=== PATIENT | male | born 1945 | race Hispanic/Latino ===

== ENCOUNTER 2017-09-29 11:57 | Inpatient (IN) | payer MEDICARE ==
[2017-09-29 13:06] LABS: Basophils # (Auto) 0.1 K/mm3 (0.0-0.1); Basophils % (Auto) 0.4 % (0.0-1.8); Eosinophils # (Auto) 0.1 K/mm3 (0.0-0.4); Eosinophils % (Auto) 0.8 % (0.0-4.3); Hematocrit 33.5 % (35.5-45.6); Hemoglobin 11.7 gm/dl (11.8-15.2); Lymphocytes # (Auto) 0.7 K/mm3 (1.2-5.4); Mean Corpuscular HGB Conc 35 % (32-34); Mean Corpuscular Hemoglobin 31 pg (28-32); Mean Corpuscular Volume 90 fl (84-94); Monocytes # (Auto) 1.3 K/mm3 (0.0-0.8); Monocytes % (Auto) 10.8 % (0.0-7.3); Platelet Count 254 K/mm3 (140-440); Red Blood Count 3.72 M/mm3 (3.65-5.03); Red Cell Distribution Width 15.4 % (13.2-15.2)
--- NOTE | 2017-09-29 13:17 | XRay Report ---
Single view chest: History: Shortness of breath/productive cough. Findings: Film in poor inspiration. Bibasilar atelectasis. No consolidation pneumothorax or pleural effusion. Impression: Bibasilar atelectasis.
[2017-09-29 13:18] LABS: INR 0.98 (0.87-1.13)
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
[2017-09-29 13:19] LABS: Partial Thromboplastin Time 29.4 Sec. (24.2-36.6)
[2017-09-29 13:23] LABS: Calcium 9.5 mg/dL (8.4-10.2)
--- NOTE | 2017-09-29 13:35 | Cat Scan Report ---
CT scan of head without IV contrast: History: Fall, hematoma. Findings: The ventricles are normal in size and midline in location. No evidence of acute ischemia, hemorrhage or mass. No extra-axial fluid collection. Normal brainstem and cerebellum. Normal visualized sinuses and mastoid air cells Impression: No acute intracranial abnormality.
[2017-09-29 13:47] LABS: Chol/HDL Ratio 2.87 %
[2017-09-29] MEDS ORDERED: NORCO 5/325 PO ONE (14:43)
--- NOTE | 2017-09-29 15:55 | XRay Report ---
FINAL REPORT EXAM: XR WRIST 2V RT HISTORY: fall/ RIGHT WRIST PAIN TECHNIQUE: 3 views of right wrist. PRIORS: None. FINDINGS: Diffuse osteopenia and degenerative change. Mildly complex, linear lucency and cortical discontinuity in the distal ulnar metadiaphysis No significant displacement, angulation or apparent dislocation. Postsurgical change and spacer device noted in the little finger metatarsal base region. Remainder of osseous and soft tissue structures grossly unremarkable. IMPRESSION: 1. Probable nondisplaced fracture right distal ulna.
--- NOTE | 2017-09-29 16:32 | Cat Scan Report ---
FINAL REPORT EXAM: CT LUMBAR SPINE WO CON HISTORY: fall TECHNIQUE: Spiral CT scanning of the lumbar spine, with axial and multiplanar reformations. PRIORS: None. FINDINGS: Diffuse osteopenia. Mild-moderate, probable intervertebral cartilaginous or Schmorl's node endplate changes in the L1 and L2 superior endplates. Multilevel degenerative disc disease and spondylosis, including vacuum disc changes in the L1-2 level. Degenerative changes also noted in the bilateral SI joints. No acute compression deformity or gross malalignment of lumbar vertebral bodies. No acute fracture identified. No acute, osseous central spinal canal encroachment. Paraspinal soft tissues grossly unremarkable. Diffuse aortoiliac calcification without aneurysmal dilatation. IMPRESSION: 1. No acute compression deformity or apparent fracture in the lumbar spine. 2. Degenerative spondylosis.
--- NOTE | 2017-09-29 16:43 | Cat Scan Report ---
FINAL REPORT EXAM: CT THORACIC SPINE WO CON HISTORY: fall TECHNIQUE: Spiral CT scanning of the thoracic spine with multiplanar reformations. PRIORS: None. FINDINGS: Diffuse osteopenia. Mild dextroconvex curvature may be positional versus soft tissue spasm. Multilevel degenerative disc disease and spondylosis. Fractures in left posterior ribs 9-12, probably acute or subacute. Multiple old fracture deformities in the right posterosuperior ribs. No acute compression deformity or gross malalignment of thoracic vertebral bodies. No other acute fracture identified. No acute, osseous central spinal canal encroachment. Paraspinal soft tissues grossly unremarkable. Visualized lung bases show mild and patchy, partially confluent opacities bilaterally, right greater than left. Nodular density in the left adrenal gland measures approximately 1.6 cm. Gallbladder surgically absent. IMPRESSION: 1. No acute compression deformity or apparent fracture in the thoracic spine. Diffuse degenerative spondylosis. 2. Fractures in left ribs 9-12, probably acute or subacute. Correlate clinically. 3. Findings which may represent bibasilar atelectasis, mild infiltrates or postinflammatory change of uncertain etiology or chronicity. 4. Left adrenal nodule may represent adenomatous change, but is indeterminate. Followup may be warranted.
--- NOTE | 2017-09-29 16:49 | XRay Report ---
FINAL REPORT EXAM: XR KNEE BILAT 1-2V HISTORY: fall/ BILATERAL KNEE PAIN TECHNIQUE: Frontal and lateral views of right and left knees. PRIORS: None. FINDINGS: Right knee: Old fracture deformity in the right distal femoral metadiaphysis and extensive postsurgical changes, including lateral compression screw plate fixation device and cerclage wires grossly intact. Status post right total knee arthroplasty also grossly intact. No acute fracture or dislocation. Mild, diffuse anterior soft tissue edema. Left knee: Degenerative changes in all 3 joint compartments, most pronounced in the medial joint space. Probable very small, suprapatellar joint effusion. No apparent fracture or dislocation. Soft tissues grossly unremarkable. IMPRESSION: 1. No acute osseous abnormality. 2. Postsurgical changes in the right knee, and degenerative changes in the left knee.
[2017-09-29] MEDS ORDERED: DUONEB *Not for PRN Use IH ONE (18:30)
[2017-09-29] MEDS ORDERED: ROCEPHIN/NS 1 GM/50 ML 1 GM/50 ML BAG IV ONE (18:30)
[2017-09-29] MEDS ORDERED: cefTRIAXone 1 GM in NACL 0.9% 20 ML IV ONE (18:45)
[2017-09-29] MEDS ORDERED: LEVAQUIN 750MG/150ML 750 MG/150 ML BAG IV ONE (18:54)
--- NOTE | 2017-09-29 19:06 | History and Physical Report ---
History of Present Illness Chief complaint: Falling, confused History of present illness: 72 YO Male Resident at [facility] with [address] at time of admission with HTN, CVA, GA, CHF, COPD, [place] on CPAP, Seizure Disorder, Depression, PTSD, Debility, nicotine Dependence, Recurrent Falls presents to ED for evaluation. Pt is confused and unable to provide detailed history. Pt history taken from ED staff, EMS, and [facility] staff. As per staff, the patient experienced pain in his back, arm, and chest after falling from a standing position and striking a wheelchair before landing on the floor. Pt seen and evaluated in ED and found to have NSTEMI, Sepsis secondary to Pneumonia, Right wrist fracture, Posterior Rib Fractures (nondisplaced). Pt admitted to telemetry. Cardiology consulted in ED. Past History Past Medical History: acute GA, COPD, heart failure, hypertension, seizures, stroke Past Surgical History: total knee replacement Social history: single, smoking Family history: hypertension Medications and Allergies Allergies Allergy/AdvReac Type Severity Reaction Status Date / Time naproxen [From Naprosyn] Allergy Unknown Verified 09/29/17 12:35 phenobarbital Allergy Unknown Verified 09/29/17 12:35 propranolol [From Inderal LA] Allergy Unknown Verified 09/29/17 12:35 Active Meds: Active Medications Levofloxacin/Dextrose (Levaquin 750mg/150ml) 750 mg in 150 mls @ 100 mls/hr IV ONCE ONE Stop: 09/29/17 20:23 Review of Systems ROS unobtainable: due to mental status Exam - Constitutional Vitals: Temp Pulse Resp BP Pulse Ox 97.4 F L 72 17 112/60 92 09/29/17 12:26 09/29/17 17:00 09/29/17 17:00 09/29/17 17:00 09/29/17 17:00 General appearance: Present: mild distress - EENT Eyes: Present: PERRL ENT: hearing intact, clear oral mucosa - Neck Neck: Present: supple, normal ROM - Respiratory Respiratory effort: labored Respiratory: bilateral: diminished - Cardiovascular Heart Sounds: Present: S1 & S2. Absent: rub, click - Extremities Extremities: pulses symmetrical, No edema Peripheral Pulses: abnormal (capillary refill greater than 3.6 seconds) - Abdominal General gastrointestinal: Present: soft, non-tender, non-distended, normal bowel sounds Male genitourinary: Present: normal - Rectal Rectal Exam: normal exam-external/orifice - Integumentary Integumentary: Present: clear, dry, decreased turgor - Musculoskeletal Musculoskeletal: generalized weakness - Psychiatric Psychiatric: no intact judgment & insight, no memory intact - Neurologic Neurologic: no gait normal Results - Labs CBC & Chem 7: 09/29/17 12:54 09/29/17 12:54 Labs: Abnormal lab results 09/29/17 09/29/17 09/29/17 Range/Units 12:54 12:54 14:58 WBC 12.4 H (4.5-11.0) K/mm3 Hgb 11.7 L (11.8-15.2) gm/dl Hct 33.5 L (35.5-45.6) % MCHC 35 H (32-34) % RDW 15.4 H (13.2-15.2) % Lymph % (Auto) 6.0 L (13.4-35.0) % [place] % (Auto) 10.8 H (0.0-7.3) % Lymph # 0.7 L (1.2-5.4) K/mm3 [place] # 1.3 H (0.0-0.8) K/mm3 Seg Neutrophils % 82.0 H (40.0-70.0) % Seg Neutrophils # 10.1 H (1.8-7.7) K/mm3 Sodium 133 L (137-145) mmol/L Chloride 90.9 L (98-107) mmol/L BUN 70 H (9-20) mg/dL Creatinine 2.0 H (0.8-1.5) mg/dL Glucose 336 H (75-100) mg/dL Total Creatine Kinase 348 H (55-170) units/L Troponin T 0.071 H 0.073 H (0.00-0.029) ng/mL 09/29/17 Range/Units 18:11 WBC (4.5-11.0) K/mm3 Hgb (11.8-15.2) gm/dl Hct (35.5-45.6) % MCHC (32-34) % RDW (13.2-15.2) % Lymph % (Auto) (13.4-35.0) % [place] % (Auto) (0.0-7.3) % Lymph # (1.2-5.4) K/mm3 [place] # (0.0-0.8) K/mm3 Seg Neutrophils % (40.0-70.0) % Seg Neutrophils # (1.8-7.7) K/mm3 Sodium (137-145) mmol/L Chloride (98-107) mmol/L BUN (9-20) mg/dL Creatinine (0.8-1.5) mg/dL Glucose (75-100) mg/dL Total Creatine Kinase (55-170) units/L Troponin T 0.073 H (0.00-0.029) ng/mL Assessment and Plan - Patient Problems (1) Sepsis Current Visit: Yes Status: Acute Qualifiers: Sepsis type: sepsis due to unspecified organism Qualified Code(s): A41.9 - Sepsis, unspecified organism Plan to address problem: Sepsis protocol: IV antibiotics, IVF resuscitation, monitor uop q shift, serial lactic acid, chest x ray, urinalysis, (2) NSTEMI (non-ST elevated myocardial infarction) Current Visit: Yes Status: Acute Plan to address problem: Cardilogy consulted in ED, serial cardiac enzymes, ekg, telemetry, echo, therapeutic lovenox. (3) Multiple rib fractures Current Visit: Yes Status: Acute Qualifiers: Encounter type: initial encounter Plan to address problem: pain control, incentive spirometry, chest x ray,Ortho consulted in ED as per ED physician. (4) Pneumonia Current Visit: Yes Status: Acute Qualifiers: Laterality: right Lung location: lower lobe of lung Plan to address problem: IV antibiotics, chest x ray, supplemental oxygen, incentive spirometry, (5) ARF (acute renal failure) Current Visit: Yes Status: Acute Qualifiers: Acute renal failure type: with acute tubular necrosis Qualified Code(s): N17.0 - Acute kidney failure with tubular necrosis Plan to address problem: IVF resuscitation, monitor uop q shift, monitor serum creatnine (6) CHF (congestive heart failure) Current Visit: Yes Status: Acute Qualifiers: Heart failure type: diastolic Heart failure chronicity: acute on chronic Qualified Code(s): I50.33 - Acute on chronic diastolic (congestive) heart failure Plan to address problem: Afterload reduction, monitor bp q shift, strict I/O, monitor fluid balance, diuresis as needed, pulse oximetry (7) Wrist fracture, right Current Visit: Yes Status: Acute Qualifiers: Encounter type: initial encounter Plan to address problem: Pain control, ortho consulted per ED physician. (8) Depression Current Visit: Yes Status: Acute Qualifiers: Depression Type: major depressive disorder Psychotic features: with psychotic features Plan to address problem: [address], psych consulted in ED, 1013, 1:1 Sitter as per protocol (9) DVT prophylaxis Current Visit: Yes Status: Acute Plan to address problem: scd to ble
[2017-09-29] MEDS ORDERED: NACL 0.9% 1000 ML IV ONE (19:50)
[2017-09-29] MEDS ORDERED: SODIUM CHLORIDE FLUSH SYRINGE 10 ML IV PRN ×2 (19:59→20:16)
[2017-09-29] MEDS ORDERED: ZOFRAN IV PRN (20:16)
[2017-09-29] MEDS ORDERED: TYLENOL PO PRN (20:16)
[2017-09-29] MEDS ORDERED: LOVENOX SUB-Q SCH (22:00)
[2017-09-29] MEDS: SODIUM CHLORIDE FLUSH SYRINGE 10 ML IV SCH (22:21)
[2017-09-29] MEDS ORDERED: HumuLIN R ONE (22:26)
[2017-09-29] MEDS: ZITHROMAX 500 MG in NACL 0.9% 250ML 250 ML IV SCH (22:34)
[2017-09-29] MEDS: HumuLIN R SUB-Q SCH (22:35)
--- NOTE | 2017-09-30 09:30 | Progress Note ---
Assessment and Plan Assessment and Plan - Patient Problems (1) Sepsis Current Visit: Yes Status: Acute Qualifiers: Sepsis type: sepsis due to unspecified organism Qualified Code(s): A41.9 - Sepsis, unspecified organism Plan to address problem: Sepsis protocol: IV antibiotics, IVF resuscitation, monitor uop q shift, serial lactic acid, chest x ray, urinalysis, (2) NSTEMI (non-ST elevated myocardial infarction) Current Visit: Yes Status: Acute Plan to address problem: Cardilogy consulted in ED, serial cardiac enzymes, ekg, telemetry, echo, therapeutic lovenox. (3) Multiple rib fractures Current Visit: Yes Status: Acute Qualifiers: Encounter type: initial encounter Plan to address problem: pain control, incentive spirometry, chest x ray,Ortho consulted in ED as per ED physician. (4) Pneumonia Current Visit: Yes Status: Acute Qualifiers: Laterality: right Lung location: lower lobe of lung Plan to address problem: IV antibiotics, chest x ray, supplemental oxygen, incentive spirometry, (5) ARF (acute renal failure) Current Visit: Yes Status: Acute Qualifiers: Acute renal failure type: with acute tubular necrosis Qualified Code(s): N17.0 - Acute kidney failure with tubular necrosis Plan to address problem: IVF resuscitation, monitor uop q shift, monitor serum creatnine (6) CHF (congestive heart failure) Current Visit: Yes Status: Acute Qualifiers: Heart failure type: diastolic Heart failure chronicity: acute on chronic Qualified Code(s): I50.33 - Acute on chronic diastolic (congestive) heart failure Plan to address problem: Afterload reduction, monitor bp q shift, strict I/O, monitor fluid balance, diuresis as needed, pulse oximetry (7) Wrist fracture, right Current Visit: Yes Status: Acute Qualifiers: Encounter type: initial encounter Plan to address problem: Pain control, ortho consulted per ED physician. (8) Depression Current Visit: Yes Status: Acute Qualifiers: Depression Type: major depressive disorder Psychotic features: with psychotic features Plan to address problem: [address]3 in place, psych consulted in ED, 1013, 1:1 Sitter as per protocol (9) DVT prophylaxis Current Visit: Yes Status: Acute Plan to address problem: scd to ble Subjective Date of service: 09/30/17 Principal diagnosis: Sepsis Interval history: Doing better Objective - Constitutional Vitals: Vital Signs - 12hr 09/29/17 09/29/17 09/29/17 22:00 23:44 23:45 Temperature 98.6 F Pulse Rate 83 91 H Respiratory 16 20 Rate Blood Pressure 136/94 131/56 Blood Pressure [Left] O2 Sat by Pulse 93 90 Oximetry 09/30/17 09/30/17 09/30/17 00:00 01:00 04:00 Temperature 98.2 F Pulse Rate 76 99 H Respiratory 20 Rate Blood Pressure 124/57 Blood Pressure [Left] O2 Sat by Pulse 98 91 Oximetry 09/30/17 09/30/17 04:01 07:43 Temperature 98.1 F Pulse Rate 100 H 97 H Respiratory 20 Rate Blood Pressure Blood Pressure 127/69 [Left] O2 Sat by Pulse 92 92 Oximetry General appearance: Present: no acute distress, well-nourished - EENT Eyes: PERRL, EOM intact ENT: hearing intact, clear oral mucosa Ears: bilateral: normal - Neck Neck: supple, normal ROM - Respiratory Respiratory effort: normal Respiratory: bilateral: CTA - Breasts Breasts: normal - Cardiovascular Rhythm: regular Heart Sounds: Present: S1 & S2. Absent: gallop, rub Extremities: pulses intact, No edema, normal color, Full ROM - Gastrointestinal General gastrointestinal: Present: soft, non-tender, non-distended, normal bowel sounds - Genitourinary Male genitourinary: normal - Integumentary Integumentary: clear, warm, dry - Musculoskeletal Musculoskeletal: 1, strength equal bilaterally - Neurologic Neurologic: moves all extremities - Psychiatric Psychiatric: memory intact, appropriate mood/affect, intact judgment & insight - Labs CBC & Chem 7: 09/29/17 12:54 09/29/17 12:54 Labs: Abnormal lab results 09/29/17 09/29/17 09/29/17 Range/Units 12:54 12:54 14:58 WBC 12.4 H (4.5-11.0) K/mm3 Hgb 11.7 L (11.8-15.2) gm/dl Hct 33.5 L (35.5-45.6) % MCHC 35 H (32-34) % RDW 15.4 H (13.2-15.2) % Lymph % (Auto) 6.0 L (13.4-35.0) % [place] % (Auto) 10.8 H (0.0-7.3) % Lymph # 0.7 L (1.2-5.4) K/mm3 [place] # 1.3 H (0.0-0.8) K/mm3 Seg Neutrophils % 82.0 H (40.0-70.0) % Seg Neutrophils # 10.1 H (1.8-7.7) K/mm3 D-Dimer (0-234) ng/mlDDU Sodium 133 L (137-145) mmol/L Chloride 90.9 L (98-107) mmol/L BUN 70 H (9-20) mg/dL Creatinine 2.0 H (0.8-1.5) mg/dL Glucose 336 H (75-100) mg/dL POC Glucose (70-105) Total Creatine Kinase 348 H (55-170) units/L Troponin T 0.071 H 0.073 H (0.00-0.029) ng/mL 09/29/17 09/29/17 09/29/17 Range/Units 18:11 18:37 19:19 WBC (4.5-11.0) K/mm3 Hgb (11.8-15.2) gm/dl Hct (35.5-45.6) % MCHC (32-34) % RDW (13.2-15.2) % Lymph % (Auto) (13.4-35.0) % [place] % (Auto) (0.0-7.3) % Lymph # (1.2-5.4) K/mm3 [place] # (0.0-0.8) K/mm3 Seg Neutrophils % (40.0-70.0) % Seg Neutrophils # (1.8-7.7) K/mm3 D-Dimer 2801.11 H (0-234) ng/mlDDU Sodium (137-145) mmol/L Chloride (98-107) mmol/L BUN (9-20) mg/dL Creatinine (0.8-1.5) mg/dL Glucose (75-100) mg/dL POC Glucose (70-105) Total Creatine Kinase (55-170) units/L Troponin T 0.073 H 0.074 H (0.00-0.029) ng/mL 05/20/18 05/20/18 05/21/18 Range/Units 22:22 23:00 02:38 WBC (4.5-11.0) K/mm3 Hgb (11.8-15.2) gm/dl Hct (35.5-45.6) % MCHC (32-34) % RDW (13.2-15.2) % Lymph % (Auto) (13.4-35.0) % [place] % (Auto) (0.0-7.3) % Lymph # (1.2-5.4) K/mm3 [place] # (0.0-0.8) K/mm3 Seg Neutrophils % (40.0-70.0) % Seg Neutrophils # (1.8-7.7) K/mm3 D-Dimer (0-234) ng/mlDDU Sodium (137-145) mmol/L Chloride (98-107) mmol/L BUN (9-20) mg/dL Creatinine (0.8-1.5) mg/dL Glucose (75-100) mg/dL POC Glucose 389 H (70-105) Total Creatine Kinase (55-170) units/L Troponin T 0.058 H D 0.064 H (0.00-0.029) ng/mL
[2017-09-30] MEDS ORDERED: ROCEPHIN/NS 2 GM/100 ML 2 GM/100 ML BAG IV SCH (10:00)
[2017-09-30] MEDS: HumuLIN R SUB-Q SCH ×4 (12:06→21:33)
[2017-09-30] MEDS: LOVENOX SUB-Q SCH ×2 (12:34→21:12)
[2017-09-30] MEDS: SODIUM CHLORIDE FLUSH SYRINGE 10 ML IV SCH ×2 (12:35→21:13)
--- NOTE | 2017-09-30 13:37 | Consultation ---
History of Present Illness Consult date: 09/30/17 Consult reason: abnormal cardiac enzymes, other (status post fall at home) History of present illness: The patient is a 72-year-old man with severe psychiatric problems, currently hospitalized at [facility] [place]. He was apparently brought to the emergency room following a fall out of his wheelchair, resulting in multiple bruises on his upper arms, chest and face. On my evaluation, the patient appears poorly communicative, with very poor cognitive functioning, to complete any symptoms. In the emergency room, for unclear reasons cardiac enzymes were measured and resulted in very mild isolated rising troponin levels, prompting a cardiac consultation. Serial EKGs show sinus rhythm with no ischemic changes. Patient is unable to provide a history of any prior cardiac conditions or prior cardiac workup. Documentation of cardiac status in the chart does not provide any specific details of prior cardiac diagnostic workup. Past History Past Medical History: COPD, hypertension, seizures, stroke Past Surgical History: total knee replacement Social history: single, smoking Family history: hypertension Medications and Allergies Allergies Allergy/AdvReac Type Severity Reaction Status Date / Time naproxen [From Naprosyn] Allergy Unknown Verified 09/29/17 12:35 phenobarbital Allergy Unknown Verified 09/29/17 12:35 propranolol [From Inderal LA] Allergy Unknown Verified 09/29/17 12:35 Home Medications Medication Instructions Recorded Confirmed Last Taken Type No Known Home Medications [No 09/30/17 09/30/17 Unknown History Reported Home Medications] Active Meds: Active Medications Acetaminophen (Tylenol) 650 mg PO Q4H PRN PRN Reason: Pain MILD(1-3)/Fever >100.5/RUIZ Enoxaparin Sodium (Lovenox) 120 mg 1 mg/kg (120 mg) SUB-Q Q12HR [facility] Last Admin: 09/30/17 12:34 Dose: 120 mg Azithromycin 500 mg/ Sodium (Chloride) 250 mls @ 250 mls/hr IV Q24H [facility] Last Admin: 09/29/17 22:34 Dose: 250 mls/hr Ceftriaxone Sodium 2 gm/ (Sodium Chloride) 20 mls @ 2 mls/min IV Q24H [facility] Insulin Human Regular (Humulin R) 0 units SUB-Q ACHS [facility]; Protocol Last Admin: 09/30/17 12:33 Dose: 10 units Ondansetron HCl (Zofran) 4 mg IV Q8H PRN PRN Reason: Nausea And Vomiting Sodium Chloride (Sodium Chloride Flush Syringe 10 Ml) 10 ml IV PRN PRN PRN Reason: LINE FLUSH Sodium Chloride (Sodium Chloride Flush Syringe 10 Ml) 10 ml IV BID [facility] Last Admin: 09/30/17 12:35 Dose: Not Given Sodium Chloride (Sodium Chloride Flush Syringe 10 Ml) 10 ml IV PRN PRN PRN Reason: LINE FLUSH Physical Examination Vital Signs Pulse Ox 100 09/29/17 12:11 General appearance: other (patient is awake in no acute distress) HEENT: Positive: PERRL Neck: Positive: neck supple Cardiac: Positive: Reg Rate and Rhythm Lungs: Positive: Decreased Breath Sounds Neuro: Positive: Weakness, Other (awake but disoriented to time, place and person) Abdomen: Positive: Soft Male genitourinary: Positive: deferred Skin: Positive: Clear Extremities: Absent: edema Results 10/01/17 06:16 10/01/17 06:16 Lipids 09/29/17 Range/Units 12:54 Triglycerides 134 (2-149) mg/dL Cholesterol 118 (50-199) mg/dL HDL Cholesterol 41 (40-59) mg/dL Cholesterol/HDL Ratio 2.87 % EKG interpretations - Telemetry EKG Rhythm: Sinus Rhythm Assessment and Plan - Patient Problems (1) Elevated troponin Current Visit: Yes Status: Acute Plan to address problem: This is a nonspecific finding in this clinical setting, in the absence of specific cardiac complaints or ECG abnormalities, no cardiac ischemic workup is warranted. An echocardiogram will be done for left ventricular function assessment.
[2017-09-30] MEDS ORDERED: HumuLIN R SUB-Q ONE (17:32)
[2017-09-30] MEDS: ZITHROMAX 500 MG in NACL 0.9% 250ML 250 ML IV SCH (21:13)
[2017-09-30] MEDS: cefTRIAXone 2 GM in NACL 0.9% 20 ML IV SCH (21:26)
--- NOTE | 2017-09-30 21:50 | Consultation ---
History of Present Illness - [facility] Consult date: 09/30/17 Consult reason: fracture History of present illness: 72 y/o male with nondisplaced right distal ulna fracture, hx of psychosis patient unable to recall incident leading up to fracture... Past History Past Medical History: acute [place], COPD, heart failure, hypertension, seizures, stroke Past Surgical History: total knee replacement Social history: single, smoking Family history: hypertension Medications and Allergies Allergies Allergy/AdvReac Type Severity Reaction Status Date / Time naproxen [From Naprosyn] Allergy Unknown Verified 09/29/17 12:35 phenobarbital Allergy Unknown Verified 09/29/17 12:35 propranolol [From Inderal LA] Allergy Unknown Verified 09/29/17 12:35 Home Medications Medication Instructions Recorded Confirmed Last Taken Type No Known Home Medications [No 09/30/17 09/30/17 Unknown History Reported Home Medications] Active Meds: Active Medications Acetaminophen (Tylenol) 650 mg PO Q4H PRN PRN Reason: Pain MILD(1-3)/Fever >100.5/RUIZ Enoxaparin Sodium (Lovenox) 120 mg 1 mg/kg (120 mg) SUB-Q Q12HR [facility] Last Admin: 09/30/17 21:12 Dose: 120 mg Azithromycin 500 mg/ Sodium (Chloride) 250 mls @ 250 mls/hr IV Q24H [facility] Last Admin: 09/30/17 21:13 Dose: 250 mls/hr Ceftriaxone Sodium 2 gm/ (Sodium Chloride) 20 mls @ 2 mls/min IV Q24H [facility] Last Admin: 09/30/17 21:26 Dose: 2 mls/min Insulin Human Regular (Humulin R) 0 units SUB-Q ACHS [facility]; Protocol Last Admin: 09/30/17 21:33 Dose: 8 units Ondansetron HCl (Zofran) 4 mg IV Q8H PRN PRN Reason: Nausea And Vomiting Sodium Chloride (Sodium Chloride Flush Syringe 10 Ml) 10 ml IV PRN PRN PRN Reason: LINE FLUSH Sodium Chloride (Sodium Chloride Flush Syringe 10 Ml) 10 ml IV BID [facility] Last Admin: 09/30/17 21:13 Dose: 10 ml Sodium Chloride (Sodium Chloride Flush Syringe 10 Ml) 10 ml IV PRN PRN PRN Reason: LINE FLUSH Physical Examination - Physical exam Narrative exam: right wrist/forearm - mild swelling, no obvious deformity, tender at distal third ulna, good capillary refill... Assessment and Plan Nondisplaced distal ulnar fracture recommend conservative treatment with wrist brace and early ROM
[2017-10-01 06:42] LABS: Hematocrit 34.3 % (35.5-45.6); Hemoglobin 11.8 gm/dl (11.8-15.2); Mean Corpuscular HGB Conc 34 % (32-34); Mean Corpuscular Hemoglobin 31 pg (28-32); Mean Corpuscular Volume 92 fl (84-94); Platelet Count 339 K/mm3 (140-440); Red Blood Count 3.74 M/mm3 (3.65-5.03); Red Cell Distribution Width 15.2 % (13.2-15.2)
[2017-10-01 06:52] LABS: INR 1.04 (0.87-1.13)
[2017-10-01 06:53] LABS: Partial Thromboplastin Time 35.4 Sec. (24.2-36.6)
[2017-10-01 07:05] LABS: Albumin 3.4 g/dL (3.9-5); Calcium 8.9 mg/dL (8.4-10.2)
[2017-10-01 08:32] LABS: Band Neutrophils # (Manual) 0.1 K/mm3; Basophils % (Manual) 0 % (0.0-1.8); Total Cells Counted 100
[2017-10-01 08:33] LABS: Acanthocytes 1+; Anisocytosis 1+; Burr Cells Few; Ovalocytes 1+; Tear Drop Cells Rare
[2017-10-01] MEDS: HumuLIN R SUB-Q SCH ×3 (08:39→16:39)
[2017-10-01] MEDS: LOVENOX SUB-Q SCH (10:29)
--- NOTE | 2017-10-01 11:41 | Consultation ---
History of Present Illness - Reason for Consult Consult date: 10/01/17 Reason for consult: [facility] Evaluation Requesting physician: JIMENA GUTIÉRREZ - Chief Complaint Chief complaint: "AMS" - History of Present Psychiatric Illness 72 y.o. white male presenting to [facility] from [facility] for HTN, CVA, VA, CHF , COPD, and recurring falls. Psychiatry was consulted to see patient for medication management. Today the patient is confused during the assessment. His answers to question were not logical. He stated that he was located in [place], [place]. This patient isn't a good historian at this time. Medications and Allergies Allergies Allergy/AdvReac Type Severity Reaction Status Date / Time naproxen [From Naprosyn] Allergy Unknown Verified 09/29/17 12:35 phenobarbital Allergy Unknown Verified 09/29/17 12:35 propranolol [From Inderal LA] Allergy Unknown Verified 09/29/17 12:35 Home Medications Medication Instructions Recorded Confirmed Last Taken Type No Known Home Medications [No 09/30/17 09/30/17 Unknown History Reported Home Medications] Active Meds: Active Medications Acetaminophen (Tylenol) 650 mg PO Q4H PRN PRN Reason: Pain MILD(1-3)/Fever >100.5/RUIZ Enoxaparin Sodium (Lovenox) 120 mg 1 mg/kg (120 mg) SUB-Q Q12HR [facility] Last Admin: 09/30/17 21:12 Dose: 120 mg Azithromycin 500 mg/ Sodium (Chloride) 250 mls @ 250 mls/hr IV Q24H [facility] Last Admin: 09/30/17 21:13 Dose: 250 mls/hr Ceftriaxone Sodium 2 gm/ (Sodium Chloride) 20 mls @ 2 mls/min IV Q24H [facility] Last Admin: 09/30/17 21:26 Dose: 2 mls/min Insulin Human Regular (Humulin R) 0 units SUB-Q ACHS [facility]; Protocol Last Admin: 10/01/17 08:39 Dose: 10 units Ondansetron HCl (Zofran) 4 mg IV Q8H PRN PRN Reason: Nausea And Vomiting Sodium Chloride (Sodium Chloride Flush Syringe 10 Ml) 10 ml IV PRN PRN PRN Reason: LINE FLUSH Sodium Chloride (Sodium Chloride Flush Syringe 10 Ml) 10 ml IV BID [facility] BY [facility] Last Admin: 09/30/17 21:13 Dose: 10 ml Sodium Chloride (Sodium Chloride Flush Syringe 10 Ml) 10 ml IV PRN PRN PRN Reason: LINE FLUSH Past psychiatric history - Past Medical History Past Medical History: other (Unable to obtain) Past Surgical History: Other (Unable to obtain) - past Psychiatric treatment and history psychiatric treatment history: Inpatient at [facility] prior to his admission to [facility]. Unable to obtain a fam psy hx. - Social History Social history: other (Unable to obtain) Mental Status Exam - Vital signs Last Vital Signs Temp 98.6 F 10/01/17 08:23 Pulse 114 H 10/01/17 08:23 Resp 22 10/01/17 08:23 BP 106/67 10/01/17 08:23 Pulse Ox 96 10/01/17 09:11 - Exam Narrative exam: The MSE was not completed because of patient's condition. Results Result Diagrams: 10/01/17 06:16 10/01/17 06:16 Abnormal lab results 09/30/17 09/30/17 09/30/17 Range/Units 12:07 16:24 21:25 WBC (4.5-11.0) K/mm3 Hct (35.5-45.6) % Seg Neuts % (Manual) (40.0-70.0) % Lymphocytes % (Manual) (13.4-35.0) % Seg Neutrophils # Man (1.8-7.7) K/mm3 Lymphocytes # (Manual) (1.2-5.4) K/mm3 Potassium (3.6-5.0) mmol/L Chloride (98-107) mmol/L BUN (9-20) mg/dL Glucose (75-100) mg/dL POC Glucose 387 H 431 H 326 H (70-105) Total Protein (6.3-8.2) g/dL Albumin (3.9-5) g/dL 10/01/17 10/01/17 10/01/17 Range/Units 06:16 06:16 06:30 WBC 14.0 H (4.5-11.0) K/mm3 Hct 34.3 L (35.5-45.6) % Seg Neuts % (Manual) 87.0 H (40.0-70.0) % Lymphocytes % (Manual) 7.0 L (13.4-35.0) % Seg Neutrophils # Man 12.2 H (1.8-7.7) K/mm3 Lymphocytes # (Manual) 1.0 L (1.2-5.4) K/mm3 Potassium 3.4 L (3.6-5.0) mmol/L Chloride 94.7 L (98-107) mmol/L BUN 62 H (9-20) mg/dL Glucose 432 H (75-100) mg/dL POC Glucose 419 H (70-105) Total Protein 6.0 L (6.3-8.2) g/dL Albumin 3.4 L (3.9-5) g/dL All other labs normal. Assessment and Plan Assessment and plan: Impression: Delirium. Today the patient is confused during the assessment. Troponin elevated. WBC 14. BUN 62. Medical: Sepsis Recommendation/Plan: Will reassess patient in 24 hours. Recommend Delirium precautions below: 1. Frequently reorient patient and involve him/her in their care (simple explanations of procedures, tests, medications). 2. Lights on and shades open during daytime hours. 3. Write date and goals of care in a visible place. 4. Try to avoid unnecessary interruptions to sleep during nighttime hours. 5. Obtain glasses, hearing aids from home if patient uses these at baseline. 6. Avoid medications that may exacerbate delirium (especially narcotics, benzodiazepines, barbiturates, ambien, lunesta, and medications with excessive anticholinergic properties).
--- NOTE | 2017-10-01 12:35 | Progress Note ---
Assessment and Plan s/p Fall Multiple Left rib fractures Nondisplaced distal ulnar fracture Alteration of mental status Nonspecific elevated troponins Normal LVEF 60-65% by echocardiogram. Subjective Date of service: 10/01/17 Principal diagnosis: Sepsis Interval history: Patient is alert with confusion. Objective Vital Signs Temp Pulse Resp BP BP Pulse Ox 10/01/17 11:17 98.6 F 115 H 20 144/74 94 10/01/17 09:11 96 10/01/17 08:23 98.6 F 114 H 22 106/67 95 10/01/17 04:51 98.2 F 84 18 149/83 98 10/01/17 00:14 98.9 F 92 H 18 149/83 92 10/01/17 00:00 95 H 09/30/17 22:00 97 09/30/17 19:50 97.7 F 95 H 18 154/106 94 09/30/17 19:17 93 H 154/106 95 09/30/17 16:00 98.2 F 96 H 22 149/62 93 09/30/17 14:53 96 - Physical Examination General: No Apparent Distress Cardiac: Positive: Reg Rate and Rhythm Skin: Positive: Bruising - Labs and Meds Cardiac Enzymes 10/01/17 Range/Units 06:16 AST 15 (5-40) units/L Coagulation 10/01/17 Range/Units 06:31 PT 14.1 (12.2-14.9) Sec. INR 1.04 (0.87-1.13) APTT 35.4 (24.2-36.6) Sec. CBC 10/01/17 Range/Units 06:16 WBC 14.0 H (4.5-11.0) K/mm3 RBC 3.74 (3.65-5.03) M/mm3 Hgb 11.8 (11.8-15.2) gm/dl Hct 34.3 L (35.5-45.6) % Plt Count 339 (140-440) K/mm3 Comprehensive Metabolic Panel 10/01/17 Range/Units 06:16 Sodium 142 D (137-145) mmol/L Potassium 3.4 L (3.6-5.0) mmol/L Chloride 94.7 L (98-107) mmol/L Carbon Dioxide 27 (22-30) mmol/L BUN 62 H (9-20) mg/dL Creatinine 1.4 (0.8-1.5) mg/dL Glucose 432 H (75-100) mg/dL Calcium 8.9 (8.4-10.2) mg/dL AST 15 (5-40) units/L ALT 14 (7-56) units/L Alkaline Phosphatase 86 (35-129) units/L Total Protein 6.0 L (6.3-8.2) g/dL Albumin 3.4 L (3.9-5) g/dL
[2017-10-01] MEDS ORDERED: D50W (25GM) Syringe IV PRN (16:44)
[2017-10-01] MEDS: ZITHROMAX PO SCH (16:46)
--- NOTE | 2017-10-01 16:51 | Progress Note ---
Assessment and Plan Assessment and plan: Patient is a 72 yo man who is a resident at [facility] under 1013 with h/o HTN, CVA, CT, CHF, COPD, CAMILLE on CPAP, Seizure Disorder, Depression, PTSD, Debility, nicotine Dependence, Recurrent Falls presents to ED for confusion and falling, * pCXR Impression: Bibasilar atelectasis. * CT lumbar spine wo IMPRESSION: 1. No acute compression deformity or apparent fracture in the lumbar spine. 2. Degenerative spondylosis. * XRay bilateral knee IMPRESSION: 1. No acute osseous abnormality. 2. Postsurgical changes in the right knee, and degenerative changes in the left knee. * Xray 3v right wrist IMPRESSION: 1. Probable nondisplaced fracture right distal ulna. * CT head Impression: No acute intracranial abnormality. * CT thoracic spine wo IMPRESSION: 1. No acute compression deformity or apparent fracture in the thoracic spine. Diffuse degenerative spondylosis. 2. Fractures in left ribs 9-12, probably acute or subacute. Correlate clinically. 3. Findings which may represent bibasilar atelectasis, mild infiltrates or postinflammatory change of uncertain etiology or chronicity. 4. Left adrenal nodule may represent adenomatous change, but is indeterminate. Followup may be warranted. -SIRS, no sepsis without source, ua not collected: Sepsis protocol: IV antibiotics, IVF resuscitation, monitor uop q shift, serial lactic acid, chest x ray, urinalysis, -no NSTEMI (non-ST elevated myocardial infarction) but non specificed elevation of troponin per Cardiology -s/p Fall with Multiple rib fractures/right wrist fracture: Conservative measures per Ortho -No pneumonia mention on CXR: -ARF (acute renal failure), vasomotor nephropathy poa: ivf once peripheral INT is re-established -Acute encephalopathy: treat the above issues -no CHF (congestive heart failure) mentioned per Cardiology, normal proBnp and cxr -Depression: [address], psych consulted in ED, 1013, 1:1 Sitter as per protocol -DVT prophylaxis: scd to ble, deep bruising and diffuse ecchymosis so hold vte due to fall risk Restraint renewed Normal LVEF 60-65% by echocardiogram. ortho, Dr. Lal==>Nondisplaced distal ulnar fracture, recommend conservative treatment with wrist brace and early ROM History Interval history: Patient was seen and examined. Follow-up on current diagnosis. Overnight uneventful. Patient is confused. Imaging, nursing note, chart, labs and old chart reviewed. Hospitalist Physical - Physical exam Narrative exam: GEN: unkempt, confused, HEENT: NCAT, EOMI, PERRL, OP Clear NECK: supple, no adenopathy, no thyromegaly, no JVD CVS/HEART: RRR, normal S1S2, pulses present bilaterally CHEST/LUNGS: CTA B, Symmetrical chest expansion, good air entry bilaterally GI/Abdomen: soft, NTND, good bowel sounds, no guarding or rebound /Bladder: no suprapubic tenderness, no CVA or paraspinal tenderness EXT/Skin: black and blue all over, especially left upper bicep area with deformity MSK: FROM x 4 Neuro: CN 2-12 grossly intact, doesn't follow command Psych: agitated, ripped his iv line - Constitutional Vitals: Temp Pulse Resp BP Pulse Ox 98.6 F 115 H 20 144/74 94 10/01/17 11:17 10/01/17 11:17 10/01/17 11:17 10/01/17 11:17 10/01/17 11:17 General appearance: Present: no acute distress, well-nourished Results - Labs CBC & Chem 7: 10/01/17 06:16 10/01/17 06:16 Labs: Laboratory Last Values WBC 14.0 K/mm3 (4.5-11.0) H 10/01/17 06:16 RBC 3.74 M/mm3 (3.65-5.03) 10/01/17 06:16 Hgb 11.8 gm/dl (11.8-15.2) 10/01/17 06:16 Hct 34.3 % (35.5-45.6) L 10/01/17 06:16 MCV 92 fl (84-94) 10/01/17 06:16 MCH 31 pg (28-32) 10/01/17 06:16 MCHC 34 % (32-34) 10/01/17 06:16 RDW 15.2 % (13.2-15.2) 10/01/17 06:16 Plt Count 339 K/mm3 (140-440) 10/01/17 06:16 Lymph % (Auto) 6.0 % (13.4-35.0) L 09/29/17 12:54 [place] % (Auto) 10.8 % (0.0-7.3) H 09/29/17 12:54 Eos % (Auto) 0.8 % (0.0-4.3) 09/29/17 12:54 Baso % (Auto) 0.4 % (0.0-1.8) 09/29/17 12:54 Lymph # 0.7 K/mm3 (1.2-5.4) L 09/29/17 12:54 [place] # 1.3 K/mm3 (0.0-0.8) H 09/29/17 12:54 Eos # 0.1 K/mm3 (0.0-0.4) 09/29/17 12:54 Baso # 0.1 K/mm3 (0.0-0.1) 09/29/17 12:54 Add Manual Diff Complete 10/01/17 06:16 Total Counted 100 10/01/17 06:16 Seg Neutrophils % 82.0 % (40.0-70.0) H 09/29/17 12:54 Seg Neuts % (Manual) 87.0 % (40.0-70.0) H 10/01/17 06:16 Band Neutrophils % 1.0 % 10/01/17 06:16 Lymphocytes % (Manual) 7.0 % (13.4-35.0) L 10/01/17 06:16 Reactive Lymphs % (Man) 0 % 10/01/17 06:16 Monocytes % (Manual) 3.0 % (0.0-7.3) 10/01/17 06:16 Eosinophils % (Manual) 1.0 % (0.0-4.3) 10/01/17 06:16 Basophils % (Manual) 0 % (0.0-1.8) 10/01/17 06:16 Metamyelocytes % 1.0 % 10/01/17 06:16 Myelocytes % 0 % 10/01/17 06:16 Promyelocytes % 0 % 10/01/17 06:16 Blast Cells % 0 % 10/01/17 06:16 Nucleated RBC % Not Reportable 10/01/17 06:16 Seg Neutrophils # 10.1 K/mm3 (1.8-7.7) H 09/29/17 12:54 Seg Neutrophils # Man 12.2 K/mm3 (1.8-7.7) H 10/01/17 06:16 Band Neutrophils # 0.1 K/mm3 10/01/17 06:16 Lymphocytes # (Manual) 1.0 K/mm3 (1.2-5.4) L 10/01/17 06:16 Abs React Lymphs (Man) 0.0 K/mm3 10/01/17 06:16 Monocytes # (Manual) 0.4 K/mm3 (0.0-0.8) 10/01/17 06:16 Eosinophils # (Manual) 0.1 K/mm3 (0.0-0.4) 10/01/17 06:16 Basophils # (Manual) 0.0 K/mm3 (0.0-0.1) 10/01/17 06:16 Metamyelocytes # 0.1 K/mm3 10/01/17 06:16 Myelocytes # 0.0 K/mm3 10/01/17 06:16 Promyelocytes # 0.0 K/mm3 10/01/17 06:16 Blast Cells # 0.0 K/mm3 10/01/17 06:16 WBC Morphology Not Reportable 10/01/17 06:16 Hypersegmented Neuts Not Reportable 10/01/17 06:16 Hyposegmented Neuts Not Reportable 10/01/17 06:16 Hypogranular Neuts Not Reportable 10/01/17 06:16 Smudge Cells Not Reportable 10/01/17 06:16 Toxic Granulation Not Reportable 10/01/17 06:16 Toxic Vacuolation Not Reportable 10/01/17 06:16 Dohle Bodies Not Reportable 10/01/17 06:16 Pelger-Huet Anomaly Not Reportable 10/01/17 06:16 Albertina Rods Not Reportable 10/01/17 06:16 Platelet Estimate Appears normal 10/01/17 06:16 Clumped Platelets Not Reportable 10/01/17 06:16 Plt Clumps, EDTA Not Reportable 10/01/17 06:16 Large Platelets Not Reportable 10/01/17 06:16 Giant Platelets Not Reportable 10/01/17 06:16 Platelet Satelliting Not Reportable 10/01/17 06:16 Plt Morphology Comment Not Reportable 10/01/17 06:16 RBC Morphology Not Reportable 10/01/17 06:16 Dimorphic RBCs Not Reportable 10/01/17 06:16 Polychromasia Not Reportable 10/01/17 06:16 Hypochromasia Not Reportable 10/01/17 06:16 Poikilocytosis Not Reportable 10/01/17 06:16 Anisocytosis 1+ 10/01/17 06:16 Microcytosis Not Reportable 10/01/17 06:16 Macrocytosis Not Reportable 10/01/17 06:16 Spherocytes Not Reportable 10/01/17 06:16 Pappenheimer Bodies Not Reportable 10/01/17 06:16 Sickle Cells Not Reportable 10/01/17 06:16 Target Cells Not Reportable 10/01/17 06:16 Tear Drop Cells Rare 10/01/17 06:16 Ovalocytes 1+ 10/01/17 06:16 Helmet Cells Not Reportable 10/01/17 06:16 Garcia-[place] Bodies Not Reportable 10/01/17 06:16 [place] Rings Not Reportable 10/01/17 06:16 [place] Cells Few 10/01/17 06:16 Bite Cells Not Reportable 10/01/17 06:16 Crenated Cell Not Reportable 10/01/17 06:16 Elliptocytes Rare 10/01/17 06:16 Acanthocytes (Spur) 1+ 10/01/17 06:16 Rouleaux Not Reportable 10/01/17 06:16 Hemoglobin C Crystals Not Reportable 10/01/17 06:16 Schistocytes Not Reportable 10/01/17 06:16 Malaria parasites Not Reportable 10/01/17 06:16 [place] Bodies Not Reportable 10/01/17 06:16 Hem Pathologist Commnt No 10/01/17 06:16 PT 14.1 Sec. (12.2-14.9) 10/01/17 06:31 INR 1.04 (0.87-1.13) 10/01/17 06:31 APTT 35.4 Sec. (24.2-36.6) 10/01/17 06:31 D-Dimer 2801.11 ng/mlDDU (0-234) H 09/29/17 19:19 Sodium 142 mmol/L (137-145) D 10/01/17 06:16 Potassium 3.4 mmol/L (3.6-5.0) L 10/01/17 06:16 Chloride 94.7 mmol/L (98-107) L 10/01/17 06:16 Carbon Dioxide 27 mmol/L (22-30) 10/01/17 06:16 Anion Gap 24 mmol/L 10/01/17 06:16 BUN 62 mg/dL (9-20) H 10/01/17 06:16 Creatinine 1.4 mg/dL (0.8-1.5) 10/01/17 06:16 Estimated GFR 50 ml/min 10/01/17 06:16 BUN/Creatinine Ratio 44 % 10/01/17 06:16 Glucose 432 mg/dL (75-100) H 10/01/17 06:16 POC Glucose 419 (70-105) H 10/01/17 06:30 Lactic Acid 1.80 mmol/L (0.7-2.0) 09/30/17 02:38 Calcium 8.9 mg/dL (8.4-10.2) 10/01/17 06:16 Total Bilirubin 0.70 mg/dL (0.1-1.2) 10/01/17 06:16 AST 15 units/L (5-40) 10/01/17 06:16 ALT 14 units/L (7-56) 10/01/17 06:16 Alkaline Phosphatase 86 units/L (35-129) 10/01/17 06:16 Total Creatine Kinase 348 units/L (55-170) H 09/29/17 14:58 Troponin T 0.064 ng/mL (0.00-0.029) H 09/30/17 02:38 NT-Pro-B Natriuret Pep 230.9 pg/mL (0-900) 09/29/17 18:37 Total Protein 6.0 g/dL (6.3-8.2) L 10/01/17 06:16 Albumin 3.4 g/dL (3.9-5) L 10/01/17 06:16 Albumin/Globulin Ratio 1.3 % 10/01/17 06:16 Triglycerides 134 mg/dL (2-149) 09/29/17 12:54 Cholesterol 118 mg/dL (50-199) 09/29/17 12:54 LDL Cholesterol Direct 57 mg/dL (50-130) 09/29/17 12:54 HDL Cholesterol 41 mg/dL (40-59) 09/29/17 12:54 Cholesterol/HDL Ratio 2.87 % 09/29/17 12:54
[2017-10-01] MEDS: HumaLOG SUB-Q SCH (18:26)
[2017-10-01] MEDS: cefTRIAXone 2 GM in NACL 0.9% 20 ML IV SCH (19:00)
[2017-10-02] MEDS: cefTRIAXone 2 GM in NACL 0.9% 20 ML IV SCH ×2 (00:38→17:59)
[2017-10-02] MEDS: LOVENOX SUB-Q SCH ×2 (00:38→21:21)
[2017-10-02] MEDS: SODIUM CHLORIDE FLUSH SYRINGE 10 ML IV SCH ×4 (00:39→21:21)
[2017-10-02] MEDS: HumaLOG SUB-Q SCH ×7 (00:55→23:56)
--- NOTE | 2017-10-02 10:16 | Progress Note ---
Assessment and Plan s/p Fall Multiple Left rib fractures Nondisplaced distal ulnar fracture Alteration of mental status Nonspecific elevated troponins Echocardiogram shows normal to hyperdynamic left ventricular systolic function, ejection fraction 60-65%. In addition, there is aortic valve sclerosis, with mild aortic stenosis. Subjective Date of service: 10/02/17 Principal diagnosis: Sepsis Interval history: Patient is alert with confusion. Objective Vital Signs Temp Pulse Resp BP BP Pulse Ox 10/02/17 08:13 98.5 F 128 H 24 148/92 86 10/02/17 08:00 114 H 10/02/17 06:43 129 H 24 148/69 92 10/02/17 00:14 97.4 F L 129 H 22 148/72 94 10/01/17 22:00 22 97 10/01/17 20:04 98.1 F 125 H 22 143/63 92 10/01/17 16:51 98.4 F 114 H 20 153/71 90 10/01/17 16:00 114 H 10/01/17 11:17 98.6 F 115 H 20 144/74 94 - Physical Examination General: No Apparent Distress HEENT: Positive: PERRL Cardiac: Positive: Tachycardia Neuro: Positive: Weakness, Other (awake but disoriented to time, place and person)
[2017-10-02] MEDS: LANTUS SUB-Q SCH (10:41)
[2017-10-02] MEDS ORDERED: LASIX IV ONE (11:30)
[2017-10-02 11:43] LABS: Hematocrit 35.6 % (35.5-45.6); Hemoglobin 11.8 gm/dl (11.8-15.2); Mean Corpuscular HGB Conc 33 % (32-34); Mean Corpuscular Hemoglobin 31 pg (28-32); Mean Corpuscular Volume 94 fl (84-94); Platelet Count 419 K/mm3 (140-440); Red Blood Count 3.79 M/mm3 (3.65-5.03); Red Cell Distribution Width 15.4 % (13.2-15.2)
[2017-10-02] MEDS: ZITHROMAX PO SCH (11:45)
[2017-10-02 12:06] LABS: Calcium 10.1 mg/dL (8.4-10.2)
[2017-10-02] MEDS: PROVENTIL IH PRN (14:00)
--- NOTE | 2017-10-02 15:13 | Progress Note ---
Assessment and Plan Assessment and plan: Patient is a 72 yo man who is a resident at [facility] under 1013 with h/o HTN, CVA, NM, CHF, COPD, CAMILLE on CPAP, Seizure Disorder, Depression, PTSD, Debility, nicotine Dependence, Recurrent Falls presents to ED for confusion and falling, * pCXR Impression: Bibasilar atelectasis. * CT lumbar spine wo IMPRESSION: 1. No acute compression deformity or apparent fracture in the lumbar spine. 2. Degenerative spondylosis. * XRay bilateral knee IMPRESSION: 1. No acute osseous abnormality. 2. Postsurgical changes in the right knee, and degenerative changes in the left knee. * Xray 3v right wrist IMPRESSION: 1. Probable nondisplaced fracture right distal ulna. * CT head Impression: No acute intracranial abnormality. * CT thoracic spine wo IMPRESSION: 1. No acute compression deformity or apparent fracture in the thoracic spine. Diffuse degenerative spondylosis. 2. Fractures in left ribs 9-12, probably acute or subacute. Correlate clinically. 3. Findings which may represent bibasilar atelectasis, mild infiltrates or postinflammatory change of uncertain etiology or chronicity. 4. Left adrenal nodule may represent adenomatous change, but is indeterminate. Followup may be warranted. -SIRS, no sepsis without source, ua not collected Sepsis protocol: IV antibiotics, IVF resuscitation, monitor uop q shift, serial lactic acid, chest x ray, urinalysis, -no NSTEMI (non-ST elevated myocardial infarction) but non specified elevation of troponin per Cardiology: stopped therapeutic lovenox -s/p Fall with Multiple rib fractures/right wrist fracture: Conservative measures per Ortho -No pneumonia mention on CXR but empirically on iv rocephin and oral azithromycin day 3/7 -ARF (acute renal failure), vasomotor nephropathy poa: bmp in am -Acute encephalopathy: treat the above issues -Acute on chronic diastolic heart failure: diuresis cautiously due to ARF, follow bmp closely -Depression: [address], psych consulted in ED, 1013, 1:1 Sitter as per protocol -DVT prophylaxis: scd to ble, deep bruising and diffuse ecchymosis so hold vte due to fall risk Restraint renewed Normal LVEF 60-65% by echocardiogram. ortho, Dr. Lal==>Nondisplaced distal ulnar fracture, recommend conservative treatment with wrist brace and early ROM 10/02/17: Bilateral lung crackles today, pCXR looks like pulmonary edema but can' t exclude infiltrates (my reading), gave iv lasix 40mg iv x 1 carefully diuresis due to Aortic stenosis and ARF. ABG showed combined Acute Respiratory failure which patient has been on O2 since admission, so acute hypoxic respiratory poa. RN reported ABGs at 7.442/64/44/30.3 on O2. Bipap started by respiratory, I consulted and d/w Dr. Ng, pulmonology. Troponin level actually improved. Also, started on sq lantus 10units, carefully because he is not eating much. CCT 35 minutes History Interval history: Patient was seen and examined. Follow-up on current diagnosis. Overnight uneventful but this morning he has audible crackles. Patient is confused. Imaging, nursing note, chart, labs and old chart reviewed. Hospitalist Physical - Physical exam Narrative exam: GEN: unkempt, confused, HEENT: NCAT, EOMI, PERRL, OP Clear NECK: supple, no adenopathy, no thyromegaly, no JVD CVS/HEART: reg tachy, normal S1S2, pulses present bilaterally CHEST/LUNGS: bilateral crackles Symmetrical chest expansion, good air entry bilaterally GI/Abdomen: soft, NTND, good bowel sounds, no guarding or rebound /Bladder: no suprapubic tenderness, no CVA or paraspinal tenderness EXT/Skin: black and blue all over, especially left upper bicep area with deformity MSK: FROM x 4 Neuro: CN 2-12 grossly intact, doesn't follow command Psych: agitated, ripped his iv line - Constitutional Vitals: Temp Pulse Resp BP Pulse Ox 98.5 F 120 H 20 148/92 95 10/02/17 08:13 10/02/17 14:04 10/02/17 14:04 10/02/17 08:13 10/02/17 13:17 General appearance: Present: other (patient is awake in no acute distress) Results - Labs CBC & Chem 7: 10/02/17 11:03 10/02/17 11:03 Labs: Laboratory Last Values WBC 14.9 K/mm3 (4.5-11.0) H 10/02/17 11:03 RBC 3.79 M/mm3 (3.65-5.03) 10/02/17 11:03 Hgb 11.8 gm/dl (11.8-15.2) 10/02/17 11:03 Hct 35.6 % (35.5-45.6) 10/02/17 11:03 MCV 94 fl (84-94) 10/02/17 11:03 MCH 31 pg (28-32) 10/02/17 11:03 MCHC 33 % (32-34) 10/02/17 11:03 RDW 15.4 % (13.2-15.2) H 10/02/17 11:03 Plt Count 419 K/mm3 (140-440) 10/02/17 11:03 Lymph % (Auto) 6.0 % (13.4-35.0) L 09/29/17 12:54 [place] % (Auto) 10.8 % (0.0-7.3) H 09/29/17 12:54 Eos % (Auto) 0.8 % (0.0-4.3) 09/29/17 12:54 Baso % (Auto) 0.4 % (0.0-1.8) 09/29/17 12:54 Lymph # 0.7 K/mm3 (1.2-5.4) L 09/29/17 12:54 [place] # 1.3 K/mm3 (0.0-0.8) H 09/29/17 12:54 Eos # 0.1 K/mm3 (0.0-0.4) 09/29/17 12:54 Baso # 0.1 K/mm3 (0.0-0.1) 09/29/17 12:54 Add Manual Diff Complete 10/01/17 06:16 Total Counted 100 10/01/17 06:16 Seg Neutrophils % 82.0 % (40.0-70.0) H 09/29/17 12:54 Seg Neuts % (Manual) 87.0 % (40.0-70.0) H 10/01/17 06:16 Band Neutrophils % 1.0 % 10/01/17 06:16 Lymphocytes % (Manual) 7.0 % (13.4-35.0) L 10/01/17 06:16 Reactive Lymphs % (Man) 0 % 10/01/17 06:16 Monocytes % (Manual) 3.0 % (0.0-7.3) 10/01/17 06:16 Eosinophils % (Manual) 1.0 % (0.0-4.3) 10/01/17 06:16 Basophils % (Manual) 0 % (0.0-1.8) 10/01/17 06:16 Metamyelocytes % 1.0 % 10/01/17 06:16 Myelocytes % 0 % 10/01/17 06:16 Promyelocytes % 0 % 10/01/17 06:16 Blast Cells % 0 % 10/01/17 06:16 Nucleated RBC % Not Reportable 10/01/17 06:16 Seg Neutrophils # 10.1 K/mm3 (1.8-7.7) H 09/29/17 12:54 Seg Neutrophils # Man 12.2 K/mm3 (1.8-7.7) H 10/01/17 06:16 Band Neutrophils # 0.1 K/mm3 10/01/17 06:16 Lymphocytes # (Manual) 1.0 K/mm3 (1.2-5.4) L 10/01/17 06:16 Abs React Lymphs (Man) 0.0 K/mm3 10/01/17 06:16 Monocytes # (Manual) 0.4 K/mm3 (0.0-0.8) 10/01/17 06:16 Eosinophils # (Manual) 0.1 K/mm3 (0.0-0.4) 10/01/17 06:16 Basophils # (Manual) 0.0 K/mm3 (0.0-0.1) 10/01/17 06:16 Metamyelocytes # 0.1 K/mm3 10/01/17 06:16 Myelocytes # 0.0 K/mm3 10/01/17 06:16 Promyelocytes # 0.0 K/mm3 10/01/17 06:16 Blast Cells # 0.0 K/mm3 10/01/17 06:16 WBC Morphology Not Reportable 10/01/17 06:16 Hypersegmented Neuts Not Reportable 10/01/17 06:16 Hyposegmented Neuts Not Reportable 10/01/17 06:16 Hypogranular Neuts Not Reportable 10/01/17 06:16 Smudge Cells Not Reportable 10/01/17 06:16 Toxic Granulation Not Reportable 10/01/17 06:16 Toxic Vacuolation Not Reportable 10/01/17 06:16 Dohle Bodies Not Reportable 10/01/17 06:16 Pelger-Huet Anomaly Not Reportable 10/01/17 06:16 Albertina Rods Not Reportable 10/01/17 06:16 Platelet Estimate Appears normal 10/01/17 06:16 Clumped Platelets Not Reportable 10/01/17 06:16 Plt Clumps, EDTA Not Reportable 10/01/17 06:16 Large Platelets Not Reportable 10/01/17 06:16 Giant Platelets Not Reportable 10/01/17 06:16 Platelet Satelliting Not Reportable 10/01/17 06:16 Plt Morphology Comment Not Reportable 10/01/17 06:16 RBC Morphology Not Reportable 10/01/17 06:16 Dimorphic RBCs Not Reportable 10/01/17 06:16 Polychromasia Not Reportable 10/01/17 06:16 Hypochromasia Not Reportable 10/01/17 06:16 Poikilocytosis Not Reportable 10/01/17 06:16 Anisocytosis 1+ 10/01/17 06:16 Microcytosis Not Reportable 10/01/17 06:16 Macrocytosis Not Reportable 10/01/17 06:16 Spherocytes Not Reportable 10/01/17 06:16 Pappenheimer Bodies Not Reportable 10/01/17 06:16 Sickle Cells Not Reportable 10/01/17 06:16 Target Cells Not Reportable 10/01/17 06:16 Tear Drop Cells Rare 10/01/17 06:16 Ovalocytes 1+ 10/01/17 06:16 Helmet Cells Not Reportable 10/01/17 06:16 Garcia-[place] Bodies Not Reportable 10/01/17 06:16 [place] Rings Not Reportable 10/01/17 06:16 [place] Cells Few 10/01/17 06:16 Bite Cells Not Reportable 10/01/17 06:16 Crenated Cell Not Reportable 10/01/17 06:16 Elliptocytes Rare 10/01/17 06:16 Acanthocytes (Spur) 1+ 10/01/17 06:16 Rouleaux Not Reportable 10/01/17 06:16 Hemoglobin C Crystals Not Reportable 10/01/17 06:16 Schistocytes Not Reportable 10/01/17 06:16 Malaria parasites Not Reportable 10/01/17 06:16 [place] Bodies Not Reportable 10/01/17 06:16 Hem Pathologist Commnt No 10/01/17 06:16 PT 14.1 Sec. (12.2-14.9) 10/01/17 06:31 INR 1.04 (0.87-1.13) 10/01/17 06:31 APTT 35.4 Sec. (24.2-36.6) 10/01/17 06:31 D-Dimer 2801.11 ng/mlDDU (0-234) H 09/29/17 19:19 Sodium 154 mmol/L (137-145) H D 10/02/17 11:03 Potassium 3.5 mmol/L (3.6-5.0) L 10/02/17 11:03 Chloride 104.2 mmol/L (98-107) 10/02/17 11:03 Carbon Dioxide 28 mmol/L (22-30) 10/02/17 11:03 Anion Gap 25 mmol/L 10/02/17 11:03 BUN 66 mg/dL (9-20) H 10/02/17 11:03 Creatinine 1.3 mg/dL (0.8-1.5) 10/02/17 11:03 Estimated GFR 55 ml/min 10/02/17 11:03 BUN/Creatinine Ratio 51 % 10/02/17 11:03 Glucose 432 mg/dL (75-100) H 10/02/17 11:03 POC Glucose 476 (70-105) H 10/02/17 13:00 Lactic Acid 1.80 mmol/L (0.7-2.0) 09/30/17 02:38 Calcium 10.1 mg/dL (8.4-10.2) 10/02/17 11:03 Total Bilirubin 0.70 mg/dL (0.1-1.2) 10/01/17 06:16 AST 15 units/L (5-40) 10/01/17 06:16 ALT 14 units/L (7-56) 10/01/17 06:16 Alkaline Phosphatase 86 units/L (35-129) 10/01/17 06:16 Total Creatine Kinase 348 units/L (55-170) H 09/29/17 14:58 Troponin T 0.059 ng/mL (0.00-0.029) H 10/02/17 11:03 NT-Pro-B Natriuret Pep 230.9 pg/mL (0-900) 09/29/17 18:37 Total Protein 6.0 g/dL (6.3-8.2) L 10/01/17 06:16 Albumin 3.4 g/dL (3.9-5) L 10/01/17 06:16 Albumin/Globulin Ratio 1.3 % 10/01/17 06:16 Triglycerides 134 mg/dL (2-149) 09/29/17 12:54 Cholesterol 118 mg/dL (50-199) 09/29/17 12:54 LDL Cholesterol Direct 57 mg/dL (50-130) 09/29/17 12:54 HDL Cholesterol 41 mg/dL (40-59) 09/29/17 12:54 Cholesterol/HDL Ratio 2.87 % 09/29/17 12:54
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
[2017-10-02] MEDS ORDERED: LASIX IV SCH (18:00)
--- NOTE | 2017-10-02 19:39 | XRay Report ---
FINAL REPORT EXAM: XR CHEST 1V AP HISTORY: sob TECHNIQUE: AP portable view of the chest PRIORS: None. FINDINGS: Lines, tubes, and devices: N/A Lungs and pleura: Trachea is normal in position. Bilateral hilar prominence is noted. This may be related to vascular prominence or hilar adenopathy. Enhanced CT chest is recommended when the patient is more stable. Lungs are otherwise clear of infiltrate, pleural effusion, vascular congestion, or pneumothorax. Cardiomediastinal silhouette: Cardiac and mediastinal silhouettes demonstrate unfolding of the aorta, likely age related. Other: Bony structures demonstrate significant erosion of the right humeral head related to osteoarthritis.. IMPRESSION: Bilateral perihilar prominence. Enhanced CT of the chest is recommended when the patient is more stable.
[2017-10-02] MEDS: KCL 10MEQ/100ML 10 MEQ/100 ML BAG IV SCH ×2 (21:21→22:28)
--- NOTE | 2017-10-02 23:48 | Progress Note ---
Subjective - Reason for Consult Consult date: 10/02/17 Reason for consult: Psychiatric Follow-up Evaluation - Chief Complaint Chief complaint: "AMS" Mental Status Exam - Vital signs Last Vital Signs Temp 98.6 F 10/02/17 19:41 Pulse 125 H 10/02/17 20:19 Resp 23 10/02/17 20:19 BP 156/74 10/02/17 19:41 Pulse Ox 96 10/02/17 20:19
[2017-10-03] MEDS: HumaLOG SUB-Q SCH ×3 (06:35→21:06)
[2017-10-03 07:17] LABS: Hematocrit 31.8 % (35.5-45.6); Hemoglobin 10.4 gm/dl (11.8-15.2); Mean Corpuscular HGB Conc 33 % (32-34); Mean Corpuscular Hemoglobin 31 pg (28-32); Mean Corpuscular Volume 93 fl (84-94); Platelet Count 385 K/mm3 (140-440); Red Blood Count 3.41 M/mm3 (3.65-5.03); Red Cell Distribution Width 15.4 % (13.2-15.2)
[2017-10-03 07:34] LABS: Calcium 9.6 mg/dL (8.4-10.2)
[2017-10-03] MEDS: PEPCID IV SCH (11:12)
[2017-10-03] MEDS: ZITHROMAX PO SCH (11:12)
[2017-10-03] MEDS: LANTUS SUB-Q SCH (11:13)
[2017-10-03] MEDS: SODIUM CHLORIDE FLUSH SYRINGE 10 ML IV SCH ×2 (11:14→22:47)
--- NOTE | 2017-10-03 12:26 | Progress Note ---
Subjective - Reason for Consult Consult date: 10/03/17 Reason for consult: Psychiatry Follow-up - Chief Complaint Chief complaint: "I want something" 72 y.o. white male presenting to [facility] from [facility] for HTN, CVA, [place], CHF , COPD, and recurring falls. Psychiatry was consulted to see patient for medication management. Today the patient is still confused during the assessment. He was able to state that he resides in [place], [place]. He was not able to answers any other question logically when asked. The patient is a poor historian at this time. Mental Status Exam - Vital signs Last Vital Signs Temp 98.7 F 10/03/17 08:12 Pulse 113 H 10/03/17 08:24 Resp 19 10/03/17 08:24 BP 152/79 10/03/17 08:12 Pulse Ox 93 10/03/17 08:50 - Exam Narrative exam: MSE: Appearance: calm Behavior: regular eye contact Speech: regular rate and tone Mood: unable to assess Affect: flat Thought Process: unable to assess Thought Content: no gestures of SI/HI's Motor Activity: lying in bed Cognition: alert, but confused Insight: impaired Judgment: impaired Assessment and Plan Impression: Delirium. Today the patient is confused during the assessment. Troponin level elevated. WBC 14.9. BUN 62. Cr 1.6. NA 155. The patient is in restraints. Medical: Acute encephalopathy Recommendation/Plan: Gather collateral information and assess patient daily. Recommend Delirium precautions below: 1. Frequently reorient patient and involve him/her in their care (simple explanations of procedures, tests, medications). 2. Lights on and shades open during daytime hours. 3. Write date and goals of care in a visible place. 4. Try to avoid unnecessary interruptions to sleep during nighttime hours. 5. Obtain glasses, hearing aids from home if patient uses these at baseline. 6. Avoid medications that may exacerbate delirium (especially narcotics, benzodiazepines, barbiturates, ambien, lunesta, and medications with excessive anticholinergic properties). 7. Recommend 1:1 sitter for safety. 8. Recommend Haldol 2 mg PO/IM Q6hrs for acute agitation.
--- NOTE | 2017-10-03 13:04 | Progress Note ---
Assessment and Plan Assessment and plan: Patient is a 72 yo man who is a resident at [facility] under 1013 with h/o HTN, CVA, [place], CHF, COPD, [place] on CPAP, Seizure Disorder, Depression, PTSD, Debility, nicotine Dependence, Recurrent Falls presents to ED for confusion and falling, * pCXR Impression: Bibasilar atelectasis. * CT lumbar spine wo IMPRESSION: 1. No acute compression deformity or apparent fracture in the lumbar spine. 2. Degenerative spondylosis. * XRay bilateral knee IMPRESSION: 1. No acute osseous abnormality. 2. Postsurgical changes in the right knee, and degenerative changes in the left knee. * Xray 3v right wrist IMPRESSION: 1. Probable nondisplaced fracture right distal ulna. * CT head Impression: No acute intracranial abnormality. * CT thoracic spine wo IMPRESSION: 1. No acute compression deformity or apparent fracture in the thoracic spine. Diffuse degenerative spondylosis. 2. Fractures in left ribs 9-12, probably acute or subacute. Correlate clinically. 3. Findings which may represent bibasilar atelectasis, mild infiltrates or postinflammatory change of uncertain etiology or chronicity. 4. Left adrenal nodule may represent adenomatous change, but is indeterminate. Followup may be warranted. -SIRS, no sepsis without source, ua not collected Sepsis protocol: IV antibiotics, IVF resuscitation, monitor uop q shift, serial lactic acid, chest x ray, urinalysis, -no NSTEMI (non-ST elevated myocardial infarction) but non specified elevation of troponin per Cardiology: stopped therapeutic lovenox -s/p Fall with Multiple rib fractures/right wrist fracture: Conservative measures per Ortho -No pneumonia mention on CXR but empirically on iv rocephin and oral azithromycin day 3/7 -ARF (acute renal failure), vasomotor nephropathy poa: bmp in am -Acute encephalopathy: treat the above issues -Acute on chronic diastolic heart failure: diuresis cautiously due to ARF, follow bmp closely -Depression: [address], psych consulted in ED, 1013, 1:1 Sitter as per protocol -DVT prophylaxis: scd to ble, deep bruising and diffuse ecchymosis so hold vte due to fall risk Restraint renewed Normal LVEF 60-65% by echocardiogram. ortho, Dr. Lal==>Nondisplaced distal ulnar fracture, recommend conservative treatment with wrist brace and early ROM 10/02/17: Bilateral lung crackles today, pCXR looks like pulmonary edema but can' t exclude infiltrates (my reading), gave iv lasix 40mg iv x 1 carefully diuresis due to Aortic stenosis and ARF. ABG showed combined Acute Respiratory failure which patient has been on O2 since admission, so acute hypoxic respiratory poa. RN reported ABGs at 7.442/64/44/30.3 on O2. Bipap started by respiratory, I consulted and d/w Dr. Ng, pulmonology. Troponin level actually improved. Also, started on sq lantus 10units, carefully because he is not eating much. 10/03/17: doing better after lasix, try to wean off bipap, History Interval history: Patient was seen and examined. Follow-up on current diagnosis of confusion. Overnight uneventful and doing better, still on bipap. Patient is confused. Imaging, nursing note, chart, labs and old chart reviewed. Hospitalist Physical - Physical exam Narrative exam: GEN: unkempt, confused, HEENT: NCAT, EOMI, PERRL, OP Clear NECK: supple, no adenopathy, no thyromegaly, no JVD CVS/HEART: reg tachy, normal S1S2, pulses present bilaterally CHEST/LUNGS: bilateral crackles Symmetrical chest expansion, good air entry bilaterally GI/Abdomen: soft, NTND, good bowel sounds, no guarding or rebound /Bladder: no suprapubic tenderness, no CVA or paraspinal tenderness EXT/Skin: black and blue all over, especially left upper bicep area with deformity MSK: FROM x 4 Neuro: CN 2-12 grossly intact, doesn't follow command Psych: agitated, ripped his iv line - Constitutional Vitals: Temp Pulse Resp BP Pulse Ox 98.7 F 113 H 19 152/79 93 10/03/17 08:12 10/03/17 08:24 10/03/17 08:24 10/03/17 08:12 10/03/17 08:50 General appearance: Present: other (patient is awake in no acute distress) Results - Labs CBC & Chem 7: 10/03/17 05:44 10/03/17 05:44 Labs: Laboratory Last Values WBC 14.8 K/mm3 (4.5-11.0) H 10/03/17 05:44 RBC 3.41 M/mm3 (3.65-5.03) L 10/03/17 05:44 Hgb 10.4 gm/dl (11.8-15.2) L 10/03/17 05:44 Hct 31.8 % (35.5-45.6) L 10/03/17 05:44 MCV 93 fl (84-94) 10/03/17 05:44 MCH 31 pg (28-32) 10/03/17 05:44 MCHC 33 % (32-34) 10/03/17 05:44 RDW 15.4 % (13.2-15.2) H 10/03/17 05:44 Plt Count 385 K/mm3 (140-440) 10/03/17 05:44 Lymph % (Auto) 6.0 % (13.4-35.0) L 09/29/17 12:54 [place] % (Auto) 10.8 % (0.0-7.3) H 09/29/17 12:54 Eos % (Auto) 0.8 % (0.0-4.3) 09/29/17 12:54 Baso % (Auto) 0.4 % (0.0-1.8) 09/29/17 12:54 Lymph # 0.7 K/mm3 (1.2-5.4) L 09/29/17 12:54 [place] # 1.3 K/mm3 (0.0-0.8) H 09/29/17 12:54 Eos # 0.1 K/mm3 (0.0-0.4) 09/29/17 12:54 Baso # 0.1 K/mm3 (0.0-0.1) 09/29/17 12:54 Add Manual Diff Complete 10/01/17 06:16 Total Counted 100 10/01/17 06:16 Seg Neutrophils % 82.0 % (40.0-70.0) H 09/29/17 12:54 Seg Neuts % (Manual) 87.0 % (40.0-70.0) H 10/01/17 06:16 Band Neutrophils % 1.0 % 10/01/17 06:16 Lymphocytes % (Manual) 7.0 % (13.4-35.0) L 10/01/17 06:16 Reactive Lymphs % (Man) 0 % 10/01/17 06:16 Monocytes % (Manual) 3.0 % (0.0-7.3) 10/01/17 06:16 Eosinophils % (Manual) 1.0 % (0.0-4.3) 10/01/17 06:16 Basophils % (Manual) 0 % (0.0-1.8) 10/01/17 06:16 Metamyelocytes % 1.0 % 10/01/17 06:16 Myelocytes % 0 % 10/01/17 06:16 Promyelocytes % 0 % 10/01/17 06:16 Blast Cells % 0 % 10/01/17 06:16 Nucleated RBC % Not Reportable 10/01/17 06:16 Seg Neutrophils # 10.1 K/mm3 (1.8-7.7) H 09/29/17 12:54 Seg Neutrophils # Man 12.2 K/mm3 (1.8-7.7) H 10/01/17 06:16 Band Neutrophils # 0.1 K/mm3 10/01/17 06:16 Lymphocytes # (Manual) 1.0 K/mm3 (1.2-5.4) L 10/01/17 06:16 Abs React Lymphs (Man) 0.0 K/mm3 10/01/17 06:16 Monocytes # (Manual) 0.4 K/mm3 (0.0-0.8) 10/01/17 06:16 Eosinophils # (Manual) 0.1 K/mm3 (0.0-0.4) 10/01/17 06:16 Basophils # (Manual) 0.0 K/mm3 (0.0-0.1) 10/01/17 06:16 Metamyelocytes # 0.1 K/mm3 10/01/17 06:16 Myelocytes # 0.0 K/mm3 10/01/17 06:16 Promyelocytes # 0.0 K/mm3 10/01/17 06:16 Blast Cells # 0.0 K/mm3 10/01/17 06:16 WBC Morphology Not Reportable 10/01/17 06:16 Hypersegmented Neuts Not Reportable 10/01/17 06:16 Hyposegmented Neuts Not Reportable 10/01/17 06:16 Hypogranular Neuts Not Reportable 10/01/17 06:16 Smudge Cells Not Reportable 10/01/17 06:16 Toxic Granulation Not Reportable 10/01/17 06:16 Toxic Vacuolation Not Reportable 10/01/17 06:16 Dohle Bodies Not Reportable 10/01/17 06:16 Pelger-Huet Anomaly Not Reportable 10/01/17 06:16 Albertina Rods Not Reportable 10/01/17 06:16 Platelet Estimate Appears normal 10/01/17 06:16 Clumped Platelets Not Reportable 10/01/17 06:16 Plt Clumps, EDTA Not Reportable 10/01/17 06:16 Large Platelets Not Reportable 10/01/17 06:16 Giant Platelets Not Reportable 10/01/17 06:16 Platelet Satelliting Not Reportable 10/01/17 06:16 Plt Morphology Comment Not Reportable 10/01/17 06:16 RBC Morphology Not Reportable 10/01/17 06:16 Dimorphic RBCs Not Reportable 10/01/17 06:16 Polychromasia Not Reportable 10/01/17 06:16 Hypochromasia Not Reportable 10/01/17 06:16 Poikilocytosis Not Reportable 10/01/17 06:16 Anisocytosis 1+ 10/01/17 06:16 Microcytosis Not Reportable 10/01/17 06:16 Macrocytosis Not Reportable 10/01/17 06:16 Spherocytes Not Reportable 10/01/17 06:16 Pappenheimer Bodies Not Reportable 10/01/17 06:16 Sickle Cells Not Reportable 10/01/17 06:16 Target Cells Not Reportable 10/01/17 06:16 Tear Drop Cells Rare 10/01/17 06:16 Ovalocytes 1+ 10/01/17 06:16 Helmet Cells Not Reportable 10/01/17 06:16 Garcia-Littlefield Bodies Not Reportable 10/01/17 06:16 [place] Rings Not Reportable 10/01/17 06:16 Sakina Cells Few 10/01/17 06:16 Bite Cells Not Reportable 10/01/17 06:16 Crenated Cell Not Reportable 10/01/17 06:16 Elliptocytes Rare 10/01/17 06:16 Acanthocytes (Spur) 1+ 10/01/17 06:16 Rouleaux Not Reportable 10/01/17 06:16 Hemoglobin C Crystals Not Reportable 10/01/17 06:16 Schistocytes Not Reportable 10/01/17 06:16 Malaria parasites Not Reportable 10/01/17 06:16 Brandon Bodies Not Reportable 10/01/17 06:16 Hem Pathologist Commnt No 10/01/17 06:16 PT 14.1 Sec. (12.2-14.9) 10/01/17 06:31 INR 1.04 (0.87-1.13) 10/01/17 06:31 APTT 35.4 Sec. (24.2-36.6) 10/01/17 06:31 D-Dimer 2801.11 ng/mlDDU (0-234) H 09/29/17 19:19 POC ABG pH 7.415 (7.35-7.45) 10/02/17 20:23 POC ABG pCO2 42.1 (35-45) 10/02/17 20:23 POC ABG pO2 77 (80-105) L 10/02/17 20:23 POC ABG HCO3 27.0 10/02/17 20:23 POC ABG Total CO2 28 10/02/17 20:23 POC ABG O2 Sat 95 10/02/17 20:23 POC ABG Base Excess 2 10/02/17 20:23 FiO2 65 % 10/02/17 20:23 Sodium 155 mmol/L (137-145) H 10/03/17 05:44 Potassium 3.4 mmol/L (3.6-5.0) L 10/03/17 05:44 Chloride 110.8 mmol/L (98-107) H 10/03/17 05:44 Carbon Dioxide 32 mmol/L (22-30) H 10/03/17 05:44 Anion Gap 16 mmol/L 10/03/17 05:44 BUN 81 mg/dL (9-20) H 10/03/17 05:44 Creatinine 1.6 mg/dL (0.8-1.5) H 10/03/17 05:44 Estimated GFR 43 ml/min 10/03/17 05:44 BUN/Creatinine Ratio 51 % 10/03/17 05:44 Glucose 403 mg/dL (75-100) H 10/03/17 05:44 POC Glucose 449 (70-105) H 10/03/17 12:33 Lactic Acid 1.80 mmol/L (0.7-2.0) 09/30/17 02:38 Calcium 9.6 mg/dL (8.4-10.2) 10/03/17 05:44 Magnesium 2.60 mg/dL (1.7-2.3) H 10/03/17 05:44 Total Bilirubin 0.70 mg/dL (0.1-1.2) 10/01/17 06:16 AST 15 units/L (5-40) 10/01/17 06:16 ALT 14 units/L (7-56) 10/01/17 06:16 Alkaline Phosphatase 86 units/L (35-129) 10/01/17 06:16 Total Creatine Kinase 348 units/L (55-170) H 09/29/17 14:58 Troponin T 0.057 ng/mL (0.00-0.029) H 10/02/17 17:56 NT-Pro-B Natriuret Pep 230.9 pg/mL (0-900) 09/29/17 18:37 Total Protein 6.0 g/dL (6.3-8.2) L 10/01/17 06:16 Albumin 3.4 g/dL (3.9-5) L 10/01/17 06:16 Albumin/Globulin Ratio 1.3 % 10/01/17 06:16 Triglycerides 134 mg/dL (2-149) 09/29/17 12:54 Cholesterol 118 mg/dL (50-199) 09/29/17 12:54 LDL Cholesterol Direct 57 mg/dL (50-130) 09/29/17 12:54 HDL Cholesterol 41 mg/dL (40-59) 09/29/17 12:54 Cholesterol/HDL Ratio 2.87 % 09/29/17 12:54
--- NOTE | 2017-10-03 14:35 | Progress Note ---
Assessment and Plan 72 y/o male with acute respiratory failure. 1. Continue bipap therapy PRN and QHS 2. Suggest an additonal dose of lasix today 3. Per patient baseline home O2 is 3 liters 4. CM to find out more about CPAP at night 5. BP control Subjective Date of service: 10/03/17 Principal diagnosis: Sepsis Interval history: Off bipap therapy now. States that he is on oxygen at home. Would not answer the question if he has a CPAP or not. CM thinks that he may have one. Patient lives in an in [place]. Tolerated lasix therapy well. Objective Vital Signs - 12hr 10/03/17 10/03/17 10/03/17 02:40 04:32 08:12 Temperature 98.7 F Pulse Rate 121 H 129 H 125 H Respiratory 22 24 24 Rate Blood Pressure 154/82 152/79 O2 Sat by Pulse 98 99 Oximetry 10/03/17 10/03/17 08:24 08:50 Temperature Pulse Rate 113 H Respiratory 19 Rate Blood Pressure O2 Sat by Pulse 98 93 Oximetry Constitutional: appears uncomfortable Effort: mildly labored Ascultation: Bilateral: rales Cardiovascular: regular rate and rhythm Gastrointestinal: other (obese) Extremities: edema Neurologic: unable to assess CBC and BMP: 10/03/17 05:44 10/03/17 05:44 ABG, PT/INR, D-dimer: ABG POC ABG pH 7.415 (7.35-7.45) 10/02/17 20:23 POC ABG pCO2 42.1 (35-45) 10/02/17 20:23 POC ABG pO2 77 (80-105) L 10/02/17 20:23 POC ABG HCO3 27.0 10/02/17 20:23 POC ABG Total CO2 28 10/02/17 20:23 POC ABG O2 Sat 95 10/02/17 20:23 PT/INR, D-dimer PT 14.1 Sec. (12.2-14.9) 10/01/17 06:31 INR 1.04 (0.87-1.13) 10/01/17 06:31 D-Dimer 2801.11 ng/mlDDU (0-234) H 09/29/17 19:19 Abnormal lab findings: Abnormal Labs 09/29/17 09/29/17 09/29/17 12:54 12:54 14:58 WBC 12.4 H RBC Hgb 11.7 L Hct 33.5 L MCHC 35 H RDW 15.4 H Lymph % (Auto) 6.0 L [place] % (Auto) 10.8 H Lymph # 0.7 L [place] # 1.3 H Seg Neutrophils % 82.0 H Seg Neuts % (Manual) Lymphocytes % (Manual) Seg Neutrophils # 10.1 H Seg Neutrophils # Man Lymphocytes # (Manual) D-Dimer POC ABG pO2 Sodium 133 L Potassium Chloride 90.9 L Carbon Dioxide BUN 70 H Creatinine 2.0 H Glucose 336 H POC Glucose Magnesium Total Creatine Kinase 348 H Troponin T 0.071 H 0.073 H Total Protein Albumin 09/29/17 09/29/17 09/29/17 18:11 18:37 19:19 WBC RBC Hgb Hct MCHC RDW Lymph % (Auto) [place] % (Auto) Lymph # [place] # Seg Neutrophils % Seg Neuts % (Manual) Lymphocytes % (Manual) Seg Neutrophils # Seg Neutrophils # Man Lymphocytes # (Manual) D-Dimer 2801.11 H POC ABG pO2 Sodium Potassium Chloride Carbon Dioxide BUN Creatinine Glucose POC Glucose Magnesium Total Creatine Kinase Troponin T 0.073 H 0.074 H Total Protein Albumin 09/29/17 09/29/17 09/30/17 22:22 23:00 02:38 WBC RBC Hgb Hct MCHC RDW Lymph % (Auto) [place] % (Auto) Lymph # [place] # Seg Neutrophils % Seg Neuts % (Manual) Lymphocytes % (Manual) Seg Neutrophils # Seg Neutrophils # Man Lymphocytes # (Manual) D-Dimer POC ABG pO2 Sodium Potassium Chloride Carbon Dioxide BUN Creatinine Glucose POC Glucose 389 H Magnesium Total Creatine Kinase Troponin T 0.058 H D 0.064 H Total Protein Albumin 09/30/17 09/30/17 09/30/17 12:07 16:24 21:25 WBC RBC Hgb Hct MCHC RDW Lymph % (Auto) [place] % (Auto) Lymph # [place] # Seg Neutrophils % Seg Neuts % (Manual) Lymphocytes % (Manual) Seg Neutrophils # Seg Neutrophils # Man Lymphocytes # (Manual) D-Dimer POC ABG pO2 Sodium Potassium Chloride Carbon Dioxide BUN Creatinine Glucose POC Glucose 387 H 431 H 326 H Magnesium Total Creatine Kinase Troponin T Total Protein Albumin 10/01/17 10/01/17 10/01/17 06:16 06:16 06:30 WBC 14.0 H RBC Hgb Hct 34.3 L MCHC RDW Lymph % (Auto) [place] % (Auto) Lymph # [place] # Seg Neutrophils % Seg Neuts % (Manual) 87.0 H Lymphocytes % (Manual) 7.0 L Seg Neutrophils # Seg Neutrophils # Man 12.2 H Lymphocytes # (Manual) 1.0 L D-Dimer POC ABG pO2 Sodium Potassium 3.4 L Chloride 94.7 L Carbon Dioxide BUN 62 H Creatinine Glucose 432 H POC Glucose 419 H Magnesium Total Creatine Kinase Troponin T Total Protein 6.0 L Albumin 3.4 L 10/01/17 10/01/17 10/02/17 11:25 15:39 07:39 WBC RBC Hgb Hct MCHC RDW Lymph % (Auto) [place] % (Auto) Lymph # [place] # Seg Neutrophils % Seg Neuts % (Manual) Lymphocytes % (Manual) Seg Neutrophils # Seg Neutrophils # Man Lymphocytes # (Manual) D-Dimer POC ABG pO2 Sodium Potassium Chloride Carbon Dioxide BUN Creatinine Glucose POC Glucose 456 H 472 H 429 H Magnesium Total Creatine Kinase Troponin T Total Protein Albumin 10/02/17 10/02/17 10/02/17 11:03 11:03 11:03 WBC 14.9 H RBC Hgb Hct MCHC RDW 15.4 H Lymph % (Auto) [place] % (Auto) Lymph # [place] # Seg Neutrophils % Seg Neuts % (Manual) Lymphocytes % (Manual) Seg Neutrophils # Seg Neutrophils # Man Lymphocytes # (Manual) D-Dimer POC ABG pO2 Sodium 154 H D Potassium 3.5 L Chloride Carbon Dioxide BUN 66 H Creatinine Glucose 432 H POC Glucose Magnesium Total Creatine Kinase Troponin T 0.059 H Total Protein Albumin 10/02/17 10/02/17 10/02/17 13:00 14:48 14:57 WBC RBC Hgb Hct MCHC RDW Lymph % (Auto) [place] % (Auto) Lymph # [place] # Seg Neutrophils % Seg Neuts % (Manual) Lymphocytes % (Manual) Seg Neutrophils # Seg Neutrophils # Man Lymphocytes # (Manual) D-Dimer POC ABG pO2 64 L Sodium Potassium Chloride Carbon Dioxide BUN Creatinine Glucose POC Glucose 476 H 448 H Magnesium Total Creatine Kinase Troponin T Total Protein Albumin 10/02/17 10/02/17 10/02/17 17:56 18:19 20:23 WBC RBC Hgb Hct MCHC RDW Lymph % (Auto) [place] % (Auto) Lymph # [place] # Seg Neutrophils % Seg Neuts % (Manual) Lymphocytes % (Manual) Seg Neutrophils # Seg Neutrophils # Man Lymphocytes # (Manual) D-Dimer POC ABG pO2 77 L Sodium Potassium Chloride Carbon Dioxide BUN Creatinine Glucose POC Glucose > 500 H Magnesium Total Creatine Kinase Troponin T 0.057 H Total Protein Albumin 10/02/17 10/03/17 10/03/17 23:41 05:44 05:44 WBC 14.8 H RBC 3.41 L Hgb 10.4 L Hct 31.8 L MCHC RDW 15.4 H Lymph % (Auto) [place] % (Auto) Lymph # [place] # Seg Neutrophils % Seg Neuts % (Manual) Lymphocytes % (Manual) Seg Neutrophils # Seg Neutrophils # Man Lymphocytes # (Manual) D-Dimer POC ABG pO2 Sodium 155 H Potassium 3.4 L Chloride 110.8 H Carbon Dioxide 32 H BUN 81 H Creatinine 1.6 H Glucose 403 H POC Glucose 447 H Magnesium 2.60 H Total Creatine Kinase Troponin T Total Protein Albumin 10/03/17 10/03/17 06:32 12:33 WBC RBC Hgb Hct MCHC RDW Lymph % (Auto) [place] % (Auto) Lymph # [place] # Seg Neutrophils % Seg Neuts % (Manual) Lymphocytes % (Manual) Seg Neutrophils # Seg Neutrophils # Man Lymphocytes # (Manual) D-Dimer POC ABG pO2 Sodium Potassium Chloride Carbon Dioxide BUN Creatinine Glucose POC Glucose 394 H 449 H Magnesium Total Creatine Kinase Troponin T Total Protein Albumin
[2017-10-03] MEDS: cefTRIAXone 2 GM in NACL 0.9% 20 ML IV SCH (20:31)
[2017-10-03] MEDS: LOVENOX SUB-Q SCH (22:43)
[2017-10-04] MEDS: HumaLOG SUB-Q SCH ×4 (00:42→22:30)
[2017-10-04] MEDS ORDERED: HumaLOG SUB-Q ONE (01:20)
[2017-10-04 07:05] LABS: Hematocrit 31.4 % (35.5-45.6); Hemoglobin 10.5 gm/dl (11.8-15.2); Mean Corpuscular HGB Conc 33 % (32-34); Mean Corpuscular Hemoglobin 31 pg (28-32); Mean Corpuscular Volume 93 fl (84-94); Platelet Count 381 K/mm3 (140-440); Red Blood Count 3.38 M/mm3 (3.65-5.03); Red Cell Distribution Width 15.6 % (13.2-15.2)
[2017-10-04 07:26] LABS: Calcium 9.7 mg/dL (8.4-10.2)
--- NOTE | 2017-10-04 08:46 | Progress Note ---
Subjective Date of service: 10/04/17 Principal diagnosis: Sepsis Objective - Vital Signs Vital signs: Vital Signs - 12hr 10/03/17 10/04/17 10/04/17 22:00 00:14 04:18 Temperature 98.5 F Pulse Rate 128 H 124 H Respiratory 24 Rate Blood Pressure 143/63 Blood Pressure [Left] O2 Sat by Pulse 95 96 Oximetry 10/04/17 10/04/17 10/04/17 04:35 04:36 08:40 Temperature 97.9 F 98.9 F Pulse Rate 122 H 122 H 122 H Respiratory 22 22 Rate Blood Pressure Blood Pressure 136/77 130/82 [Left] O2 Sat by Pulse 98 98 98 Oximetry - Lab 10/04/17 06:19 10/04/17 06:19 Most recent lab results Calcium 9.7 mg/dL (8.4-10.2) 10/04/17 06:19 Magnesium 2.60 mg/dL (1.7-2.3) H 10/03/17 05:44
--- NOTE | 2017-10-04 08:47 | Consultation ---
History of Present Illness - Reason for Consult Consult date: 10/04/17 acute renal failure, hypernatremia - History of Present Illness The patient is a 72 YO white male with history significant for DM, HTN, Obesity , CVA, CAD, CHF, COPD, CAMILLE on CPAP, Seizure Disorder, Depression, PTSD, Nicotine Dependence and Recurrent Falls who presented to the ED from [facility] after he sustained a fall. On further evaluation he was found to have NSTEMI, Pneumonia and right wrist fracture. Unable to obtain any history from the patient as he is not answering any questions. Sodium is 163 with creatinine of 1.7. Baseline renal function is unknown. Past History Past Medical History: acute CA, COPD, diabetes, heart failure, hypertension, other (Obesity) Past Surgical History: Other (Unable to obtain) Social history: other (Unable to obtain) Family history: hypertension Medications and Allergies Allergies Allergy/AdvReac Type Severity Reaction Status Date / Time naproxen [From Naprosyn] Allergy Unknown Verified 09/29/17 12:35 phenobarbital Allergy Unknown Verified 09/29/17 12:35 propranolol [From Inderal LA] Allergy Unknown Verified 09/29/17 12:35 Home Medications Medication Instructions Recorded Confirmed Last Taken Type No Known Home Medications [No 09/30/17 09/30/17 Unknown History Reported Home Medications] Active Meds: Active Medications Acetaminophen (Tylenol) 650 mg PO Q4H PRN PRN Reason: Pain MILD(1-3)/Fever >100.5/RUIZ Albuterol (Proventil) 2.5 mg IH Q4HRT PRN PRN Reason: Shortness Of Breath Last Admin: 10/02/17 14:00 Dose: 2.5 mg Azithromycin (Zithromax) 500 mg PO QDAY [facility] Last Admin: 10/03/17 11:12 Dose: 500 mg Dextrose (D50w (25gm) Syringe) 50 ml IV PRN PRN PRN Reason: Hypoglycemia Enoxaparin Sodium (Lovenox) 40 mg SUB-Q QDAY@2200 [facility] Last Admin: 10/03/17 22:43 Dose: 40 mg Famotidine (Pepcid) 20 mg IV QDAY [facility] Last Admin: 10/03/17 11:12 Dose: 20 mg Ceftriaxone Sodium 2 gm/ (Sodium Chloride) 20 mls @ 2 mls/min IV Q24H [facility] Last Admin: 10/03/17 20:31 Dose: 2 mls/min Dextrose (D5w) 1,000 mls @ 75 mls/hr IV DIRECT GARY Insulin Glargine (Lantus) 10 units SUB-Q QAMDIAB [facility] Last Admin: 10/03/17 11:13 Dose: 10 units Insulin Human Lispro (Humalog) 0 unit SUB-Q Q6HR [facility]; Protocol Last Admin: 10/04/17 06:14 Dose: 10 unit Ondansetron HCl (Zofran) 4 mg IV Q8H PRN PRN Reason: Nausea And Vomiting Sodium Chloride (Sodium Chloride Flush Syringe 10 Ml) 10 ml IV BID [facility] Last Admin: 10/03/17 22:47 Dose: 10 ml Sodium Chloride (Sodium Chloride Flush Syringe 10 Ml) 10 ml IV PRN PRN PRN Reason: LINE FLUSH Review of Systems ROS unobtainable: due to mental status Exam - Vital Signs Vital signs: Vital Signs Pulse Ox 100 09/29/17 12:11 - General Appearance General appearance: well-developed, well-nourished, appears stated age, obese, other (on restrains, no distress) EENT: ATNC, PERRL, mucous membranes dry Neck: Present: neck supple Respiratory: Ronchi, Other (corase breath sounds) Heart: regular, S1S2, no murmurs Gastrointestinal: Present: normoactive bowel sounds, obese. Absent: tenderness Integumentary: no rash Neurologic: other (not following any command, non-verbal) Musculoskeletal: Present: other (no edema) Results - Lab Results 10/04/17 06:19 10/04/17 06:19 Most recent lab results Calcium 9.7 mg/dL (8.4-10.2) 10/04/17 06:19 Magnesium 2.60 mg/dL (1.7-2.3) H 10/03/17 05:44 Assessment and Plan 1. Hypernatremia: Sodium level continue to increase. Patient was started on IV D5W. Follow Sodium level and blood sugar. 2. Acute kidney injury: Likely hemodynamic SANDRA in the setting of volume depletion. Continue IV D5W for now until sodium level is better. Monitor renal function. 3. Electrolytes: Replete K. Metabolic alkalosis. 4. Uncontrolled DM. 5. Suspected Pneumonia. 6. Acute encephalopathy.
[2017-10-04] MEDS: LANTUS SUB-Q SCH (09:00)
[2017-10-04] MEDS ORDERED: D5W 1,000 ML IV SCH (09:00)
[2017-10-04] MEDS: PROVENTIL IH PRN (09:05)
--- NOTE | 2017-10-04 09:55 | Progress Note ---
Subjective - Reason for Consult Consult date: 10/04/17 Reason for consult: Psychiatry Follow-up - Chief Complaint Chief complaint: "AMS" 72 y.o. white male presenting to [facility] from [facility] for HTN, CVA, UT, CHF , COPD, and recurring falls. Psychiatry was consulted to see patient for medication management. Today the patient is still confused during the assessment. He would only say "popcorn" when asked questions. Per his labs, the patient NA and Cr is trending up. Mental Status Exam - Vital signs Last Vital Signs Temp 98.9 F 10/04/17 08:40 Pulse 122 H 10/04/17 08:40 Resp 22 10/04/17 08:40 BP 130/82 10/04/17 08:40 Pulse Ox 98 10/04/17 08:40 - Exam Narrative exam: MSE: Appearance: calm Behavior: regular eye contact Speech: regular rate and tone Mood: unable to assess Affect: flat Thought Process: unable to assess Thought Content: no gestures of SI/HI's Motor Activity: lying in bed Cognition: alert, but confused Insight: impaired Judgment: impaired Assessment and Plan Impression: Delirium. Today the patient is confused during the assessment. Troponin level elevated. WBC 13.5. Cr 1.7. NA 163. The patient is in restraints. Medical: Acute Encephalopathy Recommendation/Plan: Psychiatry sign off, re-consult once the delirium has resolved. Recommend delirium precautions below: 1. Frequently reorient patient and involve him/her in their care (simple explanations of procedures, tests, medications). 2. Lights on and shades open during daytime hours. 3. Write date and goals of care in a visible place. 4. Try to avoid unnecessary interruptions to sleep during nighttime hours. 5. Obtain glasses, hearing aids from home if patient uses these at baseline. 6. Avoid medications that may exacerbate delirium (especially narcotics, benzodiazepines, barbiturates, ambien, lunesta, and medications with excessive anticholinergic properties). 7. Recommend 1:1 sitter for safety. 8. Recommend Haldol 2 mg PO/IM Q6hrs prn for acute agitation.
[2017-10-04] MEDS ORDERED: K-DUR PO NR (09:58)
[2017-10-04] MEDS: PEPCID IV SCH (10:59)
[2017-10-04] MEDS: ZITHROMAX PO SCH (11:00)
[2017-10-04] MEDS: SODIUM CHLORIDE FLUSH SYRINGE 10 ML IV SCH ×2 (11:00→22:29)
--- NOTE | 2017-10-04 11:00 | Progress Note ---
Assessment and Plan Assessment and plan: Patient is a 72 yo man who is a resident at [facility] under 1013 with h/o HTN, CVA, NC, CHF, COPD, CAMILLE on CPAP, Seizure Disorder, Depression, PTSD, Debility, nicotine Dependence, Recurrent Falls presents to ED for confusion and falling. He was admitted for suspected sepsis pneumonia, nstemi and right wrist fracture. * pCXR Impression: Bibasilar atelectasis. * CT lumbar spine wo IMPRESSION: 1. No acute compression deformity or apparent fracture in the lumbar spine. 2. Degenerative spondylosis. * XRay bilateral knee IMPRESSION: 1. No acute osseous abnormality. 2. Postsurgical changes in the right knee, and degenerative changes in the left knee. * Xray 3v right wrist IMPRESSION: 1. Probable nondisplaced fracture right distal ulna. * CT head Impression: No acute intracranial abnormality. * CT thoracic spine wo IMPRESSION: 1. No acute compression deformity or apparent fracture in the thoracic spine. Diffuse degenerative spondylosis. 2. Fractures in left ribs 9-12, probably acute or subacute. Correlate clinically. 3. Findings which may represent bibasilar atelectasis, mild infiltrates or postinflammatory change of uncertain etiology or chronicity. 4. Left adrenal nodule may represent adenomatous change, but is indeterminate. Followup may be warranted. -Suspect Sepsis from Aspiration Pneumonia, poa, treated with iv abx, ivf but developed fluid overload and ivf stopped and lasix iv given. -no NSTEMI (non-ST elevated myocardial infarction), non specified elevation of troponin per Cardiology: stopped therapeutic lovenox -s/p Fall with Multiple rib fractures/right wrist fracture: Conservative measures per Ortho -No pneumonia mention on CXR but empirically on iv rocephin and oral azithromycin -ARF (acute renal failure), vasomotor nephropathy poa: bmp in am -Acute encephalopathy: treat the above issues -Acute on chronic diastolic heart failure: diuresis cautiously due to ARF, follow bmp closely -Afib with RVR: -Depression: [address], psych consulted in ED, 101, 1:1 Sitter as per protocol -DVT prophylaxis: scd to ble, deep bruising and diffuse ecchymosis so hold vte due to fall risk Restraint renewed Normal LVEF 60-65% by echocardiogram. ortho, Dr. Lal==>Nondisplaced distal ulnar fracture, recommend conservative treatment with wrist brace and early ROM 10/02/17: Bilateral lung crackles today, pCXR looks like pulmonary edema but can' t exclude infiltrates (my reading), gave iv lasix 40mg iv x 1 carefully diuresis due to Aortic stenosis and ARF. ABG showed combined Acute Respiratory failure which patient has been on O2 since admission, so acute hypoxic respiratory poa. RN reported ABGs at 7.442/64/44/30.3 on O2. Bipap started by respiratory, I consulted and d/w Dr. Ng, pulmonology. Troponin level actually improved. Also, started on sq lantus 10units, carefully because he is not eating much. Lasix iv given today 10/03/17: doing better after another dose of iv lasix x 1, trying to wean off bipap, 10/04/17: bipap removed this am, new issue of hypernatremia, consulted systems auditor and spoke with Dr. Gerard. He needs free water, will try to place NG tube because he spit water out at nurse. He remains very confused. D5W treatment is problematic as his blood glucose is very high. Hopefully he will allow ngt to be given for free water and nutrition, Restraints renewed. Day 09/16 of iv abx. Still tachycardiac, had afib with rvr on will call Cardiology History Interval history: Patient was seen and examined. Follow-up on current diagnosis of confusion. Overnight uneventful and doing better, bipap taking off this morning. Patient is confused, asking for popcorn. Imaging, nursing note, chart, labs and old chart reviewed. Hospitalist Physical - Physical exam Narrative exam: GEN: unkempt, confused, HEENT: NCAT, EOMI, PERRL, OP Clear NECK: supple, no adenopathy, no thyromegaly, no JVD CVS/HEART: reg tachy, normal S1S2, pulses present bilaterally CHEST/LUNGS: bilateral crackles Symmetrical chest expansion, good air entry bilaterally GI/Abdomen: soft, NTND, good bowel sounds, no guarding or rebound /Bladder: no suprapubic tenderness, no CVA or paraspinal tenderness EXT/Skin: black and blue all over, especially left upper bicep area with deformity MSK: FROM x 4 Neuro: CN 2-12 grossly intact, doesn't follow command Psych: agitated, ripped his iv line - Constitutional Vitals: Temp Pulse Resp BP Pulse Ox 98.9 F 122 H 22 130/82 98 10/04/17 08:40 10/04/17 08:40 10/04/17 08:40 10/04/17 08:40 10/04/17 08:40 General appearance: Present: other (patient is awake in no acute distress) Results - Labs CBC & Chem 7: 10/04/17 06:19 10/04/17 06:19 Labs: Laboratory Last Values WBC 13.5 K/mm3 (4.5-11.0) H 10/04/17 06:19 RBC 3.38 M/mm3 (3.65-5.03) L 10/04/17 06:19 Hgb 10.5 gm/dl (11.8-15.2) L 10/04/17 06:19 Hct 31.4 % (35.5-45.6) L 10/04/17 06:19 MCV 93 fl (84-94) 10/04/17 06:19 MCH 31 pg (28-32) 10/04/17 06:19 MCHC 33 % (32-34) 10/04/17 06:19 RDW 15.6 % (13.2-15.2) H 10/04/17 06:19 Plt Count 381 K/mm3 (140-440) 10/04/17 06:19 Lymph % (Auto) 6.0 % (13.4-35.0) L 09/29/17 12:54 [place] % (Auto) 10.8 % (0.0-7.3) H 09/29/17 12:54 Eos % (Auto) 0.8 % (0.0-4.3) 09/29/17 12:54 Baso % (Auto) 0.4 % (0.0-1.8) 09/29/17 12:54 Lymph # 0.7 K/mm3 (1.2-5.4) L 09/29/17 12:54 [place] # 1.3 K/mm3 (0.0-0.8) H 09/29/17 12:54 Eos # 0.1 K/mm3 (0.0-0.4) 09/29/17 12:54 Baso # 0.1 K/mm3 (0.0-0.1) 09/29/17 12:54 Add Manual Diff Complete 10/01/17 06:16 Total Counted 100 10/01/17 06:16 Seg Neutrophils % 82.0 % (40.0-70.0) H 09/29/17 12:54 Seg Neuts % (Manual) 87.0 % (40.0-70.0) H 10/01/17 06:16 Band Neutrophils % 1.0 % 10/01/17 06:16 Lymphocytes % (Manual) 7.0 % (13.4-35.0) L 10/01/17 06:16 Reactive Lymphs % (Man) 0 % 10/01/17 06:16 Monocytes % (Manual) 3.0 % (0.0-7.3) 10/01/17 06:16 Eosinophils % (Manual) 1.0 % (0.0-4.3) 10/01/17 06:16 Basophils % (Manual) 0 % (0.0-1.8) 10/01/17 06:16 Metamyelocytes % 1.0 % 10/01/17 06:16 Myelocytes % 0 % 10/01/17 06:16 Promyelocytes % 0 % 10/01/17 06:16 Blast Cells % 0 % 10/01/17 06:16 Nucleated RBC % Not Reportable 10/01/17 06:16 Seg Neutrophils # 10.1 K/mm3 (1.8-7.7) H 09/29/17 12:54 Seg Neutrophils # Man 12.2 K/mm3 (1.8-7.7) H 10/01/17 06:16 Band Neutrophils # 0.1 K/mm3 10/01/17 06:16 Lymphocytes # (Manual) 1.0 K/mm3 (1.2-5.4) L 10/01/17 06:16 Abs React Lymphs (Man) 0.0 K/mm3 10/01/17 06:16 Monocytes # (Manual) 0.4 K/mm3 (0.0-0.8) 10/01/17 06:16 Eosinophils # (Manual) 0.1 K/mm3 (0.0-0.4) 10/01/17 06:16 Basophils # (Manual) 0.0 K/mm3 (0.0-0.1) 10/01/17 06:16 Metamyelocytes # 0.1 K/mm3 10/01/17 06:16 Myelocytes # 0.0 K/mm3 10/01/17 06:16 Promyelocytes # 0.0 K/mm3 10/01/17 06:16 Blast Cells # 0.0 K/mm3 10/01/17 06:16 WBC Morphology Not Reportable 10/01/17 06:16 Hypersegmented Neuts Not Reportable 10/01/17 06:16 Hyposegmented Neuts Not Reportable 10/01/17 06:16 Hypogranular Neuts Not Reportable 10/01/17 06:16 Smudge Cells Not Reportable 10/01/17 06:16 Toxic Granulation Not Reportable 10/01/17 06:16 Toxic Vacuolation Not Reportable 10/01/17 06:16 Dohle Bodies Not Reportable 10/01/17 06:16 Pelger-Huet Anomaly Not Reportable 10/01/17 06:16 Albertina Rods Not Reportable 10/01/17 06:16 Platelet Estimate Appears normal 10/01/17 06:16 Clumped Platelets Not Reportable 10/01/17 06:16 Plt Clumps, EDTA Not Reportable 10/01/17 06:16 Large Platelets Not Reportable 10/01/17 06:16 Giant Platelets Not Reportable 10/01/17 06:16 Platelet Satelliting Not Reportable 10/01/17 06:16 Plt Morphology Comment Not Reportable 10/01/17 06:16 RBC Morphology Not Reportable 10/01/17 06:16 Dimorphic RBCs Not Reportable 10/01/17 06:16 Polychromasia Not Reportable 10/01/17 06:16 Hypochromasia Not Reportable 10/01/17 06:16 Poikilocytosis Not Reportable 10/01/17 06:16 Anisocytosis 1+ 10/01/17 06:16 Microcytosis Not Reportable 10/01/17 06:16 Macrocytosis Not Reportable 10/01/17 06:16 Spherocytes Not Reportable 10/01/17 06:16 Pappenheimer Bodies Not Reportable 10/01/17 06:16 Sickle Cells Not Reportable 10/01/17 06:16 Target Cells Not Reportable 10/01/17 06:16 Tear Drop Cells Rare 10/01/17 06:16 Ovalocytes 1+ 10/01/17 06:16 Helmet Cells Not Reportable 10/01/17 06:16 Garcia-Traver Bodies Not Reportable 10/01/17 06:16 Mclain Rings Not Reportable 10/01/17 06:16 Sakina Cells Few 10/01/17 06:16 Bite Cells Not Reportable 10/01/17 06:16 Crenated Cell Not Reportable 10/01/17 06:16 Elliptocytes Rare 10/01/17 06:16 Acanthocytes (Spur) 1+ 10/01/17 06:16 Rouleaux Not Reportable 10/01/17 06:16 Hemoglobin C Crystals Not Reportable 10/01/17 06:16 Schistocytes Not Reportable 10/01/17 06:16 Malaria parasites Not Reportable 10/01/17 06:16 Brandon Bodies Not Reportable 10/01/17 06:16 Hem Pathologist Commnt No 10/01/17 06:16 PT 14.1 Sec. (12.2-14.9) 10/01/17 06:31 INR 1.04 (0.87-1.13) 10/01/17 06:31 APTT 35.4 Sec. (24.2-36.6) 10/01/17 06:31 D-Dimer 2801.11 ng/mlDDU (0-234) H 09/29/17 19:19 POC ABG pH 7.415 (7.35-7.45) 10/02/17 20:23 POC ABG pCO2 42.1 (35-45) 10/02/17 20:23 POC ABG pO2 77 (80-105) L 10/02/17 20:23 POC ABG HCO3 27.0 10/02/17 20:23 POC ABG Total CO2 28 10/02/17 20:23 POC ABG O2 Sat 95 10/02/17 20:23 POC ABG Base Excess 2 10/02/17 20:23 FiO2 65 % 10/02/17 20:23 Sodium 163 mmol/L (137-145) H* D 10/04/17 06:19 Potassium 3.6 mmol/L (3.6-5.0) 10/04/17 06:19 Chloride 114.2 mmol/L (98-107) H 10/04/17 06:19 Carbon Dioxide 34 mmol/L (22-30) H 10/04/17 06:19 Anion Gap 18 mmol/L 10/04/17 06:19 BUN 83 mg/dL (9-20) H 10/04/17 06:19 Creatinine 1.7 mg/dL (0.8-1.5) H 10/04/17 06:19 Estimated GFR 40 ml/min 10/04/17 06:19 BUN/Creatinine Ratio 49 % 10/04/17 06:19 Glucose 389 mg/dL (75-100) H 10/04/17 06:19 POC Glucose 383 (70-105) H 10/04/17 06:09 Lactic Acid 1.80 mmol/L (0.7-2.0) 09/30/17 02:38 Calcium 9.7 mg/dL (8.4-10.2) 10/04/17 06:19 Magnesium 2.60 mg/dL (1.7-2.3) H 10/03/17 05:44 Total Bilirubin 0.70 mg/dL (0.1-1.2) 10/01/17 06:16 AST 15 units/L (5-40) 10/01/17 06:16 ALT 14 units/L (7-56) 10/01/17 06:16 Alkaline Phosphatase 86 units/L (35-129) 10/01/17 06:16 Total Creatine Kinase 348 units/L (55-170) H 09/29/17 14:58 Troponin T 0.057 ng/mL (0.00-0.029) H 10/02/17 17:56 NT-Pro-B Natriuret Pep 230.9 pg/mL (0-900) 09/29/17 18:37 Total Protein 6.0 g/dL (6.3-8.2) L 10/01/17 06:16 Albumin 3.4 g/dL (3.9-5) L 10/01/17 06:16 Albumin/Globulin Ratio 1.3 % 10/01/17 06:16 Triglycerides 134 mg/dL (2-149) 09/29/17 12:54 Cholesterol 118 mg/dL (50-199) 09/29/17 12:54 LDL Cholesterol Direct 57 mg/dL (50-130) 09/29/17 12:54 HDL Cholesterol 41 mg/dL (40-59) 09/29/17 12:54 Cholesterol/HDL Ratio 2.87 % 09/29/17 12:54
[2017-10-04] MEDS ORDERED: HALDOL IM PRN (11:39)
[2017-10-04] MEDS ORDERED: LANTUS SUB-Q NR (12:30)
--- NOTE | 2017-10-04 13:52 | Progress Note ---
Assessment and Plan Suspect Sepsis from Aspiration Pneumonia on empiric antibiotic therapy Non-specific troponin abnormality, no evidence of ACS Paroxysmal atrial fibrillation on tele (1 episode on October 02) otherwise sinus tachycardia s/p Fall with Multiple rib fractures/right wrist fracture Conservative therapy per ortho Metabolic encephalopathy Hypernatremia Hyperglycemia Pre-renal azotemina Anemia Echo this admission - normal LVEF 60-65% Recommendations: IV hydration Start metoprolol for rate control Will consider anticoagulation only if further episode of atrial fibrillation are evident Order 12 lead ECG Subjective Date of service: 10/04/17 Principal diagnosis: Sepsis Interval history: Patient continues to be bedridden, chronically ill appearing. He is a very poor historian Objective Vital Signs Temp Pulse Pulse Resp Resp BP BP 10/04/17 12:08 97.8 F 126 H 20 142/65 10/04/17 10:55 121 H 18 10/04/17 10:45 122 H 18 10/04/17 10:00 10/04/17 08:40 98.9 F 122 H 22 130/82 10/04/17 04:36 122 H 10/04/17 04:35 97.9 F 122 H 22 136/77 10/04/17 04:18 124 H 10/04/17 00:14 98.5 F 128 H 24 143/63 10/03/17 22:00 10/03/17 19:44 98.9 F 125 H 24 151/78 10/03/17 19:40 128 H 10/03/17 16:52 98.0 F 131 H 22 151/71 Pulse Ox 10/04/17 12:08 94 10/04/17 10:55 10/04/17 10:45 10/04/17 10:00 98 10/04/17 08:40 98 10/04/17 04:36 98 10/04/17 04:35 98 10/04/17 04:18 10/04/17 00:14 96 10/03/17 22:00 95 10/03/17 19:44 94 10/03/17 19:40 10/03/17 16:52 94 - Physical Examination General: No Apparent Distress HEENT: Positive: PERRL Neck: Positive: neck supple Cardiac: Positive: Tachycardia Lungs: Positive: Decreased Breath Sounds Neuro: Positive: Weakness, Other (awake but disoriented to time, place and person) Abdomen: Positive: Soft Skin: Positive: Clear Extremities: Absent: edema - Labs and Meds CBC 10/04/17 Range/Units 06:19 WBC 13.5 H (4.5-11.0) K/mm3 RBC 3.38 L (3.65-5.03) M/mm3 Hgb 10.5 L (11.8-15.2) gm/dl Hct 31.4 L (35.5-45.6) % Plt Count 381 (140-440) K/mm3 Comprehensive Metabolic Panel 10/04/17 10/04/17 Range/Units 00:32 06:19 Sodium 163 H* D (137-145) mmol/L Potassium 3.6 (3.6-5.0) mmol/L Chloride 114.2 H (98-107) mmol/L Carbon Dioxide 34 H (22-30) mmol/L BUN 83 H (9-20) mg/dL Creatinine 1.7 H (0.8-1.5) mg/dL Glucose 623 H* 389 H (75-100) mg/dL Calcium 9.7 (8.4-10.2) mg/dL
--- NOTE | 2017-10-04 13:55 | Progress Note ---
Assessment and Plan 72 y/o male with acute respiratory failure. 1. Continue bipap therapy PRN and QHS 2. Needs free water 3. Per patient baseline home O2 is 3 liters 4. CM to find out more about CPAP at night 5. BP control Subjective Date of service: 10/04/17 Principal diagnosis: Sepsis Interval history: Down to 4 liters NC. Na and Cl elevated. Likely insensible losses. Objective Vital Signs - 12hr 10/04/17 10/04/17 10/04/17 04:18 04:35 04:36 Temperature 97.9 F Pulse Rate 124 H 122 H 122 H Pulse Rate [ Posterior Bilateral Throughout] Respiratory 22 Rate Respiratory Rate [Posterior Bilateral Throughout] Blood Pressure Blood Pressure 136/77 [Left] O2 Sat by Pulse 98 98 Oximetry 10/04/17 10/04/17 10/04/17 08:40 10:00 10:45 Temperature 98.9 F Pulse Rate 122 H Pulse Rate [ 122 H Posterior Bilateral Throughout] Respiratory 22 Rate Respiratory 18 Rate [Posterior Bilateral Throughout] Blood Pressure Blood Pressure 130/82 [Left] O2 Sat by Pulse 98 98 Oximetry 10/04/17 10/04/17 10:55 12:08 Temperature 97.8 F Pulse Rate 126 H Pulse Rate [ 121 H Posterior Bilateral Throughout] Respiratory 20 Rate Respiratory 18 Rate [Posterior Bilateral Throughout] Blood Pressure 142/65 Blood Pressure [Left] O2 Sat by Pulse 94 Oximetry Constitutional: appears uncomfortable Effort: mildly labored Ascultation: Bilateral: rales Cardiovascular: regular rate and rhythm Gastrointestinal: other (obese) Extremities: edema Neurologic: unable to assess CBC and BMP: 10/04/17 06:19 10/04/17 06:19 ABG, PT/INR, D-dimer: ABG POC ABG pH 7.415 (7.35-7.45) 10/02/17 20:23 POC ABG pCO2 42.1 (35-45) 10/02/17 20:23 POC ABG pO2 77 (80-105) L 10/02/17 20:23 POC ABG HCO3 27.0 10/02/17 20:23 POC ABG Total CO2 28 10/02/17 20:23 POC ABG O2 Sat 95 10/02/17 20:23 PT/INR, D-dimer PT 14.1 Sec. (12.2-14.9) 10/01/17 06:31 INR 1.04 (0.87-1.13) 10/01/17 06:31 D-Dimer 2801.11 ng/mlDDU (0-234) H 09/29/17 19:19 Abnormal lab findings: Abnormal Labs 09/29/17 09/29/17 09/29/17 12:54 12:54 14:58 WBC 12.4 H RBC Hgb 11.7 L Hct 33.5 L MCHC 35 H RDW 15.4 H Lymph % (Auto) 6.0 L [place] % (Auto) 10.8 H Lymph # 0.7 L [place] # 1.3 H Seg Neutrophils % 82.0 H Seg Neuts % (Manual) Lymphocytes % (Manual) Seg Neutrophils # 10.1 H Seg Neutrophils # Man Lymphocytes # (Manual) D-Dimer POC ABG pO2 Sodium 133 L Potassium Chloride 90.9 L Carbon Dioxide BUN 70 H Creatinine 2.0 H Glucose 336 H POC Glucose Magnesium Total Creatine Kinase 348 H Troponin T 0.071 H 0.073 H Total Protein Albumin 09/29/17 09/29/17 09/29/17 18:11 18:37 19:19 WBC RBC Hgb Hct MCHC RDW Lymph % (Auto) [place] % (Auto) Lymph # [place] # Seg Neutrophils % Seg Neuts % (Manual) Lymphocytes % (Manual) Seg Neutrophils # Seg Neutrophils # Man Lymphocytes # (Manual) D-Dimer 2801.11 H POC ABG pO2 Sodium Potassium Chloride Carbon Dioxide BUN Creatinine Glucose POC Glucose Magnesium Total Creatine Kinase Troponin T 0.073 H 0.074 H Total Protein Albumin 09/29/17 09/29/17 09/30/17 22:22 23:00 02:38 WBC RBC Hgb Hct MCHC RDW Lymph % (Auto) [place] % (Auto) Lymph # [place] # Seg Neutrophils % Seg Neuts % (Manual) Lymphocytes % (Manual) Seg Neutrophils # Seg Neutrophils # Man Lymphocytes # (Manual) D-Dimer POC ABG pO2 Sodium Potassium Chloride Carbon Dioxide BUN Creatinine Glucose POC Glucose 389 H Magnesium Total Creatine Kinase Troponin T 0.058 H D 0.064 H Total Protein Albumin 09/30/17 09/30/17 09/30/17 12:07 16:24 21:25 WBC RBC Hgb Hct MCHC RDW Lymph % (Auto) [place] % (Auto) Lymph # [place] # Seg Neutrophils % Seg Neuts % (Manual) Lymphocytes % (Manual) Seg Neutrophils # Seg Neutrophils # Man Lymphocytes # (Manual) D-Dimer POC ABG pO2 Sodium Potassium Chloride Carbon Dioxide BUN Creatinine Glucose POC Glucose 387 H 431 H 326 H Magnesium Total Creatine Kinase Troponin T Total Protein Albumin 10/01/17 10/01/17 10/01/17 06:16 06:16 06:30 WBC 14.0 H RBC Hgb Hct 34.3 L MCHC RDW Lymph % (Auto) [place] % (Auto) Lymph # [place] # Seg Neutrophils % Seg Neuts % (Manual) 87.0 H Lymphocytes % (Manual) 7.0 L Seg Neutrophils # Seg Neutrophils # Man 12.2 H Lymphocytes # (Manual) 1.0 L D-Dimer POC ABG pO2 Sodium Potassium 3.4 L Chloride 94.7 L Carbon Dioxide BUN 62 H Creatinine Glucose 432 H POC Glucose 419 H Magnesium Total Creatine Kinase Troponin T Total Protein 6.0 L Albumin 3.4 L 10/01/17 10/01/17 10/02/17 11:25 15:39 07:39 WBC RBC Hgb Hct MCHC RDW Lymph % (Auto) [place] % (Auto) Lymph # [place] # Seg Neutrophils % Seg Neuts % (Manual) Lymphocytes % (Manual) Seg Neutrophils # Seg Neutrophils # Man Lymphocytes # (Manual) D-Dimer POC ABG pO2 Sodium Potassium Chloride Carbon Dioxide BUN Creatinine Glucose POC Glucose 456 H 472 H 429 H Magnesium Total Creatine Kinase Troponin T Total Protein Albumin 10/02/17 10/02/17 10/02/17 11:03 11:03 11:03 WBC 14.9 H RBC Hgb Hct MCHC RDW 15.4 H Lymph % (Auto) [place] % (Auto) Lymph # [place] # Seg Neutrophils % Seg Neuts % (Manual) Lymphocytes % (Manual) Seg Neutrophils # Seg Neutrophils # Man Lymphocytes # (Manual) D-Dimer POC ABG pO2 Sodium 154 H D Potassium 3.5 L Chloride Carbon Dioxide BUN 66 H Creatinine Glucose 432 H POC Glucose Magnesium Total Creatine Kinase Troponin T 0.059 H Total Protein Albumin 10/02/17 10/02/17 10/02/17 13:00 14:48 14:57 WBC RBC Hgb Hct MCHC RDW Lymph % (Auto) [place] % (Auto) Lymph # [place] # Seg Neutrophils % Seg Neuts % (Manual) Lymphocytes % (Manual) Seg Neutrophils # Seg Neutrophils # Man Lymphocytes # (Manual) D-Dimer POC ABG pO2 64 L Sodium Potassium Chloride Carbon Dioxide BUN Creatinine Glucose POC Glucose 476 H 448 H Magnesium Total Creatine Kinase Troponin T Total Protein Albumin 10/02/17 10/02/17 10/02/17 17:56 18:19 20:23 WBC RBC Hgb Hct MCHC RDW Lymph % (Auto) [place] % (Auto) Lymph # [place] # Seg Neutrophils % Seg Neuts % (Manual) Lymphocytes % (Manual) Seg Neutrophils # Seg Neutrophils # Man Lymphocytes # (Manual) D-Dimer POC ABG pO2 77 L Sodium Potassium Chloride Carbon Dioxide BUN Creatinine Glucose POC Glucose > 500 H Magnesium Total Creatine Kinase Troponin T 0.057 H Total Protein Albumin 10/02/17 10/03/17 10/03/17 23:41 05:44 05:44 WBC 14.8 H RBC 3.41 L Hgb 10.4 L Hct 31.8 L MCHC RDW 15.4 H Lymph % (Auto) [place] % (Auto) Lymph # [place] # Seg Neutrophils % Seg Neuts % (Manual) Lymphocytes % (Manual) Seg Neutrophils # Seg Neutrophils # Man Lymphocytes # (Manual) D-Dimer POC ABG pO2 Sodium 155 H Potassium 3.4 L Chloride 110.8 H Carbon Dioxide 32 H BUN 81 H Creatinine 1.6 H Glucose 403 H POC Glucose 447 H Magnesium 2.60 H Total Creatine Kinase Troponin T Total Protein Albumin 10/03/17 10/03/17 10/04/17 06:32 12:33 00:14 WBC RBC Hgb Hct MCHC RDW Lymph % (Auto) [place] % (Auto) Lymph # [place] # Seg Neutrophils % Seg Neuts % (Manual) Lymphocytes % (Manual) Seg Neutrophils # Seg Neutrophils # Man Lymphocytes # (Manual) D-Dimer POC ABG pO2 Sodium Potassium Chloride Carbon Dioxide BUN Creatinine Glucose POC Glucose 394 H 449 H > 500 H Magnesium Total Creatine Kinase Troponin T Total Protein Albumin 10/04/17 10/04/17 10/04/17 00:32 06:09 06:19 WBC 13.5 H RBC 3.38 L Hgb 10.5 L Hct 31.4 L MCHC RDW 15.6 H Lymph % (Auto) [place] % (Auto) Lymph # [place] # Seg Neutrophils % Seg Neuts % (Manual) Lymphocytes % (Manual) Seg Neutrophils # Seg Neutrophils # Man Lymphocytes # (Manual) D-Dimer POC ABG pO2 Sodium Potassium Chloride Carbon Dioxide BUN Creatinine Glucose 623 H* POC Glucose 383 H Magnesium Total Creatine Kinase Troponin T Total Protein Albumin 10/04/17 06:19 WBC RBC Hgb Hct MCHC RDW Lymph % (Auto) [place] % (Auto) Lymph # [place] # Seg Neutrophils % Seg Neuts % (Manual) Lymphocytes % (Manual) Seg Neutrophils # Seg Neutrophils # Man Lymphocytes # (Manual) D-Dimer POC ABG pO2 Sodium 163 H* D Potassium Chloride 114.2 H Carbon Dioxide 34 H BUN 83 H Creatinine 1.7 H Glucose 389 H POC Glucose Magnesium Total Creatine Kinase Troponin T Total Protein Albumin
[2017-10-04] MEDS ORDERED: NACL 0.9% 1000 ML 1,000 ML IV SCH (14:00)
[2017-10-04] MEDS: HALDOL IM PRN (15:18)
--- NOTE | 2017-10-04 17:42 | Ultrasound Report ---
FINAL REPORT EXAM: US RENAL BILAT HISTORY: Acute renal failure TECHNIQUE: Ultrasound of the kidneys PRIORS: None. FINDINGS: Examination of the kidneys demonstrates both to be normal in size and have normal cortical echogenicity and thickness. The right and left kidneys measure 10.0 cm and 11.5 cm in craniocaudal length, respectively. No evidence for calculi, hydronephrosis, or solid mass is seen in either kidney. The urinary bladder shows no intraluminal abnormality or wall thickening. IMPRESSION: Negative ultrasound of the kidneys.
[2017-10-04 18:38] LABS: Calcium 9.2 mg/dL (8.4-10.2)
[2017-10-04] MEDS: LOVENOX SUB-Q SCH (22:29)
[2017-10-04] MEDS: cefTRIAXone 2 GM in NACL 0.9% 20 ML IV SCH (22:29)
[2017-10-04] MEDS: CARDIZEM PO SCH (22:33)
[2017-10-04] MEDS ORDERED: K-DUR PO ONE (22:47)
[2017-10-05] MEDS: CARDIZEM PO SCH ×4 (01:15→17:29)
[2017-10-05] MEDS: HumaLOG SUB-Q SCH ×4 (01:15→17:29)
[2017-10-05 02:14] LABS: Creatinine,Urine 99.4 mg/dL (0.1-20.0)
[2017-10-05 02:19] LABS: Amorphous Crystals,Urine 1+; Bacteria,Urine 1+ /HPF (Negative); Bilirubin,Urine NEG (Negative); Blood,Urine NEG (Negative); Color,Urine Yellow (Yellow); Hyaline Casts,Urine 8 /LPF; Protein,Urine <15 mg/dL mg/dL (Negative); RBC,Urine < 1.0 /HPF (0.0-6.0); Urobilinogen,Urine < 2.0 mg/dL (<2.0)
[2017-10-05 06:55] LABS: Hemoglobin 9.6 gm/dl (11.8-15.2); Mean Corpuscular HGB Conc 34 % (32-34); Mean Corpuscular Hemoglobin 32 pg (28-32); Mean Corpuscular Volume 92 fl (84-94); Platelet Count 298 K/mm3 (140-440); Red Blood Count 3.03 M/mm3 (3.65-5.03); Red Cell Distribution Width 15.8 % (13.2-15.2)
[2017-10-05 07:19] LABS: Calcium 8.7 mg/dL (8.4-10.2)
--- NOTE | 2017-10-05 08:09 | Progress Note ---
Assessment and Plan 1. Hypernatremia: Sodium level is improving. Encourage free water intake. Follow Sodium level and blood sugar. 2. Acute kidney injury: Likely hemodynamic SANDRA in the setting of volume depletion. Start on low rate 1/2 NS. Monitor renal function. 3. Electrolytes: Metabolic alkalosis. 4. Uncontrolled DM. 5. Suspected Pneumonia. 6. Acute encephalopathy. Subjective Date of service: 10/05/17 Principal diagnosis: Sepsis Interval history: Patient is feeling better today. Objective - Vital Signs Vital signs: Vital Signs - 12hr 10/04/17 10/05/17 10/05/17 23:10 00:49 05:36 Temperature 99 F 98.4 F Pulse Rate 111 H 111 H 103 H Respiratory 17 18 20 Rate Blood Pressure Blood Pressure 141/83 140/67 [Left] O2 Sat by Pulse 98 92 90 Oximetry 10/05/17 06:21 Temperature Pulse Rate Respiratory Rate Blood Pressure 140/67 Blood Pressure [Left] O2 Sat by Pulse Oximetry - General Appearance General appearance: well-developed, well-nourished, appears stated age, obese, other (no distress, on restrains) EENT: ATNC, PERRL, hearing intact, vision intact Neck: supple Respiratory: Present: Clear to Ascultation Cardiology: regular, S1S2, no murmurs Gastrointestinal: normoactive bowel sounds, no tenderness, obese Integumentary: chronic venous stasis Neurologic: no focal deficit, no asterixis, confused, disoriented Musculoskeletal: other (no edema) Psychiatric: cooperative - Lab 10/05/17 05:25 10/05/17 05:39 Most recent lab results Calcium 8.7 mg/dL (8.4-10.2) 10/05/17 05:39 Phosphorus 2.80 mg/dL (2.5-4.5) 10/05/17 05:39 Magnesium 2.40 mg/dL (1.7-2.3) H 10/05/17 05:39 Urine Creatinine 99.4 mg/dL (0.1-20.0) H 10/05/17 01:00 Urine Sodium 10 mmol/L 10/05/17 01:00
--- NOTE | 2017-10-05 08:37 | Progress Note ---
Assessment and Plan 1. Status post multiple falls with generalized bruising ecchymosis Rib fractures and ulnar fracture. 2. Metabolic encephalopathy 3. Essential hypertension 4. History of coronary artery disease 5. Chronic obstructive pulmonary disease 6. Obstructive sleep apnea 7. Seizure disorder 8. PTSD Plan. Cardiac-kirkpatrick stable no further cardiac workup planned. Subjective Date of service: 10/05/17 Principal diagnosis: Sepsis Interval history: No cardiac symptoms Objective Vital Signs Temp Pulse Pulse Resp Resp BP BP 10/05/17 06:21 140/67 10/05/17 05:36 98.4 F 103 H 20 140/67 10/05/17 00:49 99 F 111 H 18 141/83 10/04/17 23:10 111 H 17 10/04/17 19:55 100 F H 125 H 18 139/76 10/04/17 16:58 99.1 F 129 H 16 128/63 10/04/17 15:58 129 H 129 H 128/63 10/04/17 12:08 97.8 F 126 H 20 142/65 10/04/17 10:55 121 H 18 10/04/17 10:45 122 H 18 10/04/17 10:00 10/04/17 08:40 98.9 F 122 H 22 130/82 Pulse Ox 10/05/17 06:21 10/05/17 05:36 90 10/05/17 00:49 92 10/04/17 23:10 98 10/04/17 19:55 91 10/04/17 16:58 97 10/04/17 15:58 96 10/04/17 12:08 94 10/04/17 10:55 10/04/17 10:45 10/04/17 10:00 98 10/04/17 08:40 98 - Physical Examination General: No Apparent Distress, Other (generalized brusing om upper arma trunck) HEENT: Positive: PERRL, Normocephaly, Sinus Tenderness Neck: Positive: neck supple. Negative: JVD/HJR Cardiac: Positive: Regular Rate, S1/S2, S4, PMI, Laterally Displaced Lungs: Positive: clear to auscultation, No Wheeze, Rales, Rhonchi Neuro: Positive: Weakness, No Lateralizing Findings, Other (awake but disoriented to time, place and person) Abdomen: Positive: Unremarkable, Soft, Active Bowel Sounds Skin: Positive: Clear Extremities: Absent: edema - Labs and Meds CBC 10/05/17 Range/Units 05:25 WBC 14.1 H (4.5-11.0) K/mm3 RBC 3.03 L (3.65-5.03) M/mm3 Hgb 9.6 L (11.8-15.2) gm/dl Hct 28.0 L (35.5-45.6) % Plt Count 298 (140-440) K/mm3 Comprehensive Metabolic Panel 10/04/17 10/05/17 Range/Units 17:34 05:39 Sodium 155 H 149 H (137-145) mmol/L Potassium 3.4 L 3.9 (3.6-5.0) mmol/L Chloride 107.4 H 104.4 (98-107) mmol/L Carbon Dioxide 33 H 33 H (22-30) mmol/L BUN 82 H 81 H (9-20) mg/dL Creatinine 1.8 H 1.7 H (0.8-1.5) mg/dL Glucose 348 H 365 H (75-100) mg/dL Calcium 9.2 8.7 (8.4-10.2) mg/dL
[2017-10-05] MEDS: LANTUS SUB-Q SCH (09:04)
--- NOTE | 2017-10-05 10:09 | Progress Note ---
Assessment and Plan 72 y/o male with acute respiratory failure. 1. Continue bipap therapy PRN and QHS 2. Needs free water 3. Per patient baseline home O2 is 3 liters 4. CM to find out more about CPAP at night 5. BP control Subjective Date of service: 10/05/17 Principal diagnosis: Sepsis Interval history: No acute events. Objective Vital Signs - 12hr 10/04/17 10/05/17 10/05/17 23:10 00:49 05:36 Temperature 99 F 98.4 F Pulse Rate 111 H 111 H 103 H Respiratory 17 18 20 Rate Blood Pressure Blood Pressure 141/83 140/67 [Left] O2 Sat by Pulse 98 92 90 Oximetry 10/05/17 06:21 Temperature Pulse Rate Respiratory Rate Blood Pressure 140/67 Blood Pressure [Left] O2 Sat by Pulse Oximetry Constitutional: appears uncomfortable Effort: mildly labored Ascultation: Bilateral: rales Cardiovascular: regular rate and rhythm Gastrointestinal: other (obese) Extremities: edema Neurologic: unable to assess CBC and BMP: 10/05/17 05:25 10/05/17 05:39 ABG, PT/INR, D-dimer: ABG POC ABG pH 7.415 (7.35-7.45) 10/02/17 20:23 POC ABG pCO2 42.1 (35-45) 10/02/17 20:23 POC ABG pO2 77 (80-105) L 10/02/17 20:23 POC ABG HCO3 27.0 10/02/17 20:23 POC ABG Total CO2 28 10/02/17 20:23 POC ABG O2 Sat 95 10/02/17 20:23 PT/INR, D-dimer PT 14.1 Sec. (12.2-14.9) 10/01/17 06:31 INR 1.04 (0.87-1.13) 10/01/17 06:31 D-Dimer 2801.11 ng/mlDDU (0-234) H 09/29/17 19:19 Abnormal lab findings: Abnormal Labs 09/29/17 09/29/17 09/29/17 12:54 12:54 14:58 WBC 12.4 H RBC Hgb 11.7 L Hct 33.5 L MCHC 35 H RDW 15.4 H Lymph % (Auto) 6.0 L [place] % (Auto) 10.8 H Lymph # 0.7 L [place] # 1.3 H Seg Neutrophils % 82.0 H Seg Neuts % (Manual) Lymphocytes % (Manual) Seg Neutrophils # 10.1 H Seg Neutrophils # Man Lymphocytes # (Manual) D-Dimer POC ABG pO2 Sodium 133 L Potassium Chloride 90.9 L Carbon Dioxide BUN 70 H Creatinine 2.0 H Glucose 336 H POC Glucose Magnesium Total Creatine Kinase 348 H Troponin T 0.071 H 0.073 H Total Protein Albumin Urine Creatinine 09/29/17 09/29/17 09/29/17 18:11 18:37 19:19 WBC RBC Hgb Hct MCHC RDW Lymph % (Auto) [place] % (Auto) Lymph # [place] # Seg Neutrophils % Seg Neuts % (Manual) Lymphocytes % (Manual) Seg Neutrophils # Seg Neutrophils # Man Lymphocytes # (Manual) D-Dimer 2801.11 H POC ABG pO2 Sodium Potassium Chloride Carbon Dioxide BUN Creatinine Glucose POC Glucose Magnesium Total Creatine Kinase Troponin T 0.073 H 0.074 H Total Protein Albumin Urine Creatinine 09/29/17 09/29/17 09/30/17 22:22 23:00 02:38 WBC RBC Hgb Hct MCHC RDW Lymph % (Auto) [place] % (Auto) Lymph # [place] # Seg Neutrophils % Seg Neuts % (Manual) Lymphocytes % (Manual) Seg Neutrophils # Seg Neutrophils # Man Lymphocytes # (Manual) D-Dimer POC ABG pO2 Sodium Potassium Chloride Carbon Dioxide BUN Creatinine Glucose POC Glucose 389 H Magnesium Total Creatine Kinase Troponin T 0.058 H D 0.064 H Total Protein Albumin Urine Creatinine 09/30/17 09/30/17 09/30/17 12:07 16:24 21:25 WBC RBC Hgb Hct MCHC RDW Lymph % (Auto) [place] % (Auto) Lymph # [place] # Seg Neutrophils % Seg Neuts % (Manual) Lymphocytes % (Manual) Seg Neutrophils # Seg Neutrophils # Man Lymphocytes # (Manual) D-Dimer POC ABG pO2 Sodium Potassium Chloride Carbon Dioxide BUN Creatinine Glucose POC Glucose 387 H 431 H 326 H Magnesium Total Creatine Kinase Troponin T Total Protein Albumin Urine Creatinine 10/01/17 10/01/17 10/01/17 06:16 06:16 06:30 WBC 14.0 H RBC Hgb Hct 34.3 L MCHC RDW Lymph % (Auto) [place] % (Auto) Lymph # [place] # Seg Neutrophils % Seg Neuts % (Manual) 87.0 H Lymphocytes % (Manual) 7.0 L Seg Neutrophils # Seg Neutrophils # Man 12.2 H Lymphocytes # (Manual) 1.0 L D-Dimer POC ABG pO2 Sodium Potassium 3.4 L Chloride 94.7 L Carbon Dioxide BUN 62 H Creatinine Glucose 432 H POC Glucose 419 H Magnesium Total Creatine Kinase Troponin T Total Protein 6.0 L Albumin 3.4 L Urine Creatinine 10/01/17 10/01/17 10/02/17 11:25 15:39 07:39 WBC RBC Hgb Hct MCHC RDW Lymph % (Auto) [place] % (Auto) Lymph # [place] # Seg Neutrophils % Seg Neuts % (Manual) Lymphocytes % (Manual) Seg Neutrophils # Seg Neutrophils # Man Lymphocytes # (Manual) D-Dimer POC ABG pO2 Sodium Potassium Chloride Carbon Dioxide BUN Creatinine Glucose POC Glucose 456 H 472 H 429 H Magnesium Total Creatine Kinase Troponin T Total Protein Albumin Urine Creatinine 10/02/17 10/02/17 10/02/17 11:03 11:03 11:03 WBC 14.9 H RBC Hgb Hct MCHC RDW 15.4 H Lymph % (Auto) [place] % (Auto) Lymph # [place] # Seg Neutrophils % Seg Neuts % (Manual) Lymphocytes % (Manual) Seg Neutrophils # Seg Neutrophils # Man Lymphocytes # (Manual) D-Dimer POC ABG pO2 Sodium 154 H D Potassium 3.5 L Chloride Carbon Dioxide BUN 66 H Creatinine Glucose 432 H POC Glucose Magnesium Total Creatine Kinase Troponin T 0.059 H Total Protein Albumin Urine Creatinine 10/02/17 10/02/17 10/02/17 13:00 14:48 14:57 WBC RBC Hgb Hct MCHC RDW Lymph % (Auto) [place] % (Auto) Lymph # [place] # Seg Neutrophils % Seg Neuts % (Manual) Lymphocytes % (Manual) Seg Neutrophils # Seg Neutrophils # Man Lymphocytes # (Manual) D-Dimer POC ABG pO2 64 L Sodium Potassium Chloride Carbon Dioxide BUN Creatinine Glucose POC Glucose 476 H 448 H Magnesium Total Creatine Kinase Troponin T Total Protein Albumin Urine Creatinine 10/02/17 10/02/17 10/02/17 17:56 18:19 20:23 WBC RBC Hgb Hct MCHC RDW Lymph % (Auto) [place] % (Auto) Lymph # [place] # Seg Neutrophils % Seg Neuts % (Manual) Lymphocytes % (Manual) Seg Neutrophils # Seg Neutrophils # Man Lymphocytes # (Manual) D-Dimer POC ABG pO2 77 L Sodium Potassium Chloride Carbon Dioxide BUN Creatinine Glucose POC Glucose > 500 H Magnesium Total Creatine Kinase Troponin T 0.057 H Total Protein Albumin Urine Creatinine 10/02/17 10/03/17 10/03/17 23:41 05:44 05:44 WBC 14.8 H RBC 3.41 L Hgb 10.4 L Hct 31.8 L MCHC RDW 15.4 H Lymph % (Auto) [place] % (Auto) Lymph # [place] # Seg Neutrophils % Seg Neuts % (Manual) Lymphocytes % (Manual) Seg Neutrophils # Seg Neutrophils # Man Lymphocytes # (Manual) D-Dimer POC ABG pO2 Sodium 155 H Potassium 3.4 L Chloride 110.8 H Carbon Dioxide 32 H BUN 81 H Creatinine 1.6 H Glucose 403 H POC Glucose 447 H Magnesium 2.60 H Total Creatine Kinase Troponin T Total Protein Albumin Urine Creatinine 10/03/17 10/03/17 10/04/17 06:32 12:33 00:14 WBC RBC Hgb Hct MCHC RDW Lymph % (Auto) [place] % (Auto) Lymph # [place] # Seg Neutrophils % Seg Neuts % (Manual) Lymphocytes % (Manual) Seg Neutrophils # Seg Neutrophils # Man Lymphocytes # (Manual) D-Dimer POC ABG pO2 Sodium Potassium Chloride Carbon Dioxide BUN Creatinine Glucose POC Glucose 394 H 449 H > 500 H Magnesium Total Creatine Kinase Troponin T Total Protein Albumin Urine Creatinine 10/04/17 10/04/17 10/04/17 00:32 06:09 06:19 WBC 13.5 H RBC 3.38 L Hgb 10.5 L Hct 31.4 L MCHC RDW 15.6 H Lymph % (Auto) [place] % (Auto) Lymph # [place] # Seg Neutrophils % Seg Neuts % (Manual) Lymphocytes % (Manual) Seg Neutrophils # Seg Neutrophils # Man Lymphocytes # (Manual) D-Dimer POC ABG pO2 Sodium Potassium Chloride Carbon Dioxide BUN Creatinine Glucose 623 H* POC Glucose 383 H Magnesium Total Creatine Kinase Troponin T Total Protein Albumin Urine Creatinine 10/04/17 10/04/17 10/04/17 06:19 11:51 16:06 WBC RBC Hgb Hct MCHC RDW Lymph % (Auto) [place] % (Auto) Lymph # [place] # Seg Neutrophils % Seg Neuts % (Manual) Lymphocytes % (Manual) Seg Neutrophils # Seg Neutrophils # Man Lymphocytes # (Manual) D-Dimer POC ABG pO2 Sodium 163 H* D Potassium Chloride 114.2 H Carbon Dioxide 34 H BUN 83 H Creatinine 1.7 H Glucose 389 H POC Glucose 340 H 341 H Magnesium Total Creatine Kinase Troponin T Total Protein Albumin Urine Creatinine 10/04/17 10/04/17 10/05/17 17:34 23:00 01:00 WBC RBC Hgb Hct MCHC RDW Lymph % (Auto) [place] % (Auto) Lymph # [place] # Seg Neutrophils % Seg Neuts % (Manual) Lymphocytes % (Manual) Seg Neutrophils # Seg Neutrophils # Man Lymphocytes # (Manual) D-Dimer POC ABG pO2 Sodium 155 H Potassium 3.4 L Chloride 107.4 H Carbon Dioxide 33 H BUN 82 H Creatinine 1.8 H Glucose 348 H POC Glucose 461 H Magnesium Total Creatine Kinase Troponin T Total Protein Albumin Urine Creatinine 99.4 H 10/05/17 10/05/17 10/05/17 05:25 05:39 06:11 WBC 14.1 H RBC 3.03 L Hgb 9.6 L Hct 28.0 L MCHC RDW 15.8 H Lymph % (Auto) [place] % (Auto) Lymph # [place] # Seg Neutrophils % Seg Neuts % (Manual) Lymphocytes % (Manual) Seg Neutrophils # Seg Neutrophils # Man Lymphocytes # (Manual) D-Dimer POC ABG pO2 Sodium 149 H Potassium Chloride Carbon Dioxide 33 H BUN 81 H Creatinine 1.7 H Glucose 365 H POC Glucose 397 H Magnesium 2.40 H Total Creatine Kinase Troponin T Total Protein Albumin Urine Creatinine
[2017-10-05] MEDS: PEPCID IV SCH (10:45)
[2017-10-05] MEDS: ZITHROMAX PO SCH (10:45)
--- NOTE | 2017-10-05 14:27 | Progress Note ---
Assessment and Plan Assessment and plan: Patient is a 72 yo man who is a resident at [facility] under 1013 with h/o HTN, CVA, NE, CHF, COPD, CAMILLE on CPAP, Seizure Disorder, Depression, PTSD, Debility, nicotine Dependence, Recurrent Falls presents to ED for confusion and falling. He was admitted for suspected sepsis pneumonia, nstemi and right wrist fracture. * pCXR Impression: Bibasilar atelectasis. * CT lumbar spine wo IMPRESSION: 1. No acute compression deformity or apparent fracture in the lumbar spine. 2. Degenerative spondylosis. * XRay bilateral knee IMPRESSION: 1. No acute osseous abnormality. 2. Postsurgical changes in the right knee, and degenerative changes in the left knee. * Xray 3v right wrist IMPRESSION: 1. Probable nondisplaced fracture right distal ulna. * CT head Impression: No acute intracranial abnormality. * CT thoracic spine wo IMPRESSION: 1. No acute compression deformity or apparent fracture in the thoracic spine. Diffuse degenerative spondylosis. 2. Fractures in left ribs 9-12, probably acute or subacute. Correlate clinically. 3. Findings which may represent bibasilar atelectasis, mild infiltrates or postinflammatory change of uncertain etiology or chronicity. 4. Left adrenal nodule may represent adenomatous change, but is indeterminate. Followup may be warranted. -Suspect Sepsis from Aspiration Pneumonia, poa, treated with iv abx, ivf but developed fluid overload and ivf stopped and lasix iv given. -no NSTEMI (non-ST elevated myocardial infarction), non specified elevation of troponin per Cardiology: stopped therapeutic lovenox -s/p Fall with Multiple rib fractures/right wrist fracture: Conservative measures per Ortho -No pneumonia mention on CXR but empirically on iv rocephin and oral azithromycin -ARF (acute renal failure), vasomotor nephropathy poa: bmp in am -Acute encephalopathy: treat the above issues -Acute on chronic diastolic heart failure: diuresis cautiously due to ARF, follow bmp closely -Afib with RVR: -Depression: [address], psych consulted in ED, 101, 1:1 Sitter as per protocol -DVT prophylaxis: scd to ble, deep bruising and diffuse ecchymosis so hold vte due to fall risk Restraint renewed Normal LVEF 60-65% by echocardiogram. ortho, Dr. Lal==>Nondisplaced distal ulnar fracture, recommend conservative treatment with wrist brace and early ROM 10/02/17: Bilateral lung crackles today, pCXR looks like pulmonary edema but can' t exclude infiltrates (my reading), gave iv lasix 40mg iv x 1 carefully diuresis due to Aortic stenosis and ARF. ABG showed combined Acute Respiratory failure which patient has been on O2 since admission, so acute hypoxic respiratory poa. RN reported ABGs at 7.442/64/44/30.3 on O2. Bipap started by respiratory, I consulted and d/w Dr. Ng, pulmonology. Troponin level actually improved. Also, started on sq lantus 10units, carefully because he is not eating much. Lasix iv given today 10/03/17: doing better after another dose of iv lasix x 1, trying to wean off bipap, 10/04/17: bipap removed this am, new issue of hypernatremia, consulted stone breaker and spoke with Dr. Gerard. He needs free water, will try to place NG tube because he spit water out at nurse. He remains very confused. D5W treatment is problematic as his blood glucose is very high. Hopefully he will allow ngt to be given for free water and nutrition, Restraints renewed. Day 09/16 of iv abx. Still tachycardiac, had afib with rvr on will call Cardiology 10/05/17: isolated afib, rate is improved thanks to Cardiology. Mental status improved as hypernatremia is improved. He is still confused. History Interval history: Patient was seen and examined. Follow-up on current diagnosis of confusion. Overnight uneventful and doing better, bipap is off during my visit. Imaging, nursing note, chart, labs and old chart reviewed. Hospitalist Physical - Physical exam Narrative exam: GEN: unkempt, confused, HEENT: NCAT, EOMI, PERRL, OP Clear NECK: supple, no adenopathy, no thyromegaly, no JVD CVS/HEART: reg tachy, normal S1S2, pulses present bilaterally CHEST/LUNGS: bilateral crackles Symmetrical chest expansion, good air entry bilaterally GI/Abdomen: soft, NTND, good bowel sounds, no guarding or rebound /Bladder: no suprapubic tenderness, no CVA or paraspinal tenderness EXT/Skin: black and blue all over, especially left upper bicep area with deformity MSK: FROM x 4 Neuro: CN 2-12 grossly intact, doesn't follow command Psych: agitated, ripped his iv line - Constitutional Vitals: Temp Pulse Resp BP Pulse Ox 97.7 F 105 H 20 123/94 91 10/05/17 12:49 10/05/17 12:49 10/05/17 12:49 10/05/17 12:49 10/05/17 12:49 General appearance: Present: other (patient is awake in no acute distress) Results - Labs CBC & Chem 7: 10/05/17 05:25 10/05/17 05:39 Labs: Laboratory Last Values WBC 14.1 K/mm3 (4.5-11.0) H 10/05/17 05:25 RBC 3.03 M/mm3 (3.65-5.03) L 10/05/17 05:25 Hgb 9.6 gm/dl (11.8-15.2) L 10/05/17 05:25 Hct 28.0 % (35.5-45.6) L 10/05/17 05:25 MCV 92 fl (84-94) 10/05/17 05:25 MCH 32 pg (28-32) 10/05/17 05:25 MCHC 34 % (32-34) 10/05/17 05:25 RDW 15.8 % (13.2-15.2) H 10/05/17 05:25 Plt Count 298 K/mm3 (140-440) 10/05/17 05:25 Lymph % (Auto) 6.0 % (13.4-35.0) L 09/29/17 12:54 [place] % (Auto) 10.8 % (0.0-7.3) H 09/29/17 12:54 Eos % (Auto) 0.8 % (0.0-4.3) 09/29/17 12:54 Baso % (Auto) 0.4 % (0.0-1.8) 09/29/17 12:54 Lymph # 0.7 K/mm3 (1.2-5.4) L 09/29/17 12:54 [place] # 1.3 K/mm3 (0.0-0.8) H 09/29/17 12:54 Eos # 0.1 K/mm3 (0.0-0.4) 09/29/17 12:54 Baso # 0.1 K/mm3 (0.0-0.1) 09/29/17 12:54 Add Manual Diff Complete 10/01/17 06:16 Total Counted 100 10/01/17 06:16 Seg Neutrophils % 82.0 % (40.0-70.0) H 09/29/17 12:54 Seg Neuts % (Manual) 87.0 % (40.0-70.0) H 10/01/17 06:16 Band Neutrophils % 1.0 % 10/01/17 06:16 Lymphocytes % (Manual) 7.0 % (13.4-35.0) L 10/01/17 06:16 Reactive Lymphs % (Man) 0 % 10/01/17 06:16 Monocytes % (Manual) 3.0 % (0.0-7.3) 10/01/17 06:16 Eosinophils % (Manual) 1.0 % (0.0-4.3) 10/01/17 06:16 Basophils % (Manual) 0 % (0.0-1.8) 10/01/17 06:16 Metamyelocytes % 1.0 % 10/01/17 06:16 Myelocytes % 0 % 10/01/17 06:16 Promyelocytes % 0 % 10/01/17 06:16 Blast Cells % 0 % 10/01/17 06:16 Nucleated RBC % Not Reportable 10/01/17 06:16 Seg Neutrophils # 10.1 K/mm3 (1.8-7.7) H 09/29/17 12:54 Seg Neutrophils # Man 12.2 K/mm3 (1.8-7.7) H 10/01/17 06:16 Band Neutrophils # 0.1 K/mm3 10/01/17 06:16 Lymphocytes # (Manual) 1.0 K/mm3 (1.2-5.4) L 10/01/17 06:16 Abs React Lymphs (Man) 0.0 K/mm3 10/01/17 06:16 Monocytes # (Manual) 0.4 K/mm3 (0.0-0.8) 10/01/17 06:16 Eosinophils # (Manual) 0.1 K/mm3 (0.0-0.4) 10/01/17 06:16 Basophils # (Manual) 0.0 K/mm3 (0.0-0.1) 10/01/17 06:16 Metamyelocytes # 0.1 K/mm3 10/01/17 06:16 Myelocytes # 0.0 K/mm3 10/01/17 06:16 Promyelocytes # 0.0 K/mm3 10/01/17 06:16 Blast Cells # 0.0 K/mm3 10/01/17 06:16 WBC Morphology Not Reportable 10/01/17 06:16 Hypersegmented Neuts Not Reportable 10/01/17 06:16 Hyposegmented Neuts Not Reportable 10/01/17 06:16 Hypogranular Neuts Not Reportable 10/01/17 06:16 Smudge Cells Not Reportable 10/01/17 06:16 Toxic Granulation Not Reportable 10/01/17 06:16 Toxic Vacuolation Not Reportable 10/01/17 06:16 Dohle Bodies Not Reportable 10/01/17 06:16 Pelger-Huet Anomaly Not Reportable 10/01/17 06:16 Albertina Rods Not Reportable 10/01/17 06:16 Platelet Estimate Appears normal 10/01/17 06:16 Clumped Platelets Not Reportable 10/01/17 06:16 Plt Clumps, EDTA Not Reportable 10/01/17 06:16 Large Platelets Not Reportable 10/01/17 06:16 Giant Platelets Not Reportable 10/01/17 06:16 Platelet Satelliting Not Reportable 10/01/17 06:16 Plt Morphology Comment Not Reportable 10/01/17 06:16 RBC Morphology Not Reportable 10/01/17 06:16 Dimorphic RBCs Not Reportable 10/01/17 06:16 Polychromasia Not Reportable 10/01/17 06:16 Hypochromasia Not Reportable 10/01/17 06:16 Poikilocytosis Not Reportable 10/01/17 06:16 Anisocytosis 1+ 10/01/17 06:16 Microcytosis Not Reportable 10/01/17 06:16 Macrocytosis Not Reportable 10/01/17 06:16 Spherocytes Not Reportable 10/01/17 06:16 Pappenheimer Bodies Not Reportable 10/01/17 06:16 Sickle Cells Not Reportable 10/01/17 06:16 Target Cells Not Reportable 10/01/17 06:16 Tear Drop Cells Rare 10/01/17 06:16 Ovalocytes 1+ 10/01/17 06:16 Helmet Cells Not Reportable 10/01/17 06:16 [place] Bodies Not Reportable 10/01/17 06:16 [place]ley Rings Not Reportable 10/01/17 06:16 Sakina Cells Few 10/01/17 06:16 Bite Cells Not Reportable 10/01/17 06:16 Crenated Cell Not Reportable 10/01/17 06:16 Elliptocytes Rare 10/01/17 06:16 Acanthocytes (Spur) 1+ 10/01/17 06:16 Rouleaux Not Reportable 10/01/17 06:16 Hemoglobin C Crystals Not Reportable 10/01/17 06:16 Schistocytes Not Reportable 10/01/17 06:16 Malaria parasites Not Reportable 10/01/17 06:16 [place] Bodies Not Reportable 10/01/17 06:16 Hem Pathologist Commnt No 10/01/17 06:16 PT 14.1 Sec. (12.2-14.9) 10/01/17 06:31 INR 1.04 (0.87-1.13) 10/01/17 06:31 APTT 35.4 Sec. (24.2-36.6) 10/01/17 06:31 D-Dimer 2801.11 ng/mlDDU (0-234) H 09/29/17 19:19 POC ABG pH 7.415 (7.35-7.45) 10/02/17 20:23 POC ABG pCO2 42.1 (35-45) 10/02/17 20:23 POC ABG pO2 77 (80-105) L 10/02/17 20:23 POC ABG HCO3 27.0 10/02/17 20:23 POC ABG Total CO2 28 10/02/17 20:23 POC ABG O2 Sat 95 10/02/17 20:23 POC ABG Base Excess 2 10/02/17 20:23 FiO2 65 % 10/02/17 20:23 Sodium 149 mmol/L (137-145) H 10/05/17 05:39 Potassium 3.9 mmol/L (3.6-5.0) 10/05/17 05:39 Chloride 104.4 mmol/L (98-107) 10/05/17 05:39 Carbon Dioxide 33 mmol/L (22-30) H 10/05/17 05:39 Anion Gap 16 mmol/L 10/05/17 05:39 BUN 81 mg/dL (9-20) H 10/05/17 05:39 Creatinine 1.7 mg/dL (0.8-1.5) H 10/05/17 05:39 Estimated GFR 40 ml/min 10/05/17 05:39 BUN/Creatinine Ratio 48 % 10/05/17 05:39 Glucose 365 mg/dL (75-100) H 10/05/17 05:39 POC Glucose 397 (70-105) H 10/05/17 06:11 Lactic Acid 1.80 mmol/L (0.7-2.0) 09/30/17 02:38 Calcium 8.7 mg/dL (8.4-10.2) 10/05/17 05:39 Phosphorus 2.80 mg/dL (2.5-4.5) 10/05/17 05:39 Magnesium 2.40 mg/dL (1.7-2.3) H 10/05/17 05:39 Total Bilirubin 0.70 mg/dL (0.1-1.2) 10/01/17 06:16 AST 15 units/L (5-40) 10/01/17 06:16 ALT 14 units/L (7-56) 10/01/17 06:16 Alkaline Phosphatase 86 units/L (35-129) 10/01/17 06:16 Total Creatine Kinase 348 units/L (55-170) H 09/29/17 14:58 Troponin T 0.057 ng/mL (0.00-0.029) H 10/02/17 17:56 NT-Pro-B Natriuret Pep 230.9 pg/mL (0-900) 09/29/17 18:37 Total Protein 6.0 g/dL (6.3-8.2) L 10/01/17 06:16 Albumin 3.4 g/dL (3.9-5) L 10/01/17 06:16 Albumin/Globulin Ratio 1.3 % 10/01/17 06:16 Triglycerides 134 mg/dL (2-149) 09/29/17 12:54 Cholesterol 118 mg/dL (50-199) 09/29/17 12:54 LDL Cholesterol Direct 57 mg/dL (50-130) 09/29/17 12:54 HDL Cholesterol 41 mg/dL (40-59) 09/29/17 12:54 Cholesterol/HDL Ratio 2.87 % 09/29/17 12:54 Urine Color Yellow (Yellow) 10/05/17 01:00 Urine Turbidity Clear (Clear) 10/05/17 01:00 Urine pH 5.0 (5.0-7.0) 10/05/17 01:00 Ur Specific [place] 1.015 (1.003-1.030) 10/05/17 01:00 Urine Protein <15 mg/dl mg/dL (Negative) 10/05/17 01:00 Urine Glucose (UA) 150 mg/dL (Negative) 10/05/17 01:00 Urine Ketones Tr mg/dL (Negative) 10/05/17 01:00 Urine Blood Neg (Negative) 10/05/17 01:00 Urine Nitrite Neg (Negative) 10/05/17 01:00 Urine Bilirubin Neg (Negative) 10/05/17 01:00 Urine Urobilinogen < 2.0 mg/dL (<2.0) 10/05/17 01:00 Ur Leukocyte Esterase Neg (Negative) 10/05/17 01:00 Urine WBC (Auto) 3.0 /HPF (0.0-6.0) 10/05/17 01:00 Urine RBC (Auto) < 1.0 /HPF (0.0-6.0) 10/05/17 01:00 U Epithel Cells (Auto) < 1.0 /HPF (0-13.0) 10/05/17 01:00 Urine Bacteria (Auto) 1+ /HPF (Negative) 10/05/17 01:00 Amorphous Crystals 1+ 10/05/17 01:00 Hyaline Casts 8 /LPF 10/05/17 01:00 Urine Creatinine 99.4 mg/dL (0.1-20.0) H 10/05/17 01:00 Urine Sodium 10 mmol/L 10/05/17 01:00
[2017-10-05] MEDS: NACL 0.45% 1000 ML 1,000 ML IV SCH (14:35)
[2017-10-05] MEDS: cefTRIAXone 2 GM in NACL 0.9% 20 ML IV SCH (18:27)
[2017-10-05] MEDS: LOVENOX SUB-Q SCH (22:53)
[2017-10-05] MEDS: SODIUM CHLORIDE FLUSH SYRINGE 10 ML IV SCH (22:54)
[2017-10-06] MEDS: CARDIZEM PO SCH ×5 (00:16→23:07)
[2017-10-06] MEDS: HumaLOG SUB-Q SCH ×4 (00:19→17:30)
[2017-10-06] MEDS: LANTUS SUB-Q SCH (08:00)
--- NOTE | 2017-10-06 08:30 | Progress Note ---
Assessment and Plan 1. Hypernatremia: Encourage free water intake. Follow Sodium level and blood sugar. 2. Acute kidney injury: Likely hemodynamic SANDRA in the setting of volume depletion. Renal function is improving. Continue low rate 1/2 NS. Monitor renal function. 3. Electrolytes: Metabolic alkalosis. 4. Uncontrolled DM. 5. Suspected Pneumonia. 6. Acute encephalopathy. Subjective Date of service: 10/06/17 Principal diagnosis: Sepsis Interval history: Patient is doing ok. Objective - Vital Signs Vital signs: Vital Signs - 12hr 10/05/17 10/05/17 10/05/17 22:00 22:04 23:11 Temperature 98.4 F Pulse Rate 94 H Respiratory 18 18 Rate Blood Pressure 132/57 O2 Sat by Pulse 96 95 Oximetry 10/06/17 10/06/17 10/06/17 00:16 04:00 04:42 Temperature Pulse Rate 94 H 94 H 107 H Respiratory Rate Blood Pressure 132/57 138/67 O2 Sat by Pulse 90 Oximetry 10/06/17 06:20 Temperature Pulse Rate 107 H Respiratory Rate Blood Pressure 138/67 O2 Sat by Pulse Oximetry - General Appearance General appearance: well-developed, appears stated age, obese, other (no distress) EENT: ATNC, PERRL, hearing intact Neck: supple Respiratory: Present: Clear to Ascultation Cardiology: regular, S1S2, no murmurs Gastrointestinal: normoactive bowel sounds, no tenderness, obese Integumentary: chronic venous stasis Neurologic: confused, disoriented, other (able to move all 4 extremities) Musculoskeletal: other (no edema) - Lab 10/05/17 05:25 10/06/17 06:43 Most recent lab results Calcium 8.7 mg/dL (8.4-10.2) 10/05/17 05:39 Phosphorus 2.80 mg/dL (2.5-4.5) 10/05/17 05:39 Magnesium 2.40 mg/dL (1.7-2.3) H 10/05/17 05:39 Urine Creatinine 99.4 mg/dL (0.1-20.0) H 10/05/17 01:00 Urine Sodium 10 mmol/L 10/05/17 01:00
--- NOTE | 2017-10-06 09:02 | Progress Note ---
Assessment and Plan 1. Status post multiple falls with generalized bruising ecchymosis Rib fractures and ulnar fracture. 2. Metabolic encephalopathy 3. Essential hypertension 4. History of coronary artery disease 5. Chronic obstructive pulmonary disease 6. Obstructive sleep apnea 7. Seizure disorder 8. PTSD Plan. Cardiac-kirkpatrick stable no further cardiac workup planned. Subjective Date of service: 10/06/17 Principal diagnosis: Sepsis Interval history: No cardiac symptoms Objective Vital Signs Temp Pulse Resp BP BP Pulse Ox 10/06/17 08:00 98.5 F 97 H 20 133/62 96 10/06/17 06:20 107 H 138/67 10/06/17 04:42 107 H 138/67 90 10/06/17 04:00 94 H 10/06/17 00:16 94 H 132/57 10/05/17 23:11 98.4 F 94 H 18 132/57 95 10/05/17 22:04 96 10/05/17 22:00 18 10/05/17 20:00 86 10/05/17 19:54 87 117/48 94 10/05/17 17:29 102 H 132/69 10/05/17 16:11 97.7 F 102 H 20 132/69 92 10/05/17 15:59 94 10/05/17 13:57 105 H 123/94 10/05/17 12:49 97.7 F 105 H 20 123/94 91 - Physical Examination General: No Apparent Distress, Other (generalized brusing om upper arma trunck) HEENT: Positive: PERRL, Normocephaly, Sinus Tenderness Neck: Positive: neck supple. Negative: JVD/HJR Cardiac: Positive: Reg Rate and Rhythm, Regular Rate, S1/S2, S3, Dilated, Laterally Displaced Lungs: Positive: clear to auscultation, No Wheeze, Rales, Rhonchi Neuro: Positive: Weakness, No Lateralizing Findings, Other (awake but disoriented to time, place and person) Abdomen: Positive: Unremarkable, Soft, Active Bowel Sounds Skin: Positive: Clear Extremities: Absent: edema
[2017-10-06] MEDS: SODIUM CHLORIDE FLUSH SYRINGE 10 ML IV SCH ×2 (10:00→22:50)
[2017-10-06] MEDS: PEPCID IV SCH (10:48)
[2017-10-06] MEDS: ZITHROMAX PO SCH (10:48)
[2017-10-06] MEDS: NACL 0.45% 1000 ML 1,000 ML IV SCH (10:53)
--- NOTE | 2017-10-06 12:52 | Progress Note ---
Assessment and Plan 72 y/o male with acute respiratory failure. 1. Continue bipap therapy PRN and QHS 2. Needs free water 3. Per patient baseline home O2 is 3 liters 4. CM to find out more about CPAP at night 5. BP control 6. Will check CXR given increase in O2 requirements Subjective Date of service: 10/06/17 Principal diagnosis: Sepsis Interval history: O2 requirement increased. Na continues to be elevated. Objective Vital Signs - 12hr 10/06/17 10/06/17 10/06/17 04:00 04:42 06:20 Temperature Pulse Rate 94 H 107 H 107 H Respiratory Rate Blood Pressure 138/67 138/67 Blood Pressure [Left] O2 Sat by Pulse 90 Oximetry 10/06/17 10/06/17 10/06/17 08:00 10:00 12:23 Temperature 98.5 F Pulse Rate 97 H 101 H Respiratory 20 Rate Blood Pressure 140/72 Blood Pressure 133/62 [Left] O2 Sat by Pulse 96 95 Oximetry Constitutional: appears uncomfortable Effort: mildly labored Ascultation: Bilateral: rales Cardiovascular: regular rate and rhythm Gastrointestinal: other (obese) Extremities: edema Neurologic: unable to assess CBC and BMP: 10/05/17 05:25 10/06/17 06:43 ABG, PT/INR, D-dimer: ABG POC ABG pH 7.415 (7.35-7.45) 10/02/17 20:23 POC ABG pCO2 42.1 (35-45) 10/02/17 20:23 POC ABG pO2 77 (80-105) L 10/02/17 20:23 POC ABG HCO3 27.0 10/02/17 20:23 POC ABG Total CO2 28 10/02/17 20:23 POC ABG O2 Sat 95 10/02/17 20:23 PT/INR, D-dimer PT 14.1 Sec. (12.2-14.9) 10/01/17 06:31 INR 1.04 (0.87-1.13) 10/01/17 06:31 D-Dimer 2801.11 ng/mlDDU (0-234) H 09/29/17 19:19 Abnormal lab findings: Abnormal Labs 09/29/17 09/29/17 09/29/17 12:54 12:54 14:58 WBC 12.4 H RBC Hgb 11.7 L Hct 33.5 L MCHC 35 H RDW 15.4 H Lymph % (Auto) 6.0 L [place] % (Auto) 10.8 H Lymph # 0.7 L [place] # 1.3 H Seg Neutrophils % 82.0 H Seg Neuts % (Manual) Lymphocytes % (Manual) Seg Neutrophils # 10.1 H Seg Neutrophils # Man Lymphocytes # (Manual) D-Dimer POC ABG pO2 Sodium 133 L Potassium Chloride 90.9 L Carbon Dioxide BUN 70 H Creatinine 2.0 H Glucose 336 H POC Glucose Magnesium Total Creatine Kinase 348 H Troponin T 0.071 H 0.073 H Total Protein Albumin Urine Creatinine 09/29/17 09/29/17 09/29/17 18:11 18:37 19:19 WBC RBC Hgb Hct MCHC RDW Lymph % (Auto) [place] % (Auto) Lymph # [place] # Seg Neutrophils % Seg Neuts % (Manual) Lymphocytes % (Manual) Seg Neutrophils # Seg Neutrophils # Man Lymphocytes # (Manual) D-Dimer 2801.11 H POC ABG pO2 Sodium Potassium Chloride Carbon Dioxide BUN Creatinine Glucose POC Glucose Magnesium Total Creatine Kinase Troponin T 0.073 H 0.074 H Total Protein Albumin Urine Creatinine 09/29/17 09/29/17 09/30/17 22:22 23:00 02:38 WBC RBC Hgb Hct MCHC RDW Lymph % (Auto) [place] % (Auto) Lymph # [place] # Seg Neutrophils % Seg Neuts % (Manual) Lymphocytes % (Manual) Seg Neutrophils # Seg Neutrophils # Man Lymphocytes # (Manual) D-Dimer POC ABG pO2 Sodium Potassium Chloride Carbon Dioxide BUN Creatinine Glucose POC Glucose 389 H Magnesium Total Creatine Kinase Troponin T 0.058 H D 0.064 H Total Protein Albumin Urine Creatinine 09/30/17 09/30/17 09/30/17 12:07 16:24 21:25 WBC RBC Hgb Hct MCHC RDW Lymph % (Auto) [place] % (Auto) Lymph # [place] # Seg Neutrophils % Seg Neuts % (Manual) Lymphocytes % (Manual) Seg Neutrophils # Seg Neutrophils # Man Lymphocytes # (Manual) D-Dimer POC ABG pO2 Sodium Potassium Chloride Carbon Dioxide BUN Creatinine Glucose POC Glucose 387 H 431 H 326 H Magnesium Total Creatine Kinase Troponin T Total Protein Albumin Urine Creatinine 10/01/17 10/01/17 10/01/17 06:16 06:16 06:30 WBC 14.0 H RBC Hgb Hct 34.3 L MCHC RDW Lymph % (Auto) [place] % (Auto) Lymph # [place] # Seg Neutrophils % Seg Neuts % (Manual) 87.0 H Lymphocytes % (Manual) 7.0 L Seg Neutrophils # Seg Neutrophils # Man 12.2 H Lymphocytes # (Manual) 1.0 L D-Dimer POC ABG pO2 Sodium Potassium 3.4 L Chloride 94.7 L Carbon Dioxide BUN 62 H Creatinine Glucose 432 H POC Glucose 419 H Magnesium Total Creatine Kinase Troponin T Total Protein 6.0 L Albumin 3.4 L Urine Creatinine 10/01/17 10/01/17 10/02/17 11:25 15:39 07:39 WBC RBC Hgb Hct MCHC RDW Lymph % (Auto) [place] % (Auto) Lymph # [place] # Seg Neutrophils % Seg Neuts % (Manual) Lymphocytes % (Manual) Seg Neutrophils # Seg Neutrophils # Man Lymphocytes # (Manual) D-Dimer POC ABG pO2 Sodium Potassium Chloride Carbon Dioxide BUN Creatinine Glucose POC Glucose 456 H 472 H 429 H Magnesium Total Creatine Kinase Troponin T Total Protein Albumin Urine Creatinine 10/02/17 10/02/17 10/02/17 11:03 11:03 11:03 WBC 14.9 H RBC Hgb Hct MCHC RDW 15.4 H Lymph % (Auto) [place] % (Auto) Lymph # [place] # Seg Neutrophils % Seg Neuts % (Manual) Lymphocytes % (Manual) Seg Neutrophils # Seg Neutrophils # Man Lymphocytes # (Manual) D-Dimer POC ABG pO2 Sodium 154 H D Potassium 3.5 L Chloride Carbon Dioxide BUN 66 H Creatinine Glucose 432 H POC Glucose Magnesium Total Creatine Kinase Troponin T 0.059 H Total Protein Albumin Urine Creatinine 10/02/17 10/02/17 10/02/17 13:00 14:48 14:57 WBC RBC Hgb Hct MCHC RDW Lymph % (Auto) [place] % (Auto) Lymph # [place] # Seg Neutrophils % Seg Neuts % (Manual) Lymphocytes % (Manual) Seg Neutrophils # Seg Neutrophils # Man Lymphocytes # (Manual) D-Dimer POC ABG pO2 64 L Sodium Potassium Chloride Carbon Dioxide BUN Creatinine Glucose POC Glucose 476 H 448 H Magnesium Total Creatine Kinase Troponin T Total Protein Albumin Urine Creatinine 10/02/17 10/02/17 10/02/17 17:56 18:19 20:23 WBC RBC Hgb Hct MCHC RDW Lymph % (Auto) [place] % (Auto) Lymph # [place] # Seg Neutrophils % Seg Neuts % (Manual) Lymphocytes % (Manual) Seg Neutrophils # Seg Neutrophils # Man Lymphocytes # (Manual) D-Dimer POC ABG pO2 77 L Sodium Potassium Chloride Carbon Dioxide BUN Creatinine Glucose POC Glucose > 500 H Magnesium Total Creatine Kinase Troponin T 0.057 H Total Protein Albumin Urine Creatinine 10/02/17 10/03/17 10/03/17 23:41 05:44 05:44 WBC 14.8 H RBC 3.41 L Hgb 10.4 L Hct 31.8 L MCHC RDW 15.4 H Lymph % (Auto) [place] % (Auto) Lymph # [place] # Seg Neutrophils % Seg Neuts % (Manual) Lymphocytes % (Manual) Seg Neutrophils # Seg Neutrophils # Man Lymphocytes # (Manual) D-Dimer POC ABG pO2 Sodium 155 H Potassium 3.4 L Chloride 110.8 H Carbon Dioxide 32 H BUN 81 H Creatinine 1.6 H Glucose 403 H POC Glucose 447 H Magnesium 2.60 H Total Creatine Kinase Troponin T Total Protein Albumin Urine Creatinine 10/03/17 10/03/17 10/04/17 06:32 12:33 00:14 WBC RBC Hgb Hct MCHC RDW Lymph % (Auto) [place] % (Auto) Lymph # [place] # Seg Neutrophils % Seg Neuts % (Manual) Lymphocytes % (Manual) Seg Neutrophils # Seg Neutrophils # Man Lymphocytes # (Manual) D-Dimer POC ABG pO2 Sodium Potassium Chloride Carbon Dioxide BUN Creatinine Glucose POC Glucose 394 H 449 H > 500 H Magnesium Total Creatine Kinase Troponin T Total Protein Albumin Urine Creatinine 10/04/17 10/04/17 10/04/17 00:32 06:09 06:19 WBC 13.5 H RBC 3.38 L Hgb 10.5 L Hct 31.4 L MCHC RDW 15.6 H Lymph % (Auto) [place] % (Auto) Lymph # [place] # Seg Neutrophils % Seg Neuts % (Manual) Lymphocytes % (Manual) Seg Neutrophils # Seg Neutrophils # Man Lymphocytes # (Manual) D-Dimer POC ABG pO2 Sodium Potassium Chloride Carbon Dioxide BUN Creatinine Glucose 623 H* POC Glucose 383 H Magnesium Total Creatine Kinase Troponin T Total Protein Albumin Urine Creatinine 10/04/17 10/04/17 10/04/17 06:19 11:51 16:06 WBC RBC Hgb Hct MCHC RDW Lymph % (Auto) [place] % (Auto) Lymph # [place] # Seg Neutrophils % Seg Neuts % (Manual) Lymphocytes % (Manual) Seg Neutrophils # Seg Neutrophils # Man Lymphocytes # (Manual) D-Dimer POC ABG pO2 Sodium 163 H* D Potassium Chloride 114.2 H Carbon Dioxide 34 H BUN 83 H Creatinine 1.7 H Glucose 389 H POC Glucose 340 H 341 H Magnesium Total Creatine Kinase Troponin T Total Protein Albumin Urine Creatinine 10/04/17 10/04/17 10/05/17 17:34 23:00 01:00 WBC RBC Hgb Hct MCHC RDW Lymph % (Auto) [place] % (Auto) Lymph # [place] # Seg Neutrophils % Seg Neuts % (Manual) Lymphocytes % (Manual) Seg Neutrophils # Seg Neutrophils # Man Lymphocytes # (Manual) D-Dimer POC ABG pO2 Sodium 155 H Potassium 3.4 L Chloride 107.4 H Carbon Dioxide 33 H BUN 82 H Creatinine 1.8 H Glucose 348 H POC Glucose 461 H Magnesium Total Creatine Kinase Troponin T Total Protein Albumin Urine Creatinine 99.4 H 10/05/17 10/05/17 10/05/17 05:25 05:39 06:11 WBC 14.1 H RBC 3.03 L Hgb 9.6 L Hct 28.0 L MCHC RDW 15.8 H Lymph % (Auto) [place] % (Auto) Lymph # [place] # Seg Neutrophils % Seg Neuts % (Manual) Lymphocytes % (Manual) Seg Neutrophils # Seg Neutrophils # Man Lymphocytes # (Manual) D-Dimer POC ABG pO2 Sodium 149 H Potassium Chloride Carbon Dioxide 33 H BUN 81 H Creatinine 1.7 H Glucose 365 H POC Glucose 397 H Magnesium 2.40 H Total Creatine Kinase Troponin T Total Protein Albumin Urine Creatinine 10/05/17 10/05/17 10/05/17 12:16 16:22 21:06 WBC RBC Hgb Hct MCHC RDW Lymph % (Auto) [place] % (Auto) Lymph # [place] # Seg Neutrophils % Seg Neuts % (Manual) Lymphocytes % (Manual) Seg Neutrophils # Seg Neutrophils # Man Lymphocytes # (Manual) D-Dimer POC ABG pO2 Sodium Potassium Chloride Carbon Dioxide BUN Creatinine Glucose POC Glucose 400 H 395 H 265 H Magnesium Total Creatine Kinase Troponin T Total Protein Albumin Urine Creatinine 10/06/17 10/06/17 10/06/17 06:43 06:50 11:29 WBC RBC Hgb Hct MCHC RDW Lymph % (Auto) [place] % (Auto) Lymph # [place] # Seg Neutrophils % Seg Neuts % (Manual) Lymphocytes % (Manual) Seg Neutrophils # Seg Neutrophils # Man Lymphocytes # (Manual) D-Dimer POC ABG pO2 Sodium 156 H Potassium Chloride 115.0 H Carbon Dioxide 32 H BUN 62 H Creatinine Glucose 308 H POC Glucose 330 H 396 H Magnesium Total Creatine Kinase Troponin T Total Protein Albumin Urine Creatinine
--- NOTE | 2017-10-06 14:21 | Progress Note ---
Assessment and Plan Assessment and plan: Patient is a 72 yo man who is a resident at [facility] under 1013 for SI with h/o HTN, CVA, [place], CHF, COPD, [place] on CPAP, Seizure Disorder, Depression, PTSD, Debility, nicotine Dependence, Recurrent Falls presents to ED for confusion and falling. He was admitted for suspected sepsis pneumonia, nstemi and right wrist fracture. * pCXR Impression: Bibasilar atelectasis. * CT lumbar spine wo IMPRESSION: 1. No acute compression deformity or apparent fracture in the lumbar spine. 2. Degenerative spondylosis. * XRay bilateral knee IMPRESSION: 1. No acute osseous abnormality. 2. Postsurgical changes in the right knee, and degenerative changes in the left knee. * Xray 3v right wrist IMPRESSION: 1. Probable nondisplaced fracture right distal ulna. * CT head Impression: No acute intracranial abnormality. * CT thoracic spine wo IMPRESSION: 1. No acute compression deformity or apparent fracture in the thoracic spine. Diffuse degenerative spondylosis. 2. Fractures in left ribs 9-12, probably acute or subacute. Correlate clinically. 3. Findings which may represent bibasilar atelectasis, mild infiltrates or postinflammatory change of uncertain etiology or chronicity. 4. Left adrenal nodule may represent adenomatous change, but is indeterminate. Followup may be warranted. -Suspect Sepsis from Aspiration Pneumonia, poa, treated with iv abx, ivf but developed fluid overload and ivf stopped and lasix iv given. -s/p Fall with Multiple rib fractures/right wrist fracture: Conservative measures per Ortho -ARF (acute renal failure), vasomotor nephropathy poa: bmp in am -Acute encephalopathy: treat the above issues -Acute on chronic diastolic heart failure: diuresis cautiously due to ARF, follow bmp closely -Afib with RVR: Cardiology is following -Depression: psych is following -no NSTEMI (non-ST elevated myocardial infarction), non specified elevation of troponin per Cardiology: stopped therapeutic lovenox -DVT prophylaxis: scd to ble, deep bruising and diffuse ecchymosis so hold vte due to fall risk Restraint renewed Normal LVEF 60-65% by echocardiogram. ortho, Dr. Lal==>Nondisplaced distal ulnar fracture, recommend conservative treatment with wrist brace and early ROM 10/02/17: Bilateral lung crackles today, pCXR looks like pulmonary edema but can' t exclude infiltrates (my reading), gave iv lasix 40mg iv x 1 carefully diuresis due to Aortic stenosis and ARF. ABG showed combined Acute Respiratory failure which patient has been on O2 since admission, so acute hypoxic respiratory poa. RN reported ABGs at 7.442/64/44/30.3 on O2. Bipap started by respiratory, I consulted and d/w Dr. Ng, pulmonology. Troponin level actually improved. Also, started on sq lantus 10units, carefully because he is not eating much. Lasix iv given today 10/03/17: doing better after another dose of iv lasix x 1, trying to wean off bipap, 10/04/17: bipap removed this am, new issue of hypernatremia, consulted bee worker and spoke with Dr. Gerard. He needs free water, will try to place NG tube because he spit water out at nurse. He remains very confused. D5W treatment is problematic as his blood glucose is very high. Hopefully he will allow ngt to be given for free water and nutrition, Restraints renewed. Day 09/16 of iv abx. Still tachycardiac, had afib with rvr on will call Cardiology 10/05/17: isolated afib, rate is improved thanks to Cardiology. Mental status improved as hypernatremia is improved. He is still confused. 10/06/17: still hallucinating, renal function is improving, blood glucose still uncontrolled, so lantus increased to 20 units daily. No 1013 in the chart. I have asked RN to enter [place] [facility] into our EMR for reconciliation. History Interval history: Patient was seen and examined. Follow-up on current diagnosis of confusion. Overnight uneventful and doing better, bipap is off during my visit. Imaging, nursing note, chart, labs and old chart reviewed. Still hallicunating. Hospitalist Physical - Physical exam Narrative exam: GEN: unkempt, confused, HEENT: NCAT, EOMI, PERRL, OP Clear NECK: supple, no adenopathy, no thyromegaly, no JVD CVS/HEART: reg tachy, normal S1S2, pulses present bilaterally CHEST/LUNGS: bilateral crackles Symmetrical chest expansion, good air entry bilaterally GI/Abdomen: soft, NTND, good bowel sounds, no guarding or rebound /Bladder: no suprapubic tenderness, no CVA or paraspinal tenderness EXT/Skin: black and blue all over, especially left upper bicep area with deformity MSK: FROM x 4 Neuro: CN 2-12 grossly intact, doesn't follow command Psych: agitated, ripped his iv line - Constitutional Vitals: Temp Pulse Resp BP Pulse Ox 98.5 F 101 H 20 140/72 99 10/06/17 12:00 10/06/17 12:23 10/06/17 11:23 10/06/17 12:23 10/06/17 11:23 General appearance: Present: other (patient is awake in no acute distress) Results - Labs CBC & Chem 7: 10/05/17 05:25 10/06/17 06:43 Labs: Laboratory Last Values WBC 14.1 K/mm3 (4.5-11.0) H 10/05/17 05:25 RBC 3.03 M/mm3 (3.65-5.03) L 10/05/17 05:25 Hgb 9.6 gm/dl (11.8-15.2) L 10/05/17 05:25 Hct 28.0 % (35.5-45.6) L 10/05/17 05:25 MCV 92 fl (84-94) 10/05/17 05:25 MCH 32 pg (28-32) 10/05/17 05:25 MCHC 34 % (32-34) 10/05/17 05:25 RDW 15.8 % (13.2-15.2) H 10/05/17 05:25 Plt Count 298 K/mm3 (140-440) 10/05/17 05:25 Lymph % (Auto) 6.0 % (13.4-35.0) L 09/29/17 12:54 [place] % (Auto) 10.8 % (0.0-7.3) H 09/29/17 12:54 Eos % (Auto) 0.8 % (0.0-4.3) 09/29/17 12:54 Baso % (Auto) 0.4 % (0.0-1.8) 09/29/17 12:54 Lymph # 0.7 K/mm3 (1.2-5.4) L 09/29/17 12:54 [place] # 1.3 K/mm3 (0.0-0.8) H 09/29/17 12:54 Eos # 0.1 K/mm3 (0.0-0.4) 09/29/17 12:54 Baso # 0.1 K/mm3 (0.0-0.1) 09/29/17 12:54 Add Manual Diff Complete 10/01/17 06:16 Total Counted 100 10/01/17 06:16 Seg Neutrophils % 82.0 % (40.0-70.0) H 09/29/17 12:54 Seg Neuts % (Manual) 87.0 % (40.0-70.0) H 10/01/17 06:16 Band Neutrophils % 1.0 % 10/01/17 06:16 Lymphocytes % (Manual) 7.0 % (13.4-35.0) L 10/01/17 06:16 Reactive Lymphs % (Man) 0 % 10/01/17 06:16 Monocytes % (Manual) 3.0 % (0.0-7.3) 10/01/17 06:16 Eosinophils % (Manual) 1.0 % (0.0-4.3) 10/01/17 06:16 Basophils % (Manual) 0 % (0.0-1.8) 10/01/17 06:16 Metamyelocytes % 1.0 % 10/01/17 06:16 Myelocytes % 0 % 10/01/17 06:16 Promyelocytes % 0 % 10/01/17 06:16 Blast Cells % 0 % 10/01/17 06:16 Nucleated RBC % Not Reportable 10/01/17 06:16 Seg Neutrophils # 10.1 K/mm3 (1.8-7.7) H 09/29/17 12:54 Seg Neutrophils # Man 12.2 K/mm3 (1.8-7.7) H 10/01/17 06:16 Band Neutrophils # 0.1 K/mm3 10/01/17 06:16 Lymphocytes # (Manual) 1.0 K/mm3 (1.2-5.4) L 10/01/17 06:16 Abs React Lymphs (Man) 0.0 K/mm3 10/01/17 06:16 Monocytes # (Manual) 0.4 K/mm3 (0.0-0.8) 10/01/17 06:16 Eosinophils # (Manual) 0.1 K/mm3 (0.0-0.4) 10/01/17 06:16 Basophils # (Manual) 0.0 K/mm3 (0.0-0.1) 10/01/17 06:16 Metamyelocytes # 0.1 K/mm3 10/01/17 06:16 Myelocytes # 0.0 K/mm3 10/01/17 06:16 Promyelocytes # 0.0 K/mm3 10/01/17 06:16 Blast Cells # 0.0 K/mm3 10/01/17 06:16 WBC Morphology Not Reportable 10/01/17 06:16 Hypersegmented Neuts Not Reportable 10/01/17 06:16 Hyposegmented Neuts Not Reportable 10/01/17 06:16 Hypogranular Neuts Not Reportable 10/01/17 06:16 Smudge Cells Not Reportable 10/01/17 06:16 Toxic Granulation Not Reportable 10/01/17 06:16 Toxic Vacuolation Not Reportable 10/01/17 06:16 Dohle Bodies Not Reportable 10/01/17 06:16 Pelger-Huet Anomaly Not Reportable 10/01/17 06:16 Albertina Rods Not Reportable 10/01/17 06:16 Platelet Estimate Appears normal 10/01/17 06:16 Clumped Platelets Not Reportable 10/01/17 06:16 Plt Clumps, EDTA Not Reportable 10/01/17 06:16 Large Platelets Not Reportable 10/01/17 06:16 Giant Platelets Not Reportable 10/01/17 06:16 Platelet Satelliting Not Reportable 10/01/17 06:16 Plt Morphology Comment Not Reportable 10/01/17 06:16 RBC Morphology Not Reportable 10/01/17 06:16 Dimorphic RBCs Not Reportable 10/01/17 06:16 Polychromasia Not Reportable 10/01/17 06:16 Hypochromasia Not Reportable 10/01/17 06:16 Poikilocytosis Not Reportable 10/01/17 06:16 Anisocytosis 1+ 10/01/17 06:16 Microcytosis Not Reportable 10/01/17 06:16 Macrocytosis Not Reportable 10/01/17 06:16 Spherocytes Not Reportable 10/01/17 06:16 Pappenheimer Bodies Not Reportable 10/01/17 06:16 Sickle Cells Not Reportable 10/01/17 06:16 Target Cells Not Reportable 10/01/17 06:16 Tear Drop Cells Rare 10/01/17 06:16 Ovalocytes 1+ 10/01/17 06:16 Helmet Cells Not Reportable 10/01/17 06:16 Garcia[place] Path Bodies Not Reportable 10/01/17 06:16 [place] Rings Not Reportable 10/01/17 06:16 Rolette Cells Few 10/01/17 06:16 Bite Cells Not Reportable 10/01/17 06:16 Crenated Cell Not Reportable 10/01/17 06:16 Elliptocytes Rare 10/01/17 06:16 Acanthocytes (Spur) 1+ 10/01/17 06:16 Rouleaux Not Reportable 10/01/17 06:16 Hemoglobin C Crystals Not Reportable 10/01/17 06:16 Schistocytes Not Reportable 10/01/17 06:16 Malaria parasites Not Reportable 10/01/17 06:16 Brandon Bodies Not Reportable 10/01/17 06:16 Hem Pathologist Commnt No 10/01/17 06:16 PT 14.1 Sec. (12.2-14.9) 10/01/17 06:31 INR 1.04 (0.87-1.13) 10/01/17 06:31 APTT 35.4 Sec. (24.2-36.6) 10/01/17 06:31 D-Dimer 2801.11 ng/mlDDU (0-234) H 09/29/17 19:19 POC ABG pH 7.415 (7.35-7.45) 10/02/17 20:23 POC ABG pCO2 42.1 (35-45) 10/02/17 20:23 POC ABG pO2 77 (80-105) L 10/02/17 20:23 POC ABG HCO3 27.0 10/02/17 20:23 POC ABG Total CO2 28 10/02/17 20:23 POC ABG O2 Sat 95 10/02/17 20:23 POC ABG Base Excess 2 10/02/17 20:23 FiO2 65 % 10/02/17 20:23 Sodium 156 mmol/L (137-145) H 10/06/17 06:43 Potassium 4.2 mmol/L (3.6-5.0) 10/06/17 06:43 Chloride 115.0 mmol/L (98-107) H 10/06/17 06:43 Carbon Dioxide 32 mmol/L (22-30) H 10/06/17 06:43 Anion Gap 20 mmol/L 10/06/17 06:43 BUN 62 mg/dL (9-20) H 10/06/17 06:43 Creatinine 1.3 mg/dL (0.8-1.5) 10/06/17 06:43 Estimated GFR 55 ml/min 10/06/17 06:43 BUN/Creatinine Ratio 48 % 10/06/17 06:43 Glucose 308 mg/dL (75-100) H 10/06/17 06:43 POC Glucose 396 (70-105) H 10/06/17 11:29 Lactic Acid 1.80 mmol/L (0.7-2.0) 09/30/17 02:38 Calcium 9.0 mg/dL (8.4-10.2) 10/06/17 06:43 Phosphorus 2.80 mg/dL (2.5-4.5) 10/05/17 05:39 Magnesium 2.40 mg/dL (1.7-2.3) H 10/05/17 05:39 Total Bilirubin 0.70 mg/dL (0.1-1.2) 10/01/17 06:16 AST 15 units/L (5-40) 10/01/17 06:16 ALT 14 units/L (7-56) 10/01/17 06:16 Alkaline Phosphatase 86 units/L (35-129) 10/01/17 06:16 Total Creatine Kinase 348 units/L (55-170) H 09/29/17 14:58 Troponin T 0.057 ng/mL (0.00-0.029) H 10/02/17 17:56 NT-Pro-B Natriuret Pep 230.9 pg/mL (0-900) 09/29/17 18:37 Total Protein 6.0 g/dL (6.3-8.2) L 10/01/17 06:16 Albumin 3.4 g/dL (3.9-5) L 10/01/17 06:16 Albumin/Globulin Ratio 1.3 % 10/01/17 06:16 Triglycerides 134 mg/dL (2-149) 09/29/17 12:54 Cholesterol 118 mg/dL (50-199) 09/29/17 12:54 LDL Cholesterol Direct 57 mg/dL (50-130) 09/29/17 12:54 HDL Cholesterol 41 mg/dL (40-59) 09/29/17 12:54 Cholesterol/HDL Ratio 2.87 % 09/29/17 12:54 Urine Color Yellow (Yellow) 10/05/17 01:00 Urine Turbidity Clear (Clear) 10/05/17 01:00 Urine pH 5.0 (5.0-7.0) 10/05/17 01:00 Ur Specific [place] 1.015 (1.003-1.030) 10/05/17 01:00 Urine Protein <15 mg/dl mg/dL (Negative) 10/05/17 01:00 Urine Glucose (UA) 150 mg/dL (Negative) 10/05/17 01:00 Urine Ketones Tr mg/dL (Negative) 10/05/17 01:00 Urine Blood Neg (Negative) 10/05/17 01:00 Urine Nitrite Neg (Negative) 10/05/17 01:00 Urine Bilirubin Neg (Negative) 10/05/17 01:00 Urine Urobilinogen < 2.0 mg/dL (<2.0) 10/05/17 01:00 Ur Leukocyte Esterase Neg (Negative) 10/05/17 01:00 Urine WBC (Auto) 3.0 /HPF (0.0-6.0) 10/05/17 01:00 Urine RBC (Auto) < 1.0 /HPF (0.0-6.0) 10/05/17 01:00 U Epithel Cells (Auto) < 1.0 /HPF (0-13.0) 10/05/17 01:00 Urine Bacteria (Auto) 1+ /HPF (Negative) 10/05/17 01:00 Amorphous Crystals 1+ 10/05/17 01:00 Hyaline Casts 8 /LPF 10/05/17 01:00 Urine Creatinine 99.4 mg/dL (0.1-20.0) H 10/05/17 01:00 Urine Sodium 10 mmol/L 10/05/17 01:00
[2017-10-06] MEDS: cefTRIAXone 2 GM in NACL 0.9% 20 ML IV SCH (17:35)
[2017-10-06] MEDS ORDERED: LANTUS SUB-Q ONE (18:00)
[2017-10-06] MEDS: LOVENOX SUB-Q SCH (22:50)
[2017-10-07] MEDS: HumaLOG SUB-Q SCH ×5 (00:50→23:19)
[2017-10-07] MEDS: CARDIZEM PO SCH ×5 (06:23→23:18)
[2017-10-07 08:08] LABS: BUN/Creatinine Ratio 43; Blood Urea Nitrogen 43 mg/dL (9-20); Calcium 8.9 mg/dL (8.4-10.2); Hemolysis Index 7
[2017-10-07] MEDS: LANTUS SUB-Q SCH (08:30)
--- NOTE | 2017-10-07 09:17 | Progress Note ---
Assessment and Plan 1. Hypernatremia: Encourage free water intake. Follow Sodium level and blood sugar. 2. Acute kidney injury: Likely hemodynamic SANDRA in the setting of volume depletion. Renal function continue to improve. Continue low rate 1/2 NS. Monitor renal function. 3. Electrolytes: Metabolic alkalosis. 4. Uncontrolled DM. 5. Suspected Pneumonia. 6. Acute encephalopathy. 7. Anemia. Subjective Date of service: 10/07/17 Principal diagnosis: Sepsis Interval history: Patient is doing ok. Objective - Vital Signs Vital signs: Vital Signs - 12hr 10/06/17 10/07/17 10/07/17 23:07 00:36 04:00 Temperature Pulse Rate 89 92 H 92 H Respiratory 20 Rate Blood Pressure 138/63 104/40 O2 Sat by Pulse 94 Oximetry 10/07/17 10/07/17 05:19 06:23 Temperature 97.6 F Pulse Rate 93 H 93 H Respiratory 22 Rate Blood Pressure 145/64 143/64 O2 Sat by Pulse 92 Oximetry - General Appearance General appearance: well-developed, well-nourished, appears stated age, obese, other (no distress) EENT: ATNC, PERRL, hearing intact Neck: supple Respiratory: Present: Clear to Ascultation Cardiology: regular, S1S2, no murmurs Gastrointestinal: normoactive bowel sounds, no tenderness, obese Integumentary: chronic venous stasis Neurologic: no focal deficit, no asterixis, confused, disoriented Musculoskeletal: other (no edema) Psychiatric: cooperative - Lab 10/05/17 05:25 10/07/17 07:18 Most recent lab results Calcium 8.9 mg/dL (8.4-10.2) 10/07/17 07:18 Phosphorus 2.80 mg/dL (2.5-4.5) 10/05/17 05:39 Magnesium 2.40 mg/dL (1.7-2.3) H 10/05/17 05:39 Urine Creatinine 99.4 mg/dL (0.1-20.0) H 10/05/17 01:00 Urine Sodium 10 mmol/L 10/05/17 01:00
--- NOTE | 2017-10-07 09:20 | Progress Note ---
Assessment and Plan 1. Status post multiple falls with generalized bruising ecchymosis Rib fractures and ulnar fracture. 2. Metabolic encephalopathy 3. Essential hypertension 4. History of coronary artery disease 5. Chronic obstructive pulmonary disease 6. Obstructive sleep apnea 7. Seizure disorder 8. PTSD Plan. Cardiac-kirkpatrick stable no further cardiac workup planned. Subjective Date of service: 10/07/17 Principal diagnosis: Sepsis Interval history: No cardiac symptoms Objective Vital Signs Temp Pulse Resp BP Pulse Ox 10/07/17 06:23 93 H 143/64 10/07/17 05:19 97.6 F 93 H 22 145/64 92 10/07/17 04:00 92 H 10/07/17 00:36 92 H 20 104/40 94 10/06/17 23:07 89 138/63 10/06/17 20:00 98.6 F 91 H 22 138/63 94 10/06/17 17:34 97 H 125/56 10/06/17 16:17 97 H 20 125/56 94 10/06/17 16:00 98.9 F 10/06/17 12:23 101 H 140/72 10/06/17 12:00 98.5 F 10/06/17 11:23 98 H 20 132/58 99 10/06/17 10:00 95 - Physical Examination General: No Apparent Distress, Other (generalized brusing om upper arma trunck) HEENT: Positive: PERRL, Normocephaly, Sinus Tenderness Neck: Positive: neck supple. Negative: JVD/HJR Cardiac: Positive: Regular Rate, S1/S2, PMI, Laterally Displaced. Negative: S3 , S4 Lungs: Positive: Normal Breath Sounds, No Wheeze, Rales, Rhonchi Neuro: Positive: Grossly Intact, Weakness, No Lateralizing Findings, Other ( awake but disoriented to time, place and person) Abdomen: Positive: Unremarkable, Soft, Active Bowel Sounds Skin: Positive: Clear Extremities: Absent: edema - Labs and Meds Comprehensive Metabolic Panel 10/07/17 Range/Units 07:18 Sodium 149 H (137-145) mmol/L Potassium 3.9 (3.6-5.0) mmol/L Chloride 106.0 (98-107) mmol/L Carbon Dioxide 32 H (22-30) mmol/L BUN 43 H (9-20) mg/dL Creatinine 1.0 (0.8-1.5) mg/dL Glucose 289 H (75-100) mg/dL Calcium 8.9 (8.4-10.2) mg/dL
[2017-10-07] MEDS: ZITHROMAX PO SCH (09:30)
[2017-10-07] MEDS: SODIUM CHLORIDE FLUSH SYRINGE 10 ML IV SCH ×3 (10:00→22:20)
[2017-10-07] MEDS: PEPCID IV SCH (10:00)
[2017-10-07] MEDS: PEPCID PO SCH (12:32)
--- NOTE | 2017-10-07 12:58 | Progress Note ---
Assessment and Plan Acute and chronic respiratory failure. Currently on oxygen support, nasal cannula. Reportedly did not use BiPAP last night [facility] Morbid obesity PTSD diagnosis per chart Recommendations Continue oxygen support as needed Albuterol 2.5 milligram nebulizations every 4-6 hours with or without ipratropium Patient with diagnosis of sleep apnea. Recommend to continue BiPAP at nighttime Oxygen support via nasal cannula or mask to maintain oximetry over 92% DVT prophylaxis May be able to progress to inhaled bronchodilators, Spiriva later on Physical therapy Subjective Date of service: 10/07/17 Principal diagnosis: Sepsis, acute on chronic respiratory failure Interval history: No respiratory complaints. Slightly confused. Objective Vital Signs - 12hr 10/07/17 10/07/17 10/07/17 04:00 05:19 06:23 Temperature 97.6 F Pulse Rate 92 H 93 H 93 H Respiratory 22 Rate Blood Pressure 145/64 143/64 O2 Sat by Pulse 92 Oximetry Constitutional: no acute distress, alert Eyes: non-icteric ENT: oropharynx moist Neck: supple, no JVD Effort: mildly labored Ascultation: Bilateral: rales (scattered) Cardiovascular: regular rate and rhythm Gastrointestinal: other (obese) Extremities: no cyanosis, no edema, edema, other (left upper extremity hematoma. Covered right lower extremity pretibial ulcer) Neurologic: other (alert and able to answer my questions but slightly confused. Not oriented in time , place) CBC and BMP: 10/05/17 05:25 10/07/17 07:18 ABG, PT/INR, D-dimer: ABG POC ABG pH 7.415 (7.35-7.45) 10/02/17 20:23 POC ABG pCO2 42.1 (35-45) 10/02/17 20:23 POC ABG pO2 77 (80-105) L 10/02/17 20:23 POC ABG HCO3 27.0 10/02/17 20:23 POC ABG Total CO2 28 10/02/17 20:23 POC ABG O2 Sat 95 10/02/17 20:23 PT/INR, D-dimer PT 14.1 Sec. (12.2-14.9) 10/01/17 06:31 INR 1.04 (0.87-1.13) 10/01/17 06:31 D-Dimer 2801.11 ng/mlDDU (0-234) H 09/29/17 19:19 Abnormal lab findings: Abnormal Labs 09/29/17 09/29/17 09/29/17 12:54 12:54 14:58 WBC 12.4 H RBC Hgb 11.7 L Hct 33.5 L MCHC 35 H RDW 15.4 H Lymph % (Auto) 6.0 L [place] % (Auto) 10.8 H Lymph # 0.7 L [place] # 1.3 H Seg Neutrophils % 82.0 H Seg Neuts % (Manual) Lymphocytes % (Manual) Seg Neutrophils # 10.1 H Seg Neutrophils # Man Lymphocytes # (Manual) D-Dimer POC ABG pO2 Sodium 133 L Potassium Chloride 90.9 L Carbon Dioxide BUN 70 H Creatinine 2.0 H Glucose 336 H POC Glucose Magnesium Total Creatine Kinase 348 H Troponin T 0.071 H 0.073 H Total Protein Albumin Urine Creatinine 09/29/17 09/29/17 09/29/17 18:11 18:37 19:19 WBC RBC Hgb Hct MCHC RDW Lymph % (Auto) [place] % (Auto) Lymph # [place] # Seg Neutrophils % Seg Neuts % (Manual) Lymphocytes % (Manual) Seg Neutrophils # Seg Neutrophils # Man Lymphocytes # (Manual) D-Dimer 2801.11 H POC ABG pO2 Sodium Potassium Chloride Carbon Dioxide BUN Creatinine Glucose POC Glucose Magnesium Total Creatine Kinase Troponin T 0.073 H 0.074 H Total Protein Albumin Urine Creatinine 09/29/17 09/29/17 09/30/17 22:22 23:00 02:38 WBC RBC Hgb Hct MCHC RDW Lymph % (Auto) [place] % (Auto) Lymph # [place] # Seg Neutrophils % Seg Neuts % (Manual) Lymphocytes % (Manual) Seg Neutrophils # Seg Neutrophils # Man Lymphocytes # (Manual) D-Dimer POC ABG pO2 Sodium Potassium Chloride Carbon Dioxide BUN Creatinine Glucose POC Glucose 389 H Magnesium Total Creatine Kinase Troponin T 0.058 H D 0.064 H Total Protein Albumin Urine Creatinine 09/30/17 09/30/17 09/30/17 12:07 16:24 21:25 WBC RBC Hgb Hct MCHC RDW Lymph % (Auto) [place] % (Auto) Lymph # [place] # Seg Neutrophils % Seg Neuts % (Manual) Lymphocytes % (Manual) Seg Neutrophils # Seg Neutrophils # Man Lymphocytes # (Manual) D-Dimer POC ABG pO2 Sodium Potassium Chloride Carbon Dioxide BUN Creatinine Glucose POC Glucose 387 H 431 H 326 H Magnesium Total Creatine Kinase Troponin T Total Protein Albumin Urine Creatinine 10/01/17 10/01/17 10/01/17 06:16 06:16 06:30 WBC 14.0 H RBC Hgb Hct 34.3 L MCHC RDW Lymph % (Auto) [place] % (Auto) Lymph # [place] # Seg Neutrophils % Seg Neuts % (Manual) 87.0 H Lymphocytes % (Manual) 7.0 L Seg Neutrophils # Seg Neutrophils # Man 12.2 H Lymphocytes # (Manual) 1.0 L D-Dimer POC ABG pO2 Sodium Potassium 3.4 L Chloride 94.7 L Carbon Dioxide BUN 62 H Creatinine Glucose 432 H POC Glucose 419 H Magnesium Total Creatine Kinase Troponin T Total Protein 6.0 L Albumin 3.4 L Urine Creatinine 10/01/17 10/01/17 10/02/17 11:25 15:39 07:39 WBC RBC Hgb Hct MCHC RDW Lymph % (Auto) [place] % (Auto) Lymph # [place] # Seg Neutrophils % Seg Neuts % (Manual) Lymphocytes % (Manual) Seg Neutrophils # Seg Neutrophils # Man Lymphocytes # (Manual) D-Dimer POC ABG pO2 Sodium Potassium Chloride Carbon Dioxide BUN Creatinine Glucose POC Glucose 456 H 472 H 429 H Magnesium Total Creatine Kinase Troponin T Total Protein Albumin Urine Creatinine 10/02/17 10/02/17 10/02/17 11:03 11:03 11:03 WBC 14.9 H RBC Hgb Hct MCHC RDW 15.4 H Lymph % (Auto) [place] % (Auto) Lymph # [place] # Seg Neutrophils % Seg Neuts % (Manual) Lymphocytes % (Manual) Seg Neutrophils # Seg Neutrophils # Man Lymphocytes # (Manual) D-Dimer POC ABG pO2 Sodium 154 H D Potassium 3.5 L Chloride Carbon Dioxide BUN 66 H Creatinine Glucose 432 H POC Glucose Magnesium Total Creatine Kinase Troponin T 0.059 H Total Protein Albumin Urine Creatinine 10/02/17 10/02/17 10/02/17 13:00 14:48 14:57 WBC RBC Hgb Hct MCHC RDW Lymph % (Auto) [place] % (Auto) Lymph # [place] # Seg Neutrophils % Seg Neuts % (Manual) Lymphocytes % (Manual) Seg Neutrophils # Seg Neutrophils # Man Lymphocytes # (Manual) D-Dimer POC ABG pO2 64 L Sodium Potassium Chloride Carbon Dioxide BUN Creatinine Glucose POC Glucose 476 H 448 H Magnesium Total Creatine Kinase Troponin T Total Protein Albumin Urine Creatinine 10/02/17 10/02/17 10/02/17 17:56 18:19 20:23 WBC RBC Hgb Hct MCHC RDW Lymph % (Auto) [place] % (Auto) Lymph # [place] # Seg Neutrophils % Seg Neuts % (Manual) Lymphocytes % (Manual) Seg Neutrophils # Seg Neutrophils # Man Lymphocytes # (Manual) D-Dimer POC ABG pO2 77 L Sodium Potassium Chloride Carbon Dioxide BUN Creatinine Glucose POC Glucose > 500 H Magnesium Total Creatine Kinase Troponin T 0.057 H Total Protein Albumin Urine Creatinine 10/02/17 10/03/17 10/03/17 23:41 05:44 05:44 WBC 14.8 H RBC 3.41 L Hgb 10.4 L Hct 31.8 L MCHC RDW 15.4 H Lymph % (Auto) [place] % (Auto) Lymph # [place] # Seg Neutrophils % Seg Neuts % (Manual) Lymphocytes % (Manual) Seg Neutrophils # Seg Neutrophils # Man Lymphocytes # (Manual) D-Dimer POC ABG pO2 Sodium 155 H Potassium 3.4 L Chloride 110.8 H Carbon Dioxide 32 H BUN 81 H Creatinine 1.6 H Glucose 403 H POC Glucose 447 H Magnesium 2.60 H Total Creatine Kinase Troponin T Total Protein Albumin Urine Creatinine 10/03/17 10/03/17 10/04/17 06:32 12:33 00:14 WBC RBC Hgb Hct MCHC RDW Lymph % (Auto) [place] % (Auto) Lymph # [place] # Seg Neutrophils % Seg Neuts % (Manual) Lymphocytes % (Manual) Seg Neutrophils # Seg Neutrophils # Man Lymphocytes # (Manual) D-Dimer POC ABG pO2 Sodium Potassium Chloride Carbon Dioxide BUN Creatinine Glucose POC Glucose 394 H 449 H > 500 H Magnesium Total Creatine Kinase Troponin T Total Protein Albumin Urine Creatinine 10/04/17 10/04/17 10/04/17 00:32 06:09 06:19 WBC 13.5 H RBC 3.38 L Hgb 10.5 L Hct 31.4 L MCHC RDW 15.6 H Lymph % (Auto) [place] % (Auto) Lymph # [place] # Seg Neutrophils % Seg Neuts % (Manual) Lymphocytes % (Manual) Seg Neutrophils # Seg Neutrophils # Man Lymphocytes # (Manual) D-Dimer POC ABG pO2 Sodium Potassium Chloride Carbon Dioxide BUN Creatinine Glucose 623 H* POC Glucose 383 H Magnesium Total Creatine Kinase Troponin T Total Protein Albumin Urine Creatinine 10/04/17 10/04/17 10/04/17 06:19 11:51 16:06 WBC RBC Hgb Hct MCHC RDW Lymph % (Auto) [place] % (Auto) Lymph # [place] # Seg Neutrophils % Seg Neuts % (Manual) Lymphocytes % (Manual) Seg Neutrophils # Seg Neutrophils # Man Lymphocytes # (Manual) D-Dimer POC ABG pO2 Sodium 163 H* D Potassium Chloride 114.2 H Carbon Dioxide 34 H BUN 83 H Creatinine 1.7 H Glucose 389 H POC Glucose 340 H 341 H Magnesium Total Creatine Kinase Troponin T Total Protein Albumin Urine Creatinine 10/04/17 10/04/17 10/05/17 17:34 23:00 01:00 WBC RBC Hgb Hct MCHC RDW Lymph % (Auto) [place] % (Auto) Lymph # [place] # Seg Neutrophils % Seg Neuts % (Manual) Lymphocytes % (Manual) Seg Neutrophils # Seg Neutrophils # Man Lymphocytes # (Manual) D-Dimer POC ABG pO2 Sodium 155 H Potassium 3.4 L Chloride 107.4 H Carbon Dioxide 33 H BUN 82 H Creatinine 1.8 H Glucose 348 H POC Glucose 461 H Magnesium Total Creatine Kinase Troponin T Total Protein Albumin Urine Creatinine 99.4 H 10/05/17 10/05/17 10/05/17 05:25 05:39 06:11 WBC 14.1 H RBC 3.03 L Hgb 9.6 L Hct 28.0 L MCHC RDW 15.8 H Lymph % (Auto) [place] % (Auto) Lymph # [place] # Seg Neutrophils % Seg Neuts % (Manual) Lymphocytes % (Manual) Seg Neutrophils # Seg Neutrophils # Man Lymphocytes # (Manual) D-Dimer POC ABG pO2 Sodium 149 H Potassium Chloride Carbon Dioxide 33 H BUN 81 H Creatinine 1.7 H Glucose 365 H POC Glucose 397 H Magnesium 2.40 H Total Creatine Kinase Troponin T Total Protein Albumin Urine Creatinine 10/05/17 10/05/17 10/05/17 12:16 16:22 21:06 WBC RBC Hgb Hct MCHC RDW Lymph % (Auto) [place] % (Auto) Lymph # [place] # Seg Neutrophils % Seg Neuts % (Manual) Lymphocytes % (Manual) Seg Neutrophils # Seg Neutrophils # Man Lymphocytes # (Manual) D-Dimer POC ABG pO2 Sodium Potassium Chloride Carbon Dioxide BUN Creatinine Glucose POC Glucose 400 H 395 H 265 H Magnesium Total Creatine Kinase Troponin T Total Protein Albumin Urine Creatinine 10/06/17 10/06/17 10/06/17 06:43 06:50 11:29 WBC RBC Hgb Hct MCHC RDW Lymph % (Auto) [place] % (Auto) Lymph # [place] # Seg Neutrophils % Seg Neuts % (Manual) Lymphocytes % (Manual) Seg Neutrophils # Seg Neutrophils # Man Lymphocytes # (Manual) D-Dimer POC ABG pO2 Sodium 156 H Potassium Chloride 115.0 H Carbon Dioxide 32 H BUN 62 H Creatinine Glucose 308 H POC Glucose 330 H 396 H Magnesium Total Creatine Kinase Troponin T Total Protein Albumin Urine Creatinine 10/06/17 10/07/17 10/07/17 16:24 00:46 07:18 WBC RBC Hgb Hct MCHC RDW Lymph % (Auto) [place] % (Auto) Lymph # [place] # Seg Neutrophils % Seg Neuts % (Manual) Lymphocytes % (Manual) Seg Neutrophils # Seg Neutrophils # Man Lymphocytes # (Manual) D-Dimer POC ABG pO2 Sodium 149 H Potassium Chloride Carbon Dioxide 32 H BUN 43 H Creatinine Glucose 289 H POC Glucose 417 H 295 H Magnesium Total Creatine Kinase Troponin T Total Protein Albumin Urine Creatinine 10/07/17 08:16 WBC RBC Hgb Hct MCHC RDW Lymph % (Auto) [place] % (Auto) Lymph # [place] # Seg Neutrophils % Seg Neuts % (Manual) Lymphocytes % (Manual) Seg Neutrophils # Seg Neutrophils # Man Lymphocytes # (Manual) D-Dimer POC ABG pO2 Sodium Potassium Chloride Carbon Dioxide BUN Creatinine Glucose POC Glucose 348 H Magnesium Total Creatine Kinase Troponin T Total Protein Albumin Urine Creatinine
--- NOTE | 2017-10-07 14:28 | Progress Note ---
Assessment and Plan Assessment and plan: Patient is a 72 yo man who is a resident at [facility] under 1013 for SI with h/o HTN, CVA, SC, CHF, COPD, CAMILLE on CPAP, Seizure Disorder, Depression, PTSD, Debility, nicotine Dependence, Recurrent Falls presents to ED for confusion and falling. He was admitted for suspected sepsis pneumonia, nstemi and right wrist fracture. * pCXR Impression: Bibasilar atelectasis. * CT lumbar spine wo IMPRESSION: 1. No acute compression deformity or apparent fracture in the lumbar spine. 2. Degenerative spondylosis. * XRay bilateral knee IMPRESSION: 1. No acute osseous abnormality. 2. Postsurgical changes in the right knee, and degenerative changes in the left knee. * Xray 3v right wrist IMPRESSION: 1. Probable nondisplaced fracture right distal ulna. * CT head Impression: No acute intracranial abnormality. * CT thoracic spine wo IMPRESSION: 1. No acute compression deformity or apparent fracture in the thoracic spine. Diffuse degenerative spondylosis. 2. Fractures in left ribs 9-12, probably acute or subacute. Correlate clinically. 3. Findings which may represent bibasilar atelectasis, mild infiltrates or postinflammatory change of uncertain etiology or chronicity. 4. Left adrenal nodule may represent adenomatous change, but is indeterminate. Followup may be warranted. -Suspect Sepsis from Aspiration Pneumonia, poa, treated with iv abx, ivf but developed fluid overload and ivf stopped and lasix iv given. -s/p Fall with Multiple rib fractures/right wrist fracture: Conservative measures per Ortho -ARF (acute renal failure), vasomotor nephropathy poa: bmp in am -Acute encephalopathy: treat the above issues -Acute on chronic diastolic heart failure: diuresis cautiously due to ARF, follow bmp closely -Afib with RVR: Cardiology is following -Depression: psych is following -no NSTEMI (non-ST elevated myocardial infarction), non specified elevation of troponin per Cardiology: stopped therapeutic lovenox -DVT prophylaxis: scd to ble, deep bruising and diffuse ecchymosis so hold vte due to fall risk Restraint renewed Normal LVEF 60-65% by echocardiogram. ortho, Dr. aLl==>Nondisplaced distal ulnar fracture, recommend conservative treatment with wrist brace and early ROM 10/02/17: Bilateral lung crackles today, pCXR looks like pulmonary edema but can' t exclude infiltrates (my reading), gave iv lasix 40mg iv x 1 carefully diuresis due to Aortic stenosis and ARF. ABG showed combined Acute Respiratory failure which patient has been on O2 since admission, so acute hypoxic respiratory poa. RN reported ABGs at 7.442/64/44/30.3 on O2. Bipap started by respiratory, I consulted and d/w Dr. Ng, pulmonology. Troponin level actually improved. Also, started on sq lantus 10units, carefully because he is not eating much. Lasix iv given today 10/03/17: doing better after another dose of iv lasix x 1, trying to wean off bipap, 10/04/17: bipap removed this am, new issue of hypernatremia, consulted amf mechanic and spoke with Dr. Gerard. He needs free water, will try to place NG tube because he spit water out at nurse. He remains very confused. D5W treatment is problematic as his blood glucose is very high. Hopefully he will allow ngt to be given for free water and nutrition, Restraints renewed. Day 09/16 of iv abx. Still tachycardiac, had afib with rvr on will call Cardiology 10/05/17: isolated afib, rate is improved thanks to Cardiology. Mental status improved as hypernatremia is improved. He is still confused. 10/06/17: still hallucinating, renal function is improving, blood glucose still uncontrolled, so lantus increased to 20 units daily. No 1013 in the chart. I have asked RN to enter [place] [facility] into our EMR for reconciliation. 10/07/17: still confused. Last day of antibiotics, continue 1013 History Interval history: Patient was seen and examined. Follow-up on current diagnosis of confusion. Overnight uneventful and doing better, bipap is off during my visit. Imaging, nursing note, chart, labs and old chart reviewed. Still hallicunating. Hospitalist Physical - Physical exam Narrative exam: GEN: unkempt, confused, HEENT: NCAT, EOMI, PERRL, OP Clear NECK: supple, no adenopathy, no thyromegaly, no JVD CVS/HEART: reg tachy, normal S1S2, pulses present bilaterally CHEST/LUNGS: bilateral crackles Symmetrical chest expansion, good air entry bilaterally GI/Abdomen: soft, NTND, good bowel sounds, no guarding or rebound /Bladder: no suprapubic tenderness, no CVA or paraspinal tenderness EXT/Skin: black and blue all over, especially left upper bicep area with deformity MSK: FROM x 4 Neuro: CN 2-12 grossly intact, doesn't follow command Psych: agitated, ripped his iv line - Constitutional Vitals: Temp Pulse Resp BP Pulse Ox 97.9 F 89 18 117/54 96 10/07/17 12:31 10/07/17 13:31 10/07/17 12:31 10/07/17 13:31 10/07/17 08:25 General appearance: Present: other (patient is awake in no acute distress) Results - Labs CBC & Chem 7: 10/05/17 05:25 10/07/17 07:18 Labs: Laboratory Last Values WBC 14.1 K/mm3 (4.5-11.0) H 10/05/17 05:25 RBC 3.03 M/mm3 (3.65-5.03) L 10/05/17 05:25 Hgb 9.6 gm/dl (11.8-15.2) L 10/05/17 05:25 Hct 28.0 % (35.5-45.6) L 10/05/17 05:25 MCV 92 fl (84-94) 10/05/17 05:25 MCH 32 pg (28-32) 10/05/17 05:25 MCHC 34 % (32-34) 10/05/17 05:25 RDW 15.8 % (13.2-15.2) H 10/05/17 05:25 Plt Count 298 K/mm3 (140-440) 10/05/17 05:25 Lymph % (Auto) 6.0 % (13.4-35.0) L 09/29/17 12:54 [place] % (Auto) 10.8 % (0.0-7.3) H 09/29/17 12:54 Eos % (Auto) 0.8 % (0.0-4.3) 09/29/17 12:54 Baso % (Auto) 0.4 % (0.0-1.8) 09/29/17 12:54 Lymph # 0.7 K/mm3 (1.2-5.4) L 09/29/17 12:54 [place] # 1.3 K/mm3 (0.0-0.8) H 09/29/17 12:54 Eos # 0.1 K/mm3 (0.0-0.4) 09/29/17 12:54 Baso # 0.1 K/mm3 (0.0-0.1) 09/29/17 12:54 Add Manual Diff Complete 10/01/17 06:16 Total Counted 100 10/01/17 06:16 Seg Neutrophils % 82.0 % (40.0-70.0) H 09/29/17 12:54 Seg Neuts % (Manual) 87.0 % (40.0-70.0) H 10/01/17 06:16 Band Neutrophils % 1.0 % 10/01/17 06:16 Lymphocytes % (Manual) 7.0 % (13.4-35.0) L 10/01/17 06:16 Reactive Lymphs % (Man) 0 % 10/01/17 06:16 Monocytes % (Manual) 3.0 % (0.0-7.3) 10/01/17 06:16 Eosinophils % (Manual) 1.0 % (0.0-4.3) 10/01/17 06:16 Basophils % (Manual) 0 % (0.0-1.8) 10/01/17 06:16 Metamyelocytes % 1.0 % 10/01/17 06:16 Myelocytes % 0 % 10/01/17 06:16 Promyelocytes % 0 % 10/01/17 06:16 Blast Cells % 0 % 10/01/17 06:16 Nucleated RBC % Not Reportable 10/01/17 06:16 Seg Neutrophils # 10.1 K/mm3 (1.8-7.7) H 09/29/17 12:54 Seg Neutrophils # Man 12.2 K/mm3 (1.8-7.7) H 10/01/17 06:16 Band Neutrophils # 0.1 K/mm3 10/01/17 06:16 Lymphocytes # (Manual) 1.0 K/mm3 (1.2-5.4) L 10/01/17 06:16 Abs React Lymphs (Man) 0.0 K/mm3 10/01/17 06:16 Monocytes # (Manual) 0.4 K/mm3 (0.0-0.8) 10/01/17 06:16 Eosinophils # (Manual) 0.1 K/mm3 (0.0-0.4) 10/01/17 06:16 Basophils # (Manual) 0.0 K/mm3 (0.0-0.1) 10/01/17 06:16 Metamyelocytes # 0.1 K/mm3 10/01/17 06:16 Myelocytes # 0.0 K/mm3 10/01/17 06:16 Promyelocytes # 0.0 K/mm3 10/01/17 06:16 Blast Cells # 0.0 K/mm3 10/01/17 06:16 WBC Morphology Not Reportable 10/01/17 06:16 Hypersegmented Neuts Not Reportable 10/01/17 06:16 Hyposegmented Neuts Not Reportable 10/01/17 06:16 Hypogranular Neuts Not Reportable 10/01/17 06:16 Smudge Cells Not Reportable 10/01/17 06:16 Toxic Granulation Not Reportable 10/01/17 06:16 Toxic Vacuolation Not Reportable 10/01/17 06:16 Dohle Bodies Not Reportable 10/01/17 06:16 Pelger-Huet Anomaly Not Reportable 10/01/17 06:16 Albertina Rods Not Reportable 10/01/17 06:16 Platelet Estimate Appears normal 10/01/17 06:16 Clumped Platelets Not Reportable 10/01/17 06:16 Plt Clumps, EDTA Not Reportable 10/01/17 06:16 Large Platelets Not Reportable 10/01/17 06:16 Giant Platelets Not Reportable 10/01/17 06:16 Platelet Satelliting Not Reportable 10/01/17 06:16 Plt Morphology Comment Not Reportable 10/01/17 06:16 RBC Morphology Not Reportable 10/01/17 06:16 Dimorphic RBCs Not Reportable 10/01/17 06:16 Polychromasia Not Reportable 10/01/17 06:16 Hypochromasia Not Reportable 10/01/17 06:16 Poikilocytosis Not Reportable 10/01/17 06:16 Anisocytosis 1+ 10/01/17 06:16 Microcytosis Not Reportable 10/01/17 06:16 Macrocytosis Not Reportable 10/01/17 06:16 Spherocytes Not Reportable 10/01/17 06:16 Pappenheimer Bodies Not Reportable 10/01/17 06:16 Sickle Cells Not Reportable 10/01/17 06:16 Target Cells Not Reportable 10/01/17 06:16 Tear Drop Cells Rare 10/01/17 06:16 Ovalocytes 1+ 10/01/17 06:16 Helmet Cells Not Reportable 10/01/17 06:16 Garcia-Bemiss Bodies Not Reportable 10/01/17 06:16 Holt Rings Not Reportable 10/01/17 06:16 [place] Cells Few 10/01/17 06:16 Bite Cells Not Reportable 10/01/17 06:16 Crenated Cell Not Reportable 10/01/17 06:16 Elliptocytes Rare 10/01/17 06:16 Acanthocytes (Spur) 1+ 10/01/17 06:16 Rouleaux Not Reportable 10/01/17 06:16 Hemoglobin C Crystals Not Reportable 10/01/17 06:16 Schistocytes Not Reportable 10/01/17 06:16 Malaria parasites Not Reportable 10/01/17 06:16 Brandon Bodies Not Reportable 10/01/17 06:16 Hem Pathologist Commnt No 10/01/17 06:16 PT 14.1 Sec. (12.2-14.9) 10/01/17 06:31 INR 1.04 (0.87-1.13) 10/01/17 06:31 APTT 35.4 Sec. (24.2-36.6) 10/01/17 06:31 D-Dimer 2801.11 ng/mlDDU (0-234) H 09/29/17 19:19 POC ABG pH 7.415 (7.35-7.45) 10/02/17 20:23 POC ABG pCO2 42.1 (35-45) 10/02/17 20:23 POC ABG pO2 77 (80-105) L 10/02/17 20:23 POC ABG HCO3 27.0 10/02/17 20:23 POC ABG Total CO2 28 10/02/17 20:23 POC ABG O2 Sat 95 10/02/17 20:23 POC ABG Base Excess 2 10/02/17 20:23 FiO2 65 % 10/02/17 20:23 Sodium 149 mmol/L (137-145) H 10/07/17 07:18 Potassium 3.9 mmol/L (3.6-5.0) 10/07/17 07:18 Chloride 106.0 mmol/L (98-107) 10/07/17 07:18 Carbon Dioxide 32 mmol/L (22-30) H 10/07/17 07:18 Anion Gap 15 mmol/L 10/07/17 07:18 BUN 43 mg/dL (9-20) H 10/07/17 07:18 Creatinine 1.0 mg/dL (0.8-1.5) 10/07/17 07:18 Estimated GFR > 60 ml/min 10/07/17 07:18 BUN/Creatinine Ratio 43 % 10/07/17 07:18 Glucose 289 mg/dL (75-100) H 10/07/17 07:18 POC Glucose 365 (70-105) H 10/07/17 13:08 Lactic Acid 1.80 mmol/L (0.7-2.0) 09/30/17 02:38 Calcium 8.9 mg/dL (8.4-10.2) 10/07/17 07:18 Phosphorus 2.80 mg/dL (2.5-4.5) 10/05/17 05:39 Magnesium 2.40 mg/dL (1.7-2.3) H 10/05/17 05:39 Total Bilirubin 0.70 mg/dL (0.1-1.2) 10/01/17 06:16 AST 15 units/L (5-40) 10/01/17 06:16 ALT 14 units/L (7-56) 10/01/17 06:16 Alkaline Phosphatase 86 units/L (35-129) 10/01/17 06:16 Total Creatine Kinase 348 units/L (55-170) H 09/29/17 14:58 Troponin T 0.057 ng/mL (0.00-0.029) H 10/02/17 17:56 NT-Pro-B Natriuret Pep 230.9 pg/mL (0-900) 09/29/17 18:37 Total Protein 6.0 g/dL (6.3-8.2) L 10/01/17 06:16 Albumin 3.4 g/dL (3.9-5) L 10/01/17 06:16 Albumin/Globulin Ratio 1.3 % 10/01/17 06:16 Triglycerides 134 mg/dL (2-149) 09/29/17 12:54 Cholesterol 118 mg/dL (50-199) 09/29/17 12:54 LDL Cholesterol Direct 57 mg/dL (50-130) 09/29/17 12:54 HDL Cholesterol 41 mg/dL (40-59) 09/29/17 12:54 Cholesterol/HDL Ratio 2.87 % 09/29/17 12:54 Urine Color Yellow (Yellow) 10/05/17 01:00 Urine Turbidity Clear (Clear) 10/05/17 01:00 Urine pH 5.0 (5.0-7.0) 10/05/17 01:00 Ur Specific [place] 1.015 (1.003-1.030) 10/05/17 01:00 Urine Protein <15 mg/dl mg/dL (Negative) 10/05/17 01:00 Urine Glucose (UA) 150 mg/dL (Negative) 10/05/17 01:00 Urine Ketones Tr mg/dL (Negative) 10/05/17 01:00 Urine Blood Neg (Negative) 10/05/17 01:00 Urine Nitrite Neg (Negative) 10/05/17 01:00 Urine Bilirubin Neg (Negative) 10/05/17 01:00 Urine Urobilinogen < 2.0 mg/dL (<2.0) 10/05/17 01:00 Ur Leukocyte Esterase Neg (Negative) 10/05/17 01:00 Urine WBC (Auto) 3.0 /HPF (0.0-6.0) 10/05/17 01:00 Urine RBC (Auto) < 1.0 /HPF (0.0-6.0) 10/05/17 01:00 U Epithel Cells (Auto) < 1.0 /HPF (0-13.0) 10/05/17 01:00 Urine Bacteria (Auto) 1+ /HPF (Negative) 10/05/17 01:00 Amorphous Crystals 1+ 10/05/17 01:00 Hyaline Casts 8 /LPF 10/05/17 01:00 Urine Creatinine 99.4 mg/dL (0.1-20.0) H 10/05/17 01:00 Urine Sodium 10 mmol/L 10/05/17 01:00
[2017-10-07] MEDS: cefTRIAXone 2 GM in NACL 0.9% 20 ML IV SCH (19:23)
[2017-10-07] MEDS: LOVENOX SUB-Q SCH (22:19)
[2017-10-08] MEDS: PROVENTIL IH PRN (01:41)
[2017-10-08] MEDS: CARDIZEM PO SCH ×4 (06:13→23:31)
[2017-10-08 07:30] LABS: BUN/Creatinine Ratio 31; Blood Urea Nitrogen 31 mg/dL (9-20); Hemolysis Index 57
--- NOTE | 2017-10-08 08:16 | Progress Note ---
Assessment and Plan 1. Hypernatremia: Encourage free water intake. Follow Sodium level. 2. Acute kidney injury: Likely hemodynamic SANDRA in the setting of volume depletion. Renal function continue to improve. On 05/14 NS. Monitor renal function. 3. Electrolytes: Metabolic alkalosis. 4. Uncontrolled DM. 5. Suspected Pneumonia. 6. Acute encephalopathy. 7. Anemia. Subjective Date of service: 10/08/17 Principal diagnosis: Sepsis Interval history: Patient is doing ok. Objective - Vital Signs Vital signs: Vital Signs - 12hr 10/07/17 10/07/17 10/07/17 20:50 22:00 23:18 Temperature 99.1 F Pulse Rate 88 88 Pulse Rate [ Posterior Bilateral Throughout] Respiratory 22 Rate Respiratory Rate [Posterior Bilateral Throughout] Blood Pressure 120/55 120/55 Blood Pressure [Left] O2 Sat by Pulse 94 92 Oximetry 10/08/17 10/08/17 10/08/17 00:17 01:41 05:40 Temperature 98.4 F Pulse Rate 90 Pulse Rate [ 102 H Posterior Bilateral Throughout] Respiratory 20 22 Rate Respiratory 22 Rate [Posterior Bilateral Throughout] Blood Pressure 113/49 Blood Pressure 137/53 [Left] O2 Sat by Pulse 99 Oximetry 10/08/17 06:13 Temperature Pulse Rate 90 Pulse Rate [ Posterior Bilateral Throughout] Respiratory Rate Respiratory Rate [Posterior Bilateral Throughout] Blood Pressure 137/53 Blood Pressure [Left] O2 Sat by Pulse Oximetry - General Appearance General appearance: well-developed, well-nourished, appears stated age, obese, other (no distress) EENT: ATNC, PERRL, hearing intact, vision intact Neck: supple Respiratory: Present: Clear to Ascultation Cardiology: regular, S1S2, no murmurs Gastrointestinal: normoactive bowel sounds, no tenderness, obese Integumentary: chronic venous stasis Neurologic: no focal deficit, no asterixis, confused, disoriented Musculoskeletal: other (no edema) Psychiatric: cooperative - Lab 10/05/17 05:25 10/08/17 06:39 Most recent lab results Calcium 9.0 mg/dL (8.4-10.2) 10/08/17 06:39 Phosphorus 3.40 mg/dL (2.5-4.5) 10/08/17 06:39 Magnesium 2.10 mg/dL (1.7-2.3) 10/08/17 06:39 Urine Creatinine 99.4 mg/dL (0.1-20.0) H 10/05/17 01:00 Urine Sodium 10 mmol/L 10/05/17 01:00
[2017-10-08] MEDS: HumaLOG SUB-Q SCH ×4 (08:45→23:31)
[2017-10-08] MEDS: LANTUS SUB-Q SCH (08:45)
[2017-10-08] MEDS: PEPCID PO SCH (09:28)
[2017-10-08] MEDS: SODIUM CHLORIDE FLUSH SYRINGE 10 ML IV SCH ×2 (09:28→21:09)
[2017-10-08] MEDS: ZITHROMAX PO SCH (09:28)
--- NOTE | 2017-10-08 10:09 | Progress Note ---
Assessment and Plan Assessment and plan: Patient is a 72 yo man who is a resident at [facility] under 1013 for SI with h/o HTN, CVA, AL, CHF, COPD, CAMILLE on CPAP, Seizure Disorder, Depression, PTSD, Debility, nicotine Dependence, Recurrent Falls presents to ED for confusion and falling. He was admitted for suspected sepsis pneumonia, nstemi and right wrist fracture. * pCXR Impression: Bibasilar atelectasis. * CT lumbar spine wo IMPRESSION: 1. No acute compression deformity or apparent fracture in the lumbar spine. 2. Degenerative spondylosis. * XRay bilateral knee IMPRESSION: 1. No acute osseous abnormality. 2. Postsurgical changes in the right knee, and degenerative changes in the left knee. * Xray 3v right wrist IMPRESSION: 1. Probable nondisplaced fracture right distal ulna. * CT head Impression: No acute intracranial abnormality. * CT thoracic spine wo IMPRESSION: 1. No acute compression deformity or apparent fracture in the thoracic spine. Diffuse degenerative spondylosis. 2. Fractures in left ribs 9-12, probably acute or subacute. Correlate clinically. 3. Findings which may represent bibasilar atelectasis, mild infiltrates or postinflammatory change of uncertain etiology or chronicity. 4. Left adrenal nodule may represent adenomatous change, but is indeterminate. Followup may be warranted. -Suspect Sepsis from Aspiration Pneumonia, poa, treated with iv abx, ivf but developed fluid overload and ivf stopped and lasix iv given. -s/p Fall with Multiple rib fractures/right wrist fracture: Conservative measures per Ortho -ARF (acute renal failure), vasomotor nephropathy poa: bmp in am -Acute encephalopathy: treat the above issues -Acute on chronic diastolic heart failure: diuresis cautiously due to ARF, follow bmp closely -Afib with RVR: Cardiology is following -Depression: psych is following -no NSTEMI (non-ST elevated myocardial infarction), non specified elevation of troponin per Cardiology: stopped therapeutic lovenox -DVT prophylaxis: scd to ble, deep bruising and diffuse ecchymosis so hold vte due to fall risk Restraint renewed Normal LVEF 60-65% by echocardiogram. ortho, Dr. Lal==>Nondisplaced distal ulnar fracture, recommend conservative treatment with wrist brace and early ROM 10/02/17: Bilateral lung crackles today, pCXR looks like pulmonary edema but can' t exclude infiltrates (my reading), gave iv lasix 40mg iv x 1 carefully diuresis due to Aortic stenosis and ARF. ABG showed combined Acute Respiratory failure which patient has been on O2 since admission, so acute hypoxic respiratory poa. RN reported ABGs at 7.442/64/44/30.3 on O2. Bipap started by respiratory, I consulted and d/w Dr. Ng, pulmonology. Troponin level actually improved. Also, started on sq lantus 10units, carefully because he is not eating much. Lasix iv given today 10/03/17: doing better after another dose of iv lasix x 1, trying to wean off bipap, 10/04/17: bipap removed this am, new issue of hypernatremia, consulted chief substation operator and spoke with Dr. Gerard. He needs free water, will try to place NG tube because he spit water out at nurse. He remains very confused. D5W treatment is problematic as his blood glucose is very high. Hopefully he will allow ngt to be given for free water and nutrition, Restraints renewed. Day 09/16 of iv abx. Still tachycardiac, had afib with rvr on will call Cardiology 10/05/17: isolated afib, rate is improved thanks to Cardiology. Mental status improved as hypernatremia is improved. He is still confused. 10/06/17: still hallucinating, renal function is improving, blood glucose still uncontrolled, so lantus increased to 20 units daily. No 1013 in the chart. I have asked RN to enter [place] [facility] into our EMR for reconciliation. 10/07/17: still confused. Last day of antibiotics, continue 1013 10/08/17: Less confused today. re-consulted psych for placement History Interval history: Patient was seen and examined. Follow-up on current diagnosis of confusion. Overnight uneventful and doing better, bipap is off during my visit. Imaging, nursing note, chart, labs and old chart reviewed. More awake and alert Hospitalist Physical - Physical exam Narrative exam: GEN: unkempt, awake alert orientated x 3 but periods of confusion HEENT: NCAT, EOMI, PERRL, OP Clear NECK: supple, no adenopathy, no thyromegaly, no JVD CVS/HEART: reg tachy, normal S1S2, pulses present bilaterally CHEST/LUNGS: bilateral crackles improved, Symmetrical chest expansion, good air entry bilaterally GI/Abdomen: soft, NTND, good bowel sounds, no guarding or rebound /Bladder: no suprapubic tenderness, no CVA or paraspinal tenderness EXT/Skin: black and blue all over, especially left upper bicep area with deformity MSK: FROM x 4 Neuro: CN 2-12 grossly intact, doesn't follow command Psych: calm - Constitutional Vitals: Temp Pulse Resp BP Pulse Ox 98.4 F 90 22 137/53 99 10/08/17 05:40 10/08/17 06:13 10/08/17 05:40 10/08/17 06:13 10/08/17 05:40 General appearance: Present: other (patient is awake in no acute distress) Results - Labs CBC & Chem 7: 10/05/17 05:25 10/08/17 06:39 Labs: Laboratory Last Values WBC 14.1 K/mm3 (4.5-11.0) H 10/05/17 05:25 RBC 3.03 M/mm3 (3.65-5.03) L 10/05/17 05:25 Hgb 9.6 gm/dl (11.8-15.2) L 10/05/17 05:25 Hct 28.0 % (35.5-45.6) L 10/05/17 05:25 MCV 92 fl (84-94) 10/05/17 05:25 MCH 32 pg (28-32) 10/05/17 05:25 MCHC 34 % (32-34) 10/05/17 05:25 RDW 15.8 % (13.2-15.2) H 10/05/17 05:25 Plt Count 298 K/mm3 (140-440) 10/05/17 05:25 Lymph % (Auto) 6.0 % (13.4-35.0) L 09/29/17 12:54 [place] % (Auto) 10.8 % (0.0-7.3) H 09/29/17 12:54 Eos % (Auto) 0.8 % (0.0-4.3) 09/29/17 12:54 Baso % (Auto) 0.4 % (0.0-1.8) 09/29/17 12:54 Lymph # 0.7 K/mm3 (1.2-5.4) L 09/29/17 12:54 [place]borne # 1.3 K/mm3 (0.0-0.8) H 09/29/17 12:54 Eos # 0.1 K/mm3 (0.0-0.4) 09/29/17 12:54 Baso # 0.1 K/mm3 (0.0-0.1) 09/29/17 12:54 Add Manual Diff Complete 10/01/17 06:16 Total Counted 100 10/01/17 06:16 Seg Neutrophils % 82.0 % (40.0-70.0) H 09/29/17 12:54 Seg Neuts % (Manual) 87.0 % (40.0-70.0) H 10/01/17 06:16 Band Neutrophils % 1.0 % 10/01/17 06:16 Lymphocytes % (Manual) 7.0 % (13.4-35.0) L 10/01/17 06:16 Reactive Lymphs % (Man) 0 % 10/01/17 06:16 Monocytes % (Manual) 3.0 % (0.0-7.3) 10/01/17 06:16 Eosinophils % (Manual) 1.0 % (0.0-4.3) 10/01/17 06:16 Basophils % (Manual) 0 % (0.0-1.8) 10/01/17 06:16 Metamyelocytes % 1.0 % 10/01/17 06:16 Myelocytes % 0 % 10/01/17 06:16 Promyelocytes % 0 % 10/01/17 06:16 Blast Cells % 0 % 10/01/17 06:16 Nucleated RBC % Not Reportable 10/01/17 06:16 Seg Neutrophils # 10.1 K/mm3 (1.8-7.7) H 09/29/17 12:54 Seg Neutrophils # Man 12.2 K/mm3 (1.8-7.7) H 10/01/17 06:16 Band Neutrophils # 0.1 K/mm3 10/01/17 06:16 Lymphocytes # (Manual) 1.0 K/mm3 (1.2-5.4) L 10/01/17 06:16 Abs React Lymphs (Man) 0.0 K/mm3 10/01/17 06:16 Monocytes # (Manual) 0.4 K/mm3 (0.0-0.8) 10/01/17 06:16 Eosinophils # (Manual) 0.1 K/mm3 (0.0-0.4) 10/01/17 06:16 Basophils # (Manual) 0.0 K/mm3 (0.0-0.1) 10/01/17 06:16 Metamyelocytes # 0.1 K/mm3 10/01/17 06:16 Myelocytes # 0.0 K/mm3 10/01/17 06:16 Promyelocytes # 0.0 K/mm3 10/01/17 06:16 Blast Cells # 0.0 K/mm3 10/01/17 06:16 WBC Morphology Not Reportable 10/01/17 06:16 Hypersegmented Neuts Not Reportable 10/01/17 06:16 Hyposegmented Neuts Not Reportable 10/01/17 06:16 Hypogranular Neuts Not Reportable 10/01/17 06:16 Smudge Cells Not Reportable 10/01/17 06:16 Toxic Granulation Not Reportable 10/01/17 06:16 Toxic Vacuolation Not Reportable 10/01/17 06:16 Dohle Bodies Not Reportable 10/01/17 06:16 Pelger-Huet Anomaly Not Reportable 10/01/17 06:16 Albertina Rods Not Reportable 10/01/17 06:16 Platelet Estimate Appears normal 10/01/17 06:16 Clumped Platelets Not Reportable 10/01/17 06:16 Plt Clumps, EDTA Not Reportable 10/01/17 06:16 Large Platelets Not Reportable 10/01/17 06:16 Giant Platelets Not Reportable 10/01/17 06:16 Platelet Satelliting Not Reportable 10/01/17 06:16 Plt Morphology Comment Not Reportable 10/01/17 06:16 RBC Morphology Not Reportable 10/01/17 06:16 Dimorphic RBCs Not Reportable 10/01/17 06:16 Polychromasia Not Reportable 10/01/17 06:16 Hypochromasia Not Reportable 10/01/17 06:16 Poikilocytosis Not Reportable 10/01/17 06:16 Anisocytosis 1+ 10/01/17 06:16 Microcytosis Not Reportable 10/01/17 06:16 Macrocytosis Not Reportable 10/01/17 06:16 Spherocytes Not Reportable 10/01/17 06:16 Pappenheimer Bodies Not Reportable 10/01/17 06:16 Sickle Cells Not Reportable 10/01/17 06:16 Target Cells Not Reportable 10/01/17 06:16 Tear Drop Cells Rare 10/01/17 06:16 Ovalocytes 1+ 10/01/17 06:16 Helmet Cells Not Reportable 10/01/17 06:16 [place] Bodies Not Reportable 10/01/17 06:16 [place] Rings Not Reportable 10/01/17 06:16 Sakina Cells Few 10/01/17 06:16 Bite Cells Not Reportable 10/01/17 06:16 Crenated Cell Not Reportable 10/01/17 06:16 Elliptocytes Rare 10/01/17 06:16 Acanthocytes (Spur) 1+ 10/01/17 06:16 Rouleaux Not Reportable 10/01/17 06:16 Hemoglobin C Crystals Not Reportable 10/01/17 06:16 Schistocytes Not Reportable 10/01/17 06:16 Malaria parasites Not Reportable 10/01/17 06:16 [place] Bodies Not Reportable 10/01/17 06:16 Hem Pathologist Commnt No 10/01/17 06:16 PT 14.1 Sec. (12.2-14.9) 10/01/17 06:31 INR 1.04 (0.87-1.13) 10/01/17 06:31 APTT 35.4 Sec. (24.2-36.6) 10/01/17 06:31 D-Dimer 2801.11 ng/mlDDU (0-234) H 09/29/17 19:19 POC ABG pH 7.415 (7.35-7.45) 10/02/17 20:23 POC ABG pCO2 42.1 (35-45) 10/02/17 20:23 POC ABG pO2 77 (80-105) L 10/02/17 20:23 POC ABG HCO3 27.0 10/02/17 20:23 POC ABG Total CO2 28 10/02/17 20:23 POC ABG O2 Sat 95 10/02/17 20:23 POC ABG Base Excess 2 10/02/17 20:23 FiO2 65 % 10/02/17 20:23 Sodium 151 mmol/L (137-145) H 10/08/17 06:39 Potassium 4.2 mmol/L (3.6-5.0) 10/08/17 06:39 Chloride 107.4 mmol/L (98-107) H 10/08/17 06:39 Carbon Dioxide 32 mmol/L (22-30) H 10/08/17 06:39 Anion Gap 16 mmol/L 10/08/17 06:39 BUN 31 mg/dL (9-20) H 10/08/17 06:39 Creatinine 1.0 mg/dL (0.8-1.5) 10/08/17 06:39 Estimated GFR > 60 ml/min 10/08/17 06:39 BUN/Creatinine Ratio 31 % 10/08/17 06:39 Glucose 246 mg/dL (75-100) H 10/08/17 06:39 POC Glucose 273 (70-105) H 10/08/17 08:06 Lactic Acid 1.80 mmol/L (0.7-2.0) 09/30/17 02:38 Calcium 9.0 mg/dL (8.4-10.2) 10/08/17 06:39 Phosphorus 3.40 mg/dL (2.5-4.5) 10/08/17 06:39 Magnesium 2.10 mg/dL (1.7-2.3) 10/08/17 06:39 Total Bilirubin 0.70 mg/dL (0.1-1.2) 10/01/17 06:16 AST 15 units/L (5-40) 10/01/17 06:16 ALT 14 units/L (7-56) 10/01/17 06:16 Alkaline Phosphatase 86 units/L (35-129) 10/01/17 06:16 Total Creatine Kinase 348 units/L (55-170) H 09/29/17 14:58 Troponin T 0.057 ng/mL (0.00-0.029) H 10/02/17 17:56 NT-Pro-B Natriuret Pep 230.9 pg/mL (0-900) 09/29/17 18:37 Total Protein 6.0 g/dL (6.3-8.2) L 10/01/17 06:16 Albumin 3.4 g/dL (3.9-5) L 10/01/17 06:16 Albumin/Globulin Ratio 1.3 % 10/01/17 06:16 Triglycerides 134 mg/dL (2-149) 09/29/17 12:54 Cholesterol 118 mg/dL (50-199) 09/29/17 12:54 LDL Cholesterol Direct 57 mg/dL (50-130) 09/29/17 12:54 HDL Cholesterol 41 mg/dL (40-59) 09/29/17 12:54 Cholesterol/HDL Ratio 2.87 % 09/29/17 12:54 Urine Color Yellow (Yellow) 10/05/17 01:00 Urine Turbidity Clear (Clear) 10/05/17 01:00 Urine pH 5.0 (5.0-7.0) 10/05/17 01:00 Ur Specific [place] 1.015 (1.003-1.030) 10/05/17 01:00 Urine Protein <15 mg/dl mg/dL (Negative) 10/05/17 01:00 Urine Glucose (UA) 150 mg/dL (Negative) 10/05/17 01:00 Urine Ketones Tr mg/dL (Negative) 10/05/17 01:00 Urine Blood Neg (Negative) 10/05/17 01:00 Urine Nitrite Neg (Negative) 10/05/17 01:00 Urine Bilirubin Neg (Negative) 10/05/17 01:00 Urine Urobilinogen < 2.0 mg/dL (<2.0) 10/05/17 01:00 Ur Leukocyte Esterase Neg (Negative) 10/05/17 01:00 Urine WBC (Auto) 3.0 /HPF (0.0-6.0) 10/05/17 01:00 Urine RBC (Auto) < 1.0 /HPF (0.0-6.0) 10/05/17 01:00 U Epithel Cells (Auto) < 1.0 /HPF (0-13.0) 10/05/17 01:00 Urine Bacteria (Auto) 1+ /HPF (Negative) 10/05/17 01:00 Amorphous Crystals 1+ 10/05/17 01:00 Hyaline Casts 8 /LPF 10/05/17 01:00 Urine Creatinine 99.4 mg/dL (0.1-20.0) H 10/05/17 01:00 Urine Sodium 10 mmol/L 10/05/17 01:00
--- NOTE | 2017-10-08 11:16 | Progress Note ---
Assessment and Plan Suspect Sepsis from Aspiration Pneumonia on empiric antibiotic therapy s/p Fall with multiple rib fractures, nondisplaced distal ulnar fracture Alteration of mental status Nonspecific elevated troponins Paroxysmal atrial fibrillation on tele (1 episode on October 02) otherwise sinus rhythm. allergy to propranolol. on diltiazem for suppression Metabolic encephalopathy Hypernatremia Hyperglycemia Anemia Echo this admission - normal LVEF 60-65% Conservative cardiac management. Subjective Date of service: 10/08/17 Principal diagnosis: Sepsis Interval history: Patient is resting in bed comfortably. No cardiac events overnight reported. Objective Vital Signs Temp Pulse Pulse Resp Resp BP BP 10/08/17 10:00 10/08/17 06:13 90 137/53 10/08/17 05:40 98.4 F 90 22 137/53 10/08/17 01:41 102 H 22 10/08/17 00:17 20 113/49 10/07/17 23:18 88 120/55 10/07/17 22:00 10/07/17 20:50 99.1 F 88 22 120/55 10/07/17 20:00 88 10/07/17 18:00 88 126/65 10/07/17 16:25 98.6 F 88 18 126/65 10/07/17 13:31 89 117/54 10/07/17 12:31 97.9 F 18 117/54 Pulse Ox 10/08/17 10:00 98 10/08/17 06:13 10/08/17 05:40 99 10/08/17 01:41 10/08/17 00:17 10/07/17 23:18 10/07/17 22:00 92 10/07/17 20:50 94 10/07/17 20:00 10/07/17 18:00 10/07/17 16:25 96 10/07/17 13:31 10/07/17 12:31 - Physical Examination General: No Apparent Distress Cardiac: Positive: Reg Rate and Rhythm Skin: Positive: Bruising - Labs and Meds Comprehensive Metabolic Panel 10/08/17 Range/Units 06:39 Sodium 151 H (137-145) mmol/L Potassium 4.2 (3.6-5.0) mmol/L Chloride 107.4 H (98-107) mmol/L Carbon Dioxide 32 H (22-30) mmol/L BUN 31 H (9-20) mg/dL Creatinine 1.0 (0.8-1.5) mg/dL Glucose 246 H (75-100) mg/dL Calcium 9.0 (8.4-10.2) mg/dL
--- NOTE | 2017-10-08 13:52 | Consultation ---
History of Present Illness Consult date: 10/08/17 Requesting physician: OSVALDO CORREIA Chief complaint: unstageable sacral wound - History of present illness History of present illness: 72 YO M with hx of HTN, CVA, [place], COPD, currently residing at [facility] presented to the ER s/p fall. Apparently the patient is wheelchair bound and is able to pivot to and from the wheelchair. He sustained a wrist fracture, multiple rib fractures, and bruises to his arm and leg after the fall. The patient is being treated for these injuries as well as sepsis presumed to be from aspiration PNA. The patient states he has a hx of sacral wound which has never given him a problem and he was self treating it with bacitracin. Surgery is consulted by wound specialist to evaluate the wound for surgical debridement. The patient states he does have feeling in the area. No f/c. + rib pain related to movement and deep breathing. No abd pain. Tolerating a diet and nutritional supplements. Pt states he was evaluated by PT today. Past History Past Medical History: acute [place], COPD, diabetes, heart failure, hypertension, other (Obesity) Past Surgical History: Other (Unable to obtain) Social history: other (Unable to obtain) Family history: hypertension Medications and Allergies Allergies Allergy/AdvReac Type Severity Reaction Status Date / Time naproxen [From Naprosyn] Allergy Unknown Verified 09/29/17 12:35 phenobarbital Allergy Unknown Verified 09/29/17 12:35 propranolol [From Inderal LA] Allergy Unknown Verified 09/29/17 12:35 Home Medications Medication Instructions Recorded Confirmed Last Taken Type No Known Home Medications [No 09/30/17 09/30/17 Unknown History Reported Home Medications] Active Meds: Active Medications Acetaminophen (Tylenol) 650 mg PO Q4H PRN PRN Reason: Pain MILD(1-3)/Fever >100.5/RUIZ Albuterol (Proventil) 2.5 mg IH Q4HRT PRN PRN Reason: Shortness Of Breath Last Admin: 10/08/17 01:41 Dose: 2.5 mg Dextrose (D50w (25gm) Syringe) 50 ml IV PRN PRN PRN Reason: Hypoglycemia Diltiazem HCl (Cardizem) 30 mg PO Q6HR GARY Last Admin: 10/08/17 06:13 Dose: 30 mg Enoxaparin Sodium (Lovenox) 40 mg SUB-Q QDAY@2200 [facility] Last Admin: 10/07/17 22:19 Dose: 40 mg Famotidine (Pepcid) 20 mg PO DAILY [facility] Last Admin: 10/08/17 09:28 Dose: 20 mg Haloperidol Lactate (Haldol) 2 mg IM Q6H PRN PRN Reason: Agitation Last Admin: 10/04/17 15:18 Dose: 2 mg Sodium Chloride (Nacl 0.45% 1000 Ml) 1,000 mls @ 50 mls/hr IV DIRECT [facility] Last Admin: 10/06/17 10:53 Dose: 50 mls/hr Insulin Glargine (Lantus) 20 units SUB-Q QAMDIAB [facility] Last Admin: 10/08/17 08:45 Dose: 20 units Insulin Human Lispro (Humalog) 0 unit SUB-Q Q6HR [facility]; Protocol Last Admin: 10/08/17 08:45 Dose: 6 unit Ondansetron HCl (Zofran) 4 mg IV Q8H PRN PRN Reason: Nausea And Vomiting Sodium Chloride (Sodium Chloride Flush Syringe 10 Ml) 10 ml IV BID [facility] Last Admin: 10/08/17 09:28 Dose: 10 ml Sodium Chloride (Sodium Chloride Flush Syringe 10 Ml) 10 ml IV PRN PRN PRN Reason: LINE FLUSH Sodium Hypochlorite (Dakin's Half Strength) 1 applic TP BID [facility] Review of Systems All systems: negative (10 point ROS performed and negative except for that listed in HPI) Exam Vital Signs Pulse Ox 100 09/29/17 12:11 Narrative exam: Gen: Awake and alert. Odd affect. NAD ENT: no scleral icterus or conjunctival pallor CV: S1, S2+ Resp: CTAB, no w/r/r Abd: soft, NT, ND Ext; RUE bruising. Dressing over RLE calf wound. Sacrum: unstageable sacral wound with area of eschar Results - Labs 10/05/17 05:25 10/08/17 06:39 Abnormal lab results 10/07/17 10/07/17 10/08/17 Range/Units 16:35 22:34 06:39 Sodium 151 H (137-145) mmol/L Chloride 107.4 H (98-107) mmol/L Carbon Dioxide 32 H (22-30) mmol/L BUN 31 H (9-20) mg/dL Glucose 246 H (75-100) mg/dL POC Glucose 234 H 200 H (70-105) 10/08/17 Range/Units 08:06 Sodium (137-145) mmol/L Chloride (98-107) mmol/L Carbon Dioxide (22-30) mmol/L BUN (9-20) mg/dL Glucose (75-100) mg/dL POC Glucose 273 H (70-105) Diabetes panel 10/08/17 Range/Units 06:39 Sodium 151 H (137-145) mmol/L Potassium 4.2 (3.6-5.0) mmol/L Chloride 107.4 H (98-107) mmol/L Carbon Dioxide 32 H (22-30) mmol/L BUN 31 H (9-20) mg/dL Creatinine 1.0 (0.8-1.5) mg/dL Glucose 246 H (75-100) mg/dL Calcium 9.0 (8.4-10.2) mg/dL Calcium panel 10/08/17 Range/Units 06:39 Calcium 9.0 (8.4-10.2) mg/dL Phosphorus 3.40 (2.5-4.5) mg/dL Pituitary panel 10/08/17 Range/Units 06:39 Sodium 151 H (137-145) mmol/L Potassium 4.2 (3.6-5.0) mmol/L Chloride 107.4 H (98-107) mmol/L Carbon Dioxide 32 H (22-30) mmol/L BUN 31 H (9-20) mg/dL Creatinine 1.0 (0.8-1.5) mg/dL Glucose 246 H (75-100) mg/dL Calcium 9.0 (8.4-10.2) mg/dL Adrenal panel 10/08/17 Range/Units 06:39 Sodium 151 H (137-145) mmol/L Potassium 4.2 (3.6-5.0) mmol/L Chloride 107.4 H (98-107) mmol/L Carbon Dioxide 32 H (22-30) mmol/L BUN 31 H (9-20) mg/dL Creatinine 1.0 (0.8-1.5) mg/dL Glucose 246 H (75-100) mg/dL Calcium 9.0 (8.4-10.2) mg/dL Assessment and Plan 72 yo M with 1. unstageable sacral wound 2. sepsis likely secondary to aspiration PNA 3. ambulatory dysfunction Plan: 1. offloading, pressure reduction mattress 2. optimize nutrition - continue nutritional supplements, albumin 3.4 on admission. Will obtain prealbumin 3. will obtain PT recs. would be ideal if patient could pivot to bedside commode for BMs in order to prevent soiling of wound in diaper 4. all risks, benefits, alternatives to debridement discussed with patient. Questions answered. He is in agreement to proceed. Consent signed. Will order supplies and perform bedside debridement tomorrow with wound specialist assistance. 5. I discussed the possibility of diverting colostomy with the patient depending on the depth, extent of wound after debridement tomorrow. Thank you for this consultation, please call with questions or concerns.
--- NOTE | 2017-10-08 14:27 | Progress Note ---
Assessment and Plan Acute and chronic respiratory failure. Currently on oxygen support, nasal cannula. No use of BiPAP at this time. AMS CAMILLE Morbid obesity PTSD diagnosis per chart Skin ulcer Recommendations Continue oxygen support as needed Albuterol 2.5 milligram nebulizations every 4-6 hours with or without ipratropium Patient with diagnosis of sleep apnea. Recommend to continue BiPAP at nighttime. We'll recheck CAMILLE treatment status at the office after discharged, reportedly just using oxygen at home. DVT prophylaxis May be able to progress to inhaled bronchodilators, Spiriva later on Physical therapy Subjective Date of service: 10/08/17 Principal diagnosis: Sepsis Interval history: No respiratory complaints at this time. According to nursing staff, the patient is not using the BiPAP at nighttime, only nasal cannula. Objective Vital Signs - 12hr 10/08/17 10/08/17 10/08/17 05:40 06:13 10:00 Temperature 98.4 F Pulse Rate 90 90 Respiratory 22 Rate Blood Pressure 137/53 Blood Pressure 137/53 [Left] O2 Sat by Pulse 99 98 Oximetry Constitutional: no acute distress, alert Eyes: non-icteric ENT: oropharynx moist Neck: supple, no JVD Effort: mildly labored Ascultation: Bilateral: clear, diminished breath sounds Cardiovascular: regular rate and rhythm Gastrointestinal: other (obese) Extremities: no cyanosis, no edema, edema, other (left upper extremity hematoma. Covered right lower extremity pretibial ulcer) Neurologic: normal mental status, non-focal exam CBC and BMP: 10/05/17 05:25 10/08/17 06:39 ABG, PT/INR, D-dimer: ABG POC ABG pH 7.415 (7.35-7.45) 10/02/17 20:23 POC ABG pCO2 42.1 (35-45) 10/02/17 20:23 POC ABG pO2 77 (80-105) L 10/02/17 20:23 POC ABG HCO3 27.0 10/02/17 20:23 POC ABG Total CO2 28 10/02/17 20:23 POC ABG O2 Sat 95 10/02/17 20:23 PT/INR, D-dimer PT 14.1 Sec. (12.2-14.9) 10/01/17 06:31 INR 1.04 (0.87-1.13) 10/01/17 06:31 D-Dimer 2801.11 ng/mlDDU (0-234) H 09/29/17 19:19 Abnormal lab findings: Abnormal Labs 09/29/17 09/29/17 09/29/17 12:54 12:54 14:58 WBC 12.4 H RBC Hgb 11.7 L Hct 33.5 L MCHC 35 H RDW 15.4 H Lymph % (Auto) 6.0 L [place] % (Auto) 10.8 H Lymph # 0.7 L [place] # 1.3 H Seg Neutrophils % 82.0 H Seg Neuts % (Manual) Lymphocytes % (Manual) Seg Neutrophils # 10.1 H Seg Neutrophils # Man Lymphocytes # (Manual) D-Dimer POC ABG pO2 Sodium 133 L Potassium Chloride 90.9 L Carbon Dioxide BUN 70 H Creatinine 2.0 H Glucose 336 H POC Glucose Magnesium Total Creatine Kinase 348 H Troponin T 0.071 H 0.073 H Total Protein Albumin Urine Creatinine 09/29/17 09/29/17 09/29/17 18:11 18:37 19:19 WBC RBC Hgb Hct MCHC RDW Lymph % (Auto) [place] % (Auto) Lymph # [place] # Seg Neutrophils % Seg Neuts % (Manual) Lymphocytes % (Manual) Seg Neutrophils # Seg Neutrophils # Man Lymphocytes # (Manual) D-Dimer 2801.11 H POC ABG pO2 Sodium Potassium Chloride Carbon Dioxide BUN Creatinine Glucose POC Glucose Magnesium Total Creatine Kinase Troponin T 0.073 H 0.074 H Total Protein Albumin Urine Creatinine 09/29/17 09/29/17 09/30/17 22:22 23:00 02:38 WBC RBC Hgb Hct MCHC RDW Lymph % (Auto) [place] % (Auto) Lymph # [place] # Seg Neutrophils % Seg Neuts % (Manual) Lymphocytes % (Manual) Seg Neutrophils # Seg Neutrophils # Man Lymphocytes # (Manual) D-Dimer POC ABG pO2 Sodium Potassium Chloride Carbon Dioxide BUN Creatinine Glucose POC Glucose 389 H Magnesium Total Creatine Kinase Troponin T 0.058 H D 0.064 H Total Protein Albumin Urine Creatinine 09/30/17 09/30/17 09/30/17 12:07 16:24 21:25 WBC RBC Hgb Hct MCHC RDW Lymph % (Auto) [place] % (Auto) Lymph # [place] # Seg Neutrophils % Seg Neuts % (Manual) Lymphocytes % (Manual) Seg Neutrophils # Seg Neutrophils # Man Lymphocytes # (Manual) D-Dimer POC ABG pO2 Sodium Potassium Chloride Carbon Dioxide BUN Creatinine Glucose POC Glucose 387 H 431 H 326 H Magnesium Total Creatine Kinase Troponin T Total Protein Albumin Urine Creatinine 10/01/17 10/01/17 10/01/17 06:16 06:16 06:30 WBC 14.0 H RBC Hgb Hct 34.3 L MCHC RDW Lymph % (Auto) [place] % (Auto) Lymph # [place] # Seg Neutrophils % Seg Neuts % (Manual) 87.0 H Lymphocytes % (Manual) 7.0 L Seg Neutrophils # Seg Neutrophils # Man 12.2 H Lymphocytes # (Manual) 1.0 L D-Dimer POC ABG pO2 Sodium Potassium 3.4 L Chloride 94.7 L Carbon Dioxide BUN 62 H Creatinine Glucose 432 H POC Glucose 419 H Magnesium Total Creatine Kinase Troponin T Total Protein 6.0 L Albumin 3.4 L Urine Creatinine 10/01/17 10/01/17 10/02/17 11:25 15:39 07:39 WBC RBC Hgb Hct MCHC RDW Lymph % (Auto) [place] % (Auto) Lymph # [place] # Seg Neutrophils % Seg Neuts % (Manual) Lymphocytes % (Manual) Seg Neutrophils # Seg Neutrophils # Man Lymphocytes # (Manual) D-Dimer POC ABG pO2 Sodium Potassium Chloride Carbon Dioxide BUN Creatinine Glucose POC Glucose 456 H 472 H 429 H Magnesium Total Creatine Kinase Troponin T Total Protein Albumin Urine Creatinine 10/02/17 10/02/17 10/02/17 11:03 11:03 11:03 WBC 14.9 H RBC Hgb Hct MCHC RDW 15.4 H Lymph % (Auto) [place] % (Auto) Lymph # [place] # Seg Neutrophils % Seg Neuts % (Manual) Lymphocytes % (Manual) Seg Neutrophils # Seg Neutrophils # Man Lymphocytes # (Manual) D-Dimer POC ABG pO2 Sodium 154 H D Potassium 3.5 L Chloride Carbon Dioxide BUN 66 H Creatinine Glucose 432 H POC Glucose Magnesium Total Creatine Kinase Troponin T 0.059 H Total Protein Albumin Urine Creatinine 10/02/17 10/02/17 10/02/17 13:00 14:48 14:57 WBC RBC Hgb Hct MCHC RDW Lymph % (Auto) [place] % (Auto) Lymph # [place] # Seg Neutrophils % Seg Neuts % (Manual) Lymphocytes % (Manual) Seg Neutrophils # Seg Neutrophils # Man Lymphocytes # (Manual) D-Dimer POC ABG pO2 64 L Sodium Potassium Chloride Carbon Dioxide BUN Creatinine Glucose POC Glucose 476 H 448 H Magnesium Total Creatine Kinase Troponin T Total Protein Albumin Urine Creatinine 10/02/17 10/02/17 10/02/17 17:56 18:19 20:23 WBC RBC Hgb Hct MCHC RDW Lymph % (Auto) [place] % (Auto) Lymph # [place] # Seg Neutrophils % Seg Neuts % (Manual) Lymphocytes % (Manual) Seg Neutrophils # Seg Neutrophils # Man Lymphocytes # (Manual) D-Dimer POC ABG pO2 77 L Sodium Potassium Chloride Carbon Dioxide BUN Creatinine Glucose POC Glucose > 500 H Magnesium Total Creatine Kinase Troponin T 0.057 H Total Protein Albumin Urine Creatinine 10/02/17 10/03/17 10/03/17 23:41 05:44 05:44 WBC 14.8 H RBC 3.41 L Hgb 10.4 L Hct 31.8 L MCHC RDW 15.4 H Lymph % (Auto) [place] % (Auto) Lymph # [place] # Seg Neutrophils % Seg Neuts % (Manual) Lymphocytes % (Manual) Seg Neutrophils # Seg Neutrophils # Man Lymphocytes # (Manual) D-Dimer POC ABG pO2 Sodium 155 H Potassium 3.4 L Chloride 110.8 H Carbon Dioxide 32 H BUN 81 H Creatinine 1.6 H Glucose 403 H POC Glucose 447 H Magnesium 2.60 H Total Creatine Kinase Troponin T Total Protein Albumin Urine Creatinine 10/03/17 10/03/17 10/04/17 06:32 12:33 00:14 WBC RBC Hgb Hct MCHC RDW Lymph % (Auto) [place] % (Auto) Lymph # [place] # Seg Neutrophils % Seg Neuts % (Manual) Lymphocytes % (Manual) Seg Neutrophils # Seg Neutrophils # Man Lymphocytes # (Manual) D-Dimer POC ABG pO2 Sodium Potassium Chloride Carbon Dioxide BUN Creatinine Glucose POC Glucose 394 H 449 H > 500 H Magnesium Total Creatine Kinase Troponin T Total Protein Albumin Urine Creatinine 10/04/17 10/04/17 10/04/17 00:32 06:09 06:19 WBC 13.5 H RBC 3.38 L Hgb 10.5 L Hct 31.4 L MCHC RDW 15.6 H Lymph % (Auto) [place] % (Auto) Lymph # [place] # Seg Neutrophils % Seg Neuts % (Manual) Lymphocytes % (Manual) Seg Neutrophils # Seg Neutrophils # Man Lymphocytes # (Manual) D-Dimer POC ABG pO2 Sodium Potassium Chloride Carbon Dioxide BUN Creatinine Glucose 623 H* POC Glucose 383 H Magnesium Total Creatine Kinase Troponin T Total Protein Albumin Urine Creatinine 10/04/17 10/04/17 10/04/17 06:19 11:51 16:06 WBC RBC Hgb Hct MCHC RDW Lymph % (Auto) [place] % (Auto) Lymph # [place] # Seg Neutrophils % Seg Neuts % (Manual) Lymphocytes % (Manual) Seg Neutrophils # Seg Neutrophils # Man Lymphocytes # (Manual) D-Dimer POC ABG pO2 Sodium 163 H* D Potassium Chloride 114.2 H Carbon Dioxide 34 H BUN 83 H Creatinine 1.7 H Glucose 389 H POC Glucose 340 H 341 H Magnesium Total Creatine Kinase Troponin T Total Protein Albumin Urine Creatinine 10/04/17 10/04/17 10/05/17 17:34 23:00 01:00 WBC RBC Hgb Hct MCHC RDW Lymph % (Auto) [place] % (Auto) Lymph # [place] # Seg Neutrophils % Seg Neuts % (Manual) Lymphocytes % (Manual) Seg Neutrophils # Seg Neutrophils # Man Lymphocytes # (Manual) D-Dimer POC ABG pO2 Sodium 155 H Potassium 3.4 L Chloride 107.4 H Carbon Dioxide 33 H BUN 82 H Creatinine 1.8 H Glucose 348 H POC Glucose 461 H Magnesium Total Creatine Kinase Troponin T Total Protein Albumin Urine Creatinine 99.4 H 10/05/17 10/05/17 10/05/17 05:25 05:39 06:11 WBC 14.1 H RBC 3.03 L Hgb 9.6 L Hct 28.0 L MCHC RDW 15.8 H Lymph % (Auto) [place] % (Auto) Lymph # [place] # Seg Neutrophils % Seg Neuts % (Manual) Lymphocytes % (Manual) Seg Neutrophils # Seg Neutrophils # Man Lymphocytes # (Manual) D-Dimer POC ABG pO2 Sodium 149 H Potassium Chloride Carbon Dioxide 33 H BUN 81 H Creatinine 1.7 H Glucose 365 H POC Glucose 397 H Magnesium 2.40 H Total Creatine Kinase Troponin T Total Protein Albumin Urine Creatinine 10/05/17 10/05/17 10/05/17 12:16 16:22 21:06 WBC RBC Hgb Hct MCHC RDW Lymph % (Auto) [place] % (Auto) Lymph # [place] # Seg Neutrophils % Seg Neuts % (Manual) Lymphocytes % (Manual) Seg Neutrophils # Seg Neutrophils # Man Lymphocytes # (Manual) D-Dimer POC ABG pO2 Sodium Potassium Chloride Carbon Dioxide BUN Creatinine Glucose POC Glucose 400 H 395 H 265 H Magnesium Total Creatine Kinase Troponin T Total Protein Albumin Urine Creatinine 10/06/17 10/06/17 10/06/17 06:43 06:50 11:29 WBC RBC Hgb Hct MCHC RDW Lymph % (Auto) [place] % (Auto) Lymph # [place] # Seg Neutrophils % Seg Neuts % (Manual) Lymphocytes % (Manual) Seg Neutrophils # Seg Neutrophils # Man Lymphocytes # (Manual) D-Dimer POC ABG pO2 Sodium 156 H Potassium Chloride 115.0 H Carbon Dioxide 32 H BUN 62 H Creatinine Glucose 308 H POC Glucose 330 H 396 H Magnesium Total Creatine Kinase Troponin T Total Protein Albumin Urine Creatinine 10/06/17 10/07/17 10/07/17 16:24 00:46 07:18 WBC RBC Hgb Hct MCHC RDW Lymph % (Auto) [place] % (Auto) Lymph # [place] # Seg Neutrophils % Seg Neuts % (Manual) Lymphocytes % (Manual) Seg Neutrophils # Seg Neutrophils # Man Lymphocytes # (Manual) D-Dimer POC ABG pO2 Sodium 149 H Potassium Chloride Carbon Dioxide 32 H BUN 43 H Creatinine Glucose 289 H POC Glucose 417 H 295 H Magnesium Total Creatine Kinase Troponin T Total Protein Albumin Urine Creatinine 10/07/17 10/07/17 10/07/17 08:16 12:38 13:08 WBC RBC Hgb Hct MCHC RDW Lymph % (Auto) [place] % (Auto) Lymph # [place] # Seg Neutrophils % Seg Neuts % (Manual) Lymphocytes % (Manual) Seg Neutrophils # Seg Neutrophils # Man Lymphocytes # (Manual) D-Dimer POC ABG pO2 Sodium Potassium Chloride Carbon Dioxide BUN Creatinine Glucose POC Glucose 348 H 256 H 365 H Magnesium Total Creatine Kinase Troponin T Total Protein Albumin Urine Creatinine 10/07/17 10/07/17 10/08/17 16:35 22:34 06:39 WBC RBC Hgb Hct MCHC RDW Lymph % (Auto) [place] % (Auto) Lymph # [place] # Seg Neutrophils % Seg Neuts % (Manual) Lymphocytes % (Manual) Seg Neutrophils # Seg Neutrophils # Man Lymphocytes # (Manual) D-Dimer POC ABG pO2 Sodium 151 H Potassium Chloride 107.4 H Carbon Dioxide 32 H BUN 31 H Creatinine Glucose 246 H POC Glucose 234 H 200 H Magnesium Total Creatine Kinase Troponin T Total Protein Albumin Urine Creatinine 10/08/17 08:06 WBC RBC Hgb Hct MCHC RDW Lymph % (Auto) [place] % (Auto) Lymph # [place] # Seg Neutrophils % Seg Neuts % (Manual) Lymphocytes % (Manual) Seg Neutrophils # Seg Neutrophils # Man Lymphocytes # (Manual) D-Dimer POC ABG pO2 Sodium Potassium Chloride Carbon Dioxide BUN Creatinine Glucose POC Glucose 273 H Magnesium Total Creatine Kinase Troponin T Total Protein Albumin Urine Creatinine
[2017-10-08] MEDS ORDERED: XYLOCAINE TOPICAL 4% TP ONE (14:43)
[2017-10-08] MEDS: DAKIN'S HALF STRENGTH TP SCH ×2 (19:58→23:26)
[2017-10-08] MEDS: LOVENOX SUB-Q SCH (21:08)
[2017-10-08] MEDS: NORCO 10/325 PO PRN (21:08)
[2017-10-09] MEDS: NORCO 10/325 PO PRN ×3 (02:51→22:21)
[2017-10-09] MEDS: CARDIZEM PO SCH ×5 (05:48→23:34)
[2017-10-09] MEDS: HumaLOG SUB-Q SCH ×6 (05:49→23:35)
[2017-10-09 06:45] LABS: BUN/Creatinine Ratio 24; Blood Urea Nitrogen 22 mg/dL (9-20); Calcium 8.4 mg/dL (8.4-10.2); Hemolysis Index 1
--- NOTE | 2017-10-09 08:50 | Progress Note ---
Assessment and Plan 1. Hypernatremia: Encourage free water intake. Follow Sodium level. 2. Acute kidney injury: Likely hemodynamic SANDRA in the setting of volume depletion. Renal function continue to improve. On 05/14 NS. Monitor renal function. 3. Electrolytes: Metabolic alkalosis. 4. Acute on chronic respiratory failure. 5. Suspected Pneumonia. 6. Acute encephalopathy. 7. Anemia. Subjective Date of service: 10/09/17 Principal diagnosis: Sepsis Interval history: Patient is doing ok. Objective - Vital Signs Vital signs: Vital Signs - 12hr 10/08/17 10/08/17 10/09/17 22:00 23:51 04:50 Temperature 98.4 F 98.2 F Pulse Rate 83 81 80 Respiratory 18 Rate Blood Pressure 133/57 Blood Pressure 130/53 [Left] O2 Sat by Pulse 98 96 98 Oximetry 10/09/17 04:59 Temperature Pulse Rate 85 Respiratory Rate Blood Pressure Blood Pressure [Left] O2 Sat by Pulse 98 Oximetry - General Appearance General appearance: well-developed, well-nourished, appears stated age, obese, other (no distress) EENT: ATNC, PERRL, hearing intact, vision intact Neck: supple Respiratory: Present: Clear to Ascultation Cardiology: regular, S1S2, no murmurs Gastrointestinal: normoactive bowel sounds, no tenderness, obese Integumentary: chronic venous stasis Neurologic: no focal deficit, no asterixis, disoriented Musculoskeletal: other (no edema) Psychiatric: cooperative - Lab 10/05/17 05:25 10/09/17 Unknown Most recent lab results Calcium 8.4 mg/dL (8.4-10.2) 10/09/17 Unknown Phosphorus 3.40 mg/dL (2.5-4.5) 10/08/17 06:39 Magnesium 2.10 mg/dL (1.7-2.3) 10/08/17 06:39 Urine Creatinine 99.4 mg/dL (0.1-20.0) H 10/05/17 01:00 Urine Sodium 10 mmol/L 10/05/17 01:00
[2017-10-09] MEDS: LANTUS SUB-Q SCH ×2 (10:09→19:56)
[2017-10-09] MEDS: PEPCID PO SCH ×2 (11:58→19:56)
--- NOTE | 2017-10-09 13:08 | Progress Note ---
Assessment and Plan Acute and chronic respiratory failure. Currently on oxygen support, nasal cannula. Well tolerated. AMS. Upper to have resolved CAMILLE. Declines using BiPAP. Discussed with patient in detail. Morbid obesity PTSD diagnosis per chart Skin ulcer surgical debridement done today Recommendations Continue oxygen support as needed Albuterol 2.5 milligram nebulizations every 4-6 hours with or without ipratropium Patient with diagnosis of sleep apnea. Recommend update as outpatient and discuss treatment options with patient. DVT prophylaxis May be able to progress to inhaled bronchodilators, Spiriva later on Physical therapy Subjective Date of service: 10/09/17 Principal diagnosis: Sepsis Interval history: Reports no respiratory complaints at the present time. Feels hot all over her nasal oxygen Objective Vital Signs - 12hr 10/09/17 10/09/17 10/09/17 04:50 04:59 07:14 Temperature 98.2 F 98.3 F Pulse Rate 80 85 86 Respiratory 18 20 Rate Blood Pressure 147/57 Blood Pressure 130/53 [Left] O2 Sat by Pulse 98 98 96 Oximetry 10/09/17 10/09/17 09:05 10:00 Temperature Pulse Rate Respiratory 3 L Rate Blood Pressure Blood Pressure [Left] O2 Sat by Pulse 92 Oximetry Constitutional: no acute distress, alert Eyes: non-icteric ENT: oropharynx moist Neck: supple, no JVD Effort: mildly labored Ascultation: Bilateral: clear, diminished breath sounds Cardiovascular: regular rate and rhythm Gastrointestinal: other (obese) Extremities: no cyanosis, no edema, edema, other (left upper extremity hematoma. Covered right lower extremity pretibial ulcer) Neurologic: normal mental status, non-focal exam CBC and BMP: 10/05/17 05:25 10/09/17 Unknown ABG, PT/INR, D-dimer: ABG POC ABG pH 7.415 (7.35-7.45) 10/02/17 20:23 POC ABG pCO2 42.1 (35-45) 10/02/17 20:23 POC ABG pO2 77 (80-105) L 10/02/17 20:23 POC ABG HCO3 27.0 10/02/17 20:23 POC ABG Total CO2 28 10/02/17 20:23 POC ABG O2 Sat 95 10/02/17 20:23 PT/INR, D-dimer PT 14.1 Sec. (12.2-14.9) 10/01/17 06:31 INR 1.04 (0.87-1.13) 10/01/17 06:31 D-Dimer 2801.11 ng/mlDDU (0-234) H 09/29/17 19:19 Abnormal lab findings: Abnormal Labs 09/29/17 09/29/17 09/29/17 12:54 12:54 14:58 WBC 12.4 H RBC Hgb 11.7 L Hct 33.5 L MCHC 35 H RDW 15.4 H Lymph % (Auto) 6.0 L Tillman % (Auto) 10.8 H Lymph # 0.7 L Tillman # 1.3 H Seg Neutrophils % 82.0 H Seg Neuts % (Manual) Lymphocytes % (Manual) Seg Neutrophils # 10.1 H Seg Neutrophils # Man Lymphocytes # (Manual) D-Dimer POC ABG pO2 Sodium 133 L Potassium Chloride 90.9 L Carbon Dioxide BUN 70 H Creatinine 2.0 H Glucose 336 H POC Glucose Magnesium Total Creatine Kinase 348 H Troponin T 0.071 H 0.073 H Total Protein Albumin Prealbumin Urine Creatinine 09/29/17 09/29/17 09/29/17 18:11 18:37 19:19 WBC RBC Hgb Hct MCHC RDW Lymph % (Auto) Tillman % (Auto) Lymph # Tillman # Seg Neutrophils % Seg Neuts % (Manual) Lymphocytes % (Manual) Seg Neutrophils # Seg Neutrophils # Man Lymphocytes # (Manual) D-Dimer 2801.11 H POC ABG pO2 Sodium Potassium Chloride Carbon Dioxide BUN Creatinine Glucose POC Glucose Magnesium Total Creatine Kinase Troponin T 0.073 H 0.074 H Total Protein Albumin Prealbumin Urine Creatinine 09/29/17 09/29/17 09/30/17 22:22 23:00 02:38 WBC RBC Hgb Hct MCHC RDW Lymph % (Auto) Tillman % (Auto) Lymph # Tillman # Seg Neutrophils % Seg Neuts % (Manual) Lymphocytes % (Manual) Seg Neutrophils # Seg Neutrophils # Man Lymphocytes # (Manual) D-Dimer POC ABG pO2 Sodium Potassium Chloride Carbon Dioxide BUN Creatinine Glucose POC Glucose 389 H Magnesium Total Creatine Kinase Troponin T 0.058 H D 0.064 H Total Protein Albumin Prealbumin Urine Creatinine 09/30/17 09/30/17 09/30/17 12:07 16:24 21:25 WBC RBC Hgb Hct MCHC RDW Lymph % (Auto) Tillman % (Auto) Lymph # Tillman # Seg Neutrophils % Seg Neuts % (Manual) Lymphocytes % (Manual) Seg Neutrophils # Seg Neutrophils # Man Lymphocytes # (Manual) D-Dimer POC ABG pO2 Sodium Potassium Chloride Carbon Dioxide BUN Creatinine Glucose POC Glucose 387 H 431 H 326 H Magnesium Total Creatine Kinase Troponin T Total Protein Albumin Prealbumin Urine Creatinine 10/01/17 10/01/17 10/01/17 06:16 06:16 06:30 WBC 14.0 H RBC Hgb Hct 34.3 L MCHC RDW Lymph % (Auto) Tillman % (Auto) Lymph # Tillman # Seg Neutrophils % Seg Neuts % (Manual) 87.0 H Lymphocytes % (Manual) 7.0 L Seg Neutrophils # Seg Neutrophils # Man 12.2 H Lymphocytes # (Manual) 1.0 L D-Dimer POC ABG pO2 Sodium Potassium 3.4 L Chloride 94.7 L Carbon Dioxide BUN 62 H Creatinine Glucose 432 H POC Glucose 419 H Magnesium Total Creatine Kinase Troponin T Total Protein 6.0 L Albumin 3.4 L Prealbumin Urine Creatinine 10/01/17 10/01/17 10/02/17 11:25 15:39 07:39 WBC RBC Hgb Hct MCHC RDW Lymph % (Auto) Tillman % (Auto) Lymph # Tillman # Seg Neutrophils % Seg Neuts % (Manual) Lymphocytes % (Manual) Seg Neutrophils # Seg Neutrophils # Man Lymphocytes # (Manual) D-Dimer POC ABG pO2 Sodium Potassium Chloride Carbon Dioxide BUN Creatinine Glucose POC Glucose 456 H 472 H 429 H Magnesium Total Creatine Kinase Troponin T Total Protein Albumin Prealbumin Urine Creatinine 10/02/17 10/02/17 10/02/17 11:03 11:03 11:03 WBC 14.9 H RBC Hgb Hct MCHC RDW 15.4 H Lymph % (Auto) Tillman % (Auto) Lymph # Tillman # Seg Neutrophils % Seg Neuts % (Manual) Lymphocytes % (Manual) Seg Neutrophils # Seg Neutrophils # Man Lymphocytes # (Manual) D-Dimer POC ABG pO2 Sodium 154 H D Potassium 3.5 L Chloride Carbon Dioxide BUN 66 H Creatinine Glucose 432 H POC Glucose Magnesium Total Creatine Kinase Troponin T 0.059 H Total Protein Albumin Prealbumin Urine Creatinine 10/02/17 10/02/17 10/02/17 13:00 14:48 14:57 WBC RBC Hgb Hct MCHC RDW Lymph % (Auto) [place]man % (Auto) Lymph # Tillman # Seg Neutrophils % Seg Neuts % (Manual) Lymphocytes % (Manual) Seg Neutrophils # Seg Neutrophils # Man Lymphocytes # (Manual) D-Dimer POC ABG pO2 64 L Sodium Potassium Chloride Carbon Dioxide BUN Creatinine Glucose POC Glucose 476 H 448 H Magnesium Total Creatine Kinase Troponin T Total Protein Albumin Prealbumin Urine Creatinine 10/02/17 10/02/17 10/02/17 17:56 18:19 20:23 WBC RBC Hgb Hct MCHC RDW Lymph % (Auto) [place]man % (Auto) Lymph # Tillman # Seg Neutrophils % Seg Neuts % (Manual) Lymphocytes % (Manual) Seg Neutrophils # Seg Neutrophils # Man Lymphocytes # (Manual) D-Dimer POC ABG pO2 77 L Sodium Potassium Chloride Carbon Dioxide BUN Creatinine Glucose POC Glucose > 500 H Magnesium Total Creatine Kinase Troponin T 0.057 H Total Protein Albumin Prealbumin Urine Creatinine 10/02/17 10/03/17 10/03/17 23:41 05:44 05:44 WBC 14.8 H RBC 3.41 L Hgb 10.4 L Hct 31.8 L MCHC RDW 15.4 H Lymph % (Auto) Tillman % (Auto) Lymph # Tillman # Seg Neutrophils % Seg Neuts % (Manual) Lymphocytes % (Manual) Seg Neutrophils # Seg Neutrophils # Man Lymphocytes # (Manual) D-Dimer POC ABG pO2 Sodium 155 H Potassium 3.4 L Chloride 110.8 H Carbon Dioxide 32 H BUN 81 H Creatinine 1.6 H Glucose 403 H POC Glucose 447 H Magnesium 2.60 H Total Creatine Kinase Troponin T Total Protein Albumin Prealbumin Urine Creatinine 10/03/17 10/03/17 10/04/17 06:32 12:33 00:14 WBC RBC Hgb Hct MCHC RDW Lymph % (Auto) [place]man % (Auto) Lymph # Tillman # Seg Neutrophils % Seg Neuts % (Manual) Lymphocytes % (Manual) Seg Neutrophils # Seg Neutrophils # Man Lymphocytes # (Manual) D-Dimer POC ABG pO2 Sodium Potassium Chloride Carbon Dioxide BUN Creatinine Glucose POC Glucose 394 H 449 H > 500 H Magnesium Total Creatine Kinase Troponin T Total Protein Albumin Prealbumin Urine Creatinine 10/04/17 10/04/17 10/04/17 00:32 06:09 06:19 WBC 13.5 H RBC 3.38 L Hgb 10.5 L Hct 31.4 L MCHC RDW 15.6 H Lymph % (Auto) Tillman % (Auto) Lymph # Tillman # Seg Neutrophils % Seg Neuts % (Manual) Lymphocytes % (Manual) Seg Neutrophils # Seg Neutrophils # Man Lymphocytes # (Manual) D-Dimer POC ABG pO2 Sodium Potassium Chloride Carbon Dioxide BUN Creatinine Glucose 623 H* POC Glucose 383 H Magnesium Total Creatine Kinase Troponin T Total Protein Albumin Prealbumin Urine Creatinine 10/04/17 10/04/17 10/04/17 06:19 11:51 16:06 WBC RBC Hgb Hct MCHC RDW Lymph % (Auto) Tillman % (Auto) Lymph # Tillman # Seg Neutrophils % Seg Neuts % (Manual) Lymphocytes % (Manual) Seg Neutrophils # Seg Neutrophils # Man Lymphocytes # (Manual) D-Dimer POC ABG pO2 Sodium 163 H* D Potassium Chloride 114.2 H Carbon Dioxide 34 H BUN 83 H Creatinine 1.7 H Glucose 389 H POC Glucose 340 H 341 H Magnesium Total Creatine Kinase Troponin T Total Protein Albumin Prealbumin Urine Creatinine 10/04/17 10/04/17 10/05/17 17:34 23:00 01:00 WBC RBC Hgb Hct MCHC RDW Lymph % (Auto) [place]man % (Auto) Lymph # Tillman # Seg Neutrophils % Seg Neuts % (Manual) Lymphocytes % (Manual) Seg Neutrophils # Seg Neutrophils # Man Lymphocytes # (Manual) D-Dimer POC ABG pO2 Sodium 155 H Potassium 3.4 L Chloride 107.4 H Carbon Dioxide 33 H BUN 82 H Creatinine 1.8 H Glucose 348 H POC Glucose 461 H Magnesium Total Creatine Kinase Troponin T Total Protein Albumin Prealbumin Urine Creatinine 99.4 H 10/05/17 10/05/17 10/05/17 05:25 05:39 06:11 WBC 14.1 H RBC 3.03 L Hgb 9.6 L Hct 28.0 L MCHC RDW 15.8 H Lymph % (Auto) [place]man % (Auto) Lymph # Tillman # Seg Neutrophils % Seg Neuts % (Manual) Lymphocytes % (Manual) Seg Neutrophils # Seg Neutrophils # Man Lymphocytes # (Manual) D-Dimer POC ABG pO2 Sodium 149 H Potassium Chloride Carbon Dioxide 33 H BUN 81 H Creatinine 1.7 H Glucose 365 H POC Glucose 397 H Magnesium 2.40 H Total Creatine Kinase Troponin T Total Protein Albumin Prealbumin Urine Creatinine 10/05/17 10/05/17 10/05/17 12:16 16:22 21:06 WBC RBC Hgb Hct MCHC RDW Lymph % (Auto) [place]man % (Auto) Lymph # Tillman # Seg Neutrophils % Seg Neuts % (Manual) Lymphocytes % (Manual) Seg Neutrophils # Seg Neutrophils # Man Lymphocytes # (Manual) D-Dimer POC ABG pO2 Sodium Potassium Chloride Carbon Dioxide BUN Creatinine Glucose POC Glucose 400 H 395 H 265 H Magnesium Total Creatine Kinase Troponin T Total Protein Albumin Prealbumin Urine Creatinine 10/06/17 10/06/17 10/06/17 06:43 06:50 11:29 WBC RBC Hgb Hct MCHC RDW Lymph % (Auto) [place]man % (Auto) Lymph # Tillman # Seg Neutrophils % Seg Neuts % (Manual) Lymphocytes % (Manual) Seg Neutrophils # Seg Neutrophils # Man Lymphocytes # (Manual) D-Dimer POC ABG pO2 Sodium 156 H Potassium Chloride 115.0 H Carbon Dioxide 32 H BUN 62 H Creatinine Glucose 308 H POC Glucose 330 H 396 H Magnesium Total Creatine Kinase Troponin T Total Protein Albumin Prealbumin Urine Creatinine 10/06/17 10/07/17 10/07/17 16:24 00:46 07:18 WBC RBC Hgb Hct MCHC RDW Lymph % (Auto) [place]man % (Auto) Lymph # Tillman # Seg Neutrophils % Seg Neuts % (Manual) Lymphocytes % (Manual) Seg Neutrophils # Seg Neutrophils # Man Lymphocytes # (Manual) D-Dimer POC ABG pO2 Sodium 149 H Potassium Chloride Carbon Dioxide 32 H BUN 43 H Creatinine Glucose 289 H POC Glucose 417 H 295 H Magnesium Total Creatine Kinase Troponin T Total Protein Albumin Prealbumin Urine Creatinine 10/07/17 10/07/17 10/07/17 08:16 12:38 13:08 WBC RBC Hgb Hct MCHC RDW Lymph % (Auto) [place]man % (Auto) Lymph # Tillman # Seg Neutrophils % Seg Neuts % (Manual) Lymphocytes % (Manual) Seg Neutrophils # Seg Neutrophils # Man Lymphocytes # (Manual) D-Dimer POC ABG pO2 Sodium Potassium Chloride Carbon Dioxide BUN Creatinine Glucose POC Glucose 348 H 256 H 365 H Magnesium Total Creatine Kinase Troponin T Total Protein Albumin Prealbumin Urine Creatinine 10/07/17 10/07/17 10/08/17 16:35 22:34 06:39 WBC RBC Hgb Hct MCHC RDW Lymph % (Auto) [place]man % (Auto) Lymph # Tillman # Seg Neutrophils % Seg Neuts % (Manual) Lymphocytes % (Manual) Seg Neutrophils # Seg Neutrophils # Man Lymphocytes # (Manual) D-Dimer POC ABG pO2 Sodium 151 H Potassium Chloride 107.4 H Carbon Dioxide 32 H BUN 31 H Creatinine Glucose 246 H POC Glucose 234 H 200 H Magnesium Total Creatine Kinase Troponin T Total Protein Albumin Prealbumin Urine Creatinine 10/08/17 10/08/17 10/08/17 08:06 12:56 17:16 WBC RBC Hgb Hct MCHC RDW Lymph % (Auto) [place]man % (Auto) Lymph # Tillman # Seg Neutrophils % Seg Neuts % (Manual) Lymphocytes % (Manual) Seg Neutrophils # Seg Neutrophils # Man Lymphocytes # (Manual) D-Dimer POC ABG pO2 Sodium Potassium Chloride Carbon Dioxide BUN Creatinine Glucose POC Glucose 273 H 255 H 273 H Magnesium Total Creatine Kinase Troponin T Total Protein Albumin Prealbumin Urine Creatinine 10/08/17 10/09/17 10/09/17 22:11 05:50 06:42 WBC RBC Hgb Hct MCHC RDW Lymph % (Auto) [place]man % (Auto) Lymph # Tillman # Seg Neutrophils % Seg Neuts % (Manual) Lymphocytes % (Manual) Seg Neutrophils # Seg Neutrophils # Man Lymphocytes # (Manual) D-Dimer POC ABG pO2 Sodium Potassium Chloride Carbon Dioxide BUN Creatinine Glucose POC Glucose 202 H 167 H 210 H Magnesium Total Creatine Kinase Troponin T Total Protein Albumin Prealbumin Urine Creatinine 10/09/17 10/09/17 11:39 Unknown WBC RBC Hgb Hct MCHC RDW Lymph % (Auto) [place]man % (Auto) Lymph # Tillman # Seg Neutrophils % Seg Neuts % (Manual) Lymphocytes % (Manual) Seg Neutrophils # Seg Neutrophils # Man Lymphocytes # (Manual) D-Dimer POC ABG pO2 Sodium 147 H Potassium Chloride Carbon Dioxide 33 H BUN 22 H Creatinine Glucose 207 H POC Glucose 304 H Magnesium Total Creatine Kinase Troponin T Total Protein Albumin Prealbumin 0.110 L Urine Creatinine
--- NOTE | 2017-10-09 13:23 | Procedure Note ---
Date of procedure: 10/09/17 Pre-op diagnosis: unstageable, necrotic sacral wound Post-op diagnosis: same Procedure: Excisional Debridement of unstageable sacral wound Findings: Consent verified on chart. Lidocaine 4% topical applied to wound for 15 minutes. The patient was then placed in left lateral decubitus position and time out performed. The wound was cleaned with betadine and the necrotic tissue was excised sharply using foreceps and a 15 blade. There was healthy tissue deep to the necrotic tissue and punctate bleeding from the wound bed and edges. The bleeding was controlled with pressure. There was muscle visible. The wound was cleaned and a pressure dressing was applied with 4x4 fluff gauze, abd pad, and sacral foam dressing. The patient tolerated the procedure well with minimal pain. The sharps were disposed of appropriately. The wound measured [id number] cm prior to debridement and 12cm x 13cm x 2 cm after debridement. Anesthesia: other (Topical lidocaine 4%) Surgeon: SHERRI BECK Estimated blood loss: minimal Pathology: none Condition: stable Disposition: floor
--- NOTE | 2017-10-09 16:04 | Progress Note ---
Assessment and Plan Assessment and Plan - Patient Problems (1) Sepsis Current Visit: Yes Status: Acute Qualifiers: Sepsis type: sepsis due to unspecified organism Qualified Code(s): A41.9 - Sepsis, unspecified organism Plan to address problem: Sepsis protocol: IV antibiotics, IVF resuscitation, monitor uop q shift, serial lactic acid, chest x ray, urinalysis, (2) NSTEMI (non-ST elevated myocardial infarction) Current Visit: Yes Status: Acute Plan to address problem: Cardilogy consulted in ED, serial cardiac enzymes, ekg, telemetry, echo, therapeutic lovenox. (3) Multiple rib fractures Current Visit: Yes Status: Acute Qualifiers: Encounter type: initial encounter Plan to address problem: pain control, incentive spirometry, chest x ray,Ortho consulted in ED as per ED physician. (4) Pneumonia Current Visit: Yes Status: Acute Qualifiers: Laterality: right Lung location: lower lobe of lung Plan to address problem: IV antibiotics, chest x ray, supplemental oxygen, incentive spirometry, (5) ARF (acute renal failure) Current Visit: Yes Status: Acute Qualifiers: Acute renal failure type: with acute tubular necrosis Qualified Code(s): N17.0 - Acute kidney failure with tubular necrosis Plan to address problem: IVF resuscitation, monitor uop q shift, monitor serum creatnine (6) CHF (congestive heart failure) Current Visit: Yes Status: Acute Qualifiers: Heart failure type: diastolic Heart failure chronicity: acute on chronic Qualified Code(s): I50.33 - Acute on chronic diastolic (congestive) heart failure Plan to address problem: Afterload reduction, monitor bp q shift, strict I/O, monitor fluid balance, diuresis as needed, pulse oximetry (7) Wrist fracture, right Current Visit: Yes Status: Acute Qualifiers: Encounter type: initial encounter Plan to address problem: Pain control, ortho consulted per ED physician. (8) Depression Current Visit: Yes Status: Acute Qualifiers: Depression Type: major depressive disorder Psychotic features: with psychotic features Plan to address problem: [address]3 [address] place, psych consulted in ED, 1013, 1:1 Sitter as per protocol (9) DVT prophylaxis Current Visit: Yes Status: Acute Plan to address problem: scd to ble - Patient Problems (1) Sacral decubitus ulcer, stage IV Current Visit: Yes Status: Acute Plan to address problem: Patient had excisional debridement . Margins were clean and the base looks healthy. No drainage (2) ARF (acute renal failure) Current Visit: Yes Status: Acute Qualifiers: Acute renal failure type: with acute tubular necrosis Qualified Code(s): N17.0 - Acute kidney failure with tubular necrosis Plan to address problem: IV fluids for now (3) Acute hypernatremia Current Visit: Yes Status: Acute Plan to address problem: Free water intake Monitor sodium levels (4) COPD (chronic obstructive pulmonary disease) Current Visit: Yes Status: Chronic Qualifiers: COPD type: unspecified COPD Qualified Code(s): J44.9 - Chronic obstructive pulmonary disease, unspecified Plan to address problem: Continue bronchodilators (5) Acute encephalopathy Current Visit: Yes Status: Acute Plan to address problem: Resolved (6) DVT prophylaxis Current Visit: Yes Status: Acute Plan to address problem: Continue heparin (7) Discharge planning issues Current Visit: Yes Status: Acute Plan to address problem: Patient will be discharged to a snf facility when bed is available Subjective Date of service: 10/09/17 Principal diagnosis: Sepsis Interval history: Status post excisional debridement of sacral wound by surgery Objective - Constitutional Vitals: Vital Signs - 12hr 10/09/17 10/09/17 10/09/17 04:50 04:59 07:14 Temperature 98.2 F 98.3 F Pulse Rate 80 85 86 Respiratory 18 20 Rate Blood Pressure 147/57 Blood Pressure 130/53 [Left] O2 Sat by Pulse 98 98 96 Oximetry 10/09/17 10/09/17 10/09/17 09:05 10:00 11:30 Temperature 98.3 F Pulse Rate 89 Respiratory 3 L 20 Rate Blood Pressure 147/63 Blood Pressure [Left] O2 Sat by Pulse 92 97 Oximetry General appearance: Present: no acute distress, well-nourished - EENT Eyes: PERRL, EOM intact ENT: hearing intact, clear oral mucosa Ears: bilateral: normal - Neck Neck: supple, normal ROM - Respiratory Respiratory effort: normal Respiratory: bilateral: CTA - Breasts Breasts: normal - Cardiovascular Rhythm: regular Heart Sounds: Present: S1 & S2. Absent: gallop, rub Extremities: no ischemia (he), pulses intact, No edema, normal color, Full ROM Extremity abnormal: edema, other (sacral decubitus ulcer--status post excisional debridement.) - Gastrointestinal General gastrointestinal: Present: soft, non-tender, non-distended, normal bowel sounds - Genitourinary Male genitourinary: normal - Integumentary Integumentary: clear, warm, dry - Musculoskeletal Musculoskeletal: generalized weakness - Neurologic Neurologic: moves all extremities - Psychiatric Psychiatric: depressed - Allied health notes Allied health notes reviewed: nursing, case management ( history and ) - Labs CBC & Chem 7: 10/05/17 05:25 10/09/17 Unknown Labs: Procedure note by Dr. Sanford Excisional Debridement of unstageable sacral wound Findings: Consent verified on chart. Lidocaine 4% topical applied to wound for 15 minutes. The patient was then placed in left lateral decubitus position and time out performed. The wound was cleaned with betadine and the necrotic tissue was excised sharply using foreceps and a 15 blade. There was healthy tissue deep to the necrotic tissue and punctate bleeding from the wound bed and edges. The bleeding was controlled with pressure. There was muscle visible. The wound was cleaned and a pressure dressing was applied with 4x4 fluff gauze, abd pad, and sacral foam dressing. The patient tolerated the procedure well with minimal pain. The sharps were disposed of appropriately. The wound measured [id number] cm prior to debridement and 12cm x 13cm x 2 cm after debridement. Abnormal lab results 10/08/17 10/08/17 10/08/17 Range/Units 12:56 17:16 22:11 Sodium (137-145) mmol/L Carbon Dioxide (22-30) mmol/L BUN (9-20) mg/dL Glucose (75-100) mg/dL POC Glucose 255 H 273 H 202 H (70-105) Prealbumin (0.200-0.400) g/L 10/09/17 10/09/17 10/09/17 Range/Units 05:50 06:42 11:39 Sodium (137-145) mmol/L Carbon Dioxide (22-30) mmol/L BUN (9-20) mg/dL Glucose (75-100) mg/dL POC Glucose 167 H 210 H 304 H (70-105) Prealbumin (0.200-0.400) g/L 10/09/17 Range/Units Unknown Sodium 147 H (137-145) mmol/L Carbon Dioxide 33 H (22-30) mmol/L BUN 22 H (9-20) mg/dL Glucose 207 H (75-100) mg/dL POC Glucose (70-105) Prealbumin 0.110 L (0.200-0.400) g/L
--- NOTE | 2017-10-09 16:38 | Event Note ---
Date: 10/09/17 Returned to check on patient's sacral wound which was debrided earlier today. Per CESAR RN there is persistent bleeding from the wound. I removed the dressing and gauze, there is venous oozing from wound edges in multiple locations. Surgicel was applied to the wound bed over the areas of bleeding and pressure held for 10 mins. The bleeding stopped in several locations with the surgicel however, one location was still oozing slowly. A layer of fibrillar was placed over the surgicel and additional pressure held. The bleeding stopped completely. A compression dressing was applied with 4x4 gauze to the wound, covered with gel dressing and covered with gel sacral dressing. Patient laid flat and tolerated the dressing change well. Nursing instructed to leave dressing intact. Only change outtermost dressing if area becomes soiled. Nursing instructed to keep patient supine and prop up on pillows if needs repositioning tonight. I will reexamine the wound in the am and perform the dressing change.
[2017-10-09] MEDS: DAKIN'S HALF STRENGTH TP SCH ×2 (19:56→21:20)
[2017-10-09] MEDS: SODIUM CHLORIDE FLUSH SYRINGE 10 ML IV SCH ×2 (19:57→23:22)
[2017-10-09] MEDS: LOVENOX SUB-Q SCH (22:21)
[2017-10-10] MEDS: HALDOL IM PRN (00:24)
[2017-10-10] MEDS: HumaLOG SUB-Q SCH ×3 (05:36→20:08)
[2017-10-10] MEDS: CARDIZEM PO SCH ×2 (05:36→18:00)
--- NOTE | 2017-10-10 07:21 | Progress Note ---
Assessment and Plan 1. Hypernatremia: Encourage free water intake. Follow Sodium level. 2. Acute kidney injury: Likely hemodynamic SANDRA in the setting of volume depletion. Renal function is better. Decrease IV fluids. Monitor renal function. 3. Electrolytes: Metabolic alkalosis. Replete K. 4. Acute on chronic respiratory failure. 5. Suspected Pneumonia. 6. Acute encephalopathy. 7. Sacral decubitus: S/p debridement. 8. Anemia. Subjective Date of service: 10/10/17 Principal diagnosis: Sepsis Interval history: Patient is doing ok. Objective - Vital Signs Vital signs: Vital Signs - 12hr 10/09/17 10/09/17 10/09/17 20:06 21:21 22:00 Temperature 98.6 F Pulse Rate 97 H Respiratory 3 L 22 Rate Blood Pressure 177/88 [Left] O2 Sat by Pulse 98 98 Oximetry 10/10/17 10/10/17 00:00 07:01 Temperature 98.5 F 98.3 F Pulse Rate 87 88 Respiratory 20 20 Rate Blood Pressure 127/67 155/41 [Left] O2 Sat by Pulse 98 98 Oximetry - General Appearance General appearance: well-developed, well-nourished, appears stated age, obese, other (no distress) EENT: ATNC, PERRL, hearing intact, vision intact Neck: supple Respiratory: Present: Clear to Ascultation Cardiology: regular, S1S2, no murmurs Gastrointestinal: normoactive bowel sounds, no tenderness, obese Integumentary: chronic venous stasis Neurologic: no focal deficit, no asterixis, confused, disoriented Musculoskeletal: other (no edema) Psychiatric: cooperative - Lab 10/05/17 05:25 10/10/17 05:58 Most recent lab results Calcium 8.4 mg/dL (8.4-10.2) 10/09/17 Unknown Phosphorus 3.40 mg/dL (2.5-4.5) 10/08/17 06:39 Magnesium 2.10 mg/dL (1.7-2.3) 10/08/17 06:39 Urine Creatinine 99.4 mg/dL (0.1-20.0) H 10/05/17 01:00 Urine Sodium 10 mmol/L 10/05/17 01:00
[2017-10-10 07:34] LABS: BUN/Creatinine Ratio 24; Blood Urea Nitrogen 19 mg/dL (9-20); Calcium 8.4 mg/dL (8.4-10.2); Hemolysis Index 2
[2017-10-10] MEDS: DAKIN'S HALF STRENGTH TP SCH (10:00)
[2017-10-10] MEDS: LANTUS SUB-Q SCH (10:40)
[2017-10-10] MEDS: SODIUM CHLORIDE FLUSH SYRINGE 10 ML IV SCH ×2 (10:41→22:00)
[2017-10-10] MEDS: PEPCID PO SCH (10:41)
--- NOTE | 2017-10-10 12:45 | Progress Note ---
Assessment and Plan Acute and chronic respiratory failure. Currently on oxygen support, nasal cannula. Well tolerated. AMS. Upper to have resolved [place]. Declines using BiPAP. Appears to be stable on current oxygen support Morbid obesity PTSD diagnosis per chart Skin ulcer surgical. See surgical note Recommendations Continue oxygen support as needed Continue nebulizer therapy. Plan add Spiriva at time of discharge Patient with diagnosis of sleep apnea. Recommend update as outpatient and discuss treatment options with patient. DVT prophylaxis Physical therapy Subjective Date of service: 10/10/17 Principal diagnosis: Sepsis Interval history: Reports no respiratory complaints at the present time. In physical therapy. On nasal cannula oxygen Objective Vital Signs - 12hr 10/10/17 07:01 Temperature 98.3 F Pulse Rate 88 Respiratory 20 Rate Blood Pressure 155/41 [Left] O2 Sat by Pulse 98 Oximetry Constitutional: no acute distress, alert Eyes: non-icteric ENT: oropharynx moist Neck: supple, no JVD Effort: mildly labored Ascultation: Bilateral: clear, diminished breath sounds Cardiovascular: regular rate and rhythm Gastrointestinal: other (obese) Extremities: no cyanosis, no edema, edema, other (left upper extremity hematoma. Covered right lower extremity pretibial ulcer) Neurologic: normal mental status, non-focal exam CBC and BMP: 10/05/17 05:25 10/10/17 05:58 ABG, PT/INR, D-dimer: ABG POC ABG pH 7.415 (7.35-7.45) 10/02/17 20:23 POC ABG pCO2 42.1 (35-45) 10/02/17 20:23 POC ABG pO2 77 (80-105) L 10/02/17 20:23 POC ABG HCO3 27.0 10/02/17 20:23 POC ABG Total CO2 28 10/02/17 20:23 POC ABG O2 Sat 95 10/02/17 20:23 PT/INR, D-dimer PT 14.1 Sec. (12.2-14.9) 10/01/17 06:31 INR 1.04 (0.87-1.13) 10/01/17 06:31 D-Dimer 2801.11 ng/mlDDU (0-234) H 09/29/17 19:19 Abnormal lab findings: Abnormal Labs 09/29/17 09/29/17 09/29/17 12:54 12:54 14:58 WBC 12.4 H RBC Hgb 11.7 L Hct 33.5 L MCHC 35 H RDW 15.4 H Lymph % (Auto) 6.0 L [place] % (Auto) 10.8 H Lymph # 0.7 L [place] # 1.3 H Seg Neutrophils % 82.0 H Seg Neuts % (Manual) Lymphocytes % (Manual) Seg Neutrophils # 10.1 H Seg Neutrophils # Man Lymphocytes # (Manual) D-Dimer POC ABG pO2 Sodium 133 L Potassium Chloride 90.9 L Carbon Dioxide BUN 70 H Creatinine 2.0 H Glucose 336 H POC Glucose Magnesium Total Creatine Kinase 348 H Troponin T 0.071 H 0.073 H Total Protein Albumin Prealbumin Urine Creatinine 09/29/17 09/29/17 09/29/17 18:11 18:37 19:19 WBC RBC Hgb Hct MCHC RDW Lymph % (Auto) [place] % (Auto) Lymph # [place] # Seg Neutrophils % Seg Neuts % (Manual) Lymphocytes % (Manual) Seg Neutrophils # Seg Neutrophils # Man Lymphocytes # (Manual) D-Dimer 2801.11 H POC ABG pO2 Sodium Potassium Chloride Carbon Dioxide BUN Creatinine Glucose POC Glucose Magnesium Total Creatine Kinase Troponin T 0.073 H 0.074 H Total Protein Albumin Prealbumin Urine Creatinine 09/29/17 09/29/17 09/30/17 22:22 23:00 02:38 WBC RBC Hgb Hct MCHC RDW Lymph % (Auto) [place] % (Auto) Lymph # [place] # Seg Neutrophils % Seg Neuts % (Manual) Lymphocytes % (Manual) Seg Neutrophils # Seg Neutrophils # Man Lymphocytes # (Manual) D-Dimer POC ABG pO2 Sodium Potassium Chloride Carbon Dioxide BUN Creatinine Glucose POC Glucose 389 H Magnesium Total Creatine Kinase Troponin T 0.058 H D 0.064 H Total Protein Albumin Prealbumin Urine Creatinine 09/30/17 09/30/17 09/30/17 12:07 16:24 21:25 WBC RBC Hgb Hct MCHC RDW Lymph % (Auto) [place] % (Auto) Lymph # [place] # Seg Neutrophils % Seg Neuts % (Manual) Lymphocytes % (Manual) Seg Neutrophils # Seg Neutrophils # Man Lymphocytes # (Manual) D-Dimer POC ABG pO2 Sodium Potassium Chloride Carbon Dioxide BUN Creatinine Glucose POC Glucose 387 H 431 H 326 H Magnesium Total Creatine Kinase Troponin T Total Protein Albumin Prealbumin Urine Creatinine 10/01/17 10/01/17 10/01/17 06:16 06:16 06:30 WBC 14.0 H RBC Hgb Hct 34.3 L MCHC RDW Lymph % (Auto) [place] % (Auto) Lymph # [place] # Seg Neutrophils % Seg Neuts % (Manual) 87.0 H Lymphocytes % (Manual) 7.0 L Seg Neutrophils # Seg Neutrophils # Man 12.2 H Lymphocytes # (Manual) 1.0 L D-Dimer POC ABG pO2 Sodium Potassium 3.4 L Chloride 94.7 L Carbon Dioxide BUN 62 H Creatinine Glucose 432 H POC Glucose 419 H Magnesium Total Creatine Kinase Troponin T Total Protein 6.0 L Albumin 3.4 L Prealbumin Urine Creatinine 10/01/17 10/01/17 10/02/17 11:25 15:39 07:39 WBC RBC Hgb Hct MCHC RDW Lymph % (Auto) [place] % (Auto) Lymph # [place] # Seg Neutrophils % Seg Neuts % (Manual) Lymphocytes % (Manual) Seg Neutrophils # Seg Neutrophils # Man Lymphocytes # (Manual) D-Dimer POC ABG pO2 Sodium Potassium Chloride Carbon Dioxide BUN Creatinine Glucose POC Glucose 456 H 472 H 429 H Magnesium Total Creatine Kinase Troponin T Total Protein Albumin Prealbumin Urine Creatinine 10/02/17 10/02/17 10/02/17 11:03 11:03 11:03 WBC 14.9 H RBC Hgb Hct MCHC RDW 15.4 H Lymph % (Auto) [place] % (Auto) Lymph # [place] # Seg Neutrophils % Seg Neuts % (Manual) Lymphocytes % (Manual) Seg Neutrophils # Seg Neutrophils # Man Lymphocytes # (Manual) D-Dimer POC ABG pO2 Sodium 154 H D Potassium 3.5 L Chloride Carbon Dioxide BUN 66 H Creatinine Glucose 432 H POC Glucose Magnesium Total Creatine Kinase Troponin T 0.059 H Total Protein Albumin Prealbumin Urine Creatinine 10/02/17 10/02/17 10/02/17 13:00 14:48 14:57 WBC RBC Hgb Hct MCHC RDW Lymph % (Auto) [place] % (Auto) Lymph # [place] # Seg Neutrophils % Seg Neuts % (Manual) Lymphocytes % (Manual) Seg Neutrophils # Seg Neutrophils # Man Lymphocytes # (Manual) D-Dimer POC ABG pO2 64 L Sodium Potassium Chloride Carbon Dioxide BUN Creatinine Glucose POC Glucose 476 H 448 H Magnesium Total Creatine Kinase Troponin T Total Protein Albumin Prealbumin Urine Creatinine 10/02/17 10/02/17 10/02/17 17:56 18:19 20:23 WBC RBC Hgb Hct MCHC RDW Lymph % (Auto) [place] % (Auto) Lymph # [place] # Seg Neutrophils % Seg Neuts % (Manual) Lymphocytes % (Manual) Seg Neutrophils # Seg Neutrophils # Man Lymphocytes # (Manual) D-Dimer POC ABG pO2 77 L Sodium Potassium Chloride Carbon Dioxide BUN Creatinine Glucose POC Glucose > 500 H Magnesium Total Creatine Kinase Troponin T 0.057 H Total Protein Albumin Prealbumin Urine Creatinine 10/02/17 10/03/17 10/03/17 23:41 05:44 05:44 WBC 14.8 H RBC 3.41 L Hgb 10.4 L Hct 31.8 L MCHC RDW 15.4 H Lymph % (Auto) [place] % (Auto) Lymph # [place] # Seg Neutrophils % Seg Neuts % (Manual) Lymphocytes % (Manual) Seg Neutrophils # Seg Neutrophils # Man Lymphocytes # (Manual) D-Dimer POC ABG pO2 Sodium 155 H Potassium 3.4 L Chloride 110.8 H Carbon Dioxide 32 H BUN 81 H Creatinine 1.6 H Glucose 403 H POC Glucose 447 H Magnesium 2.60 H Total Creatine Kinase Troponin T Total Protein Albumin Prealbumin Urine Creatinine 10/03/17 10/03/17 10/04/17 06:32 12:33 00:14 WBC RBC Hgb Hct MCHC RDW Lymph % (Auto) [place] % (Auto) Lymph # [place] # Seg Neutrophils % Seg Neuts % (Manual) Lymphocytes % (Manual) Seg Neutrophils # Seg Neutrophils # Man Lymphocytes # (Manual) D-Dimer POC ABG pO2 Sodium Potassium Chloride Carbon Dioxide BUN Creatinine Glucose POC Glucose 394 H 449 H > 500 H Magnesium Total Creatine Kinase Troponin T Total Protein Albumin Prealbumin Urine Creatinine 10/04/17 10/04/17 10/04/17 00:32 06:09 06:19 WBC 13.5 H RBC 3.38 L Hgb 10.5 L Hct 31.4 L MCHC RDW 15.6 H Lymph % (Auto) [place] % (Auto) Lymph # [place] # Seg Neutrophils % Seg Neuts % (Manual) Lymphocytes % (Manual) Seg Neutrophils # Seg Neutrophils # Man Lymphocytes # (Manual) D-Dimer POC ABG pO2 Sodium Potassium Chloride Carbon Dioxide BUN Creatinine Glucose 623 H* POC Glucose 383 H Magnesium Total Creatine Kinase Troponin T Total Protein Albumin Prealbumin Urine Creatinine 10/04/17 10/04/17 10/04/17 06:19 11:51 16:06 WBC RBC Hgb Hct MCHC RDW Lymph % (Auto) [place] % (Auto) Lymph # [place] # Seg Neutrophils % Seg Neuts % (Manual) Lymphocytes % (Manual) Seg Neutrophils # Seg Neutrophils # Man Lymphocytes # (Manual) D-Dimer POC ABG pO2 Sodium 163 H* D Potassium Chloride 114.2 H Carbon Dioxide 34 H BUN 83 H Creatinine 1.7 H Glucose 389 H POC Glucose 340 H 341 H Magnesium Total Creatine Kinase Troponin T Total Protein Albumin Prealbumin Urine Creatinine 10/04/17 10/04/17 10/05/17 17:34 23:00 01:00 WBC RBC Hgb Hct MCHC RDW Lymph % (Auto) [place] % (Auto) Lymph # [place] # Seg Neutrophils % Seg Neuts % (Manual) Lymphocytes % (Manual) Seg Neutrophils # Seg Neutrophils # Man Lymphocytes # (Manual) D-Dimer POC ABG pO2 Sodium 155 H Potassium 3.4 L Chloride 107.4 H Carbon Dioxide 33 H BUN 82 H Creatinine 1.8 H Glucose 348 H POC Glucose 461 H Magnesium Total Creatine Kinase Troponin T Total Protein Albumin Prealbumin Urine Creatinine 99.4 H 10/05/17 10/05/17 10/05/17 05:25 05:39 06:11 WBC 14.1 H RBC 3.03 L Hgb 9.6 L Hct 28.0 L MCHC RDW 15.8 H Lymph % (Auto) [place] % (Auto) Lymph # [place] # Seg Neutrophils % Seg Neuts % (Manual) Lymphocytes % (Manual) Seg Neutrophils # Seg Neutrophils # Man Lymphocytes # (Manual) D-Dimer POC ABG pO2 Sodium 149 H Potassium Chloride Carbon Dioxide 33 H BUN 81 H Creatinine 1.7 H Glucose 365 H POC Glucose 397 H Magnesium 2.40 H Total Creatine Kinase Troponin T Total Protein Albumin Prealbumin Urine Creatinine 10/05/17 10/05/17 10/05/17 12:16 16:22 21:06 WBC RBC Hgb Hct MCHC RDW Lymph % (Auto) [place] % (Auto) Lymph # [place] # Seg Neutrophils % Seg Neuts % (Manual) Lymphocytes % (Manual) Seg Neutrophils # Seg Neutrophils # Man Lymphocytes # (Manual) D-Dimer POC ABG pO2 Sodium Potassium Chloride Carbon Dioxide BUN Creatinine Glucose POC Glucose 400 H 395 H 265 H Magnesium Total Creatine Kinase Troponin T Total Protein Albumin Prealbumin Urine Creatinine 10/06/17 10/06/17 10/06/17 06:43 06:50 11:29 WBC RBC Hgb Hct MCHC RDW Lymph % (Auto) [place] % (Auto) Lymph # [place] # Seg Neutrophils % Seg Neuts % (Manual) Lymphocytes % (Manual) Seg Neutrophils # Seg Neutrophils # Man Lymphocytes # (Manual) D-Dimer POC ABG pO2 Sodium 156 H Potassium Chloride 115.0 H Carbon Dioxide 32 H BUN 62 H Creatinine Glucose 308 H POC Glucose 330 H 396 H Magnesium Total Creatine Kinase Troponin T Total Protein Albumin Prealbumin Urine Creatinine 10/06/17 10/07/17 10/07/17 16:24 00:46 07:18 WBC RBC Hgb Hct MCHC RDW Lymph % (Auto) [place] % (Auto) Lymph # [place] # Seg Neutrophils % Seg Neuts % (Manual) Lymphocytes % (Manual) Seg Neutrophils # Seg Neutrophils # Man Lymphocytes # (Manual) D-Dimer POC ABG pO2 Sodium 149 H Potassium Chloride Carbon Dioxide 32 H BUN 43 H Creatinine Glucose 289 H POC Glucose 417 H 295 H Magnesium Total Creatine Kinase Troponin T Total Protein Albumin Prealbumin Urine Creatinine 10/07/17 10/07/17 10/07/17 08:16 12:38 13:08 WBC RBC Hgb Hct MCHC RDW Lymph % (Auto) [place] % (Auto) Lymph # [place] # Seg Neutrophils % Seg Neuts % (Manual) Lymphocytes % (Manual) Seg Neutrophils # Seg Neutrophils # Man Lymphocytes # (Manual) D-Dimer POC ABG pO2 Sodium Potassium Chloride Carbon Dioxide BUN Creatinine Glucose POC Glucose 348 H 256 H 365 H Magnesium Total Creatine Kinase Troponin T Total Protein Albumin Prealbumin Urine Creatinine 10/07/17 10/07/17 10/08/17 16:35 22:34 06:39 WBC RBC Hgb Hct MCHC RDW Lymph % (Auto) [place] % (Auto) Lymph # [place] # Seg Neutrophils % Seg Neuts % (Manual) Lymphocytes % (Manual) Seg Neutrophils # Seg Neutrophils # Man Lymphocytes # (Manual) D-Dimer POC ABG pO2 Sodium 151 H Potassium Chloride 107.4 H Carbon Dioxide 32 H BUN 31 H Creatinine Glucose 246 H POC Glucose 234 H 200 H Magnesium Total Creatine Kinase Troponin T Total Protein Albumin Prealbumin Urine Creatinine 10/08/17 10/08/17 10/08/17 08:06 12:56 17:16 WBC RBC Hgb Hct MCHC RDW Lymph % (Auto) [place] % (Auto) Lymph # [place] # Seg Neutrophils % Seg Neuts % (Manual) Lymphocytes % (Manual) Seg Neutrophils # Seg Neutrophils # Man Lymphocytes # (Manual) D-Dimer POC ABG pO2 Sodium Potassium Chloride Carbon Dioxide BUN Creatinine Glucose POC Glucose 273 H 255 H 273 H Magnesium Total Creatine Kinase Troponin T Total Protein Albumin Prealbumin Urine Creatinine 10/08/17 10/09/17 10/09/17 22:11 05:50 06:42 WBC RBC Hgb Hct MCHC RDW Lymph % (Auto) [place] % (Auto) Lymph # [place] # Seg Neutrophils % Seg Neuts % (Manual) Lymphocytes % (Manual) Seg Neutrophils # Seg Neutrophils # Man Lymphocytes # (Manual) D-Dimer POC ABG pO2 Sodium Potassium Chloride Carbon Dioxide BUN Creatinine Glucose POC Glucose 202 H 167 H 210 H Magnesium Total Creatine Kinase Troponin T Total Protein Albumin Prealbumin Urine Creatinine 10/09/17 10/09/17 10/09/17 11:39 16:52 22:07 WBC RBC Hgb Hct MCHC RDW Lymph % (Auto) [place] % (Auto) Lymph # [place] # Seg Neutrophils % Seg Neuts % (Manual) Lymphocytes % (Manual) Seg Neutrophils # Seg Neutrophils # Man Lymphocytes # (Manual) D-Dimer POC ABG pO2 Sodium Potassium Chloride Carbon Dioxide BUN Creatinine Glucose POC Glucose 304 H 304 H 314 H Magnesium Total Creatine Kinase Troponin T Total Protein Albumin Prealbumin Urine Creatinine 10/09/17 10/10/17 10/10/17 Unknown 04:28 05:58 WBC RBC Hgb Hct MCHC RDW Lymph % (Auto) [place] % (Auto) Lymph # [place] # Seg Neutrophils % Seg Neuts % (Manual) Lymphocytes % (Manual) Seg Neutrophils # Seg Neutrophils # Man Lymphocytes # (Manual) D-Dimer POC ABG pO2 Sodium 147 H Potassium Chloride Carbon Dioxide 33 H 33 H BUN 22 H Creatinine Glucose 207 H 193 H POC Glucose 194 H Magnesium Total Creatine Kinase Troponin T Total Protein Albumin Prealbumin 0.110 L Urine Creatinine 10/10/17 10/10/17 11:13 12:15 WBC RBC Hgb Hct MCHC RDW Lymph % (Auto) [place] % (Auto) Lymph # [place] # Seg Neutrophils % Seg Neuts % (Manual) Lymphocytes % (Manual) Seg Neutrophils # Seg Neutrophils # Man Lymphocytes # (Manual) D-Dimer POC ABG pO2 Sodium Potassium Chloride Carbon Dioxide BUN Creatinine Glucose POC Glucose 240 H 265 H Magnesium Total Creatine Kinase Troponin T Total Protein Albumin Prealbumin Urine Creatinine
--- NOTE | 2017-10-10 13:01 | XRay Report ---
AP CHEST: HISTORY: Worsening hypoxia There is poor inspiration. Right middle lobe atelectasis has developed since 10/02/17. Otherwise, the lungs are clear. Heart size and pulmonary vascularity remain within normal limits. IMPRESSION: Right middle lobe atelectasis.
--- NOTE | 2017-10-10 15:44 | Progress Note ---
Assessment and Plan 72 yo M with 1. unstageable sacral wound s/p bedside debridement 10/09/17 2. sepsis likely secondary to aspiration PNA 3. ambulatory dysfunction 4. protein calorie malnutrition Plan: 1. offloading, pressure reduction mattress 2. optimize nutrition - continue nutritional supplements, albumin 3.4 on admission. 3. PT daily 4. will continue hydrocolloid dressing daily while here in hospital. On discharge patient will benefit from an enzymatic debridement agent such as santyl to the wound daily, covered with a moistened dressing, and covered with a dry gel/padded dressing. Ok to dc from surgery standpoint. Thank you for this consultation, please call with questions or concerns. Subjective Date of service: 10/10/17 Narrative: Pt seen and examined. No acute complaints. Feels tired. NO f/c Objective Vital Signs - 12hr 10/10/17 10/10/17 07:01 10:00 Temperature 98.3 F Pulse Rate 88 70 Pulse Rate [ 70 From Monitor] Respiratory 20 Rate Blood Pressure 155/41 [Left] O2 Sat by Pulse 98 Oximetry - General physical appearance Narrative Exam: Gen: AAOx3. NAD CV: S1, S2 Resp: even and unlabored, on O2 Sacrum: All dressing, surgicel and fibrillar gently removed. No bleeding from wound base. Center of wound has some necrotic areas. No drainage, no erythema. Moderately TTP. Covered with hydrogen to wound base, 4x4 gauze, and gel sacral dressing - Labs 10/05/17 05:25 10/10/17 05:58 Diabetes panel 10/10/17 Range/Units 05:58 Sodium 145 (137-145) mmol/L Potassium 3.6 (3.6-5.0) mmol/L Chloride 103.6 (98-107) mmol/L Carbon Dioxide 33 H (22-30) mmol/L BUN 19 (9-20) mg/dL Creatinine 0.8 (0.8-1.5) mg/dL Glucose 193 H (75-100) mg/dL Calcium 8.4 (8.4-10.2) mg/dL Calcium panel 10/10/17 Range/Units 05:58 Calcium 8.4 (8.4-10.2) mg/dL Pituitary panel 10/10/17 Range/Units 05:58 Sodium 145 (137-145) mmol/L Potassium 3.6 (3.6-5.0) mmol/L Chloride 103.6 (98-107) mmol/L Carbon Dioxide 33 H (22-30) mmol/L BUN 19 (9-20) mg/dL Creatinine 0.8 (0.8-1.5) mg/dL Glucose 193 H (75-100) mg/dL Calcium 8.4 (8.4-10.2) mg/dL Adrenal panel 10/10/17 Range/Units 05:58 Sodium 145 (137-145) mmol/L Potassium 3.6 (3.6-5.0) mmol/L Chloride 103.6 (98-107) mmol/L Carbon Dioxide 33 H (22-30) mmol/L BUN 19 (9-20) mg/dL Creatinine 0.8 (0.8-1.5) mg/dL Glucose 193 H (75-100) mg/dL Calcium 8.4 (8.4-10.2) mg/dL
--- NOTE | 2017-10-10 16:42 | Progress Note ---
Assessment and Plan - Patient Problems (1) Sacral decubitus ulcer, stage IV Current Visit: Yes Status: Acute Plan to address problem: Patient had excisional debridement . Margins were clean and the base looks healthy. No drainage (2) ARF (acute renal failure) Current Visit: Yes Status: Acute Qualifiers: Acute renal failure type: with acute tubular necrosis Qualified Code(s): N17.0 - Acute kidney failure with tubular necrosis Plan to address problem: IV fluids for now (3) Acute hypernatremia Current Visit: Yes Status: Acute Plan to address problem: Free water intake Monitor sodium levels (4) COPD (chronic obstructive pulmonary disease) Current Visit: Yes Status: Chronic Qualifiers: COPD type: unspecified COPD Qualified Code(s): J44.9 - Chronic obstructive pulmonary disease, unspecified Plan to address problem: Continue bronchodilators (5) Acute encephalopathy Current Visit: Yes Status: Acute Plan to address problem: Resolved (6) DVT prophylaxis Current Visit: Yes Status: Acute Plan to address problem: Continue heparin (7) Discharge planning issues Current Visit: Yes Status: Acute Plan to address problem: Patient will be discharged to a detention facility when bed is available Subjective Date of service: 10/10/17 Principal diagnosis: Sepsis Interval history: Status post excisional debridement of sacral wound by surgery Objective - Constitutional Vitals: Vital Signs - 12hr 10/10/17 10/10/17 07:01 10:00 Temperature 98.3 F Pulse Rate 88 70 Pulse Rate [ 70 From Monitor] Respiratory 20 Rate Blood Pressure 155/41 [Left] O2 Sat by Pulse 98 Oximetry General appearance: Present: no acute distress, well-nourished - EENT Eyes: PERRL, EOM intact ENT: hearing intact, clear oral mucosa Ears: bilateral: normal - Neck Neck: supple, normal ROM - Respiratory Respiratory effort: normal Respiratory: bilateral: CTA - Breasts Breasts: normal - Cardiovascular Rhythm: regular Heart Sounds: Present: S1 & S2. Absent: gallop, rub Extremities: pulses intact, No edema, normal color, Full ROM Extremity abnormal: other (Sacral decub ulcer) - Gastrointestinal General gastrointestinal: Present: soft, non-tender, non-distended, normal bowel sounds - Genitourinary Male genitourinary: normal - Integumentary Integumentary: clear, warm, dry - Musculoskeletal Musculoskeletal: 1, strength equal bilaterally - Neurologic Neurologic: moves all extremities - Psychiatric Psychiatric: memory intact, appropriate mood/affect, intact judgment & insight - Labs CBC & Chem 7: 10/05/17 05:25 10/10/17 05:58 Labs: Abnormal lab results 10/09/17 10/09/17 10/10/17 Range/Units 16:52 22:07 04:28 Carbon Dioxide (22-30) mmol/L Glucose (75-100) mg/dL POC Glucose 304 H 314 H 194 H (70-105) 10/10/17 10/10/17 10/10/17 Range/Units 05:58 11:13 12:15 Carbon Dioxide 33 H (22-30) mmol/L Glucose 193 H (75-100) mg/dL POC Glucose 240 H 265 H (70-105)
[2017-10-10] MEDS: NORCO 10/325 PO PRN (20:09)
[2017-10-10] MEDS: LOVENOX SUB-Q SCH (22:00)
[2017-10-11] MEDS: NORCO 10/325 PO PRN (06:44)
[2017-10-11] MEDS: CARDIZEM PO SCH ×5 (06:45→18:06)
[2017-10-11] MEDS: HumaLOG SUB-Q SCH ×4 (06:46→18:06)
[2017-10-11 06:48] LABS: BUN/Creatinine Ratio 19; Blood Urea Nitrogen 17 mg/dL (9-20); Calcium 8.1 mg/dL (8.4-10.2); Hemolysis Index 11
--- NOTE | 2017-10-11 07:28 | Progress Note ---
Assessment and Plan 1. Hypernatremia: Encourage free water intake. Follow Sodium level. 2. Acute kidney injury: Likely hemodynamic SANDRA in the setting of volume depletion. Renal function has improved. 3. Electrolytes: Metabolic alkalosis, improving. Replete K. 4. Acute on chronic respiratory failure. 5. Suspected Pneumonia. 6. Acute encephalopathy. 7. Sacral decubitus: S/p debridement. 8. Anemia. Will sign off. Please call with any questions. Subjective Date of service: 10/11/17 Principal diagnosis: Sepsis Interval history: Patient is doing ok. Objective - Vital Signs Vital signs: Vital Signs - 12hr 10/10/17 10/10/17 10/11/17 20:10 22:00 00:15 Temperature 98.7 F 98.7 F Pulse Rate 95 H 79 Pulse Rate [ 70 From Monitor] Respiratory 17 16 20 Rate Blood Pressure 113/58 149/66 O2 Sat by Pulse 97 95 Oximetry 10/11/17 10/11/17 04:16 06:45 Temperature 98.2 F Pulse Rate 93 H 70 Pulse Rate [ From Monitor] Respiratory 18 Rate Blood Pressure 164/73 165/80 O2 Sat by Pulse 96 Oximetry - General Appearance General appearance: well-developed, well-nourished, appears stated age, obese, other (no distress) EENT: ATNC, PERRL, hearing intact, vision intact Neck: supple Respiratory: Present: Clear to Ascultation Cardiology: regular, S1S2, no murmurs Gastrointestinal: normoactive bowel sounds, no tenderness, obese Integumentary: chronic venous stasis Neurologic: no focal deficit, no asterixis, confused, disoriented Musculoskeletal: other (no edema) - Lab 10/05/17 05:25 10/11/17 06:05 Most recent lab results Calcium 8.1 mg/dL (8.4-10.2) L 10/11/17 06:05 Phosphorus 3.40 mg/dL (2.5-4.5) 10/08/17 06:39 Magnesium 2.10 mg/dL (1.7-2.3) 10/08/17 06:39 Urine Creatinine 99.4 mg/dL (0.1-20.0) H 10/05/17 01:00 Urine Sodium 10 mmol/L 10/05/17 01:00
[2017-10-11] MEDS: PEPCID PO SCH (10:00)
[2017-10-11] MEDS: LANTUS SUB-Q SCH (10:39)
[2017-10-11] MEDS: SODIUM CHLORIDE FLUSH SYRINGE 10 ML IV SCH (10:40)
[2017-10-11] MEDS ORDERED: K-DUR PO ONE ×2 (11:00→13:37)
--- NOTE | 2017-10-11 12:30 | Progress Note ---
Assessment and Plan Acute and chronic respiratory failure. Currently on oxygen support, nasal cannula. Well tolerated. AMS. Resolved Atelectasis. Not doing IS. Redirected [place]. Declines using BiPAP. Appears to be stable on current oxygen support Morbid obesity PTSD diagnosis per chart Skin ulcer surgical. See surgical note Recommendations Continue oxygen support as needed Continue nebulizer therapy. IS q 1-2 h Spiriva at time of discharge OPD PSG update DVT prophylaxis Physical therapy Subjective Date of service: 10/11/17 Principal diagnosis: Sepsis Interval history: Reports no events overnight. Been moved to medical floor. Objective Vital Signs - 12hr 10/11/17 10/11/17 10/11/17 04:16 06:45 08:07 Temperature 98.2 F 98.3 F Pulse Rate 93 H 70 89 Respiratory 18 18 Rate Blood Pressure 164/73 165/80 109/41 O2 Sat by Pulse 96 93 Oximetry Constitutional: no acute distress, alert Eyes: non-icteric ENT: oropharynx moist Neck: supple, no JVD Effort: mildly labored Ascultation: Bilateral: clear, diminished breath sounds Cardiovascular: regular rate and rhythm Gastrointestinal: other (obese) Extremities: no cyanosis, no edema, edema, other (left upper extremity hematoma. Covered right lower extremity pretibial ulcer) Neurologic: normal mental status, non-focal exam CBC and BMP: 10/05/17 05:25 10/11/17 06:05 ABG, PT/INR, D-dimer: ABG POC ABG pH 7.415 (7.35-7.45) 10/02/17 20:23 POC ABG pCO2 42.1 (35-45) 10/02/17 20:23 POC ABG pO2 77 (80-105) L 10/02/17 20:23 POC ABG HCO3 27.0 10/02/17 20:23 POC ABG Total CO2 28 10/02/17 20:23 POC ABG O2 Sat 95 10/02/17 20:23 PT/INR, D-dimer PT 14.1 Sec. (12.2-14.9) 10/01/17 06:31 INR 1.04 (0.87-1.13) 10/01/17 06:31 D-Dimer 2801.11 ng/mlDDU (0-234) H 09/29/17 19:19 Abnormal lab findings: Abnormal Labs 09/29/17 09/29/17 09/29/17 12:54 12:54 14:58 WBC 12.4 H RBC Hgb 11.7 L Hct 33.5 L MCHC 35 H RDW 15.4 H Lymph % (Auto) 6.0 L [place] % (Auto) 10.8 H Lymph # 0.7 L [place] # 1.3 H Seg Neutrophils % 82.0 H Seg Neuts % (Manual) Lymphocytes % (Manual) Seg Neutrophils # 10.1 H Seg Neutrophils # Man Lymphocytes # (Manual) D-Dimer POC ABG pO2 Sodium 133 L Potassium Chloride 90.9 L Carbon Dioxide BUN 70 H Creatinine 2.0 H Glucose 336 H POC Glucose Calcium Magnesium Total Creatine Kinase 348 H Troponin T 0.071 H 0.073 H Total Protein Albumin Prealbumin Urine Creatinine 09/29/17 09/29/17 09/29/17 18:11 18:37 19:19 WBC RBC Hgb Hct MCHC RDW Lymph % (Auto) [place] % (Auto) Lymph # [place] # Seg Neutrophils % Seg Neuts % (Manual) Lymphocytes % (Manual) Seg Neutrophils # Seg Neutrophils # Man Lymphocytes # (Manual) D-Dimer 2801.11 H POC ABG pO2 Sodium Potassium Chloride Carbon Dioxide BUN Creatinine Glucose POC Glucose Calcium Magnesium Total Creatine Kinase Troponin T 0.073 H 0.074 H Total Protein Albumin Prealbumin Urine Creatinine 09/29/17 09/29/17 09/30/17 22:22 23:00 02:38 WBC RBC Hgb Hct MCHC RDW Lymph % (Auto) [place] % (Auto) Lymph # [place] # Seg Neutrophils % Seg Neuts % (Manual) Lymphocytes % (Manual) Seg Neutrophils # Seg Neutrophils # Man Lymphocytes # (Manual) D-Dimer POC ABG pO2 Sodium Potassium Chloride Carbon Dioxide BUN Creatinine Glucose POC Glucose 389 H Calcium Magnesium Total Creatine Kinase Troponin T 0.058 H D 0.064 H Total Protein Albumin Prealbumin Urine Creatinine 09/30/17 09/30/17 09/30/17 12:07 16:24 21:25 WBC RBC Hgb Hct MCHC RDW Lymph % (Auto) [place] % (Auto) Lymph # [place] # Seg Neutrophils % Seg Neuts % (Manual) Lymphocytes % (Manual) Seg Neutrophils # Seg Neutrophils # Man Lymphocytes # (Manual) D-Dimer POC ABG pO2 Sodium Potassium Chloride Carbon Dioxide BUN Creatinine Glucose POC Glucose 387 H 431 H 326 H Calcium Magnesium Total Creatine Kinase Troponin T Total Protein Albumin Prealbumin Urine Creatinine 10/01/17 10/01/17 10/01/17 06:16 06:16 06:30 WBC 14.0 H RBC Hgb Hct 34.3 L MCHC RDW Lymph % (Auto) [place] % (Auto) Lymph # [place] # Seg Neutrophils % Seg Neuts % (Manual) 87.0 H Lymphocytes % (Manual) 7.0 L Seg Neutrophils # Seg Neutrophils # Man 12.2 H Lymphocytes # (Manual) 1.0 L D-Dimer POC ABG pO2 Sodium Potassium 3.4 L Chloride 94.7 L Carbon Dioxide BUN 62 H Creatinine Glucose 432 H POC Glucose 419 H Calcium Magnesium Total Creatine Kinase Troponin T Total Protein 6.0 L Albumin 3.4 L Prealbumin Urine Creatinine 10/01/17 10/01/17 10/02/17 11:25 15:39 07:39 WBC RBC Hgb Hct MCHC RDW Lymph % (Auto) [place] % (Auto) Lymph # [place] # Seg Neutrophils % Seg Neuts % (Manual) Lymphocytes % (Manual) Seg Neutrophils # Seg Neutrophils # Man Lymphocytes # (Manual) D-Dimer POC ABG pO2 Sodium Potassium Chloride Carbon Dioxide BUN Creatinine Glucose POC Glucose 456 H 472 H 429 H Calcium Magnesium Total Creatine Kinase Troponin T Total Protein Albumin Prealbumin Urine Creatinine 10/02/17 10/02/17 10/02/17 11:03 11:03 11:03 WBC 14.9 H RBC Hgb Hct MCHC RDW 15.4 H Lymph % (Auto) [place] % (Auto) Lymph # [place] # Seg Neutrophils % Seg Neuts % (Manual) Lymphocytes % (Manual) Seg Neutrophils # Seg Neutrophils # Man Lymphocytes # (Manual) D-Dimer POC ABG pO2 Sodium 154 H D Potassium 3.5 L Chloride Carbon Dioxide BUN 66 H Creatinine Glucose 432 H POC Glucose Calcium Magnesium Total Creatine Kinase Troponin T 0.059 H Total Protein Albumin Prealbumin Urine Creatinine 10/02/17 10/02/17 10/02/17 13:00 14:48 14:57 WBC RBC Hgb Hct MCHC RDW Lymph % (Auto) [place] % (Auto) Lymph # [place] # Seg Neutrophils % Seg Neuts % (Manual) Lymphocytes % (Manual) Seg Neutrophils # Seg Neutrophils # Man Lymphocytes # (Manual) D-Dimer POC ABG pO2 64 L Sodium Potassium Chloride Carbon Dioxide BUN Creatinine Glucose POC Glucose 476 H 448 H Calcium Magnesium Total Creatine Kinase Troponin T Total Protein Albumin Prealbumin Urine Creatinine 10/02/17 10/02/17 10/02/17 17:56 18:19 20:23 WBC RBC Hgb Hct MCHC RDW Lymph % (Auto) [place] % (Auto) Lymph # [place] # Seg Neutrophils % Seg Neuts % (Manual) Lymphocytes % (Manual) Seg Neutrophils # Seg Neutrophils # Man Lymphocytes # (Manual) D-Dimer POC ABG pO2 77 L Sodium Potassium Chloride Carbon Dioxide BUN Creatinine Glucose POC Glucose > 500 H Calcium Magnesium Total Creatine Kinase Troponin T 0.057 H Total Protein Albumin Prealbumin Urine Creatinine 10/02/17 10/03/17 10/03/17 23:41 05:44 05:44 WBC 14.8 H RBC 3.41 L Hgb 10.4 L Hct 31.8 L MCHC RDW 15.4 H Lymph % (Auto) [place] % (Auto) Lymph # [place] # Seg Neutrophils % Seg Neuts % (Manual) Lymphocytes % (Manual) Seg Neutrophils # Seg Neutrophils # Man Lymphocytes # (Manual) D-Dimer POC ABG pO2 Sodium 155 H Potassium 3.4 L Chloride 110.8 H Carbon Dioxide 32 H BUN 81 H Creatinine 1.6 H Glucose 403 H POC Glucose 447 H Calcium Magnesium 2.60 H Total Creatine Kinase Troponin T Total Protein Albumin Prealbumin Urine Creatinine 10/03/17 10/03/17 10/04/17 06:32 12:33 00:14 WBC RBC Hgb Hct MCHC RDW Lymph % (Auto) [place] % (Auto) Lymph # [place] # Seg Neutrophils % Seg Neuts % (Manual) Lymphocytes % (Manual) Seg Neutrophils # Seg Neutrophils # Man Lymphocytes # (Manual) D-Dimer POC ABG pO2 Sodium Potassium Chloride Carbon Dioxide BUN Creatinine Glucose POC Glucose 394 H 449 H > 500 H Calcium Magnesium Total Creatine Kinase Troponin T Total Protein Albumin Prealbumin Urine Creatinine 10/04/17 10/04/17 10/04/17 00:32 06:09 06:19 WBC 13.5 H RBC 3.38 L Hgb 10.5 L Hct 31.4 L MCHC RDW 15.6 H Lymph % (Auto) [place] % (Auto) Lymph # [place] # Seg Neutrophils % Seg Neuts % (Manual) Lymphocytes % (Manual) Seg Neutrophils # Seg Neutrophils # Man Lymphocytes # (Manual) D-Dimer POC ABG pO2 Sodium Potassium Chloride Carbon Dioxide BUN Creatinine Glucose 623 H* POC Glucose 383 H Calcium Magnesium Total Creatine Kinase Troponin T Total Protein Albumin Prealbumin Urine Creatinine 10/04/17 10/04/17 10/04/17 06:19 11:51 16:06 WBC RBC Hgb Hct MCHC RDW Lymph % (Auto) [place] % (Auto) Lymph # [place] # Seg Neutrophils % Seg Neuts % (Manual) Lymphocytes % (Manual) Seg Neutrophils # Seg Neutrophils # Man Lymphocytes # (Manual) D-Dimer POC ABG pO2 Sodium 163 H* D Potassium Chloride 114.2 H Carbon Dioxide 34 H BUN 83 H Creatinine 1.7 H Glucose 389 H POC Glucose 340 H 341 H Calcium Magnesium Total Creatine Kinase Troponin T Total Protein Albumin Prealbumin Urine Creatinine 10/04/17 10/04/17 10/05/17 17:34 23:00 01:00 WBC RBC Hgb Hct MCHC RDW Lymph % (Auto) [place] % (Auto) Lymph # [place] # Seg Neutrophils % Seg Neuts % (Manual) Lymphocytes % (Manual) Seg Neutrophils # Seg Neutrophils # Man Lymphocytes # (Manual) D-Dimer POC ABG pO2 Sodium 155 H Potassium 3.4 L Chloride 107.4 H Carbon Dioxide 33 H BUN 82 H Creatinine 1.8 H Glucose 348 H POC Glucose 461 H Calcium Magnesium Total Creatine Kinase Troponin T Total Protein Albumin Prealbumin Urine Creatinine 99.4 H 10/05/17 10/05/17 10/05/17 05:25 05:39 06:11 WBC 14.1 H RBC 3.03 L Hgb 9.6 L Hct 28.0 L MCHC RDW 15.8 H Lymph % (Auto) [place] % (Auto) Lymph # [place] # Seg Neutrophils % Seg Neuts % (Manual) Lymphocytes % (Manual) Seg Neutrophils # Seg Neutrophils # Man Lymphocytes # (Manual) D-Dimer POC ABG pO2 Sodium 149 H Potassium Chloride Carbon Dioxide 33 H BUN 81 H Creatinine 1.7 H Glucose 365 H POC Glucose 397 H Calcium Magnesium 2.40 H Total Creatine Kinase Troponin T Total Protein Albumin Prealbumin Urine Creatinine 10/05/17 10/05/17 10/05/17 12:16 16:22 21:06 WBC RBC Hgb Hct MCHC RDW Lymph % (Auto) [place] % (Auto) Lymph # [place] # Seg Neutrophils % Seg Neuts % (Manual) Lymphocytes % (Manual) Seg Neutrophils # Seg Neutrophils # Man Lymphocytes # (Manual) D-Dimer POC ABG pO2 Sodium Potassium Chloride Carbon Dioxide BUN Creatinine Glucose POC Glucose 400 H 395 H 265 H Calcium Magnesium Total Creatine Kinase Troponin T Total Protein Albumin Prealbumin Urine Creatinine 10/06/17 10/06/17 10/06/17 06:43 06:50 11:29 WBC RBC Hgb Hct MCHC RDW Lymph % (Auto) [place] % (Auto) Lymph # [place] # Seg Neutrophils % Seg Neuts % (Manual) Lymphocytes % (Manual) Seg Neutrophils # Seg Neutrophils # Man Lymphocytes # (Manual) D-Dimer POC ABG pO2 Sodium 156 H Potassium Chloride 115.0 H Carbon Dioxide 32 H BUN 62 H Creatinine Glucose 308 H POC Glucose 330 H 396 H Calcium Magnesium Total Creatine Kinase Troponin T Total Protein Albumin Prealbumin Urine Creatinine 10/06/17 10/07/17 10/07/17 16:24 00:46 07:18 WBC RBC Hgb Hct MCHC RDW Lymph % (Auto) [place] % (Auto) Lymph # [place] # Seg Neutrophils % Seg Neuts % (Manual) Lymphocytes % (Manual) Seg Neutrophils # Seg Neutrophils # Man Lymphocytes # (Manual) D-Dimer POC ABG pO2 Sodium 149 H Potassium Chloride Carbon Dioxide 32 H BUN 43 H Creatinine Glucose 289 H POC Glucose 417 H 295 H Calcium Magnesium Total Creatine Kinase Troponin T Total Protein Albumin Prealbumin Urine Creatinine 10/07/17 10/07/17 10/07/17 08:16 12:38 13:08 WBC RBC Hgb Hct MCHC RDW Lymph % (Auto) [place] % (Auto) Lymph # [place] # Seg Neutrophils % Seg Neuts % (Manual) Lymphocytes % (Manual) Seg Neutrophils # Seg Neutrophils # Man Lymphocytes # (Manual) D-Dimer POC ABG pO2 Sodium Potassium Chloride Carbon Dioxide BUN Creatinine Glucose POC Glucose 348 H 256 H 365 H Calcium Magnesium Total Creatine Kinase Troponin T Total Protein Albumin Prealbumin Urine Creatinine 10/07/17 10/07/17 10/08/17 16:35 22:34 06:39 WBC RBC Hgb Hct MCHC RDW Lymph % (Auto) [place] % (Auto) Lymph # [place] # Seg Neutrophils % Seg Neuts % (Manual) Lymphocytes % (Manual) Seg Neutrophils # Seg Neutrophils # Man Lymphocytes # (Manual) D-Dimer POC ABG pO2 Sodium 151 H Potassium Chloride 107.4 H Carbon Dioxide 32 H BUN 31 H Creatinine Glucose 246 H POC Glucose 234 H 200 H Calcium Magnesium Total Creatine Kinase Troponin T Total Protein Albumin Prealbumin Urine Creatinine 10/08/17 10/08/17 10/08/17 08:06 12:56 17:16 WBC RBC Hgb Hct MCHC RDW Lymph % (Auto) [place] % (Auto) Lymph # [place] # Seg Neutrophils % Seg Neuts % (Manual) Lymphocytes % (Manual) Seg Neutrophils # Seg Neutrophils # Man Lymphocytes # (Manual) D-Dimer POC ABG pO2 Sodium Potassium Chloride Carbon Dioxide BUN Creatinine Glucose POC Glucose 273 H 255 H 273 H Calcium Magnesium Total Creatine Kinase Troponin T Total Protein Albumin Prealbumin Urine Creatinine 10/08/17 10/09/17 10/09/17 22:11 05:50 06:42 WBC RBC Hgb Hct MCHC RDW Lymph % (Auto) [place] % (Auto) Lymph # [place] # Seg Neutrophils % Seg Neuts % (Manual) Lymphocytes % (Manual) Seg Neutrophils # Seg Neutrophils # Man Lymphocytes # (Manual) D-Dimer POC ABG pO2 Sodium Potassium Chloride Carbon Dioxide BUN Creatinine Glucose POC Glucose 202 H 167 H 210 H Calcium Magnesium Total Creatine Kinase Troponin T Total Protein Albumin Prealbumin Urine Creatinine 10/09/17 10/09/17 10/09/17 11:39 16:52 22:07 WBC RBC Hgb Hct MCHC RDW Lymph % (Auto) [place] % (Auto) Lymph # [place] # Seg Neutrophils % Seg Neuts % (Manual) Lymphocytes % (Manual) Seg Neutrophils # Seg Neutrophils # Man Lymphocytes # (Manual) D-Dimer POC ABG pO2 Sodium Potassium Chloride Carbon Dioxide BUN Creatinine Glucose POC Glucose 304 H 304 H 314 H Calcium Magnesium Total Creatine Kinase Troponin T Total Protein Albumin Prealbumin Urine Creatinine 10/09/17 10/10/17 10/10/17 Unknown 04:28 05:58 WBC RBC Hgb Hct MCHC RDW Lymph % (Auto) [place] % (Auto) Lymph # [place] # Seg Neutrophils % Seg Neuts % (Manual) Lymphocytes % (Manual) Seg Neutrophils # Seg Neutrophils # Man Lymphocytes # (Manual) D-Dimer POC ABG pO2 Sodium 147 H Potassium Chloride Carbon Dioxide 33 H 33 H BUN 22 H Creatinine Glucose 207 H 193 H POC Glucose 194 H Calcium Magnesium Total Creatine Kinase Troponin T Total Protein Albumin Prealbumin 0.110 L Urine Creatinine 10/10/17 10/10/17 10/10/17 11:13 12:15 16:26 WBC RBC Hgb Hct MCHC RDW Lymph % (Auto) [place] % (Auto) Lymph # [place] # Seg Neutrophils % Seg Neuts % (Manual) Lymphocytes % (Manual) Seg Neutrophils # Seg Neutrophils # Man Lymphocytes # (Manual) D-Dimer POC ABG pO2 Sodium Potassium Chloride Carbon Dioxide BUN Creatinine Glucose POC Glucose 240 H 265 H 246 H Calcium Magnesium Total Creatine Kinase Troponin T Total Protein Albumin Prealbumin Urine Creatinine 10/10/17 10/11/17 10/11/17 22:09 06:05 06:43 WBC RBC Hgb Hct MCHC RDW Lymph % (Auto) [place] % (Auto) Lymph # [place] # Seg Neutrophils % Seg Neuts % (Manual) Lymphocytes % (Manual) Seg Neutrophils # Seg Neutrophils # Man Lymphocytes # (Manual) D-Dimer POC ABG pO2 Sodium Potassium Chloride Carbon Dioxide BUN Creatinine Glucose 209 H POC Glucose 261 H 180 H Calcium 8.1 L Magnesium Total Creatine Kinase Troponin T Total Protein Albumin Prealbumin Urine Creatinine
--- NOTE | 2017-10-11 16:39 | Progress Note ---
Assessment and Plan - Patient Problems (1) Sacral decubitus ulcer, stage IV Current Visit: Yes Status: Acute Plan to address problem: Patient had excisional debridement . Margins were clean and the base looks healthy. No drainage (2) ARF (acute renal failure) Current Visit: Yes Status: Acute Qualifiers: Acute renal failure type: with acute tubular necrosis Qualified Code(s): N17.0 - Acute kidney failure with tubular necrosis Plan to address problem: IV fluids for now (3) Acute hypernatremia Current Visit: Yes Status: Acute Plan to address problem: Free water intake Monitor sodium levels (4) COPD (chronic obstructive pulmonary disease) Current Visit: Yes Status: Chronic Qualifiers: COPD type: unspecified COPD Qualified Code(s): J44.9 - Chronic obstructive pulmonary disease, unspecified Plan to address problem: Continue bronchodilators (5) Acute encephalopathy Current Visit: Yes Status: Acute Plan to address problem: Resolved (6) DVT prophylaxis Current Visit: Yes Status: Acute Plan to address problem: Continue heparin (7) Discharge planning issues Current Visit: Yes Status: Acute Plan to address problem: Patient will be discharged to a [facility] facility when bed is available He wants a SNF in [place] Talked with Lacie [facility] [employer]----Says Placement may happen on coming [place] Subjective Date of service: 10/11/17 Principal diagnosis: Sepsis Interval history: Status post excisional debridement of sacral wound by surgery Objective - Constitutional Vitals: Vital Signs - 12hr 10/11/17 10/11/17 10/11/17 06:45 08:07 10:00 Temperature 98.3 F Pulse Rate 70 89 79 Respiratory 18 18 Rate Blood Pressure 165/80 109/41 O2 Sat by Pulse 93 97 Oximetry 10/11/17 12:31 Temperature 98.7 F Pulse Rate 79 Respiratory 24 Rate Blood Pressure 150/72 O2 Sat by Pulse 88 Oximetry General appearance: Present: no acute distress, well-nourished - EENT Eyes: PERRL, EOM intact ENT: hearing intact, clear oral mucosa Ears: bilateral: normal - Neck Neck: supple, normal ROM - Respiratory Respiratory effort: normal Respiratory: bilateral: CTA - Breasts Breasts: normal - Cardiovascular Rhythm: regular Heart Sounds: Present: S1 & S2. Absent: gallop, rub Extremities: no ischemia, pulses intact, No edema, normal color, Full ROM - Gastrointestinal General gastrointestinal: Present: soft, non-tender, non-distended, normal bowel sounds - Genitourinary Male genitourinary: normal - Integumentary Integumentary: clear, warm, dry - Musculoskeletal Musculoskeletal: 1, strength equal bilaterally - Neurologic Neurologic: moves all extremities - Psychiatric Psychiatric: memory intact, appropriate mood/affect, intact judgment & insight - Labs CBC & Chem 7: 10/05/17 05:25 10/11/17 06:05 Labs: Abnormal lab results 10/10/17 10/10/17 10/11/17 Range/Units 16:26 22:09 06:05 Glucose 209 H (75-100) mg/dL POC Glucose 246 H 261 H (70-105) Calcium 8.1 L (8.4-10.2) mg/dL 10/11/17 Range/Units 06:43 Glucose (75-100) mg/dL POC Glucose 180 H (70-105) Calcium (8.4-10.2) mg/dL
[2017-10-12] MEDS: SODIUM CHLORIDE FLUSH SYRINGE 10 ML IV SCH ×3 (00:05→22:05)
[2017-10-12] MEDS: LOVENOX SUB-Q SCH ×2 (00:05→22:05)
[2017-10-12] MEDS: CARDIZEM PO SCH ×4 (00:06→17:09)
[2017-10-12] MEDS: DAKIN'S HALF STRENGTH TP SCH ×4 (00:24→22:06)
[2017-10-12] MEDS: HumaLOG SUB-Q SCH ×4 (00:26→17:08)
[2017-10-12] MEDS: NORCO 10/325 PO PRN ×4 (00:50→23:45)
[2017-10-12] MEDS: LANTUS SUB-Q SCH (08:31)
[2017-10-12] MEDS: PEPCID PO SCH (09:51)
--- NOTE | 2017-10-12 10:40 | Progress Note ---
Assessment and Plan Acute and chronic respiratory failure. Currently on oxygen support, nasal cannula. Well tolerated. AMS. Resolved Atelectasis. IS at bedside. Redirected CAMILLE. Witnessed apneas. Declines using BiPAP. Only accepting oxygen support at this time. Morbid obesity PTSD diagnosis per chart Skin ulcer surgical. See surgical note Recommendations Continue oxygen support as needed Continue nebulizer therapy. IS q 1-2 h Spiriva at time of discharge Again recommend OPD PSG update and discuss need for treatment with patient DVT prophylaxis Physical therapy Subjective Date of service: 10/12/17 Principal diagnosis: Sepsis Interval history: Reports no complaints. No shortness of breath Objective Vital Signs - 12hr 10/12/17 10/12/17 10/12/17 00:06 05:19 08:42 Temperature 98.0 F Pulse Rate 79 67 84 Respiratory 22 Rate Blood Pressure 129/45 157/64 154/60 O2 Sat by Pulse 98 Oximetry Constitutional: no acute distress, other (far as sleep with snoring and occasional apneas) Eyes: non-icteric ENT: oropharynx moist Neck: supple, no JVD Effort: mildly labored Ascultation: Bilateral: clear, diminished breath sounds Cardiovascular: regular rate and rhythm Gastrointestinal: other (obese) Extremities: no cyanosis, no edema, edema, other (left upper extremity hematoma. Covered right lower extremity pretibial ulcer) Neurologic: normal mental status, non-focal exam CBC and BMP: 10/05/17 05:25 10/11/17 06:05 ABG, PT/INR, D-dimer: ABG POC ABG pH 7.415 (7.35-7.45) 10/02/17 20:23 POC ABG pCO2 42.1 (35-45) 10/02/17 20:23 POC ABG pO2 77 (80-105) L 10/02/17 20:23 POC ABG HCO3 27.0 10/02/17 20:23 POC ABG Total CO2 28 10/02/17 20:23 POC ABG O2 Sat 95 10/02/17 20:23 PT/INR, D-dimer PT 14.1 Sec. (12.2-14.9) 10/01/17 06:31 INR 1.04 (0.87-1.13) 10/01/17 06:31 D-Dimer 2801.11 ng/mlDDU (0-234) H 09/29/17 19:19 Abnormal lab findings: Abnormal Labs 09/29/17 09/29/17 09/29/17 12:54 12:54 14:58 WBC 12.4 H RBC Hgb 11.7 L Hct 33.5 L MCHC 35 H RDW 15.4 H Lymph % (Auto) 6.0 L Taylor % (Auto) 10.8 H Lymph # 0.7 L Taylor # 1.3 H Seg Neutrophils % 82.0 H Seg Neuts % (Manual) Lymphocytes % (Manual) Seg Neutrophils # 10.1 H Seg Neutrophils # Man Lymphocytes # (Manual) D-Dimer POC ABG pO2 Sodium 133 L Potassium Chloride 90.9 L Carbon Dioxide BUN 70 H Creatinine 2.0 H Glucose 336 H POC Glucose Calcium Magnesium Total Creatine Kinase 348 H Troponin T 0.071 H 0.073 H Total Protein Albumin Prealbumin Urine Creatinine 09/29/17 09/29/17 09/29/17 18:11 18:37 19:19 WBC RBC Hgb Hct MCHC RDW Lymph % (Auto) Taylor % (Auto) Lymph # Taylor # Seg Neutrophils % Seg Neuts % (Manual) Lymphocytes % (Manual) Seg Neutrophils # Seg Neutrophils # Man Lymphocytes # (Manual) D-Dimer 2801.11 H POC ABG pO2 Sodium Potassium Chloride Carbon Dioxide BUN Creatinine Glucose POC Glucose Calcium Magnesium Total Creatine Kinase Troponin T 0.073 H 0.074 H Total Protein Albumin Prealbumin Urine Creatinine 09/29/17 09/29/17 09/30/17 22:22 23:00 02:38 WBC RBC Hgb Hct MCHC RDW Lymph % (Auto) Taylor % (Auto) Lymph # Taylor # Seg Neutrophils % Seg Neuts % (Manual) Lymphocytes % (Manual) Seg Neutrophils # Seg Neutrophils # Man Lymphocytes # (Manual) D-Dimer POC ABG pO2 Sodium Potassium Chloride Carbon Dioxide BUN Creatinine Glucose POC Glucose 389 H Calcium Magnesium Total Creatine Kinase Troponin T 0.058 H D 0.064 H Total Protein Albumin Prealbumin Urine Creatinine 09/30/17 09/30/17 09/30/17 12:07 16:24 21:25 WBC RBC Hgb Hct MCHC RDW Lymph % (Auto) Taylor % (Auto) Lymph # Taylor # Seg Neutrophils % Seg Neuts % (Manual) Lymphocytes % (Manual) Seg Neutrophils # Seg Neutrophils # Man Lymphocytes # (Manual) D-Dimer POC ABG pO2 Sodium Potassium Chloride Carbon Dioxide BUN Creatinine Glucose POC Glucose 387 H 431 H 326 H Calcium Magnesium Total Creatine Kinase Troponin T Total Protein Albumin Prealbumin Urine Creatinine 10/01/17 10/01/17 10/01/17 06:16 06:16 06:30 WBC 14.0 H RBC Hgb Hct 34.3 L MCHC RDW Lymph % (Auto) Taylor % (Auto) Lymph # Taylor # Seg Neutrophils % Seg Neuts % (Manual) 87.0 H Lymphocytes % (Manual) 7.0 L Seg Neutrophils # Seg Neutrophils # Man 12.2 H Lymphocytes # (Manual) 1.0 L D-Dimer POC ABG pO2 Sodium Potassium 3.4 L Chloride 94.7 L Carbon Dioxide BUN 62 H Creatinine Glucose 432 H POC Glucose 419 H Calcium Magnesium Total Creatine Kinase Troponin T Total Protein 6.0 L Albumin 3.4 L Prealbumin Urine Creatinine 10/01/17 10/01/17 10/02/17 11:25 15:39 07:39 WBC RBC Hgb Hct MCHC RDW Lymph % (Auto) Taylor % (Auto) Lymph # Taylor # Seg Neutrophils % Seg Neuts % (Manual) Lymphocytes % (Manual) Seg Neutrophils # Seg Neutrophils # Man Lymphocytes # (Manual) D-Dimer POC ABG pO2 Sodium Potassium Chloride Carbon Dioxide BUN Creatinine Glucose POC Glucose 456 H 472 H 429 H Calcium Magnesium Total Creatine Kinase Troponin T Total Protein Albumin Prealbumin Urine Creatinine 10/02/17 10/02/17 10/02/17 11:03 11:03 11:03 WBC 14.9 H RBC Hgb Hct MCHC RDW 15.4 H Lymph % (Auto) Taylor % (Auto) Lymph # Taylor # Seg Neutrophils % Seg Neuts % (Manual) Lymphocytes % (Manual) Seg Neutrophils # Seg Neutrophils # Man Lymphocytes # (Manual) D-Dimer POC ABG pO2 Sodium 154 H D Potassium 3.5 L Chloride Carbon Dioxide BUN 66 H Creatinine Glucose 432 H POC Glucose Calcium Magnesium Total Creatine Kinase Troponin T 0.059 H Total Protein Albumin Prealbumin Urine Creatinine 10/02/17 10/02/17 10/02/17 13:00 14:48 14:57 WBC RBC Hgb Hct MCHC RDW Lymph % (Auto) Taylor % (Auto) Lymph # Taylor # Seg Neutrophils % Seg Neuts % (Manual) Lymphocytes % (Manual) Seg Neutrophils # Seg Neutrophils # Man Lymphocytes # (Manual) D-Dimer POC ABG pO2 64 L Sodium Potassium Chloride Carbon Dioxide BUN Creatinine Glucose POC Glucose 476 H 448 H Calcium Magnesium Total Creatine Kinase Troponin T Total Protein Albumin Prealbumin Urine Creatinine 10/02/17 10/02/17 10/02/17 17:56 18:19 20:23 WBC RBC Hgb Hct MCHC RDW Lymph % (Auto) Taylor % (Auto) Lymph # Taylor # Seg Neutrophils % Seg Neuts % (Manual) Lymphocytes % (Manual) Seg Neutrophils # Seg Neutrophils # Man Lymphocytes # (Manual) D-Dimer POC ABG pO2 77 L Sodium Potassium Chloride Carbon Dioxide BUN Creatinine Glucose POC Glucose > 500 H Calcium Magnesium Total Creatine Kinase Troponin T 0.057 H Total Protein Albumin Prealbumin Urine Creatinine 10/02/17 10/03/17 10/03/17 23:41 05:44 05:44 WBC 14.8 H RBC 3.41 L Hgb 10.4 L Hct 31.8 L MCHC RDW 15.4 H Lymph % (Auto) Taylor % (Auto) Lymph # Taylor # Seg Neutrophils % Seg Neuts % (Manual) Lymphocytes % (Manual) Seg Neutrophils # Seg Neutrophils # Man Lymphocytes # (Manual) D-Dimer POC ABG pO2 Sodium 155 H Potassium 3.4 L Chloride 110.8 H Carbon Dioxide 32 H BUN 81 H Creatinine 1.6 H Glucose 403 H POC Glucose 447 H Calcium Magnesium 2.60 H Total Creatine Kinase Troponin T Total Protein Albumin Prealbumin Urine Creatinine 10/03/17 10/03/17 10/04/17 06:32 12:33 00:14 WBC RBC Hgb Hct MCHC RDW Lymph % (Auto) Taylor % (Auto) Lymph # Taylor # Seg Neutrophils % Seg Neuts % (Manual) Lymphocytes % (Manual) Seg Neutrophils # Seg Neutrophils # Man Lymphocytes # (Manual) D-Dimer POC ABG pO2 Sodium Potassium Chloride Carbon Dioxide BUN Creatinine Glucose POC Glucose 394 H 449 H > 500 H Calcium Magnesium Total Creatine Kinase Troponin T Total Protein Albumin Prealbumin Urine Creatinine 10/04/17 10/04/17 10/04/17 00:32 06:09 06:19 WBC 13.5 H RBC 3.38 L Hgb 10.5 L Hct 31.4 L MCHC RDW 15.6 H Lymph % (Auto) Taylor % (Auto) Lymph # Taylor # Seg Neutrophils % Seg Neuts % (Manual) Lymphocytes % (Manual) Seg Neutrophils # Seg Neutrophils # Man Lymphocytes # (Manual) D-Dimer POC ABG pO2 Sodium Potassium Chloride Carbon Dioxide BUN Creatinine Glucose 623 H* POC Glucose 383 H Calcium Magnesium Total Creatine Kinase Troponin T Total Protein Albumin Prealbumin Urine Creatinine 10/04/17 10/04/17 10/04/17 06:19 11:51 16:06 WBC RBC Hgb Hct MCHC RDW Lymph % (Auto) Taylor % (Auto) Lymph # Taylor # Seg Neutrophils % Seg Neuts % (Manual) Lymphocytes % (Manual) Seg Neutrophils # Seg Neutrophils # Man Lymphocytes # (Manual) D-Dimer POC ABG pO2 Sodium 163 H* D Potassium Chloride 114.2 H Carbon Dioxide 34 H BUN 83 H Creatinine 1.7 H Glucose 389 H POC Glucose 340 H 341 H Calcium Magnesium Total Creatine Kinase Troponin T Total Protein Albumin Prealbumin Urine Creatinine 10/04/17 10/04/17 10/05/17 17:34 23:00 01:00 WBC RBC Hgb Hct MCHC RDW Lymph % (Auto) Taylor % (Auto) Lymph # Taylor # Seg Neutrophils % Seg Neuts % (Manual) Lymphocytes % (Manual) Seg Neutrophils # Seg Neutrophils # Man Lymphocytes # (Manual) D-Dimer POC ABG pO2 Sodium 155 H Potassium 3.4 L Chloride 107.4 H Carbon Dioxide 33 H BUN 82 H Creatinine 1.8 H Glucose 348 H POC Glucose 461 H Calcium Magnesium Total Creatine Kinase Troponin T Total Protein Albumin Prealbumin Urine Creatinine 99.4 H 10/05/17 10/05/17 10/05/17 05:25 05:39 06:11 WBC 14.1 H RBC 3.03 L Hgb 9.6 L Hct 28.0 L MCHC RDW 15.8 H Lymph % (Auto) Taylor % (Auto) Lymph # Taylor # Seg Neutrophils % Seg Neuts % (Manual) Lymphocytes % (Manual) Seg Neutrophils # Seg Neutrophils # Man Lymphocytes # (Manual) D-Dimer POC ABG pO2 Sodium 149 H Potassium Chloride Carbon Dioxide 33 H BUN 81 H Creatinine 1.7 H Glucose 365 H POC Glucose 397 H Calcium Magnesium 2.40 H Total Creatine Kinase Troponin T Total Protein Albumin Prealbumin Urine Creatinine 10/05/17 10/05/17 10/05/17 12:16 16:22 21:06 WBC RBC Hgb Hct MCHC RDW Lymph % (Auto) Taylor % (Auto) Lymph # Taylor # Seg Neutrophils % Seg Neuts % (Manual) Lymphocytes % (Manual) Seg Neutrophils # Seg Neutrophils # Man Lymphocytes # (Manual) D-Dimer POC ABG pO2 Sodium Potassium Chloride Carbon Dioxide BUN Creatinine Glucose POC Glucose 400 H 395 H 265 H Calcium Magnesium Total Creatine Kinase Troponin T Total Protein Albumin Prealbumin Urine Creatinine 10/06/17 10/06/17 10/06/17 06:43 06:50 11:29 WBC RBC Hgb Hct MCHC RDW Lymph % (Auto) Taylor % (Auto) Lymph # Taylor # Seg Neutrophils % Seg Neuts % (Manual) Lymphocytes % (Manual) Seg Neutrophils # Seg Neutrophils # Man Lymphocytes # (Manual) D-Dimer POC ABG pO2 Sodium 156 H Potassium Chloride 115.0 H Carbon Dioxide 32 H BUN 62 H Creatinine Glucose 308 H POC Glucose 330 H 396 H Calcium Magnesium Total Creatine Kinase Troponin T Total Protein Albumin Prealbumin Urine Creatinine 10/06/17 10/07/17 10/07/17 16:24 00:46 07:18 WBC RBC Hgb Hct MCHC RDW Lymph % (Auto) Taylor % (Auto) Lymph # Taylor # Seg Neutrophils % Seg Neuts % (Manual) Lymphocytes % (Manual) Seg Neutrophils # Seg Neutrophils # Man Lymphocytes # (Manual) D-Dimer POC ABG pO2 Sodium 149 H Potassium Chloride Carbon Dioxide 32 H BUN 43 H Creatinine Glucose 289 H POC Glucose 417 H 295 H Calcium Magnesium Total Creatine Kinase Troponin T Total Protein Albumin Prealbumin Urine Creatinine 10/07/17 10/07/17 10/07/17 08:16 12:38 13:08 WBC RBC Hgb Hct MCHC RDW Lymph % (Auto) Taylor % (Auto) Lymph # Taylor # Seg Neutrophils % Seg Neuts % (Manual) Lymphocytes % (Manual) Seg Neutrophils # Seg Neutrophils # Man Lymphocytes # (Manual) D-Dimer POC ABG pO2 Sodium Potassium Chloride Carbon Dioxide BUN Creatinine Glucose POC Glucose 348 H 256 H 365 H Calcium Magnesium Total Creatine Kinase Troponin T Total Protein Albumin Prealbumin Urine Creatinine 10/07/17 10/07/17 10/08/17 16:35 22:34 06:39 WBC RBC Hgb Hct MCHC RDW Lymph % (Auto) Taylor % (Auto) Lymph # Taylor # Seg Neutrophils % Seg Neuts % (Manual) Lymphocytes % (Manual) Seg Neutrophils # Seg Neutrophils # Man Lymphocytes # (Manual) D-Dimer POC ABG pO2 Sodium 151 H Potassium Chloride 107.4 H Carbon Dioxide 32 H BUN 31 H Creatinine Glucose 246 H POC Glucose 234 H 200 H Calcium Magnesium Total Creatine Kinase Troponin T Total Protein Albumin Prealbumin Urine Creatinine 10/08/17 10/08/17 10/08/17 08:06 12:56 17:16 WBC RBC Hgb Hct MCHC RDW Lymph % (Auto) Taylor % (Auto) Lymph # Taylor # Seg Neutrophils % Seg Neuts % (Manual) Lymphocytes % (Manual) Seg Neutrophils # Seg Neutrophils # Man Lymphocytes # (Manual) D-Dimer POC ABG pO2 Sodium Potassium Chloride Carbon Dioxide BUN Creatinine Glucose POC Glucose 273 H 255 H 273 H Calcium Magnesium Total Creatine Kinase Troponin T Total Protein Albumin Prealbumin Urine Creatinine 10/08/17 10/09/17 10/09/17 22:11 05:50 06:42 WBC RBC Hgb Hct MCHC RDW Lymph % (Auto) Taylor % (Auto) Lymph # Taylor # Seg Neutrophils % Seg Neuts % (Manual) Lymphocytes % (Manual) Seg Neutrophils # Seg Neutrophils # Man Lymphocytes # (Manual) D-Dimer POC ABG pO2 Sodium Potassium Chloride Carbon Dioxide BUN Creatinine Glucose POC Glucose 202 H 167 H 210 H Calcium Magnesium Total Creatine Kinase Troponin T Total Protein Albumin Prealbumin Urine Creatinine 10/09/17 10/09/17 10/09/17 11:39 16:52 22:07 WBC RBC Hgb Hct MCHC RDW Lymph % (Auto) Taylor % (Auto) Lymph # Taylor # Seg Neutrophils % Seg Neuts % (Manual) Lymphocytes % (Manual) Seg Neutrophils # Seg Neutrophils # Man Lymphocytes # (Manual) D-Dimer POC ABG pO2 Sodium Potassium Chloride Carbon Dioxide BUN Creatinine Glucose POC Glucose 304 H 304 H 314 H Calcium Magnesium Total Creatine Kinase Troponin T Total Protein Albumin Prealbumin Urine Creatinine 10/09/17 10/10/17 10/10/17 Unknown 04:28 05:58 WBC RBC Hgb Hct MCHC RDW Lymph % (Auto) Taylor % (Auto) Lymph # Taylor # Seg Neutrophils % Seg Neuts % (Manual) Lymphocytes % (Manual) Seg Neutrophils # Seg Neutrophils # Man Lymphocytes # (Manual) D-Dimer POC ABG pO2 Sodium 147 H Potassium Chloride Carbon Dioxide 33 H 33 H BUN 22 H Creatinine Glucose 207 H 193 H POC Glucose 194 H Calcium Magnesium Total Creatine Kinase Troponin T Total Protein Albumin Prealbumin 0.110 L Urine Creatinine 10/10/17 10/10/17 10/10/17 11:13 12:15 16:26 WBC RBC Hgb Hct MCHC RDW Lymph % (Auto) Taylor % (Auto) Lymph # Taylor # Seg Neutrophils % Seg Neuts % (Manual) Lymphocytes % (Manual) Seg Neutrophils # Seg Neutrophils # Man Lymphocytes # (Manual) D-Dimer POC ABG pO2 Sodium Potassium Chloride Carbon Dioxide BUN Creatinine Glucose POC Glucose 240 H 265 H 246 H Calcium Magnesium Total Creatine Kinase Troponin T Total Protein Albumin Prealbumin Urine Creatinine 10/10/17 10/11/17 10/11/17 22:09 06:05 06:43 WBC RBC Hgb Hct MCHC RDW Lymph % (Auto) Taylor % (Auto) Lymph # Taylor # Seg Neutrophils % Seg Neuts % (Manual) Lymphocytes % (Manual) Seg Neutrophils # Seg Neutrophils # Man Lymphocytes # (Manual) D-Dimer POC ABG pO2 Sodium Potassium Chloride Carbon Dioxide BUN Creatinine Glucose 209 H POC Glucose 261 H 180 H Calcium 8.1 L Magnesium Total Creatine Kinase Troponin T Total Protein Albumin Prealbumin Urine Creatinine 10/11/17 10/12/17 13:32 05:34 WBC RBC Hgb Hct MCHC RDW Lymph % (Auto) Taylor % (Auto) Lymph # Taylor # Seg Neutrophils % Seg Neuts % (Manual) Lymphocytes % (Manual) Seg Neutrophils # Seg Neutrophils # Man Lymphocytes # (Manual) D-Dimer POC ABG pO2 Sodium Potassium Chloride Carbon Dioxide BUN Creatinine Glucose POC Glucose 293 H 154 H Calcium Magnesium Total Creatine Kinase Troponin T Total Protein Albumin Prealbumin Urine Creatinine
[2017-10-12 15:19] LABS: Hemoglobin 9.1 gm/dl (11.8-15.2); Mean Corpuscular HGB Conc 34 % (32-34); Mean Corpuscular Hemoglobin 31 pg (28-32); Mean Corpuscular Volume 93 fl (84-94); Platelet Count 296 K/mm3 (140-440); Red Cell Distribution Width 16.4 % (13.2-15.2)
[2017-10-12 15:30] LABS: BUN/Creatinine Ratio 19; Blood Urea Nitrogen 13 mg/dL (9-20); Calcium 8.3 mg/dL (8.4-10.2); Hemolysis Index 7
[2017-10-12 16:10] LABS: Band Neutrophils # (Manual) 0.3 K/mm3; Basophils % (Manual) 0 % (0.0-1.8); Myelocytes # (Manual) 0.1 K/mm3; Total Cells Counted 100
[2017-10-12 16:11] LABS: Anisocytosis 1+; Hypochromasia 1+; Ovalocytes 1+; Platelet Estimate Consistent w Auto; Stomatocytes 1+
--- NOTE | 2017-10-12 17:03 | Progress Note ---
Assessment and Plan - Patient Problems (1) Sacral decubitus ulcer, stage IV Current Visit: Yes Status: Acute Plan to address problem: Patient had excisional debridement . Margins were clean and the base looks healthy. No drainage (2) ARF (acute renal failure) Current Visit: Yes Status: Acute Qualifiers: Acute renal failure type: with acute tubular necrosis Qualified Code(s): N17.0 - Acute kidney failure with tubular necrosis Plan to address problem: IV fluids for now resolved (3) Acute hypernatremia Current Visit: Yes Status: Acute Plan to address problem: Resolved Free water intake Monitor sodium levels (4) COPD (chronic obstructive pulmonary disease) Current Visit: Yes Status: Chronic Qualifiers: COPD type: unspecified COPD Qualified Code(s): J44.9 - Chronic obstructive pulmonary disease, unspecified Plan to address problem: Continue bronchodilators (5) Acute encephalopathy Current Visit: Yes Status: Acute Plan to address problem: Resolved (6) DVT prophylaxis Current Visit: Yes Status: Acute Plan to address problem: Continue heparin (7) Discharge planning issues Current Visit: Yes Status: Acute Plan to address problem: Patient will be discharged to a half-way facility when bed is available He wants a SNF in [place] Talked with Lacie boogie manager of case----Says Placement may happen on coming [place] Subjective Date of service: 10/12/17 Principal diagnosis: Sepsis Interval history: Status post excisional debridement of sacral wound by surgery Objective - Constitutional Vitals: Vital Signs - 12hr 10/12/17 10/12/17 10/12/17 05:19 08:42 10:00 Temperature 98.0 F Pulse Rate 67 84 Respiratory 22 Rate Blood Pressure 157/64 154/60 O2 Sat by Pulse 98 96 Oximetry 10/12/17 10/12/17 11:16 12:42 Temperature 97.8 F Pulse Rate 78 78 Respiratory 22 Rate Blood Pressure 137/63 137/63 O2 Sat by Pulse 95 Oximetry General appearance: Present: no acute distress, well-nourished - EENT Eyes: PERRL, EOM intact ENT: hearing intact, clear oral mucosa Ears: bilateral: normal - Neck Neck: supple, normal ROM - Respiratory Respiratory effort: normal Respiratory: bilateral: CTA - Breasts Breasts: normal - Cardiovascular Heart rate: 78 Rhythm: regular Heart Sounds: Present: S1 & S2. Absent: gallop, rub Extremities: no ischemia, pulses intact, No edema, normal color, Full ROM - Gastrointestinal General gastrointestinal: Present: soft, non-tender, non-distended, normal bowel sounds Rectal Exam: deferred - Genitourinary Male genitourinary: normal - Integumentary Integumentary: clear, warm, dry - Musculoskeletal Musculoskeletal: 1, strength equal bilaterally - Neurologic Neurologic: moves all extremities - Psychiatric Psychiatric: memory intact, appropriate mood/affect, intact judgment & insight - Labs CBC & Chem 7: 10/12/17 14:45 10/12/17 14:45 Labs: Abnormal lab results 10/11/17 10/11/17 10/11/17 Range/Units 12:06 13:32 18:01 RBC (3.65-5.03) M/mm3 Hgb (11.8-15.2) gm/dl Hct (35.5-45.6) % RDW (13.2-15.2) % Chloride (98-107) mmol/L Carbon Dioxide (22-30) mmol/L Creatinine (0.8-1.5) mg/dL Glucose (75-100) mg/dL POC Glucose 274 H 293 H 297 H (70-105) Calcium (8.4-10.2) mg/dL 10/12/17 10/12/17 10/12/17 Range/Units 05:34 11:13 14:45 RBC (3.65-5.03) M/mm3 Hgb (11.8-15.2) gm/dl Hct (35.5-45.6) % RDW (13.2-15.2) % Chloride 93.0 L (98-107) mmol/L Carbon Dioxide 33 H (22-30) mmol/L Creatinine 0.7 L (0.8-1.5) mg/dL Glucose 222 H (75-100) mg/dL POC Glucose 154 H 196 H (70-105) Calcium 8.3 L (8.4-10.2) mg/dL 10/12/17 Range/Units 14:45 RBC 2.90 L (3.65-5.03) M/mm3 Hgb 9.1 L (11.8-15.2) gm/dl Hct 27.0 L (35.5-45.6) % RDW 16.4 H (13.2-15.2) % Chloride (98-107) mmol/L Carbon Dioxide (22-30) mmol/L Creatinine (0.8-1.5) mg/dL Glucose (75-100) mg/dL POC Glucose (70-105) Calcium (8.4-10.2) mg/dL
[2017-10-13] MEDS: CARDIZEM PO SCH ×4 (01:11→17:33)
[2017-10-13] MEDS: HumaLOG SUB-Q SCH ×4 (01:12→17:30)
[2017-10-13] MEDS: NORCO 10/325 PO PRN ×2 (07:17→12:51)
[2017-10-13] MEDS: PEPCID PO SCH (09:25)
[2017-10-13] MEDS: LANTUS SUB-Q SCH (09:25)
--- NOTE | 2017-10-13 09:48 | Progress Note ---
Assessment and Plan Acute and chronic respiratory failure. On nasal cannula. No events or complains AMS. Resolved Atelectasis. IS at bedside. Redirected CAMILLE. Witnessed apneas. Declines using BiPAP. Only accepting oxygen support at this time. Morbid obesity PTSD diagnosis per chart Skin ulcer surgical. See surgical note Recommendations Oxygen support as needed Continue nebulizer therapy. IS q 1-2 h Spiriva at time of discharge CXR update x atelectasis check in am Again recommend OPD PSG update and discuss need for treatment with patient DVT prophylaxis Physical therapy Subjective Date of service: 10/13/17 Principal diagnosis: Sepsis Interval history: Sporadic cough.No fever or chest pain. No shortness of breath Objective Vital Signs - 12hr 10/12/17 10/12/17 10/13/17 21:58 22:00 01:11 Temperature 98.2 F Pulse Rate 80 80 Respiratory 20 18 Rate Blood Pressure 139/61 139/61 O2 Sat by Pulse 96 Oximetry 10/13/17 10/13/17 07:14 08:34 Temperature 98.3 F Pulse Rate 79 74 Respiratory 16 Rate Blood Pressure 134/53 141/58 O2 Sat by Pulse 96 Oximetry Constitutional: no acute distress, other (far as sleep with snoring and occasional apneas) Eyes: non-icteric ENT: oropharynx moist Neck: supple, no JVD Effort: mildly labored Ascultation: Bilateral: clear, diminished breath sounds Cardiovascular: regular rate and rhythm Gastrointestinal: other (obese) Integumentary: other (upper extremities bruises) Extremities: no cyanosis, no edema, edema, other (left upper extremity hematoma. R lower extremity pretibial ulcer) Neurologic: normal mental status, non-focal exam CBC and BMP: 10/12/17 14:45 10/12/17 14:45 ABG, PT/INR, D-dimer: ABG POC ABG pH 7.415 (7.35-7.45) 10/02/17 20:23 POC ABG pCO2 42.1 (35-45) 10/02/17 20:23 POC ABG pO2 77 (80-105) L 10/02/17 20:23 POC ABG HCO3 27.0 10/02/17 20:23 POC ABG Total CO2 28 10/02/17 20:23 POC ABG O2 Sat 95 10/02/17 20:23 PT/INR, D-dimer PT 14.1 Sec. (12.2-14.9) 10/01/17 06:31 INR 1.04 (0.87-1.13) 10/01/17 06:31 D-Dimer 2801.11 ng/mlDDU (0-234) H 09/29/17 19:19 Abnormal lab findings: Abnormal Labs 09/29/17 09/29/17 09/29/17 12:54 12:54 14:58 WBC 12.4 H RBC Hgb 11.7 L Hct 33.5 L MCHC 35 H RDW 15.4 H Lymph % (Auto) 6.0 L Vance % (Auto) 10.8 H Lymph # 0.7 L Vance # 1.3 H Seg Neutrophils % 82.0 H Seg Neuts % (Manual) Lymphocytes % (Manual) Seg Neutrophils # 10.1 H Seg Neutrophils # Man Lymphocytes # (Manual) D-Dimer POC ABG pO2 Sodium 133 L Potassium Chloride 90.9 L Carbon Dioxide BUN 70 H Creatinine 2.0 H Glucose 336 H POC Glucose Calcium Magnesium Total Creatine Kinase 348 H Troponin T 0.071 H 0.073 H Total Protein Albumin Prealbumin Urine Creatinine 09/29/17 09/29/17 09/29/17 18:11 18:37 19:19 WBC RBC Hgb Hct MCHC RDW Lymph % (Auto) Vance % (Auto) Lymph # Vance # Seg Neutrophils % Seg Neuts % (Manual) Lymphocytes % (Manual) Seg Neutrophils # Seg Neutrophils # Man Lymphocytes # (Manual) D-Dimer 2801.11 H POC ABG pO2 Sodium Potassium Chloride Carbon Dioxide BUN Creatinine Glucose POC Glucose Calcium Magnesium Total Creatine Kinase Troponin T 0.073 H 0.074 H Total Protein Albumin Prealbumin Urine Creatinine 09/29/17 09/29/17 09/30/17 22:22 23:00 02:38 WBC RBC Hgb Hct MCHC RDW Lymph % (Auto) Vance % (Auto) Lymph # Vance # Seg Neutrophils % Seg Neuts % (Manual) Lymphocytes % (Manual) Seg Neutrophils # Seg Neutrophils # Man Lymphocytes # (Manual) D-Dimer POC ABG pO2 Sodium Potassium Chloride Carbon Dioxide BUN Creatinine Glucose POC Glucose 389 H Calcium Magnesium Total Creatine Kinase Troponin T 0.058 H D 0.064 H Total Protein Albumin Prealbumin Urine Creatinine 09/30/17 09/30/17 09/30/17 12:07 16:24 21:25 WBC RBC Hgb Hct MCHC RDW Lymph % (Auto) Vance % (Auto) Lymph # Vance # Seg Neutrophils % Seg Neuts % (Manual) Lymphocytes % (Manual) Seg Neutrophils # Seg Neutrophils # Man Lymphocytes # (Manual) D-Dimer POC ABG pO2 Sodium Potassium Chloride Carbon Dioxide BUN Creatinine Glucose POC Glucose 387 H 431 H 326 H Calcium Magnesium Total Creatine Kinase Troponin T Total Protein Albumin Prealbumin Urine Creatinine 10/01/17 10/01/17 10/01/17 06:16 06:16 06:30 WBC 14.0 H RBC Hgb Hct 34.3 L MCHC RDW Lymph % (Auto) Vance % (Auto) Lymph # Vance # Seg Neutrophils % Seg Neuts % (Manual) 87.0 H Lymphocytes % (Manual) 7.0 L Seg Neutrophils # Seg Neutrophils # Man 12.2 H Lymphocytes # (Manual) 1.0 L D-Dimer POC ABG pO2 Sodium Potassium 3.4 L Chloride 94.7 L Carbon Dioxide BUN 62 H Creatinine Glucose 432 H POC Glucose 419 H Calcium Magnesium Total Creatine Kinase Troponin T Total Protein 6.0 L Albumin 3.4 L Prealbumin Urine Creatinine 10/01/17 10/01/17 10/02/17 11:25 15:39 07:39 WBC RBC Hgb Hct MCHC RDW Lymph % (Auto) Vance % (Auto) Lymph # Vance # Seg Neutrophils % Seg Neuts % (Manual) Lymphocytes % (Manual) Seg Neutrophils # Seg Neutrophils # Man Lymphocytes # (Manual) D-Dimer POC ABG pO2 Sodium Potassium Chloride Carbon Dioxide BUN Creatinine Glucose POC Glucose 456 H 472 H 429 H Calcium Magnesium Total Creatine Kinase Troponin T Total Protein Albumin Prealbumin Urine Creatinine 10/02/17 10/02/17 10/02/17 11:03 11:03 11:03 WBC 14.9 H RBC Hgb Hct MCHC RDW 15.4 H Lymph % (Auto) Vance % (Auto) Lymph # Vance # Seg Neutrophils % Seg Neuts % (Manual) Lymphocytes % (Manual) Seg Neutrophils # Seg Neutrophils # Man Lymphocytes # (Manual) D-Dimer POC ABG pO2 Sodium 154 H D Potassium 3.5 L Chloride Carbon Dioxide BUN 66 H Creatinine Glucose 432 H POC Glucose Calcium Magnesium Total Creatine Kinase Troponin T 0.059 H Total Protein Albumin Prealbumin Urine Creatinine 10/02/17 10/02/1710/02/18 13:00 14:48 14:57 WBC RBC Hgb Hct MCHC RDW Lymph % (Auto) Vance % (Auto) Lymph # Vance # Seg Neutrophils % Seg Neuts % (Manual) Lymphocytes % (Manual) Seg Neutrophils # Seg Neutrophils # Man Lymphocytes # (Manual) D-Dimer POC ABG pO2 64 L Sodium Potassium Chloride Carbon Dioxide BUN Creatinine Glucose POC Glucose 476 H 448 H Calcium Magnesium Total Creatine Kinase Troponin T Total Protein Albumin Prealbumin Urine Creatinine 10/02/17 10/02/17 10/02/17 17:56 18:19 20:23 WBC RBC Hgb Hct MCHC RDW Lymph % (Auto) Vance % (Auto) Lymph # Vance # Seg Neutrophils % Seg Neuts % (Manual) Lymphocytes % (Manual) Seg Neutrophils # Seg Neutrophils # Man Lymphocytes # (Manual) D-Dimer POC ABG pO2 77 L Sodium Potassium Chloride Carbon Dioxide BUN Creatinine Glucose POC Glucose > 500 H Calcium Magnesium Total Creatine Kinase Troponin T 0.057 H Total Protein Albumin Prealbumin Urine Creatinine 10/02/17 10/03/17 10/03/17 23:41 05:44 05:44 WBC 14.8 H RBC 3.41 L Hgb 10.4 L Hct 31.8 L MCHC RDW 15.4 H Lymph % (Auto) Vance % (Auto) Lymph # Vance # Seg Neutrophils % Seg Neuts % (Manual) Lymphocytes % (Manual) Seg Neutrophils # Seg Neutrophils # Man Lymphocytes # (Manual) D-Dimer POC ABG pO2 Sodium 155 H Potassium 3.4 L Chloride 110.8 H Carbon Dioxide 32 H BUN 81 H Creatinine 1.6 H Glucose 403 H POC Glucose 447 H Calcium Magnesium 2.60 H Total Creatine Kinase Troponin T Total Protein Albumin Prealbumin Urine Creatinine 10/03/17 10/03/17 10/04/17 06:32 12:33 00:14 WBC RBC Hgb Hct MCHC RDW Lymph % (Auto) Vance % (Auto) Lymph # Vance # Seg Neutrophils % Seg Neuts % (Manual) Lymphocytes % (Manual) Seg Neutrophils # Seg Neutrophils # Man Lymphocytes # (Manual) D-Dimer POC ABG pO2 Sodium Potassium Chloride Carbon Dioxide BUN Creatinine Glucose POC Glucose 394 H 449 H > 500 H Calcium Magnesium Total Creatine Kinase Troponin T Total Protein Albumin Prealbumin Urine Creatinine 10/04/17 10/04/17 10/04/17 00:32 06:09 06:19 WBC 13.5 H RBC 3.38 L Hgb 10.5 L Hct 31.4 L MCHC RDW 15.6 H Lymph % (Auto) Vance % (Auto) Lymph # Vance # Seg Neutrophils % Seg Neuts % (Manual) Lymphocytes % (Manual) Seg Neutrophils # Seg Neutrophils # Man Lymphocytes # (Manual) D-Dimer POC ABG pO2 Sodium Potassium Chloride Carbon Dioxide BUN Creatinine Glucose 623 H* POC Glucose 383 H Calcium Magnesium Total Creatine Kinase Troponin T Total Protein Albumin Prealbumin Urine Creatinine 10/04/17 10/04/17 10/04/17 06:19 11:51 16:06 WBC RBC Hgb Hct MCHC RDW Lymph % (Auto) Vance % (Auto) Lymph # Vance # Seg Neutrophils % Seg Neuts % (Manual) Lymphocytes % (Manual) Seg Neutrophils # Seg Neutrophils # Man Lymphocytes # (Manual) D-Dimer POC ABG pO2 Sodium 163 H* D Potassium Chloride 114.2 H Carbon Dioxide 34 H BUN 83 H Creatinine 1.7 H Glucose 389 H POC Glucose 340 H 341 H Calcium Magnesium Total Creatine Kinase Troponin T Total Protein Albumin Prealbumin Urine Creatinine 10/04/17 10/04/17 10/05/17 17:34 23:00 01:00 WBC RBC Hgb Hct MCHC RDW Lymph % (Auto) Vance % (Auto) Lymph # Vance # Seg Neutrophils % Seg Neuts % (Manual) Lymphocytes % (Manual) Seg Neutrophils # Seg Neutrophils # Man Lymphocytes # (Manual) D-Dimer POC ABG pO2 Sodium 155 H Potassium 3.4 L Chloride 107.4 H Carbon Dioxide 33 H BUN 82 H Creatinine 1.8 H Glucose 348 H POC Glucose 461 H Calcium Magnesium Total Creatine Kinase Troponin T Total Protein Albumin Prealbumin Urine Creatinine 99.4 H 10/05/17 10/05/17 10/05/17 05:25 05:39 06:11 WBC 14.1 H RBC 3.03 L Hgb 9.6 L Hct 28.0 L MCHC RDW 15.8 H Lymph % (Auto) Vance % (Auto) Lymph # Vance # Seg Neutrophils % Seg Neuts % (Manual) Lymphocytes % (Manual) Seg Neutrophils # Seg Neutrophils # Man Lymphocytes # (Manual) D-Dimer POC ABG pO2 Sodium 149 H Potassium Chloride Carbon Dioxide 33 H BUN 81 H Creatinine 1.7 H Glucose 365 H POC Glucose 397 H Calcium Magnesium 2.40 H Total Creatine Kinase Troponin T Total Protein Albumin Prealbumin Urine Creatinine 10/05/17 10/05/17 10/05/17 12:16 16:22 21:06 WBC RBC Hgb Hct MCHC RDW Lymph % (Auto) Vance % (Auto) Lymph # Vance # Seg Neutrophils % Seg Neuts % (Manual) Lymphocytes % (Manual) Seg Neutrophils # Seg Neutrophils # Man Lymphocytes # (Manual) D-Dimer POC ABG pO2 Sodium Potassium Chloride Carbon Dioxide BUN Creatinine Glucose POC Glucose 400 H 395 H 265 H Calcium Magnesium Total Creatine Kinase Troponin T Total Protein Albumin Prealbumin Urine Creatinine 10/06/17 10/06/17 10/06/17 06:43 06:50 11:29 WBC RBC Hgb Hct MCHC RDW Lymph % (Auto) Vance % (Auto) Lymph # Vance # Seg Neutrophils % Seg Neuts % (Manual) Lymphocytes % (Manual) Seg Neutrophils # Seg Neutrophils # Man Lymphocytes # (Manual) D-Dimer POC ABG pO2 Sodium 156 H Potassium Chloride 115.0 H Carbon Dioxide 32 H BUN 62 H Creatinine Glucose 308 H POC Glucose 330 H 396 H Calcium Magnesium Total Creatine Kinase Troponin T Total Protein Albumin Prealbumin Urine Creatinine 10/06/17 10/07/17 10/07/17 16:24 00:46 07:18 WBC RBC Hgb Hct MCHC RDW Lymph % (Auto) Vance % (Auto) Lymph # Vance # Seg Neutrophils % Seg Neuts % (Manual) Lymphocytes % (Manual) Seg Neutrophils # Seg Neutrophils # Man Lymphocytes # (Manual) D-Dimer POC ABG pO2 Sodium 149 H Potassium Chloride Carbon Dioxide 32 H BUN 43 H Creatinine Glucose 289 H POC Glucose 417 H 295 H Calcium Magnesium Total Creatine Kinase Troponin T Total Protein Albumin Prealbumin Urine Creatinine 10/07/17 10/07/17 10/07/17 08:16 12:38 13:08 WBC RBC Hgb Hct MCHC RDW Lymph % (Auto) Vance % (Auto) Lymph # Vance # Seg Neutrophils % Seg Neuts % (Manual) Lymphocytes % (Manual) Seg Neutrophils # Seg Neutrophils # Man Lymphocytes # (Manual) D-Dimer POC ABG pO2 Sodium Potassium Chloride Carbon Dioxide BUN Creatinine Glucose POC Glucose 348 H 256 H 365 H Calcium Magnesium Total Creatine Kinase Troponin T Total Protein Albumin Prealbumin Urine Creatinine 10/07/17 10/07/17 10/08/17 16:35 22:34 06:39 WBC RBC Hgb Hct MCHC RDW Lymph % (Auto) Vance % (Auto) Lymph # Vance # Seg Neutrophils % Seg Neuts % (Manual) Lymphocytes % (Manual) Seg Neutrophils # Seg Neutrophils # Man Lymphocytes # (Manual) D-Dimer POC ABG pO2 Sodium 151 H Potassium Chloride 107.4 H Carbon Dioxide 32 H BUN 31 H Creatinine Glucose 246 H POC Glucose 234 H 200 H Calcium Magnesium Total Creatine Kinase Troponin T Total Protein Albumin Prealbumin Urine Creatinine 10/08/17 10/08/17 10/08/17 08:06 12:56 17:16 WBC RBC Hgb Hct MCHC RDW Lymph % (Auto) Vance % (Auto) Lymph # Vance # Seg Neutrophils % Seg Neuts % (Manual) Lymphocytes % (Manual) Seg Neutrophils # Seg Neutrophils # Man Lymphocytes # (Manual) D-Dimer POC ABG pO2 Sodium Potassium Chloride Carbon Dioxide BUN Creatinine Glucose POC Glucose 273 H 255 H 273 H Calcium Magnesium Total Creatine Kinase Troponin T Total Protein Albumin Prealbumin Urine Creatinine 10/08/17 10/09/17 10/09/17 22:11 05:50 06:42 WBC RBC Hgb Hct MCHC RDW Lymph % (Auto) Vance % (Auto) Lymph # Vance # Seg Neutrophils % Seg Neuts % (Manual) Lymphocytes % (Manual) Seg Neutrophils # Seg Neutrophils # Man Lymphocytes # (Manual) D-Dimer POC ABG pO2 Sodium Potassium Chloride Carbon Dioxide BUN Creatinine Glucose POC Glucose 202 H 167 H 210 H Calcium Magnesium Total Creatine Kinase Troponin T Total Protein Albumin Prealbumin Urine Creatinine 10/09/17 10/09/17 10/09/17 11:39 16:52 22:07 WBC RBC Hgb Hct MCHC RDW Lymph % (Auto) Vance % (Auto) Lymph # Vance # Seg Neutrophils % Seg Neuts % (Manual) Lymphocytes % (Manual) Seg Neutrophils # Seg Neutrophils # Man Lymphocytes # (Manual) D-Dimer POC ABG pO2 Sodium Potassium Chloride Carbon Dioxide BUN Creatinine Glucose POC Glucose 304 H 304 H 314 H Calcium Magnesium Total Creatine Kinase Troponin T Total Protein Albumin Prealbumin Urine Creatinine 10/09/17 10/10/17 10/10/17 Unknown 04:28 05:58 WBC RBC Hgb Hct MCHC RDW Lymph % (Auto) Vance % (Auto) Lymph # Vance # Seg Neutrophils % Seg Neuts % (Manual) Lymphocytes % (Manual) Seg Neutrophils # Seg Neutrophils # Man Lymphocytes # (Manual) D-Dimer POC ABG pO2 Sodium 147 H Potassium Chloride Carbon Dioxide 33 H 33 H BUN 22 H Creatinine Glucose 207 H 193 H POC Glucose 194 H Calcium Magnesium Total Creatine Kinase Troponin T Total Protein Albumin Prealbumin 0.110 L Urine Creatinine 10/10/17 10/10/17 10/10/17 11:13 12:15 16:26 WBC RBC Hgb Hct MCHC RDW Lymph % (Auto) Vance % (Auto) Lymph # Vance # Seg Neutrophils % Seg Neuts % (Manual) Lymphocytes % (Manual) Seg Neutrophils # Seg Neutrophils # Man Lymphocytes # (Manual) D-Dimer POC ABG pO2 Sodium Potassium Chloride Carbon Dioxide BUN Creatinine Glucose POC Glucose 240 H 265 H 246 H Calcium Magnesium Total Creatine Kinase Troponin T Total Protein Albumin Prealbumin Urine Creatinine 10/10/17 10/11/17 10/11/17 22:09 06:05 06:43 WBC RBC Hgb Hct MCHC RDW Lymph % (Auto) Vance % (Auto) Lymph # Vance # Seg Neutrophils % Seg Neuts % (Manual) Lymphocytes % (Manual) Seg Neutrophils # Seg Neutrophils # Man Lymphocytes # (Manual) D-Dimer POC ABG pO2 Sodium Potassium Chloride Carbon Dioxide BUN Creatinine Glucose 209 H POC Glucose 261 H 180 H Calcium 8.1 L Magnesium Total Creatine Kinase Troponin T Total Protein Albumin Prealbumin Urine Creatinine 10/11/17 10/11/17 10/11/17 12:06 13:32 18:01 WBC RBC Hgb Hct MCHC RDW Lymph % (Auto) Vance % (Auto) Lymph # Vance # Seg Neutrophils % Seg Neuts % (Manual) Lymphocytes % (Manual) Seg Neutrophils # Seg Neutrophils # Man Lymphocytes # (Manual) D-Dimer POC ABG pO2 Sodium Potassium Chloride Carbon Dioxide BUN Creatinine Glucose POC Glucose 274 H 293 H 297 H Calcium Magnesium Total Creatine Kinase Troponin T Total Protein Albumin Prealbumin Urine Creatinine 10/12/17 10/12/17 10/12/17 05:34 11:13 14:45 WBC RBC Hgb Hct MCHC RDW Lymph % (Auto) Vance % (Auto) Lymph # Vance # Seg Neutrophils % Seg Neuts % (Manual) Lymphocytes % (Manual) Seg Neutrophils # Seg Neutrophils # Man Lymphocytes # (Manual) D-Dimer POC ABG pO2 Sodium Potassium Chloride 93.0 L Carbon Dioxide 33 H BUN Creatinine 0.7 L Glucose 222 H POC Glucose 154 H 196 H Calcium 8.3 L Magnesium Total Creatine Kinase Troponin T Total Protein Albumin Prealbumin Urine Creatinine 10/12/17 10/12/17 10/12/17 14:45 17:04 23:30 WBC RBC 2.90 L Hgb 9.1 L Hct 27.0 L MCHC RDW 16.4 H Lymph % (Auto) Vance % (Auto) Lymph # Vance # Seg Neutrophils % Seg Neuts % (Manual) Lymphocytes % (Manual) Seg Neutrophils # Seg Neutrophils # Man Lymphocytes # (Manual) D-Dimer POC ABG pO2 Sodium Potassium Chloride Carbon Dioxide BUN Creatinine Glucose POC Glucose 185 H 241 H Calcium Magnesium Total Creatine Kinase Troponin T Total Protein Albumin Prealbumin Urine Creatinine 10/13/17 06:04 WBC RBC Hgb Hct MCHC RDW Lymph % (Auto) Vance % (Auto) Lymph # Vance # Seg Neutrophils % Seg Neuts % (Manual) Lymphocytes % (Manual) Seg Neutrophils # Seg Neutrophils # Man Lymphocytes # (Manual) D-Dimer POC ABG pO2 Sodium Potassium Chloride Carbon Dioxide BUN Creatinine Glucose POC Glucose 192 H Calcium Magnesium Total Creatine Kinase Troponin T Total Protein Albumin Prealbumin Urine Creatinine
[2017-10-13] MEDS: DAKIN'S HALF STRENGTH TP SCH ×2 (12:52→12:53)
[2017-10-13] MEDS: SODIUM CHLORIDE FLUSH SYRINGE 10 ML IV SCH ×2 (13:30→22:39)
--- NOTE | 2017-10-13 16:22 | Progress Note ---
Assessment and Plan Assessment and Plan - Patient Problems (1) Sepsis Current Visit: Yes Status: Acute Qualifiers: Sepsis type: sepsis due to unspecified organism Qualified Code(s): A41.9 - Sepsis, unspecified organism Plan to address problem: Sepsis protocol: IV antibiotics, IVF resuscitation, monitor uop q shift, serial lactic acid, chest x ray, urinalysis, (2) NSTEMI (non-ST elevated myocardial infarction) Current Visit: Yes Status: Acute Plan to address problem: Cardilogy consulted in ED, serial cardiac enzymes, ekg, telemetry, echo, therapeutic lovenox. (3) Multiple rib fractures Current Visit: Yes Status: Acute Qualifiers: Encounter type: initial encounter Plan to address problem: pain control, incentive spirometry, chest x ray,Ortho consulted in ED as per ED physician. (4) Pneumonia Current Visit: Yes Status: Acute Qualifiers: Laterality: right Lung location: lower lobe of lung Plan to address problem: IV antibiotics, chest x ray, supplemental oxygen, incentive spirometry, (5) ARF (acute renal failure) Current Visit: Yes Status: Acute Qualifiers: Acute renal failure type: with acute tubular necrosis Qualified Code(s): N17.0 - Acute kidney failure with tubular necrosis Plan to address problem: IVF resuscitation, monitor uop q shift, monitor serum creatnine (6) CHF (congestive heart failure) Current Visit: Yes Status: Acute Qualifiers: Heart failure type: diastolic Heart failure chronicity: acute on chronic Qualified Code(s): I50.33 - Acute on chronic diastolic (congestive) heart failure Plan to address problem: Afterload reduction, monitor bp q shift, strict I/O, monitor fluid balance, diuresis as needed, pulse oximetry (7) Wrist fracture, right Current Visit: Yes Status: Acute Qualifiers: Encounter type: initial encounter Plan to address problem: Pain control, ortho consulted per ED physician. (8) Depression Current Visit: Yes Status: Acute Qualifiers: Depression Type: major depressive disorder Psychotic features: with psychotic features Plan to address problem: [address]3 [address] place, psych consulted in ED, 1013, 1:1 Sitter as per protocol (9) DVT prophylaxis Current Visit: Yes Status: Acute Plan to address problem: scd to ble - Patient Problems (1) Sacral decubitus ulcer, stage IV Current Visit: Yes Status: Acute Plan to address problem: Patient had excisional debridement . Margins were clean and the base looks healthy. No drainage (2) ARF (acute renal failure) Current Visit: Yes Status: Acute Qualifiers: Acute renal failure type: with acute tubular necrosis Qualified Code(s): N17.0 - Acute kidney failure with tubular necrosis Plan to address problem: IV fluids for now resolved (3) Acute hypernatremia Current Visit: Yes Status: Acute Plan to address problem: Resolved Free water intake Monitor sodium levels (4) COPD (chronic obstructive pulmonary disease) Current Visit: Yes Status: Chronic Qualifiers: COPD type: unspecified COPD Qualified Code(s): J44.9 - Chronic obstructive pulmonary disease, unspecified Plan to address problem: Continue bronchodilators (5) Acute encephalopathy Current Visit: Yes Status: Acute Plan to address problem: Resolved (6) DVT prophylaxis Current Visit: Yes Status: Acute Plan to address problem: Continue heparin (7) Discharge planning issues Current Visit: Yes Status: Acute Plan to address problem: Patient will be discharged to a custodial facility when bed is available He wants a SNF in [place] Talked with Lacie boogie counter caser----Says Placement may happen on coming [place] Subjective Date of service: 10/13/17 Principal diagnosis: Sepsis Interval history: Status post excisional debridement of sacral wound by surgery Alert and oriented Objective - Constitutional Vitals: Vital Signs - 12hr 10/13/17 10/13/17 10/13/17 07:14 08:05 08:34 Temperature 98.3 F Pulse Rate 79 74 Respiratory 16 16 Rate Blood Pressure 134/53 141/58 Blood Pressure [Left] O2 Sat by Pulse 96 Oximetry 10/13/17 13:25 Temperature Pulse Rate 68 Respiratory Rate Blood Pressure Blood Pressure 140/60 [Left] O2 Sat by Pulse Oximetry General appearance: Present: no acute distress, well-nourished - EENT Eyes: PERRL, EOM intact ENT: hearing intact, clear oral mucosa Ears: bilateral: normal - Neck Neck: supple, normal ROM - Respiratory Respiratory effort: normal Respiratory: bilateral: CTA - Breasts Breasts: normal - Cardiovascular Rhythm: regular Heart Sounds: Present: S1 & S2. Absent: gallop, rub Extremities: pulses intact, No edema, normal color, Full ROM - Gastrointestinal General gastrointestinal: Present: soft, non-tender, non-distended, normal bowel sounds - Genitourinary Male genitourinary: normal - Integumentary Integumentary: clear, warm, dry - Musculoskeletal Musculoskeletal: 1, strength equal bilaterally - Neurologic Neurologic: moves all extremities - Psychiatric Psychiatric: memory intact, appropriate mood/affect, intact judgment & insight - Labs CBC & Chem 7: 10/12/17 14:45 10/12/17 14:45 Labs: Abnormal lab results 10/12/17 10/12/17 10/13/17 Range/Units 17:04 23:30 06:04 POC Glucose 185 H 241 H 192 H (70-105)
[2017-10-13] MEDS: LOVENOX SUB-Q SCH (22:39)
[2017-10-14] MEDS: CARDIZEM PO SCH ×4 (00:23→17:46)
[2017-10-14] MEDS: HumaLOG SUB-Q SCH ×4 (00:24→17:47)
--- NOTE | 2017-10-14 08:28 | XRay Report ---
AP CHEST: HISTORY: Followup atelectasis There is partial aeration of the right middle lobe on today's examination with atelectasis decreasing by 50% since 10/06/17. The right upper lung and left lung are generally clear. Heart size and pulmonary vascularity appear stable. No new acute process is appreciated. IMPRESSION: 50% decrease in the right middle lobe atelectasis.
[2017-10-14] MEDS: LANTUS SUB-Q SCH (09:36)
[2017-10-14] MEDS: PEPCID PO SCH (09:36)
[2017-10-14] MEDS: SODIUM CHLORIDE FLUSH SYRINGE 10 ML IV SCH ×2 (09:38→22:35)
--- NOTE | 2017-10-14 15:20 | Progress Note ---
Assessment and Plan - Patient Problems (1) Sacral decubitus ulcer, stage IV Current Visit: Yes Status: Acute Plan to address problem: Patient had excisional debridement . Margins were clean and the base looks healthy. No drainage (2) ARF (acute renal failure) Current Visit: Yes Status: Acute Qualifiers: Acute renal failure type: with acute tubular necrosis Qualified Code(s): N17.0 - Acute kidney failure with tubular necrosis Plan to address problem: IV fluids for now resolved (3) Acute hypernatremia Current Visit: Yes Status: Acute Plan to address problem: Resolved Free water intake Monitor sodium levels (4) COPD (chronic obstructive pulmonary disease) Current Visit: Yes Status: Chronic Qualifiers: COPD type: unspecified COPD Qualified Code(s): J44.9 - Chronic obstructive pulmonary disease, unspecified Plan to address problem: Continue bronchodilators (5) Acute encephalopathy Current Visit: Yes Status: Acute Plan to address problem: Resolved (6) DVT prophylaxis Current Visit: Yes Status: Acute Plan to address problem: Continue heparin (7) Discharge planning issues Current Visit: Yes Status: Acute Plan to address problem: Patient will be discharged to a assisted facility when bed is available He wants a SNF in [place] Talked with [facility] case records supervisor----Says Placement may happen on coming [place] Subjective Date of service: 10/14/17 Principal diagnosis: Sepsis Interval history: Status post excisional debridement of sacral wound by surgery Alert and oriented Objective - Constitutional Vitals: Vital Signs - 12hr 10/14/17 10/14/17 10/14/17 06:26 08:33 10:00 Temperature 98.2 F Pulse Rate 68 67 Respiratory 18 22 Rate Blood Pressure 127/58 144/41 O2 Sat by Pulse 96 97 95 Oximetry 10/14/17 13:30 Temperature Pulse Rate Respiratory Rate Blood Pressure 129/72 O2 Sat by Pulse Oximetry General appearance: Present: no acute distress, well-nourished - EENT Eyes: PERRL, EOM intact ENT: hearing intact, clear oral mucosa Ears: bilateral: normal - Neck Neck: supple, normal ROM - Respiratory Respiratory effort: normal Respiratory: bilateral: CTA - Breasts Breasts: normal - Cardiovascular Rhythm: regular Heart Sounds: Present: S1 & S2. Absent: gallop, rub Extremities: pulses intact, No edema, normal color, Full ROM - Gastrointestinal General gastrointestinal: Present: soft, non-tender, non-distended, normal bowel sounds - Genitourinary Male genitourinary: normal - Integumentary Integumentary: clear, warm, dry - Musculoskeletal Musculoskeletal: 1, strength equal bilaterally - Neurologic Neurologic: moves all extremities - Psychiatric Psychiatric: memory intact, appropriate mood/affect, intact judgment & insight - Labs CBC & Chem 7: 10/12/17 14:45 10/12/17 14:45 Labs: Abnormal lab results 10/13/17 10/13/17 10/14/17 Range/Units 13:25 16:17 00:23 POC Glucose 213 H 198 H 170 H (70-105) 10/14/17 10/14/17 Range/Units 05:58 11:53 POC Glucose 155 H 161 H (70-105)
--- NOTE | 2017-10-14 15:31 | Progress Note ---
Assessment and Plan 72 y/o male with acute respiratory failure. 1. Continue bipap therapy PRN and QHS 2. Continue baseline oxygen therapy. 3. Stable for discharge when placement found from a pulmonary standpoint. Subjective Date of service: 10/14/17 Principal diagnosis: Sepsis Interval history: No acute events. Breathing appears to be stable to baseline Objective Vital Signs - 12hr 10/14/17 10/14/17 10/14/17 06:26 08:33 10:00 Temperature 98.2 F Pulse Rate 68 67 Respiratory 18 22 Rate Blood Pressure 127/58 144/41 O2 Sat by Pulse 96 97 95 Oximetry 10/14/17 13:30 Temperature Pulse Rate Respiratory Rate Blood Pressure 129/72 O2 Sat by Pulse Oximetry Constitutional: no acute distress, other (far as sleep with snoring and occasional apneas) Eyes: non-icteric ENT: oropharynx moist Neck: supple, no JVD Effort: mildly labored Ascultation: Bilateral: clear, diminished breath sounds, rales (scattered) Cardiovascular: regular rate and rhythm Gastrointestinal: other (obese) Integumentary: other (upper extremities bruises) Extremities: no cyanosis, no edema, edema, other (left upper extremity hematoma. R lower extremity pretibial ulcer) Neurologic: normal mental status, non-focal exam CBC and BMP: 10/12/17 14:45 10/12/17 14:45 ABG, PT/INR, D-dimer: ABG POC ABG pH 7.415 (7.35-7.45) 10/02/17 20:23 POC ABG pCO2 42.1 (35-45) 10/02/17 20:23 POC ABG pO2 77 (80-105) L 10/02/17 20:23 POC ABG HCO3 27.0 10/02/17 20:23 POC ABG Total CO2 28 10/02/17 20:23 POC ABG O2 Sat 95 10/02/17 20:23 PT/INR, D-dimer PT 14.1 Sec. (12.2-14.9) 10/01/17 06:31 INR 1.04 (0.87-1.13) 10/01/17 06:31 D-Dimer 2801.11 ng/mlDDU (0-234) H 09/29/17 19:19 Abnormal lab findings: Abnormal Labs 0509/29/17 09/29/17 12:54 12:54 14:58 WBC 12.4 H RBC Hgb 11.7 L Hct 33.5 L MCHC 35 H RDW 15.4 H Lymph % (Auto) 6.0 L [place] % (Auto) 10.8 H Lymph # 0.7 L [place] # 1.3 H Seg Neutrophils % 82.0 H Seg Neuts % (Manual) Lymphocytes % (Manual) Seg Neutrophils # 10.1 H Seg Neutrophils # Man Lymphocytes # (Manual) D-Dimer POC ABG pO2 Sodium 133 L Potassium Chloride 90.9 L Carbon Dioxide BUN 70 H Creatinine 2.0 H Glucose 336 H POC Glucose Calcium Magnesium Total Creatine Kinase 348 H Troponin T 0.071 H 0.073 H Total Protein Albumin Prealbumin Urine Creatinine 09/29/17 09/29/17 09/29/17 18:11 18:37 19:19 WBC RBC Hgb Hct MCHC RDW Lymph % (Auto) [place] % (Auto) Lymph # [place] # Seg Neutrophils % Seg Neuts % (Manual) Lymphocytes % (Manual) Seg Neutrophils # Seg Neutrophils # Man Lymphocytes # (Manual) D-Dimer 2801.11 H POC ABG pO2 Sodium Potassium Chloride Carbon Dioxide BUN Creatinine Glucose POC Glucose Calcium Magnesium Total Creatine Kinase Troponin T 0.073 H 0.074 H Total Protein Albumin Prealbumin Urine Creatinine 09/29/17 09/29/17 09/30/17 22:22 23:00 02:38 WBC RBC Hgb Hct MCHC RDW Lymph % (Auto) [place] % (Auto) Lymph # [place] # Seg Neutrophils % Seg Neuts % (Manual) Lymphocytes % (Manual) Seg Neutrophils # Seg Neutrophils # Man Lymphocytes # (Manual) D-Dimer POC ABG pO2 Sodium Potassium Chloride Carbon Dioxide BUN Creatinine Glucose POC Glucose 389 H Calcium Magnesium Total Creatine Kinase Troponin T 0.058 H D 0.064 H Total Protein Albumin Prealbumin Urine Creatinine 09/30/17 09/30/17 09/30/17 12:07 16:24 21:25 WBC RBC Hgb Hct MCHC RDW Lymph % (Auto) [place] % (Auto) Lymph # [place] # Seg Neutrophils % Seg Neuts % (Manual) Lymphocytes % (Manual) Seg Neutrophils # Seg Neutrophils # Man Lymphocytes # (Manual) D-Dimer POC ABG pO2 Sodium Potassium Chloride Carbon Dioxide BUN Creatinine Glucose POC Glucose 387 H 431 H 326 H Calcium Magnesium Total Creatine Kinase Troponin T Total Protein Albumin Prealbumin Urine Creatinine 10/01/17 10/01/17 10/01/17 06:16 06:16 06:30 WBC 14.0 H RBC Hgb Hct 34.3 L MCHC RDW Lymph % (Auto) [place] % (Auto) Lymph # [place] # Seg Neutrophils % Seg Neuts % (Manual) 87.0 H Lymphocytes % (Manual) 7.0 L Seg Neutrophils # Seg Neutrophils # Man 12.2 H Lymphocytes # (Manual) 1.0 L D-Dimer POC ABG pO2 Sodium Potassium 3.4 L Chloride 94.7 L Carbon Dioxide BUN 62 H Creatinine Glucose 432 H POC Glucose 419 H Calcium Magnesium Total Creatine Kinase Troponin T Total Protein 6.0 L Albumin 3.4 L Prealbumin Urine Creatinine 10/01/17 10/01/17 10/02/17 11:25 15:39 07:39 WBC RBC Hgb Hct MCHC RDW Lymph % (Auto) [place] % (Auto) Lymph # [place] # Seg Neutrophils % Seg Neuts % (Manual) Lymphocytes % (Manual) Seg Neutrophils # Seg Neutrophils # Man Lymphocytes # (Manual) D-Dimer POC ABG pO2 Sodium Potassium Chloride Carbon Dioxide BUN Creatinine Glucose POC Glucose 456 H 472 H 429 H Calcium Magnesium Total Creatine Kinase Troponin T Total Protein Albumin Prealbumin Urine Creatinine 10/02/17 10/02/17 10/02/17 11:03 11:03 11:03 WBC 14.9 H RBC Hgb Hct MCHC RDW 15.4 H Lymph % (Auto) [place] % (Auto) Lymph # [place] # Seg Neutrophils % Seg Neuts % (Manual) Lymphocytes % (Manual) Seg Neutrophils # Seg Neutrophils # Man Lymphocytes # (Manual) D-Dimer POC ABG pO2 Sodium 154 H D Potassium 3.5 L Chloride Carbon Dioxide BUN 66 H Creatinine Glucose 432 H POC Glucose Calcium Magnesium Total Creatine Kinase Troponin T 0.059 H Total Protein Albumin Prealbumin Urine Creatinine 10/02/17 10/02/17 10/02/17 13:00 14:48 14:57 WBC RBC Hgb Hct MCHC RDW Lymph % (Auto) [place] % (Auto) Lymph # [place] # Seg Neutrophils % Seg Neuts % (Manual) Lymphocytes % (Manual) Seg Neutrophils # Seg Neutrophils # Man Lymphocytes # (Manual) D-Dimer POC ABG pO2 64 L Sodium Potassium Chloride Carbon Dioxide BUN Creatinine Glucose POC Glucose 476 H 448 H Calcium Magnesium Total Creatine Kinase Troponin T Total Protein Albumin Prealbumin Urine Creatinine 10/02/17 10/02/17 10/02/17 17:56 18:19 20:23 WBC RBC Hgb Hct MCHC RDW Lymph % (Auto) [place] % (Auto) Lymph # [place] # Seg Neutrophils % Seg Neuts % (Manual) Lymphocytes % (Manual) Seg Neutrophils # Seg Neutrophils # Man Lymphocytes # (Manual) D-Dimer POC ABG pO2 77 L Sodium Potassium Chloride Carbon Dioxide BUN Creatinine Glucose POC Glucose > 500 H Calcium Magnesium Total Creatine Kinase Troponin T 0.057 H Total Protein Albumin Prealbumin Urine Creatinine 10/02/17 10/03/17 10/03/17 23:41 05:44 05:44 WBC 14.8 H RBC 3.41 L Hgb 10.4 L Hct 31.8 L MCHC RDW 15.4 H Lymph % (Auto) [place] % (Auto) Lymph # [place] # Seg Neutrophils % Seg Neuts % (Manual) Lymphocytes % (Manual) Seg Neutrophils # Seg Neutrophils # Man Lymphocytes # (Manual) D-Dimer POC ABG pO2 Sodium 155 H Potassium 3.4 L Chloride 110.8 H Carbon Dioxide 32 H BUN 81 H Creatinine 1.6 H Glucose 403 H POC Glucose 447 H Calcium Magnesium 2.60 H Total Creatine Kinase Troponin T Total Protein Albumin Prealbumin Urine Creatinine 10/03/17 10/03/17 10/04/17 06:32 12:33 00:14 WBC RBC Hgb Hct MCHC RDW Lymph % (Auto) [place] % (Auto) Lymph # [place] # Seg Neutrophils % Seg Neuts % (Manual) Lymphocytes % (Manual) Seg Neutrophils # Seg Neutrophils # Man Lymphocytes # (Manual) D-Dimer POC ABG pO2 Sodium Potassium Chloride Carbon Dioxide BUN Creatinine Glucose POC Glucose 394 H 449 H > 500 H Calcium Magnesium Total Creatine Kinase Troponin T Total Protein Albumin Prealbumin Urine Creatinine 10/04/17 10/04/17 10/04/17 00:32 06:09 06:19 WBC 13.5 H RBC 3.38 L Hgb 10.5 L Hct 31.4 L MCHC RDW 15.6 H Lymph % (Auto) [place] % (Auto) Lymph # [place] # Seg Neutrophils % Seg Neuts % (Manual) Lymphocytes % (Manual) Seg Neutrophils # Seg Neutrophils # Man Lymphocytes # (Manual) D-Dimer POC ABG pO2 Sodium Potassium Chloride Carbon Dioxide BUN Creatinine Glucose 623 H* POC Glucose 383 H Calcium Magnesium Total Creatine Kinase Troponin T Total Protein Albumin Prealbumin Urine Creatinine 10/04/17 10/04/17 10/04/17 06:19 11:51 16:06 WBC RBC Hgb Hct MCHC RDW Lymph % (Auto) [place] % (Auto) Lymph # [place] # Seg Neutrophils % Seg Neuts % (Manual) Lymphocytes % (Manual) Seg Neutrophils # Seg Neutrophils # Man Lymphocytes # (Manual) D-Dimer POC ABG pO2 Sodium 163 H* D Potassium Chloride 114.2 H Carbon Dioxide 34 H BUN 83 H Creatinine 1.7 H Glucose 389 H POC Glucose 340 H 341 H Calcium Magnesium Total Creatine Kinase Troponin T Total Protein Albumin Prealbumin Urine Creatinine 10/04/17 10/04/17 10/05/17 17:34 23:00 01:00 WBC RBC Hgb Hct MCHC RDW Lymph % (Auto) [place] % (Auto) Lymph # [place] # Seg Neutrophils % Seg Neuts % (Manual) Lymphocytes % (Manual) Seg Neutrophils # Seg Neutrophils # Man Lymphocytes # (Manual) D-Dimer POC ABG pO2 Sodium 155 H Potassium 3.4 L Chloride 107.4 H Carbon Dioxide 33 H BUN 82 H Creatinine 1.8 H Glucose 348 H POC Glucose 461 H Calcium Magnesium Total Creatine Kinase Troponin T Total Protein Albumin Prealbumin Urine Creatinine 99.4 H 10/05/17 10/05/17 10/05/17 05:25 05:39 06:11 WBC 14.1 H RBC 3.03 L Hgb 9.6 L Hct 28.0 L MCHC RDW 15.8 H Lymph % (Auto) [place] % (Auto) Lymph # [place] # Seg Neutrophils % Seg Neuts % (Manual) Lymphocytes % (Manual) Seg Neutrophils # Seg Neutrophils # Man Lymphocytes # (Manual) D-Dimer POC ABG pO2 Sodium 149 H Potassium Chloride Carbon Dioxide 33 H BUN 81 H Creatinine 1.7 H Glucose 365 H POC Glucose 397 H Calcium Magnesium 2.40 H Total Creatine Kinase Troponin T Total Protein Albumin Prealbumin Urine Creatinine 10/05/17 10/05/17 10/05/17 12:16 16:22 21:06 WBC RBC Hgb Hct MCHC RDW Lymph % (Auto) [place] % (Auto) Lymph # [place] # Seg Neutrophils % Seg Neuts % (Manual) Lymphocytes % (Manual) Seg Neutrophils # Seg Neutrophils # Man Lymphocytes # (Manual) D-Dimer POC ABG pO2 Sodium Potassium Chloride Carbon Dioxide BUN Creatinine Glucose POC Glucose 400 H 395 H 265 H Calcium Magnesium Total Creatine Kinase Troponin T Total Protein Albumin Prealbumin Urine Creatinine 10/06/17 10/06/17 10/06/17 06:43 06:50 11:29 WBC RBC Hgb Hct MCHC RDW Lymph % (Auto) [place] % (Auto) Lymph # [place] # Seg Neutrophils % Seg Neuts % (Manual) Lymphocytes % (Manual) Seg Neutrophils # Seg Neutrophils # Man Lymphocytes # (Manual) D-Dimer POC ABG pO2 Sodium 156 H Potassium Chloride 115.0 H Carbon Dioxide 32 H BUN 62 H Creatinine Glucose 308 H POC Glucose 330 H 396 H Calcium Magnesium Total Creatine Kinase Troponin T Total Protein Albumin Prealbumin Urine Creatinine 10/06/17 10/07/17 10/07/17 16:24 00:46 07:18 WBC RBC Hgb Hct MCHC RDW Lymph % (Auto) [place] % (Auto) Lymph # [place] # Seg Neutrophils % Seg Neuts % (Manual) Lymphocytes % (Manual) Seg Neutrophils # Seg Neutrophils # Man Lymphocytes # (Manual) D-Dimer POC ABG pO2 Sodium 149 H Potassium Chloride Carbon Dioxide 32 H BUN 43 H Creatinine Glucose 289 H POC Glucose 417 H 295 H Calcium Magnesium Total Creatine Kinase Troponin T Total Protein Albumin Prealbumin Urine Creatinine 10/07/17 10/07/17 10/07/17 08:16 12:38 13:08 WBC RBC Hgb Hct MCHC RDW Lymph % (Auto) [place] % (Auto) Lymph # [place] # Seg Neutrophils % Seg Neuts % (Manual) Lymphocytes % (Manual) Seg Neutrophils # Seg Neutrophils # Man Lymphocytes # (Manual) D-Dimer POC ABG pO2 Sodium Potassium Chloride Carbon Dioxide BUN Creatinine Glucose POC Glucose 348 H 256 H 365 H Calcium Magnesium Total Creatine Kinase Troponin T Total Protein Albumin Prealbumin Urine Creatinine 10/07/17 10/07/17 10/08/17 16:35 22:34 06:39 WBC RBC Hgb Hct MCHC RDW Lymph % (Auto) [place] % (Auto) Lymph # [place] # Seg Neutrophils % Seg Neuts % (Manual) Lymphocytes % (Manual) Seg Neutrophils # Seg Neutrophils # Man Lymphocytes # (Manual) D-Dimer POC ABG pO2 Sodium 151 H Potassium Chloride 107.4 H Carbon Dioxide 32 H BUN 31 H Creatinine Glucose 246 H POC Glucose 234 H 200 H Calcium Magnesium Total Creatine Kinase Troponin T Total Protein Albumin Prealbumin Urine Creatinine 10/08/17 10/08/17 10/08/17 08:06 12:56 17:16 WBC RBC Hgb Hct MCHC RDW Lymph % (Auto) [place] % (Auto) Lymph # [place] # Seg Neutrophils % Seg Neuts % (Manual) Lymphocytes % (Manual) Seg Neutrophils # Seg Neutrophils # Man Lymphocytes # (Manual) D-Dimer POC ABG pO2 Sodium Potassium Chloride Carbon Dioxide BUN Creatinine Glucose POC Glucose 273 H 255 H 273 H Calcium Magnesium Total Creatine Kinase Troponin T Total Protein Albumin Prealbumin Urine Creatinine 10/08/17 10/09/17 10/09/17 22:11 05:50 06:42 WBC RBC Hgb Hct MCHC RDW Lymph % (Auto) [place] % (Auto) Lymph # [place] # Seg Neutrophils % Seg Neuts % (Manual) Lymphocytes % (Manual) Seg Neutrophils # Seg Neutrophils # Man Lymphocytes # (Manual) D-Dimer POC ABG pO2 Sodium Potassium Chloride Carbon Dioxide BUN Creatinine Glucose POC Glucose 202 H 167 H 210 H Calcium Magnesium Total Creatine Kinase Troponin T Total Protein Albumin Prealbumin Urine Creatinine 10/09/17 10/09/17 10/09/17 11:39 16:52 22:07 WBC RBC Hgb Hct MCHC RDW Lymph % (Auto) [place] % (Auto) Lymph # [place] # Seg Neutrophils % Seg Neuts % (Manual) Lymphocytes % (Manual) Seg Neutrophils # Seg Neutrophils # Man Lymphocytes # (Manual) D-Dimer POC ABG pO2 Sodium Potassium Chloride Carbon Dioxide BUN Creatinine Glucose POC Glucose 304 H 304 H 314 H Calcium Magnesium Total Creatine Kinase Troponin T Total Protein Albumin Prealbumin Urine Creatinine 10/09/17 10/10/17 10/10/17 Unknown 04:28 05:58 WBC RBC Hgb Hct MCHC RDW Lymph % (Auto) [place] % (Auto) Lymph # [place] # Seg Neutrophils % Seg Neuts % (Manual) Lymphocytes % (Manual) Seg Neutrophils # Seg Neutrophils # Man Lymphocytes # (Manual) D-Dimer POC ABG pO2 Sodium 147 H Potassium Chloride Carbon Dioxide 33 H 33 H BUN 22 H Creatinine Glucose 207 H 193 H POC Glucose 194 H Calcium Magnesium Total Creatine Kinase Troponin T Total Protein Albumin Prealbumin 0.110 L Urine Creatinine 10/10/17 10/10/17 10/10/17 11:13 12:15 16:26 WBC RBC Hgb Hct MCHC RDW Lymph % (Auto) [place] % (Auto) Lymph # [place] # Seg Neutrophils % Seg Neuts % (Manual) Lymphocytes % (Manual) Seg Neutrophils # Seg Neutrophils # Man Lymphocytes # (Manual) D-Dimer POC ABG pO2 Sodium Potassium Chloride Carbon Dioxide BUN Creatinine Glucose POC Glucose 240 H 265 H 246 H Calcium Magnesium Total Creatine Kinase Troponin T Total Protein Albumin Prealbumin Urine Creatinine 10/10/17 10/11/17 10/11/17 22:09 06:05 06:43 WBC RBC Hgb Hct MCHC RDW Lymph % (Auto) [place] % (Auto) Lymph # [place] # Seg Neutrophils % Seg Neuts % (Manual) Lymphocytes % (Manual) Seg Neutrophils # Seg Neutrophils # Man Lymphocytes # (Manual) D-Dimer POC ABG pO2 Sodium Potassium Chloride Carbon Dioxide BUN Creatinine Glucose 209 H POC Glucose 261 H 180 H Calcium 8.1 L Magnesium Total Creatine Kinase Troponin T Total Protein Albumin Prealbumin Urine Creatinine 10/11/17 10/11/17 10/11/17 12:06 13:32 18:01 WBC RBC Hgb Hct MCHC RDW Lymph % (Auto) [place] % (Auto) Lymph # [place] # Seg Neutrophils % Seg Neuts % (Manual) Lymphocytes % (Manual) Seg Neutrophils # Seg Neutrophils # Man Lymphocytes # (Manual) D-Dimer POC ABG pO2 Sodium Potassium Chloride Carbon Dioxide BUN Creatinine Glucose POC Glucose 274 H 293 H 297 H Calcium Magnesium Total Creatine Kinase Troponin T Total Protein Albumin Prealbumin Urine Creatinine 10/12/17 10/12/17 10/12/17 05:34 11:13 14:45 WBC RBC Hgb Hct MCHC RDW Lymph % (Auto) [place] % (Auto) Lymph # [place] # Seg Neutrophils % Seg Neuts % (Manual) Lymphocytes % (Manual) Seg Neutrophils # Seg Neutrophils # Man Lymphocytes # (Manual) D-Dimer POC ABG pO2 Sodium Potassium Chloride 93.0 L Carbon Dioxide 33 H BUN Creatinine 0.7 L Glucose 222 H POC Glucose 154 H 196 H Calcium 8.3 L Magnesium Total Creatine Kinase Troponin T Total Protein Albumin Prealbumin Urine Creatinine 10/12/17 10/12/17 10/12/17 14:45 17:04 23:30 WBC RBC 2.90 L Hgb 9.1 L Hct 27.0 L MCHC RDW 16.4 H Lymph % (Auto) [place] % (Auto) Lymph # [place] # Seg Neutrophils % Seg Neuts % (Manual) Lymphocytes % (Manual) Seg Neutrophils # Seg Neutrophils # Man Lymphocytes # (Manual) D-Dimer POC ABG pO2 Sodium Potassium Chloride Carbon Dioxide BUN Creatinine Glucose POC Glucose 185 H 241 H Calcium Magnesium Total Creatine Kinase Troponin T Total Protein Albumin Prealbumin Urine Creatinine 10/13/17 10/13/17 10/13/17 06:04 13:25 16:17 WBC RBC Hgb Hct MCHC RDW Lymph % (Auto) [place] % (Auto) Lymph # [place] # Seg Neutrophils % Seg Neuts % (Manual) Lymphocytes % (Manual) Seg Neutrophils # Seg Neutrophils # Man Lymphocytes # (Manual) D-Dimer POC ABG pO2 Sodium Potassium Chloride Carbon Dioxide BUN Creatinine Glucose POC Glucose 192 H 213 H 198 H Calcium Magnesium Total Creatine Kinase Troponin T Total Protein Albumin Prealbumin Urine Creatinine 10/14/17 10/14/17 10/14/17 00:23 05:58 11:53 WBC RBC Hgb Hct MCHC RDW Lymph % (Auto) [place] % (Auto) Lymph # [place] # Seg Neutrophils % Seg Neuts % (Manual) Lymphocytes % (Manual) Seg Neutrophils # Seg Neutrophils # Man Lymphocytes # (Manual) D-Dimer POC ABG pO2 Sodium Potassium Chloride Carbon Dioxide BUN Creatinine Glucose POC Glucose 170 H 155 H 161 H Calcium Magnesium Total Creatine Kinase Troponin T Total Protein Albumin Prealbumin Urine Creatinine
[2017-10-14] MEDS: LOVENOX SUB-Q SCH (22:35)
[2017-10-15] MEDS: CARDIZEM PO SCH ×5 (00:38→23:47)
[2017-10-15] MEDS: HumaLOG SUB-Q SCH ×5 (00:39→23:49)
--- NOTE | 2017-10-15 08:25 | Progress Note ---
Assessment and Plan 72 y/o male with acute respiratory failure. 1. Patient refusing PPV at night. 2. Continue baseline oxygen therapy. 3. Stable for discharge when placement found from a pulmonary standpoint. Subjective Date of service: 10/15/17 Principal diagnosis: Sepsis Interval history: No acute events. Awake on nasal cannula. Per documentation has been refusing PPV at night but he has no machine in the room. No family at bedside. Objective Vital Signs - 12hr 10/14/17 10/14/17 10/15/17 22:00 23:10 00:38 Pulse Rate 73 80 Pulse Rate [ 80 From Monitor] Respiratory 20 18 Rate Blood Pressure 140/51 O2 Sat by Pulse 96 96 Oximetry 10/15/17 06:53 Pulse Rate 72 Pulse Rate [ From Monitor] Respiratory Rate Blood Pressure 141/58 O2 Sat by Pulse Oximetry Constitutional: no acute distress, other (far as sleep with snoring and occasional apneas) Eyes: non-icteric ENT: oropharynx moist Neck: supple, no JVD Effort: mildly labored Ascultation: Bilateral: clear, diminished breath sounds, rales (scattered) Cardiovascular: regular rate and rhythm Gastrointestinal: other (obese) Integumentary: other (upper extremities bruises) Extremities: no cyanosis, no edema, edema, other (left upper extremity hematoma. R lower extremity pretibial ulcer) Neurologic: normal mental status, non-focal exam CBC and BMP: 10/12/17 14:45 10/12/17 14:45 ABG, PT/INR, D-dimer: ABG POC ABG pH 7.415 (7.35-7.45) 10/02/17 20:23 POC ABG pCO2 42.1 (35-45) 10/02/17 20:23 POC ABG pO2 77 (80-105) L 10/02/17 20:23 POC ABG HCO3 27.0 10/02/17 20:23 POC ABG Total CO2 28 10/02/17 20:23 POC ABG O2 Sat 95 10/02/17 20:23 PT/INR, D-dimer PT 14.1 Sec. (12.2-14.9) 10/01/17 06:31 INR 1.04 (0.87-1.13) 10/01/17 06:31 D-Dimer 2801.11 ng/mlDDU (0-234) H 09/29/17 19:19 Abnormal lab findings: Abnormal Labs 09/29/17 09/29/17 09/29/17 12:54 12:54 14:58 WBC 12.4 H RBC Hgb 11.7 L Hct 33.5 L MCHC 35 H RDW 15.4 H Lymph % (Auto) 6.0 L [place] % (Auto) 10.8 H Lymph # 0.7 L [place] # 1.3 H Seg Neutrophils % 82.0 H Seg Neuts % (Manual) Lymphocytes % (Manual) Seg Neutrophils # 10.1 H Seg Neutrophils # Man Lymphocytes # (Manual) D-Dimer POC ABG pO2 Sodium 133 L Potassium Chloride 90.9 L Carbon Dioxide BUN 70 H Creatinine 2.0 H Glucose 336 H POC Glucose Calcium Magnesium Total Creatine Kinase 348 H Troponin T 0.071 H 0.073 H Total Protein Albumin Prealbumin Urine Creatinine 09/29/17 09/29/17 09/29/17 18:11 18:37 19:19 WBC RBC Hgb Hct MCHC RDW Lymph % (Auto) [place] % (Auto) Lymph # [place] # Seg Neutrophils % Seg Neuts % (Manual) Lymphocytes % (Manual) Seg Neutrophils # Seg Neutrophils # Man Lymphocytes # (Manual) D-Dimer 2801.11 H POC ABG pO2 Sodium Potassium Chloride Carbon Dioxide BUN Creatinine Glucose POC Glucose Calcium Magnesium Total Creatine Kinase Troponin T 0.073 H 0.074 H Total Protein Albumin Prealbumin Urine Creatinine 09/29/17 09/29/17 09/30/17 22:22 23:00 02:38 WBC RBC Hgb Hct MCHC RDW Lymph % (Auto) [place] % (Auto) Lymph # [place] # Seg Neutrophils % Seg Neuts % (Manual) Lymphocytes % (Manual) Seg Neutrophils # Seg Neutrophils # Man Lymphocytes # (Manual) D-Dimer POC ABG pO2 Sodium Potassium Chloride Carbon Dioxide BUN Creatinine Glucose POC Glucose 389 H Calcium Magnesium Total Creatine Kinase Troponin T 0.058 H D 0.064 H Total Protein Albumin Prealbumin Urine Creatinine 09/30/17 09/30/17 09/30/17 12:07 16:24 21:25 WBC RBC Hgb Hct MCHC RDW Lymph % (Auto) [place] % (Auto) Lymph # [place] # Seg Neutrophils % Seg Neuts % (Manual) Lymphocytes % (Manual) Seg Neutrophils # Seg Neutrophils # Man Lymphocytes # (Manual) D-Dimer POC ABG pO2 Sodium Potassium Chloride Carbon Dioxide BUN Creatinine Glucose POC Glucose 387 H 431 H 326 H Calcium Magnesium Total Creatine Kinase Troponin T Total Protein Albumin Prealbumin Urine Creatinine 10/01/17 10/01/17 10/01/17 06:16 06:16 06:30 WBC 14.0 H RBC Hgb Hct 34.3 L MCHC RDW Lymph % (Auto) [place] % (Auto) Lymph # [place] # Seg Neutrophils % Seg Neuts % (Manual) 87.0 H Lymphocytes % (Manual) 7.0 L Seg Neutrophils # Seg Neutrophils # Man 12.2 H Lymphocytes # (Manual) 1.0 L D-Dimer POC ABG pO2 Sodium Potassium 3.4 L Chloride 94.7 L Carbon Dioxide BUN 62 H Creatinine Glucose 432 H POC Glucose 419 H Calcium Magnesium Total Creatine Kinase Troponin T Total Protein 6.0 L Albumin 3.4 L Prealbumin Urine Creatinine 10/01/17 10/01/17 10/02/17 11:25 15:39 07:39 WBC RBC Hgb Hct MCHC RDW Lymph % (Auto) [place] % (Auto) Lymph # [place] # Seg Neutrophils % Seg Neuts % (Manual) Lymphocytes % (Manual) Seg Neutrophils # Seg Neutrophils # Man Lymphocytes # (Manual) D-Dimer POC ABG pO2 Sodium Potassium Chloride Carbon Dioxide BUN Creatinine Glucose POC Glucose 456 H 472 H 429 H Calcium Magnesium Total Creatine Kinase Troponin T Total Protein Albumin Prealbumin Urine Creatinine 10/02/17 10/02/17 10/02/17 11:03 11:03 11:03 WBC 14.9 H RBC Hgb Hct MCHC RDW 15.4 H Lymph % (Auto) [place] % (Auto) Lymph # [place] # Seg Neutrophils % Seg Neuts % (Manual) Lymphocytes % (Manual) Seg Neutrophils # Seg Neutrophils # Man Lymphocytes # (Manual) D-Dimer POC ABG pO2 Sodium 154 H D Potassium 3.5 L Chloride Carbon Dioxide BUN 66 H Creatinine Glucose 432 H POC Glucose Calcium Magnesium Total Creatine Kinase Troponin T 0.059 H Total Protein Albumin Prealbumin Urine Creatinine 10/02/17 10/02/17 10/02/17 13:00 14:48 14:57 WBC RBC Hgb Hct MCHC RDW Lymph % (Auto) [place] % (Auto) Lymph # [place] # Seg Neutrophils % Seg Neuts % (Manual) Lymphocytes % (Manual) Seg Neutrophils # Seg Neutrophils # Man Lymphocytes # (Manual) D-Dimer POC ABG pO2 64 L Sodium Potassium Chloride Carbon Dioxide BUN Creatinine Glucose POC Glucose 476 H 448 H Calcium Magnesium Total Creatine Kinase Troponin T Total Protein Albumin Prealbumin Urine Creatinine 10/02/17 10/02/17 10/02/17 17:56 18:19 20:23 WBC RBC Hgb Hct MCHC RDW Lymph % (Auto) [place] % (Auto) Lymph # [place] # Seg Neutrophils % Seg Neuts % (Manual) Lymphocytes % (Manual) Seg Neutrophils # Seg Neutrophils # Man Lymphocytes # (Manual) D-Dimer POC ABG pO2 77 L Sodium Potassium Chloride Carbon Dioxide BUN Creatinine Glucose POC Glucose > 500 H Calcium Magnesium Total Creatine Kinase Troponin T 0.057 H Total Protein Albumin Prealbumin Urine Creatinine 10/02/17 10/03/17 10/03/17 23:41 05:44 05:44 WBC 14.8 H RBC 3.41 L Hgb 10.4 L Hct 31.8 L MCHC RDW 15.4 H Lymph % (Auto) [place] % (Auto) Lymph # [place] # Seg Neutrophils % Seg Neuts % (Manual) Lymphocytes % (Manual) Seg Neutrophils # Seg Neutrophils # Man Lymphocytes # (Manual) D-Dimer POC ABG pO2 Sodium 155 H Potassium 3.4 L Chloride 110.8 H Carbon Dioxide 32 H BUN 81 H Creatinine 1.6 H Glucose 403 H POC Glucose 447 H Calcium Magnesium 2.60 H Total Creatine Kinase Troponin T Total Protein Albumin Prealbumin Urine Creatinine 10/03/17 10/03/17 10/04/17 06:32 12:33 00:14 WBC RBC Hgb Hct MCHC RDW Lymph % (Auto) [place] % (Auto) Lymph # [place] # Seg Neutrophils % Seg Neuts % (Manual) Lymphocytes % (Manual) Seg Neutrophils # Seg Neutrophils # Man Lymphocytes # (Manual) D-Dimer POC ABG pO2 Sodium Potassium Chloride Carbon Dioxide BUN Creatinine Glucose POC Glucose 394 H 449 H > 500 H Calcium Magnesium Total Creatine Kinase Troponin T Total Protein Albumin Prealbumin Urine Creatinine 10/04/17 10/04/17 10/04/17 00:32 06:09 06:19 WBC 13.5 H RBC 3.38 L Hgb 10.5 L Hct 31.4 L MCHC RDW 15.6 H Lymph % (Auto) [place] % (Auto) Lymph # [place] # Seg Neutrophils % Seg Neuts % (Manual) Lymphocytes % (Manual) Seg Neutrophils # Seg Neutrophils # Man Lymphocytes # (Manual) D-Dimer POC ABG pO2 Sodium Potassium Chloride Carbon Dioxide BUN Creatinine Glucose 623 H* POC Glucose 383 H Calcium Magnesium Total Creatine Kinase Troponin T Total Protein Albumin Prealbumin Urine Creatinine 10/04/17 10/04/17 10/04/17 06:19 11:51 16:06 WBC RBC Hgb Hct MCHC RDW Lymph % (Auto) [place] % (Auto) Lymph # [place] # Seg Neutrophils % Seg Neuts % (Manual) Lymphocytes % (Manual) Seg Neutrophils # Seg Neutrophils # Man Lymphocytes # (Manual) D-Dimer POC ABG pO2 Sodium 163 H* D Potassium Chloride 114.2 H Carbon Dioxide 34 H BUN 83 H Creatinine 1.7 H Glucose 389 H POC Glucose 340 H 341 H Calcium Magnesium Total Creatine Kinase Troponin T Total Protein Albumin Prealbumin Urine Creatinine 10/04/17 10/04/17 10/05/17 17:34 23:00 01:00 WBC RBC Hgb Hct MCHC RDW Lymph % (Auto) [place] % (Auto) Lymph # [place] # Seg Neutrophils % Seg Neuts % (Manual) Lymphocytes % (Manual) Seg Neutrophils # Seg Neutrophils # Man Lymphocytes # (Manual) D-Dimer POC ABG pO2 Sodium 155 H Potassium 3.4 L Chloride 107.4 H Carbon Dioxide 33 H BUN 82 H Creatinine 1.8 H Glucose 348 H POC Glucose 461 H Calcium Magnesium Total Creatine Kinase Troponin T Total Protein Albumin Prealbumin Urine Creatinine 99.4 H 10/05/17 10/05/17 10/05/17 05:25 05:39 06:11 WBC 14.1 H RBC 3.03 L Hgb 9.6 L Hct 28.0 L MCHC RDW 15.8 H Lymph % (Auto) [place] % (Auto) Lymph # [place] # Seg Neutrophils % Seg Neuts % (Manual) Lymphocytes % (Manual) Seg Neutrophils # Seg Neutrophils # Man Lymphocytes # (Manual) D-Dimer POC ABG pO2 Sodium 149 H Potassium Chloride Carbon Dioxide 33 H BUN 81 H Creatinine 1.7 H Glucose 365 H POC Glucose 397 H Calcium Magnesium 2.40 H Total Creatine Kinase Troponin T Total Protein Albumin Prealbumin Urine Creatinine 10/05/17 10/05/17 10/05/17 12:16 16:22 21:06 WBC RBC Hgb Hct MCHC RDW Lymph % (Auto) [place] % (Auto) Lymph # [place] # Seg Neutrophils % Seg Neuts % (Manual) Lymphocytes % (Manual) Seg Neutrophils # Seg Neutrophils # Man Lymphocytes # (Manual) D-Dimer POC ABG pO2 Sodium Potassium Chloride Carbon Dioxide BUN Creatinine Glucose POC Glucose 400 H 395 H 265 H Calcium Magnesium Total Creatine Kinase Troponin T Total Protein Albumin Prealbumin Urine Creatinine 10/06/17 10/06/17 10/06/17 06:43 06:50 11:29 WBC RBC Hgb Hct MCHC RDW Lymph % (Auto) [place] % (Auto) Lymph # [place] # Seg Neutrophils % Seg Neuts % (Manual) Lymphocytes % (Manual) Seg Neutrophils # Seg Neutrophils # Man Lymphocytes # (Manual) D-Dimer POC ABG pO2 Sodium 156 H Potassium Chloride 115.0 H Carbon Dioxide 32 H BUN 62 H Creatinine Glucose 308 H POC Glucose 330 H 396 H Calcium Magnesium Total Creatine Kinase Troponin T Total Protein Albumin Prealbumin Urine Creatinine 10/06/17 10/07/17 10/07/17 16:24 00:46 07:18 WBC RBC Hgb Hct MCHC RDW Lymph % (Auto) [place] % (Auto) Lymph # [place] # Seg Neutrophils % Seg Neuts % (Manual) Lymphocytes % (Manual) Seg Neutrophils # Seg Neutrophils # Man Lymphocytes # (Manual) D-Dimer POC ABG pO2 Sodium 149 H Potassium Chloride Carbon Dioxide 32 H BUN 43 H Creatinine Glucose 289 H POC Glucose 417 H 295 H Calcium Magnesium Total Creatine Kinase Troponin T Total Protein Albumin Prealbumin Urine Creatinine 10/07/17 10/07/17 10/07/17 08:16 12:38 13:08 WBC RBC Hgb Hct MCHC RDW Lymph % (Auto) [place] % (Auto) Lymph # [place] # Seg Neutrophils % Seg Neuts % (Manual) Lymphocytes % (Manual) Seg Neutrophils # Seg Neutrophils # Man Lymphocytes # (Manual) D-Dimer POC ABG pO2 Sodium Potassium Chloride Carbon Dioxide BUN Creatinine Glucose POC Glucose 348 H 256 H 365 H Calcium Magnesium Total Creatine Kinase Troponin T Total Protein Albumin Prealbumin Urine Creatinine 10/07/17 10/07/17 10/08/17 16:35 22:34 06:39 WBC RBC Hgb Hct MCHC RDW Lymph % (Auto) [place] % (Auto) Lymph # [place] # Seg Neutrophils % Seg Neuts % (Manual) Lymphocytes % (Manual) Seg Neutrophils # Seg Neutrophils # Man Lymphocytes # (Manual) D-Dimer POC ABG pO2 Sodium 151 H Potassium Chloride 107.4 H Carbon Dioxide 32 H BUN 31 H Creatinine Glucose 246 H POC Glucose 234 H 200 H Calcium Magnesium Total Creatine Kinase Troponin T Total Protein Albumin Prealbumin Urine Creatinine 10/08/17 10/08/17 10/08/17 08:06 12:56 17:16 WBC RBC Hgb Hct MCHC RDW Lymph % (Auto) [place] % (Auto) Lymph # [place] # Seg Neutrophils % Seg Neuts % (Manual) Lymphocytes % (Manual) Seg Neutrophils # Seg Neutrophils # Man Lymphocytes # (Manual) D-Dimer POC ABG pO2 Sodium Potassium Chloride Carbon Dioxide BUN Creatinine Glucose POC Glucose 273 H 255 H 273 H Calcium Magnesium Total Creatine Kinase Troponin T Total Protein Albumin Prealbumin Urine Creatinine 10/08/17 10/09/17 10/09/17 22:11 05:50 06:42 WBC RBC Hgb Hct MCHC RDW Lymph % (Auto) [place] % (Auto) Lymph # [place] # Seg Neutrophils % Seg Neuts % (Manual) Lymphocytes % (Manual) Seg Neutrophils # Seg Neutrophils # Man Lymphocytes # (Manual) D-Dimer POC ABG pO2 Sodium Potassium Chloride Carbon Dioxide BUN Creatinine Glucose POC Glucose 202 H 167 H 210 H Calcium Magnesium Total Creatine Kinase Troponin T Total Protein Albumin Prealbumin Urine Creatinine 10/09/17 10/09/17 10/09/17 11:39 16:52 22:07 WBC RBC Hgb Hct MCHC RDW Lymph % (Auto) [place] % (Auto) Lymph # [place] # Seg Neutrophils % Seg Neuts % (Manual) Lymphocytes % (Manual) Seg Neutrophils # Seg Neutrophils # Man Lymphocytes # (Manual) D-Dimer POC ABG pO2 Sodium Potassium Chloride Carbon Dioxide BUN Creatinine Glucose POC Glucose 304 H 304 H 314 H Calcium Magnesium Total Creatine Kinase Troponin T Total Protein Albumin Prealbumin Urine Creatinine 10/09/17 10/10/17 10/10/17 Unknown 04:28 05:58 WBC RBC Hgb Hct MCHC RDW Lymph % (Auto) [place] % (Auto) Lymph # [place] # Seg Neutrophils % Seg Neuts % (Manual) Lymphocytes % (Manual) Seg Neutrophils # Seg Neutrophils # Man Lymphocytes # (Manual) D-Dimer POC ABG pO2 Sodium 147 H Potassium Chloride Carbon Dioxide 33 H 33 H BUN 22 H Creatinine Glucose 207 H 193 H POC Glucose 194 H Calcium Magnesium Total Creatine Kinase Troponin T Total Protein Albumin Prealbumin 0.110 L Urine Creatinine 10/10/17 10/10/17 10/10/17 11:13 12:15 16:26 WBC RBC Hgb Hct MCHC RDW Lymph % (Auto) [place] % (Auto) Lymph # [place] # Seg Neutrophils % Seg Neuts % (Manual) Lymphocytes % (Manual) Seg Neutrophils # Seg Neutrophils # Man Lymphocytes # (Manual) D-Dimer POC ABG pO2 Sodium Potassium Chloride Carbon Dioxide BUN Creatinine Glucose POC Glucose 240 H 265 H 246 H Calcium Magnesium Total Creatine Kinase Troponin T Total Protein Albumin Prealbumin Urine Creatinine 10/10/17 10/11/17 10/11/17 22:09 06:05 06:43 WBC RBC Hgb Hct MCHC RDW Lymph % (Auto) [place] % (Auto) Lymph # [place] # Seg Neutrophils % Seg Neuts % (Manual) Lymphocytes % (Manual) Seg Neutrophils # Seg Neutrophils # Man Lymphocytes # (Manual) D-Dimer POC ABG pO2 Sodium Potassium Chloride Carbon Dioxide BUN Creatinine Glucose 209 H POC Glucose 261 H 180 H Calcium 8.1 L Magnesium Total Creatine Kinase Troponin T Total Protein Albumin Prealbumin Urine Creatinine 10/11/17 10/11/17 10/11/17 12:06 13:32 18:01 WBC RBC Hgb Hct MCHC RDW Lymph % (Auto) [place] % (Auto) Lymph # [place] # Seg Neutrophils % Seg Neuts % (Manual) Lymphocytes % (Manual) Seg Neutrophils # Seg Neutrophils # Man Lymphocytes # (Manual) D-Dimer POC ABG pO2 Sodium Potassium Chloride Carbon Dioxide BUN Creatinine Glucose POC Glucose 274 H 293 H 297 H Calcium Magnesium Total Creatine Kinase Troponin T Total Protein Albumin Prealbumin Urine Creatinine 10/12/17 10/12/17 10/12/17 05:34 11:13 14:45 WBC RBC Hgb Hct MCHC RDW Lymph % (Auto) [place] % (Auto) Lymph # [place] # Seg Neutrophils % Seg Neuts % (Manual) Lymphocytes % (Manual) Seg Neutrophils # Seg Neutrophils # Man Lymphocytes # (Manual) D-Dimer POC ABG pO2 Sodium Potassium Chloride 93.0 L Carbon Dioxide 33 H BUN Creatinine 0.7 L Glucose 222 H POC Glucose 154 H 196 H Calcium 8.3 L Magnesium Total Creatine Kinase Troponin T Total Protein Albumin Prealbumin Urine Creatinine 10/12/17 10/12/17 10/12/17 14:45 17:04 23:30 WBC RBC 2.90 L Hgb 9.1 L Hct 27.0 L MCHC RDW 16.4 H Lymph % (Auto) [place] % (Auto) Lymph # [place] # Seg Neutrophils % Seg Neuts % (Manual) Lymphocytes % (Manual) Seg Neutrophils # Seg Neutrophils # Man Lymphocytes # (Manual) D-Dimer POC ABG pO2 Sodium Potassium Chloride Carbon Dioxide BUN Creatinine Glucose POC Glucose 185 H 241 H Calcium Magnesium Total Creatine Kinase Troponin T Total Protein Albumin Prealbumin Urine Creatinine 10/13/17 10/13/17 10/13/17 06:04 13:25 16:17 WBC RBC Hgb Hct MCHC RDW Lymph % (Auto) [place] % (Auto) Lymph # [place] # Seg Neutrophils % Seg Neuts % (Manual) Lymphocytes % (Manual) Seg Neutrophils # Seg Neutrophils # Man Lymphocytes # (Manual) D-Dimer POC ABG pO2 Sodium Potassium Chloride Carbon Dioxide BUN Creatinine Glucose POC Glucose 192 H 213 H 198 H Calcium Magnesium Total Creatine Kinase Troponin T Total Protein Albumin Prealbumin Urine Creatinine 10/14/17 10/14/17 10/14/17 00:23 05:58 11:53 WBC RBC Hgb Hct MCHC RDW Lymph % (Auto) [place] % (Auto) Lymph # [place] # Seg Neutrophils % Seg Neuts % (Manual) Lymphocytes % (Manual) Seg Neutrophils # Seg Neutrophils # Man Lymphocytes # (Manual) D-Dimer POC ABG pO2 Sodium Potassium Chloride Carbon Dioxide BUN Creatinine Glucose POC Glucose 170 H 155 H 161 H Calcium Magnesium Total Creatine Kinase Troponin T Total Protein Albumin Prealbumin Urine Creatinine 10/14/17 10/14/17 10/15/17 15:46 21:43 05:53 WBC RBC Hgb Hct MCHC RDW Lymph % (Auto) [place] % (Auto) Lymph # [place] # Seg Neutrophils % Seg Neuts % (Manual) Lymphocytes % (Manual) Seg Neutrophils # Seg Neutrophils # Man Lymphocytes # (Manual) D-Dimer POC ABG pO2 Sodium Potassium Chloride Carbon Dioxide BUN Creatinine Glucose POC Glucose 239 H 262 H 142 H Calcium Magnesium Total Creatine Kinase Troponin T Total Protein Albumin Prealbumin Urine Creatinine
[2017-10-15] MEDS: LANTUS SUB-Q SCH (09:07)
[2017-10-15] MEDS: PEPCID PO SCH (09:07)
[2017-10-15] MEDS: SODIUM CHLORIDE FLUSH SYRINGE 10 ML IV SCH ×2 (09:07→23:47)
[2017-10-15] MEDS: NORCO 10/325 PO PRN (10:45)
--- NOTE | 2017-10-15 13:51 | Progress Note ---
Assessment and Plan Assessment and plan: Patient is a 72 yo man who is a resident at [facility] under 1013 for SI with h/o HTN, CVA, MS, CHF, COPD, CAMILLE on CPAP, Seizure Disorder, Depression, PTSD, Debility, nicotine Dependence, Recurrent Falls presents to ED for confusion and falling. He was admitted for suspected sepsis pneumonia, nstemi and right wrist fracture. * pCXR Impression: Bibasilar atelectasis. * CT lumbar spine wo IMPRESSION: 1. No acute compression deformity or apparent fracture in the lumbar spine. 2. Degenerative spondylosis. * XRay bilateral knee IMPRESSION: 1. No acute osseous abnormality. 2. Postsurgical changes in the right knee, and degenerative changes in the left knee. * Xray 3v right wrist IMPRESSION: 1. Probable nondisplaced fracture right distal ulna. * CT head Impression: No acute intracranial abnormality. * CT thoracic spine wo IMPRESSION: 1. No acute compression deformity or apparent fracture in the thoracic spine. Diffuse degenerative spondylosis. 2. Fractures in left ribs 9-12, probably acute or subacute. Correlate clinically. 3. Findings which may represent bibasilar atelectasis, mild infiltrates or postinflammatory change of uncertain etiology or chronicity. 4. Left adrenal nodule may represent adenomatous change, but is indeterminate. Followup may be warranted. -Suspect Sepsis from Aspiration Pneumonia, poa, treated with iv abx, ivf but developed fluid overload, so ivf stopped and lasix iv given. doing better, off bipap -s/p Fall with Multiple rib fractures/right wrist fracture: Conservative measures per Ortho -ARF (acute renal failure), vasomotor nephropathy poa, resolved. -Acute encephalopathy: treat the above issues -Acute on chronic diastolic heart failure, resolved -Afib with RVR, resolved -Depression, improved -no NSTEMI (non-ST elevated myocardial infarction), non specified elevation of troponin per Cardiology: stopped therapeutic lovenox -DVT prophylaxis: scd to ble, deep bruising and diffuse ecchymosis so hold vte due to fall risk Restraint renewed Normal LVEF 60-65% by echocardiogram. ortho, Dr. Lal==>Nondisplaced distal ulnar fracture, recommend conservative treatment with wrist brace and early ROM 10/02/17: Bilateral lung crackles today, pCXR looks like pulmonary edema but can' t exclude infiltrates (my reading), gave iv lasix 40mg iv x 1 carefully diuresis due to Aortic stenosis and ARF. ABG showed combined Acute Respiratory failure which patient has been on O2 since admission, so acute hypoxic respiratory poa. RN reported ABGs at 7.442/64/44/30.3 on O2. Bipap started by respiratory, I consulted and d/w Dr. Ng, pulmonology. Troponin level actually improved. Also, started on sq lantus 10units, carefully because he is not eating much. 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 Gerard. He needs free water, will try to place NG tube because he spit water out at nurse. He remains very confused. D5W treatment is problematic as his blood glucose is very high. Hopefully he will allow ngt to be given for free water and nutrition, Restraints renewed. Day 09/16 of iv abx. Still tachycardiac, had afib with rvr on will call Cardiology 10/05/17: isolated afib, rate is improved thanks to Cardiology. Mental status improved as hypernatremia is improved. He is still confused. 10/06/17: still hallucinating, renal function is improving, blood glucose still uncontrolled, so lantus increased to 20 units daily. No 1013 in the chart. I have asked RN to enter [facility] into our EMR for reconciliation. 10/07/17: still confused. Last day of antibiotics, continue 1013 10/08/17: Less confused today. re-consulted psych for placement 10/15/17: resumed care, confusion has resolved, not in restraints anymore, awaiting SNF in [place]. History Interval history: Patient was seen and examined. Follow-up on current diagnosis of confusion which has resolved, no restraints. Overnight uneventful and doing better, bipap is off. Imaging, nursing note, chart, labs and old chart reviewed. More awake and alert Hospitalist Physical - Physical exam Narrative exam: GEN: unkempt, awake alert orientated x 3 HEENT: NCAT, EOMI, PERRL, OP Clear NECK: supple, no adenopathy, no thyromegaly, no JVD CVS/HEART: reg tachy, normal S1S2, pulses present bilaterally CHEST/LUNGS: bilateral crackles improved, Symmetrical chest expansion, good air entry bilaterally GI/Abdomen: soft, NTND, good bowel sounds, no guarding or rebound /Bladder: no suprapubic tenderness, no CVA or paraspinal tenderness EXT/Skin: black and blue all over, especially left upper bicep area with deformity MSK: FROM x 4 Neuro: CN 2-12 grossly intact, doesn't follow command Psych: calm - Constitutional Vitals: Temp Pulse Resp BP Pulse Ox 98.3 F 102 H 22 154/74 96 10/15/17 08:13 10/15/17 13:21 10/15/17 08:13 10/15/17 13:21 10/15/17 08:45 General appearance: Present: no acute distress, well-nourished Results - Labs CBC & Chem 7: 10/12/17 14:45 10/12/17 14:45 Labs: Laboratory Last Values WBC 5.4 K/mm3 (4.5-11.0) 10/12/17 14:45 RBC 2.90 M/mm3 (3.65-5.03) L 10/12/17 14:45 Hgb 9.1 gm/dl (11.8-15.2) L 10/12/17 14:45 Hct 27.0 % (35.5-45.6) L 10/12/17 14:45 MCV 93 fl (84-94) 10/12/17 14:45 MCH 31 pg (28-32) 10/12/17 14:45 MCHC 34 % (32-34) 10/12/17 14:45 RDW 16.4 % (13.2-15.2) H 10/12/17 14:45 Plt Count 296 K/mm3 (140-440) 10/12/17 14:45 Lymph % (Auto) 6.0 % (13.4-35.0) L 09/29/17 12:54 Jennings % (Auto) 10.8 % (0.0-7.3) H 09/29/17 12:54 Eos % (Auto) 0.8 % (0.0-4.3) 09/29/17 12:54 Baso % (Auto) 0.4 % (0.0-1.8) 09/29/17 12:54 Lymph # 0.7 K/mm3 (1.2-5.4) L 09/29/17 12:54 Jennings # 1.3 K/mm3 (0.0-0.8) H 09/29/17 12:54 Eos # 0.1 K/mm3 (0.0-0.4) 09/29/17 12:54 Baso # 0.1 K/mm3 (0.0-0.1) 09/29/17 12:54 Add Manual Diff Complete 10/12/17 14:45 Total Counted 100 10/12/17 14:45 Seg Neutrophils % 82.0 % (40.0-70.0) H 09/29/17 12:54 Seg Neuts % (Manual) 61.0 % (40.0-70.0) 10/12/17 14:45 Band Neutrophils % 6.0 % 10/12/17 14:45 Lymphocytes % (Manual) 24.0 % (13.4-35.0) 10/12/17 14:45 Reactive Lymphs % (Man) 0 % 10/12/17 14:45 Monocytes % (Manual) 6.0 % (0.0-7.3) 10/12/17 14:45 Eosinophils % (Manual) 1.0 % (0.0-4.3) 10/12/17 14:45 Basophils % (Manual) 0 % (0.0-1.8) 10/12/17 14:45 Metamyelocytes % 0 % 10/12/17 14:45 Myelocytes % 2.0 % 10/12/17 14:45 Promyelocytes % 0 % 10/12/17 14:45 Blast Cells % 0 % 10/12/17 14:45 Nucleated RBC % Not Reportable 10/12/17 14:45 Seg Neutrophils # 10.1 K/mm3 (1.8-7.7) H 09/29/17 12:54 Seg Neutrophils # Man 3.3 K/mm3 (1.8-7.7) 10/12/17 14:45 Band Neutrophils # 0.3 K/mm3 10/12/17 14:45 Lymphocytes # (Manual) 1.3 K/mm3 (1.2-5.4) 10/12/17 14:45 Abs React Lymphs (Man) 0.0 K/mm3 10/12/17 14:45 Monocytes # (Manual) 0.3 K/mm3 (0.0-0.8) 10/12/17 14:45 Eosinophils # (Manual) 0.1 K/mm3 (0.0-0.4) 10/12/17 14:45 Basophils # (Manual) 0.0 K/mm3 (0.0-0.1) 10/12/17 14:45 Metamyelocytes # 0.0 K/mm3 10/12/17 14:45 Myelocytes # 0.1 K/mm3 10/12/17 14:45 Promyelocytes # 0.0 K/mm3 10/12/17 14:45 Blast Cells # 0.0 K/mm3 10/12/17 14:45 WBC Morphology Not Reportable 10/12/17 14:45 Hypersegmented Neuts Not Reportable 10/12/17 14:45 Hyposegmented Neuts Not Reportable 10/12/17 14:45 Hypogranular Neuts Not Reportable 10/12/17 14:45 Smudge Cells Not Reportable 10/12/17 14:45 Toxic Granulation Not Reportable 10/12/17 14:45 Toxic Vacuolation Not Reportable 10/12/17 14:45 Dohle Bodies Not Reportable 10/12/17 14:45 Pelger-Huet Anomaly Not Reportable 10/12/17 14:45 Albertina Rods Not Reportable 10/12/17 14:45 Platelet Estimate Consistent w auto 10/12/17 14:45 Clumped Platelets Not Reportable 10/12/17 14:45 Plt Clumps, EDTA Not Reportable 10/12/17 14:45 Large Platelets Not Reportable 10/12/17 14:45 Giant Platelets Not Reportable 10/12/17 14:45 Platelet Satelliting Not Reportable 10/12/17 14:45 Plt Morphology Comment Not Reportable 10/12/17 14:45 RBC Morphology Not Reportable 10/12/17 14:45 Dimorphic RBCs Not Reportable 10/12/17 14:45 Polychromasia Not Reportable 10/12/17 14:45 Hypochromasia 1+ 10/12/17 14:45 Poikilocytosis Not Reportable 10/12/17 14:45 Anisocytosis 1+ 10/12/17 14:45 Microcytosis Not Reportable 10/12/17 14:45 Macrocytosis Not Reportable 10/12/17 14:45 Spherocytes Not Reportable 10/12/17 14:45 Pappenheimer Bodies Not Reportable 10/12/17 14:45 Sickle Cells Not Reportable 10/12/17 14:45 Target Cells Not Reportable 10/12/17 14:45 Tear Drop Cells Not Reportable 10/12/17 14:45 Ovalocytes 1+ 10/12/17 14:45 Stomatocytes 1+ 10/12/17 14:45 Helmet Cells Not Reportable 10/12/17 14:45 Garcia-Perley Bodies Not Reportable 10/12/17 14:45 Denison Rings Not Reportable 10/12/17 14:45 Sakina Cells Not Reportable 10/12/17 14:45 Bite Cells Not Reportable 10/12/17 14:45 Crenated Cell Not Reportable 10/12/17 14:45 Elliptocytes Not Reportable 10/12/17 14:45 Acanthocytes (Spur) Not Reportable 10/12/17 14:45 Rouleaux Not Reportable 10/12/17 14:45 Hemoglobin C Crystals Not Reportable 10/12/17 14:45 Schistocytes Not Reportable 10/12/17 14:45 Malaria parasites Not Reportable 10/12/17 14:45 Brandon Bodies Not Reportable 10/12/17 14:45 Hem Pathologist Commnt No 10/12/17 14:45 PT 14.1 Sec. (12.2-14.9) 10/01/17 06:31 INR 1.04 (0.87-1.13) 10/01/17 06:31 APTT 35.4 Sec. (24.2-36.6) 10/01/17 06:31 D-Dimer 2801.11 ng/mlDDU (0-234) H 09/29/17 19:19 POC ABG pH 7.415 (7.35-7.45) 10/02/17 20:23 POC ABG pCO2 42.1 (35-45) 10/02/17 20:23 POC ABG pO2 77 (80-105) L 10/02/17 20:23 POC ABG HCO3 27.0 10/02/17 20:23 POC ABG Total CO2 28 10/02/17 20:23 POC ABG O2 Sat 95 10/02/17 20:23 POC ABG Base Excess 2 10/02/17 20:23 FiO2 65 % 10/02/17 20:23 Sodium 138 mmol/L (137-145) 10/12/17 14:45 Potassium 3.9 mmol/L (3.6-5.0) 10/12/17 14:45 Chloride 93.0 mmol/L (98-107) L 10/12/17 14:45 Carbon Dioxide 33 mmol/L (22-30) H 10/12/17 14:45 Anion Gap 16 mmol/L 10/12/17 14:45 BUN 13 mg/dL (9-20) 10/12/17 14:45 Creatinine 0.7 mg/dL (0.8-1.5) L 10/12/17 14:45 Estimated GFR > 60 ml/min 10/12/17 14:45 BUN/Creatinine Ratio 19 % 10/12/17 14:45 Glucose 222 mg/dL (75-100) H 10/12/17 14:45 POC Glucose 142 (70-105) H 10/15/17 05:53 Lactic Acid 1.80 mmol/L (0.7-2.0) 09/30/17 02:38 Calcium 8.3 mg/dL (8.4-10.2) L 10/12/17 14:45 Phosphorus 3.40 mg/dL (2.5-4.5) 10/08/17 06:39 Magnesium 2.10 mg/dL (1.7-2.3) 10/08/17 06:39 Total Bilirubin 0.70 mg/dL (0.1-1.2) 10/01/17 06:16 AST 15 units/L (5-40) 10/01/17 06:16 ALT 14 units/L (7-56) 10/01/17 06:16 Alkaline Phosphatase 86 units/L (35-129) 10/01/17 06:16 Total Creatine Kinase 348 units/L (55-170) H 09/29/17 14:58 Troponin T 0.057 ng/mL (0.00-0.029) H 10/02/17 17:56 NT-Pro-B Natriuret Pep 230.9 pg/mL (0-900) 09/29/17 18:37 Total Protein 6.0 g/dL (6.3-8.2) L 10/01/17 06:16 Albumin 3.4 g/dL (3.9-5) L 10/01/17 06:16 Albumin/Globulin Ratio 1.3 % 10/01/17 06:16 Prealbumin 0.110 g/L (0.200-0.400) L 10/09/17 Unknown Triglycerides 134 mg/dL (2-149) 09/29/17 12:54 Cholesterol 118 mg/dL (50-199) 09/29/17 12:54 LDL Cholesterol Direct 57 mg/dL (50-130) 09/29/17 12:54 HDL Cholesterol 41 mg/dL (40-59) 09/29/17 12:54 Cholesterol/HDL Ratio 2.87 % 09/29/17 12:54 Urine Color Yellow (Yellow) 10/05/17 01:00 Urine Turbidity Clear (Clear) 10/05/17 01:00 Urine pH 5.0 (5.0-7.0) 10/05/17 01:00 Ur Specific [place] 1.015 (1.003-1.030) 10/05/17 01:00 Urine Protein <15 mg/dl mg/dL (Negative) 10/05/17 01:00 Urine Glucose (UA) 150 mg/dL (Negative) 10/05/17 01:00 Urine Ketones Tr mg/dL (Negative) 10/05/17 01:00 Urine Blood Neg (Negative) 10/05/17 01:00 Urine Nitrite Neg (Negative) 10/05/17 01:00 Urine Bilirubin Neg (Negative) 10/05/17 01:00 Urine Urobilinogen < 2.0 mg/dL (<2.0) 10/05/17 01:00 Ur Leukocyte Esterase Neg (Negative) 10/05/17 01:00 Urine WBC (Auto) 3.0 /HPF (0.0-6.0) 10/05/17 01:00 Urine RBC (Auto) < 1.0 /HPF (0.0-6.0) 10/05/17 01:00 U Epithel Cells (Auto) < 1.0 /HPF (0-13.0) 10/05/17 01:00 Urine Bacteria (Auto) 1+ /HPF (Negative) 10/05/17 01:00 Amorphous Crystals 1+ 10/05/17 01:00 Hyaline Casts 8 /LPF 10/05/17 01:00 Urine Creatinine 99.4 mg/dL (0.1-20.0) H 10/05/17 01:00 Urine Sodium 10 mmol/L 10/05/17 01:00
[2017-10-15] MEDS: LOVENOX SUB-Q SCH (23:46)
[2017-10-16] MEDS: CARDIZEM PO SCH ×3 (06:15→18:13)
[2017-10-16] MEDS: PEPCID PO SCH (09:25)
[2017-10-16] MEDS: SODIUM CHLORIDE FLUSH SYRINGE 10 ML IV SCH ×2 (09:25→22:47)
[2017-10-16] MEDS: LANTUS SUB-Q SCH (09:25)
--- NOTE | 2017-10-16 11:23 | Progress Note ---
Assessment and Plan 72 y/o male with acute respiratory failure. no new recs for today 1. Patient refusing PPV at night. 2. Continue baseline oxygen therapy. 3. Stable for discharge when placement found from a pulmonary standpoint. Subjective Date of service: 10/16/17 Principal diagnosis: Sepsis Interval history: no acute events Objective Vital Signs - 12hr 10/15/17 10/16/17 10/16/17 23:47 00:00 06:15 Temperature Pulse Rate 67 67 72 Respiratory 18 Rate Blood Pressure 152/43 152/48 O2 Sat by Pulse 98 Oximetry 10/16/17 10/16/17 07:48 08:00 Temperature 98.8 F Pulse Rate 71 Respiratory 20 Rate Blood Pressure 151/41 O2 Sat by Pulse 97 94 Oximetry Constitutional: no acute distress, other (far as sleep with snoring and occasional apneas) Eyes: non-icteric ENT: oropharynx moist Neck: supple, no JVD Effort: mildly labored Ascultation: Bilateral: clear, diminished breath sounds, rales (scattered) Cardiovascular: regular rate and rhythm Gastrointestinal: other (obese) Integumentary: other (upper extremities bruises) Extremities: no cyanosis, no edema, edema, other (left upper extremity hematoma. R lower extremity pretibial ulcer) Neurologic: normal mental status, non-focal exam CBC and BMP: 10/12/17 14:45 10/12/17 14:45 ABG, PT/INR, D-dimer: ABG POC ABG pH 7.415 (7.35-7.45) 10/02/17 20:23 POC ABG pCO2 42.1 (35-45) 10/02/17 20:23 POC ABG pO2 77 (80-105) L 10/02/17 20:23 POC ABG HCO3 27.0 10/02/17 20:23 POC ABG Total CO2 28 10/02/17 20:23 POC ABG O2 Sat 95 10/02/17 20:23 PT/INR, D-dimer PT 14.1 Sec. (12.2-14.9) 10/01/17 06:31 INR 1.04 (0.87-1.13) 10/01/17 06:31 D-Dimer 2801.11 ng/mlDDU (0-234) H 09/29/17 19:19 Abnormal lab findings: Abnormal Labs 09/29/17 09/29/17 09/29/17 12:54 12:54 14:58 WBC 12.4 H RBC Hgb 11.7 L Hct 33.5 L MCHC 35 H RDW 15.4 H Lymph % (Auto) 6.0 L [place] % (Auto) 10.8 H Lymph # 0.7 L [place] # 1.3 H Seg Neutrophils % 82.0 H Seg Neuts % (Manual) Lymphocytes % (Manual) Seg Neutrophils # 10.1 H Seg Neutrophils # Man Lymphocytes # (Manual) D-Dimer POC ABG pO2 Sodium 133 L Potassium Chloride 90.9 L Carbon Dioxide BUN 70 H Creatinine 2.0 H Glucose 336 H POC Glucose Calcium Magnesium Total Creatine Kinase 348 H Troponin T 0.071 H 0.073 H Total Protein Albumin Prealbumin Urine Creatinine 09/29/17 09/29/17 09/29/17 18:11 18:37 19:19 WBC RBC Hgb Hct MCHC RDW Lymph % (Auto) [place] % (Auto) Lymph # [place] # Seg Neutrophils % Seg Neuts % (Manual) Lymphocytes % (Manual) Seg Neutrophils # Seg Neutrophils # Man Lymphocytes # (Manual) D-Dimer 2801.11 H POC ABG pO2 Sodium Potassium Chloride Carbon Dioxide BUN Creatinine Glucose POC Glucose Calcium Magnesium Total Creatine Kinase Troponin T 0.073 H 0.074 H Total Protein Albumin Prealbumin Urine Creatinine 09/29/17 09/29/17 09/30/17 22:22 23:00 02:38 WBC RBC Hgb Hct MCHC RDW Lymph % (Auto) [place] % (Auto) Lymph # [place] # Seg Neutrophils % Seg Neuts % (Manual) Lymphocytes % (Manual) Seg Neutrophils # Seg Neutrophils # Man Lymphocytes # (Manual) D-Dimer POC ABG pO2 Sodium Potassium Chloride Carbon Dioxide BUN Creatinine Glucose POC Glucose 389 H Calcium Magnesium Total Creatine Kinase Troponin T 0.058 H D 0.064 H Total Protein Albumin Prealbumin Urine Creatinine 09/30/17 09/30/17 09/30/17 12:07 16:24 21:25 WBC RBC Hgb Hct MCHC RDW Lymph % (Auto) [place] % (Auto) Lymph # [place] # Seg Neutrophils % Seg Neuts % (Manual) Lymphocytes % (Manual) Seg Neutrophils # Seg Neutrophils # Man Lymphocytes # (Manual) D-Dimer POC ABG pO2 Sodium Potassium Chloride Carbon Dioxide BUN Creatinine Glucose POC Glucose 387 H 431 H 326 H Calcium Magnesium Total Creatine Kinase Troponin T Total Protein Albumin Prealbumin Urine Creatinine 10/01/17 10/01/17 10/01/17 06:16 06:16 06:30 WBC 14.0 H RBC Hgb Hct 34.3 L MCHC RDW Lymph % (Auto) [place] % (Auto) Lymph # [place] # Seg Neutrophils % Seg Neuts % (Manual) 87.0 H Lymphocytes % (Manual) 7.0 L Seg Neutrophils # Seg Neutrophils # Man 12.2 H Lymphocytes # (Manual) 1.0 L D-Dimer POC ABG pO2 Sodium Potassium 3.4 L Chloride 94.7 L Carbon Dioxide BUN 62 H Creatinine Glucose 432 H POC Glucose 419 H Calcium Magnesium Total Creatine Kinase Troponin T Total Protein 6.0 L Albumin 3.4 L Prealbumin Urine Creatinine 10/01/17 10/01/17 10/02/17 11:25 15:39 07:39 WBC RBC Hgb Hct MCHC RDW Lymph % (Auto) [place] % (Auto) Lymph # [place] # Seg Neutrophils % Seg Neuts % (Manual) Lymphocytes % (Manual) Seg Neutrophils # Seg Neutrophils # Man Lymphocytes # (Manual) D-Dimer POC ABG pO2 Sodium Potassium Chloride Carbon Dioxide BUN Creatinine Glucose POC Glucose 456 H 472 H 429 H Calcium Magnesium Total Creatine Kinase Troponin T Total Protein Albumin Prealbumin Urine Creatinine 10/02/17 10/02/17 10/02/17 11:03 11:03 11:03 WBC 14.9 H RBC Hgb Hct MCHC RDW 15.4 H Lymph % (Auto) [place] % (Auto) Lymph # [place] # Seg Neutrophils % Seg Neuts % (Manual) Lymphocytes % (Manual) Seg Neutrophils # Seg Neutrophils # Man Lymphocytes # (Manual) D-Dimer POC ABG pO2 Sodium 154 H D Potassium 3.5 L Chloride Carbon Dioxide BUN 66 H Creatinine Glucose 432 H POC Glucose Calcium Magnesium Total Creatine Kinase Troponin T 0.059 H Total Protein Albumin Prealbumin Urine Creatinine 10/02/17 10/02/17 10/02/17 13:00 14:48 14:57 WBC RBC Hgb Hct MCHC RDW Lymph % (Auto) [place] % (Auto) Lymph # [place] # Seg Neutrophils % Seg Neuts % (Manual) Lymphocytes % (Manual) Seg Neutrophils # Seg Neutrophils # Man Lymphocytes # (Manual) D-Dimer POC ABG pO2 64 L Sodium Potassium Chloride Carbon Dioxide BUN Creatinine Glucose POC Glucose 476 H 448 H Calcium Magnesium Total Creatine Kinase Troponin T Total Protein Albumin Prealbumin Urine Creatinine 10/02/17 10/02/17 10/02/17 17:56 18:19 20:23 WBC RBC Hgb Hct MCHC RDW Lymph % (Auto) [place] % (Auto) Lymph # [place] # Seg Neutrophils % Seg Neuts % (Manual) Lymphocytes % (Manual) Seg Neutrophils # Seg Neutrophils # Man Lymphocytes # (Manual) D-Dimer POC ABG pO2 77 L Sodium Potassium Chloride Carbon Dioxide BUN Creatinine Glucose POC Glucose > 500 H Calcium Magnesium Total Creatine Kinase Troponin T 0.057 H Total Protein Albumin Prealbumin Urine Creatinine 10/02/17 10/03/17 10/03/17 23:41 05:44 05:44 WBC 14.8 H RBC 3.41 L Hgb 10.4 L Hct 31.8 L MCHC RDW 15.4 H Lymph % (Auto) [place] % (Auto) Lymph # [place] # Seg Neutrophils % Seg Neuts % (Manual) Lymphocytes % (Manual) Seg Neutrophils # Seg Neutrophils # Man Lymphocytes # (Manual) D-Dimer POC ABG pO2 Sodium 155 H Potassium 3.4 L Chloride 110.8 H Carbon Dioxide 32 H BUN 81 H Creatinine 1.6 H Glucose 403 H POC Glucose 447 H Calcium Magnesium 2.60 H Total Creatine Kinase Troponin T Total Protein Albumin Prealbumin Urine Creatinine 10/03/17 10/03/17 10/04/17 06:32 12:33 00:14 WBC RBC Hgb Hct MCHC RDW Lymph % (Auto) [place] % (Auto) Lymph # [place] # Seg Neutrophils % Seg Neuts % (Manual) Lymphocytes % (Manual) Seg Neutrophils # Seg Neutrophils # Man Lymphocytes # (Manual) D-Dimer POC ABG pO2 Sodium Potassium Chloride Carbon Dioxide BUN Creatinine Glucose POC Glucose 394 H 449 H > 500 H Calcium Magnesium Total Creatine Kinase Troponin T Total Protein Albumin Prealbumin Urine Creatinine 10/04/17 10/04/17 10/04/17 00:32 06:09 06:19 WBC 13.5 H RBC 3.38 L Hgb 10.5 L Hct 31.4 L MCHC RDW 15.6 H Lymph % (Auto) [place] % (Auto) Lymph # [place] # Seg Neutrophils % Seg Neuts % (Manual) Lymphocytes % (Manual) Seg Neutrophils # Seg Neutrophils # Man Lymphocytes # (Manual) D-Dimer POC ABG pO2 Sodium Potassium Chloride Carbon Dioxide BUN Creatinine Glucose 623 H* POC Glucose 383 H Calcium Magnesium Total Creatine Kinase Troponin T Total Protein Albumin Prealbumin Urine Creatinine 10/04/17 10/04/17 10/04/17 06:19 11:51 16:06 WBC RBC Hgb Hct MCHC RDW Lymph % (Auto) [place] % (Auto) Lymph # [place] # Seg Neutrophils % Seg Neuts % (Manual) Lymphocytes % (Manual) Seg Neutrophils # Seg Neutrophils # Man Lymphocytes # (Manual) D-Dimer POC ABG pO2 Sodium 163 H* D Potassium Chloride 114.2 H Carbon Dioxide 34 H BUN 83 H Creatinine 1.7 H Glucose 389 H POC Glucose 340 H 341 H Calcium Magnesium Total Creatine Kinase Troponin T Total Protein Albumin Prealbumin Urine Creatinine 10/04/17 10/04/17 10/05/17 17:34 23:00 01:00 WBC RBC Hgb Hct MCHC RDW Lymph % (Auto) [place] % (Auto) Lymph # [place] # Seg Neutrophils % Seg Neuts % (Manual) Lymphocytes % (Manual) Seg Neutrophils # Seg Neutrophils # Man Lymphocytes # (Manual) D-Dimer POC ABG pO2 Sodium 155 H Potassium 3.4 L Chloride 107.4 H Carbon Dioxide 33 H BUN 82 H Creatinine 1.8 H Glucose 348 H POC Glucose 461 H Calcium Magnesium Total Creatine Kinase Troponin T Total Protein Albumin Prealbumin Urine Creatinine 99.4 H 10/05/17 10/05/17 10/05/17 05:25 05:39 06:11 WBC 14.1 H RBC 3.03 L Hgb 9.6 L Hct 28.0 L MCHC RDW 15.8 H Lymph % (Auto) [place] % (Auto) Lymph # [place] # Seg Neutrophils % Seg Neuts % (Manual) Lymphocytes % (Manual) Seg Neutrophils # Seg Neutrophils # Man Lymphocytes # (Manual) D-Dimer POC ABG pO2 Sodium 149 H Potassium Chloride Carbon Dioxide 33 H BUN 81 H Creatinine 1.7 H Glucose 365 H POC Glucose 397 H Calcium Magnesium 2.40 H Total Creatine Kinase Troponin T Total Protein Albumin Prealbumin Urine Creatinine 10/05/17 10/05/17 10/05/17 12:16 16:22 21:06 WBC RBC Hgb Hct MCHC RDW Lymph % (Auto) [place] % (Auto) Lymph # [place] # Seg Neutrophils % Seg Neuts % (Manual) Lymphocytes % (Manual) Seg Neutrophils # Seg Neutrophils # Man Lymphocytes # (Manual) D-Dimer POC ABG pO2 Sodium Potassium Chloride Carbon Dioxide BUN Creatinine Glucose POC Glucose 400 H 395 H 265 H Calcium Magnesium Total Creatine Kinase Troponin T Total Protein Albumin Prealbumin Urine Creatinine 10/06/17 10/06/17 10/06/17 06:43 06:50 11:29 WBC RBC Hgb Hct MCHC RDW Lymph % (Auto) [place] % (Auto) Lymph # [place] # Seg Neutrophils % Seg Neuts % (Manual) Lymphocytes % (Manual) Seg Neutrophils # Seg Neutrophils # Man Lymphocytes # (Manual) D-Dimer POC ABG pO2 Sodium 156 H Potassium Chloride 115.0 H Carbon Dioxide 32 H BUN 62 H Creatinine Glucose 308 H POC Glucose 330 H 396 H Calcium Magnesium Total Creatine Kinase Troponin T Total Protein Albumin Prealbumin Urine Creatinine 10/06/17 10/07/17 10/07/17 16:24 00:46 07:18 WBC RBC Hgb Hct MCHC RDW Lymph % (Auto) [place] % (Auto) Lymph # [place] # Seg Neutrophils % Seg Neuts % (Manual) Lymphocytes % (Manual) Seg Neutrophils # Seg Neutrophils # Man Lymphocytes # (Manual) D-Dimer POC ABG pO2 Sodium 149 H Potassium Chloride Carbon Dioxide 32 H BUN 43 H Creatinine Glucose 289 H POC Glucose 417 H 295 H Calcium Magnesium Total Creatine Kinase Troponin T Total Protein Albumin Prealbumin Urine Creatinine 10/07/17 10/07/17 10/07/17 08:16 12:38 13:08 WBC RBC Hgb Hct MCHC RDW Lymph % (Auto) [place] % (Auto) Lymph # [place] # Seg Neutrophils % Seg Neuts % (Manual) Lymphocytes % (Manual) Seg Neutrophils # Seg Neutrophils # Man Lymphocytes # (Manual) D-Dimer POC ABG pO2 Sodium Potassium Chloride Carbon Dioxide BUN Creatinine Glucose POC Glucose 348 H 256 H 365 H Calcium Magnesium Total Creatine Kinase Troponin T Total Protein Albumin Prealbumin Urine Creatinine 10/07/17 10/07/17 10/08/17 16:35 22:34 06:39 WBC RBC Hgb Hct MCHC RDW Lymph % (Auto) [place] % (Auto) Lymph # [place] # Seg Neutrophils % Seg Neuts % (Manual) Lymphocytes % (Manual) Seg Neutrophils # Seg Neutrophils # Man Lymphocytes # (Manual) D-Dimer POC ABG pO2 Sodium 151 H Potassium Chloride 107.4 H Carbon Dioxide 32 H BUN 31 H Creatinine Glucose 246 H POC Glucose 234 H 200 H Calcium Magnesium Total Creatine Kinase Troponin T Total Protein Albumin Prealbumin Urine Creatinine 10/08/17 10/08/17 10/08/17 08:06 12:56 17:16 WBC RBC Hgb Hct MCHC RDW Lymph % (Auto) [place] % (Auto) Lymph # [place] # Seg Neutrophils % Seg Neuts % (Manual) Lymphocytes % (Manual) Seg Neutrophils # Seg Neutrophils # Man Lymphocytes # (Manual) D-Dimer POC ABG pO2 Sodium Potassium Chloride Carbon Dioxide BUN Creatinine Glucose POC Glucose 273 H 255 H 273 H Calcium Magnesium Total Creatine Kinase Troponin T Total Protein Albumin Prealbumin Urine Creatinine 10/08/17 10/09/17 10/09/17 22:11 05:50 06:42 WBC RBC Hgb Hct MCHC RDW Lymph % (Auto) [place] % (Auto) Lymph # [place] # Seg Neutrophils % Seg Neuts % (Manual) Lymphocytes % (Manual) Seg Neutrophils # Seg Neutrophils # Man Lymphocytes # (Manual) D-Dimer POC ABG pO2 Sodium Potassium Chloride Carbon Dioxide BUN Creatinine Glucose POC Glucose 202 H 167 H 210 H Calcium Magnesium Total Creatine Kinase Troponin T Total Protein Albumin Prealbumin Urine Creatinine 10/09/17 10/09/17 10/09/17 11:39 16:52 22:07 WBC RBC Hgb Hct MCHC RDW Lymph % (Auto) [place] % (Auto) Lymph # [place] # Seg Neutrophils % Seg Neuts % (Manual) Lymphocytes % (Manual) Seg Neutrophils # Seg Neutrophils # Man Lymphocytes # (Manual) D-Dimer POC ABG pO2 Sodium Potassium Chloride Carbon Dioxide BUN Creatinine Glucose POC Glucose 304 H 304 H 314 H Calcium Magnesium Total Creatine Kinase Troponin T Total Protein Albumin Prealbumin Urine Creatinine 10/09/17 10/10/17 10/10/17 Unknown 04:28 05:58 WBC RBC Hgb Hct MCHC RDW Lymph % (Auto) [place] % (Auto) Lymph # [place] # Seg Neutrophils % Seg Neuts % (Manual) Lymphocytes % (Manual) Seg Neutrophils # Seg Neutrophils # Man Lymphocytes # (Manual) D-Dimer POC ABG pO2 Sodium 147 H Potassium Chloride Carbon Dioxide 33 H 33 H BUN 22 H Creatinine Glucose 207 H 193 H POC Glucose 194 H Calcium Magnesium Total Creatine Kinase Troponin T Total Protein Albumin Prealbumin 0.110 L Urine Creatinine 10/10/17 10/10/17 10/10/17 11:13 12:15 16:26 WBC RBC Hgb Hct MCHC RDW Lymph % (Auto) [place] % (Auto) Lymph # [place] # Seg Neutrophils % Seg Neuts % (Manual) Lymphocytes % (Manual) Seg Neutrophils # Seg Neutrophils # Man Lymphocytes # (Manual) D-Dimer POC ABG pO2 Sodium Potassium Chloride Carbon Dioxide BUN Creatinine Glucose POC Glucose 240 H 265 H 246 H Calcium Magnesium Total Creatine Kinase Troponin T Total Protein Albumin Prealbumin Urine Creatinine 10/10/17 10/11/17 10/11/17 22:09 06:05 06:43 WBC RBC Hgb Hct MCHC RDW Lymph % (Auto) [place] % (Auto) Lymph # [place] # Seg Neutrophils % Seg Neuts % (Manual) Lymphocytes % (Manual) Seg Neutrophils # Seg Neutrophils # Man Lymphocytes # (Manual) D-Dimer POC ABG pO2 Sodium Potassium Chloride Carbon Dioxide BUN Creatinine Glucose 209 H POC Glucose 261 H 180 H Calcium 8.1 L Magnesium Total Creatine Kinase Troponin T Total Protein Albumin Prealbumin Urine Creatinine 10/11/17 10/11/17 10/11/17 12:06 13:32 18:01 WBC RBC Hgb Hct MCHC RDW Lymph % (Auto) [place] % (Auto) Lymph # [place] # Seg Neutrophils % Seg Neuts % (Manual) Lymphocytes % (Manual) Seg Neutrophils # Seg Neutrophils # Man Lymphocytes # (Manual) D-Dimer POC ABG pO2 Sodium Potassium Chloride Carbon Dioxide BUN Creatinine Glucose POC Glucose 274 H 293 H 297 H Calcium Magnesium Total Creatine Kinase Troponin T Total Protein Albumin Prealbumin Urine Creatinine 10/12/17 10/12/17 10/12/17 05:34 11:13 14:45 WBC RBC Hgb Hct MCHC RDW Lymph % (Auto) [place] % (Auto) Lymph # [place] # Seg Neutrophils % Seg Neuts % (Manual) Lymphocytes % (Manual) Seg Neutrophils # Seg Neutrophils # Man Lymphocytes # (Manual) D-Dimer POC ABG pO2 Sodium Potassium Chloride 93.0 L Carbon Dioxide 33 H BUN Creatinine 0.7 L Glucose 222 H POC Glucose 154 H 196 H Calcium 8.3 L Magnesium Total Creatine Kinase Troponin T Total Protein Albumin Prealbumin Urine Creatinine 10/12/17 10/12/17 10/12/17 14:45 17:04 23:30 WBC RBC 2.90 L Hgb 9.1 L Hct 27.0 L MCHC RDW 16.4 H Lymph % (Auto) [place] % (Auto) Lymph # [place] # Seg Neutrophils % Seg Neuts % (Manual) Lymphocytes % (Manual) Seg Neutrophils # Seg Neutrophils # Man Lymphocytes # (Manual) D-Dimer POC ABG pO2 Sodium Potassium Chloride Carbon Dioxide BUN Creatinine Glucose POC Glucose 185 H 241 H Calcium Magnesium Total Creatine Kinase Troponin T Total Protein Albumin Prealbumin Urine Creatinine 10/13/17 10/13/17 10/13/17 06:04 13:25 16:17 WBC RBC Hgb Hct MCHC RDW Lymph % (Auto) [place] % (Auto) Lymph # [place] # Seg Neutrophils % Seg Neuts % (Manual) Lymphocytes % (Manual) Seg Neutrophils # Seg Neutrophils # Man Lymphocytes # (Manual) D-Dimer POC ABG pO2 Sodium Potassium Chloride Carbon Dioxide BUN Creatinine Glucose POC Glucose 192 H 213 H 198 H Calcium Magnesium Total Creatine Kinase Troponin T Total Protein Albumin Prealbumin Urine Creatinine 10/14/17 10/14/17 10/14/17 00:23 05:58 11:53 WBC RBC Hgb Hct MCHC RDW Lymph % (Auto) [place] % (Auto) Lymph # [place] # Seg Neutrophils % Seg Neuts % (Manual) Lymphocytes % (Manual) Seg Neutrophils # Seg Neutrophils # Man Lymphocytes # (Manual) D-Dimer POC ABG pO2 Sodium Potassium Chloride Carbon Dioxide BUN Creatinine Glucose POC Glucose 170 H 155 H 161 H Calcium Magnesium Total Creatine Kinase Troponin T Total Protein Albumin Prealbumin Urine Creatinine 10/14/17 10/14/17 10/15/17 15:46 21:43 05:53 WBC RBC Hgb Hct MCHC RDW Lymph % (Auto) [place] % (Auto) Lymph # [place] # Seg Neutrophils % Seg Neuts % (Manual) Lymphocytes % (Manual) Seg Neutrophils # Seg Neutrophils # Man Lymphocytes # (Manual) D-Dimer POC ABG pO2 Sodium Potassium Chloride Carbon Dioxide BUN Creatinine Glucose POC Glucose 239 H 262 H 142 H Calcium Magnesium Total Creatine Kinase Troponin T Total Protein Albumin Prealbumin Urine Creatinine 10/15/17 10/15/17 10/15/17 12:02 16:46 21:52 WBC RBC Hgb Hct MCHC RDW Lymph % (Auto) [place] % (Auto) Lymph # [place] # Seg Neutrophils % Seg Neuts % (Manual) Lymphocytes % (Manual) Seg Neutrophils # Seg Neutrophils # Man Lymphocytes # (Manual) D-Dimer POC ABG pO2 Sodium Potassium Chloride Carbon Dioxide BUN Creatinine Glucose POC Glucose 243 H 235 H 199 H Calcium Magnesium Total Creatine Kinase Troponin T Total Protein Albumin Prealbumin Urine Creatinine 10/16/17 06:31 WBC RBC Hgb Hct MCHC RDW Lymph % (Auto) [place] % (Auto) Lymph # [place] # Seg Neutrophils % Seg Neuts % (Manual) Lymphocytes % (Manual) Seg Neutrophils # Seg Neutrophils # Man Lymphocytes # (Manual) D-Dimer POC ABG pO2 Sodium Potassium Chloride Carbon Dioxide BUN Creatinine Glucose POC Glucose 153 H Calcium Magnesium Total Creatine Kinase Troponin T Total Protein Albumin Prealbumin Urine Creatinine
[2017-10-16] MEDS: HumaLOG SUB-Q SCH ×3 (14:02→18:13)
--- NOTE | 2017-10-16 14:07 | Progress Note ---
Assessment and Plan Assessment and plan: Patient is a 72 yo man who is a resident at [facility] under 1013 for SI with h/o HTN, CVA, [place], CHF, COPD, [place] on CPAP, Seizure Disorder, Depression, PTSD, Debility, nicotine Dependence, Recurrent Falls presents to ED for confusion and falling. He was admitted for suspected sepsis pneumonia, nstemi and right wrist fracture. * pCXR Impression: Bibasilar atelectasis. * CT lumbar spine wo IMPRESSION: 1. No acute compression deformity or apparent fracture in the lumbar spine. 2. Degenerative spondylosis. * XRay bilateral knee IMPRESSION: 1. No acute osseous abnormality. 2. Postsurgical changes in the right knee, and degenerative changes in the left knee. * Xray 3v right wrist IMPRESSION: 1. Probable nondisplaced fracture right distal ulna. * CT head Impression: No acute intracranial abnormality. * CT thoracic spine wo IMPRESSION: 1. No acute compression deformity or apparent fracture in the thoracic spine. Diffuse degenerative spondylosis. 2. Fractures in left ribs 9-12, probably acute or subacute. Correlate clinically. 3. Findings which may represent bibasilar atelectasis, mild infiltrates or postinflammatory change of uncertain etiology or chronicity. 4. Left adrenal nodule may represent adenomatous change, but is indeterminate. Followup may be warranted. -Suspect Sepsis from Aspiration Pneumonia, poa, treated with iv abx, ivf but developed fluid overload, so ivf stopped and lasix iv given. doing better, off bipap -s/p Fall with Multiple rib fractures/right wrist fracture: Conservative measures per Ortho -ARF (acute renal failure), vasomotor nephropathy poa, resolved. -Acute encephalopathy: treat the above issues -Acute on chronic diastolic heart failure, resolved -Afib with RVR, resolved -Depression, improved -no NSTEMI (non-ST elevated myocardial infarction), non specified elevation of troponin per Cardiology: stopped therapeutic lovenox -DVT prophylaxis: scd to ble, deep bruising and diffuse ecchymosis so hold vte due to fall risk Restraint renewed Normal LVEF 60-65% by echocardiogram. ortho, Dr. Lal==>Nondisplaced distal ulnar fracture, recommend conservative treatment with wrist brace and early ROM 10/02/17: Bilateral lung crackles today, pCXR looks like pulmonary edema but can' t exclude infiltrates (my reading), gave iv lasix 40mg iv x 1 carefully diuresis due to Aortic stenosis and ARF. ABG showed combined Acute Respiratory failure which patient has been on O2 since admission, so acute hypoxic respiratory poa. RN reported ABGs at 7.442/64/44/30.3 on O2. Bipap started by respiratory, I consulted and d/w Dr. Ng, pulmonology. Troponin level actually improved. Also, started on sq lantus 10units, carefully because he is not eating much. Lasix iv given today 10/03/17: doing better after another dose of iv lasix x 1, trying to wean off bipap, 10/04/17: bipap removed this am, new issue of hypernatremia, consulted rn obgyn and spoke with Dr. Gerard. He needs free water, will try to place NG tube because he spit water out at nurse. He remains very confused. D5W treatment is problematic as his blood glucose is very high. Hopefully he will allow ngt to be given for free water and nutrition, Restraints renewed. Day 09/16 of iv abx. Still tachycardiac, had afib with rvr on will call Cardiology 10/05/17: isolated afib, rate is improved thanks to Cardiology. Mental status improved as hypernatremia is improved. He is still confused. 10/06/17: still hallucinating, renal function is improving, blood glucose still uncontrolled, so lantus increased to 20 units daily. No 1013 in the chart. I have asked RN to enter [place] [facility] into our EMR for reconciliation. 10/07/17: still confused. Last day of antibiotics, continue 1013 10/08/17: Less confused today. re-consulted psych for placement 10/15/17: resumed care, confusion has resolved, not in restraints anymore, awaiting SNF in [place]. Awaiting SNF placement. He would not answer [place] Dept of services representatives questions. History Interval history: Patient was seen and examined. Follow-up on current diagnosis of confusion which has resolved, no restraints. Overnight uneventful and doing better, bipap is off. Imaging, nursing note, chart, labs and old chart reviewed. More awake and alert Hospitalist Physical - Physical exam Narrative exam: GEN: unkempt, awake alert orientated x 3 HEENT: NCAT, EOMI, PERRL, OP Clear NECK: supple, no adenopathy, no thyromegaly, no JVD CVS/HEART: reg tachy, normal S1S2, pulses present bilaterally CHEST/LUNGS: bilateral crackles improved, Symmetrical chest expansion, good air entry bilaterally GI/Abdomen: soft, NTND, good bowel sounds, no guarding or rebound /Bladder: no suprapubic tenderness, no CVA or paraspinal tenderness EXT/Skin: black and blue all over, especially left upper bicep area with deformity MSK: FROM x 4 Neuro: CN 2-12 grossly intact, doesn't follow command Psych: calm - Constitutional Vitals: Temp Pulse Resp BP Pulse Ox 98.8 F 71 20 151/41 94 10/16/17 08:00 10/16/17 08:00 10/16/17 08:00 10/16/17 08:00 10/16/17 08:00 General appearance: Present: no acute distress, well-nourished Results - Labs CBC & Chem 7: 10/12/17 14:45 10/12/17 14:45 Labs: Laboratory Last Values WBC 5.4 K/mm3 (4.5-11.0) 10/12/17 14:45 RBC 2.90 M/mm3 (3.65-5.03) L 10/12/17 14:45 Hgb 9.1 gm/dl (11.8-15.2) L 10/12/17 14:45 Hct 27.0 % (35.5-45.6) L 10/12/17 14:45 MCV 93 fl (84-94) 10/12/17 14:45 MCH 31 pg (28-32) 10/12/17 14:45 MCHC 34 % (32-34) 10/12/17 14:45 RDW 16.4 % (13.2-15.2) H 10/12/17 14:45 Plt Count 296 K/mm3 (140-440) 10/12/17 14:45 Lymph % (Auto) 6.0 % (13.4-35.0) L 09/29/17 12:54 [place] % (Auto) 10.8 % (0.0-7.3) H 09/29/17 12:54 Eos % (Auto) 0.8 % (0.0-4.3) 09/29/17 12:54 Baso % (Auto) 0.4 % (0.0-1.8) 09/29/17 12:54 Lymph # 0.7 K/mm3 (1.2-5.4) L 09/29/17 12:54 [place] # 1.3 K/mm3 (0.0-0.8) H 09/29/17 12:54 Eos # 0.1 K/mm3 (0.0-0.4) 09/29/17 12:54 Baso # 0.1 K/mm3 (0.0-0.1) 09/29/17 12:54 Add Manual Diff Complete 10/12/17 14:45 Total Counted 100 10/12/17 14:45 Seg Neutrophils % 82.0 % (40.0-70.0) H 09/29/17 12:54 Seg Neuts % (Manual) 61.0 % (40.0-70.0) 10/12/17 14:45 Band Neutrophils % 6.0 % 10/12/17 14:45 Lymphocytes % (Manual) 24.0 % (13.4-35.0) 10/12/17 14:45 Reactive Lymphs % (Man) 0 % 10/12/17 14:45 Monocytes % (Manual) 6.0 % (0.0-7.3) 10/12/17 14:45 Eosinophils % (Manual) 1.0 % (0.0-4.3) 10/12/17 14:45 Basophils % (Manual) 0 % (0.0-1.8) 10/12/17 14:45 Metamyelocytes % 0 % 10/12/17 14:45 Myelocytes % 2.0 % 10/12/17 14:45 Promyelocytes % 0 % 10/12/17 14:45 Blast Cells % 0 % 10/12/17 14:45 Nucleated RBC % Not Reportable 10/12/17 14:45 Seg Neutrophils # 10.1 K/mm3 (1.8-7.7) H 09/29/17 12:54 Seg Neutrophils # Man 3.3 K/mm3 (1.8-7.7) 10/12/17 14:45 Band Neutrophils # 0.3 K/mm3 10/12/17 14:45 Lymphocytes # (Manual) 1.3 K/mm3 (1.2-5.4) 10/12/17 14:45 Abs React Lymphs (Man) 0.0 K/mm3 10/12/17 14:45 Monocytes # (Manual) 0.3 K/mm3 (0.0-0.8) 10/12/17 14:45 Eosinophils # (Manual) 0.1 K/mm3 (0.0-0.4) 10/12/17 14:45 Basophils # (Manual) 0.0 K/mm3 (0.0-0.1) 10/12/17 14:45 Metamyelocytes # 0.0 K/mm3 10/12/17 14:45 Myelocytes # 0.1 K/mm3 10/12/17 14:45 Promyelocytes # 0.0 K/mm3 10/12/17 14:45 Blast Cells # 0.0 K/mm3 10/12/17 14:45 WBC Morphology Not Reportable 10/12/17 14:45 Hypersegmented Neuts Not Reportable 10/12/17 14:45 Hyposegmented Neuts Not Reportable 10/12/17 14:45 Hypogranular Neuts Not Reportable 10/12/17 14:45 Smudge Cells Not Reportable 10/12/17 14:45 Toxic Granulation Not Reportable 10/12/17 14:45 Toxic Vacuolation Not Reportable 10/12/17 14:45 Dohle Bodies Not Reportable 10/12/17 14:45 Pelger-Huet Anomaly Not Reportable 10/12/17 14:45 Albertina Rods Not Reportable 10/12/17 14:45 Platelet Estimate Consistent w auto 10/12/17 14:45 Clumped Platelets Not Reportable 10/12/17 14:45 Plt Clumps, EDTA Not Reportable 10/12/17 14:45 Large Platelets Not Reportable 10/12/17 14:45 Giant Platelets Not Reportable 10/12/17 14:45 Platelet Satelliting Not Reportable 10/12/17 14:45 Plt Morphology Comment Not Reportable 10/12/17 14:45 RBC Morphology Not Reportable 10/12/17 14:45 Dimorphic RBCs Not Reportable 10/12/17 14:45 Polychromasia Not Reportable 10/12/17 14:45 Hypochromasia 1+ 10/12/17 14:45 Poikilocytosis Not Reportable 10/12/17 14:45 Anisocytosis 1+ 10/12/17 14:45 Microcytosis Not Reportable 10/12/17 14:45 Macrocytosis Not Reportable 10/12/17 14:45 Spherocytes Not Reportable 10/12/17 14:45 Pappenheimer Bodies Not Reportable 10/12/17 14:45 Sickle Cells Not Reportable 10/12/17 14:45 Target Cells Not Reportable 10/12/17 14:45 Tear Drop Cells Not Reportable 10/12/17 14:45 Ovalocytes 1+ 10/12/17 14:45 Stomatocytes 1+ 10/12/17 14:45 Helmet Cells Not Reportable 10/12/17 14:45 [place] Bodies Not Reportable 10/12/17 14:45 Rose Rings Not Reportable 10/12/17 14:45 [place] Cells Not Reportable 10/12/17 14:45 Bite Cells Not Reportable 10/12/17 14:45 Crenated Cell Not Reportable 10/12/17 14:45 Elliptocytes Not Reportable 10/12/17 14:45 Acanthocytes (Spur) Not Reportable 10/12/17 14:45 Rouleaux Not Reportable 10/12/17 14:45 Hemoglobin C Crystals Not Reportable 10/12/17 14:45 Schistocytes Not Reportable 10/12/17 14:45 Malaria parasites Not Reportable 10/12/17 14:45 [place] Bodies Not Reportable 10/12/17 14:45 Hem Pathologist Commnt No 10/12/17 14:45 PT 14.1 Sec. (12.2-14.9) 10/01/17 06:31 INR 1.04 (0.87-1.13) 10/01/17 06:31 APTT 35.4 Sec. (24.2-36.6) 10/01/17 06:31 D-Dimer 2801.11 ng/mlDDU (0-234) H 09/29/17 19:19 POC ABG pH 7.415 (7.35-7.45) 10/02/17 20:23 POC ABG pCO2 42.1 (35-45) 10/02/17 20:23 POC ABG pO2 77 (80-105) L 10/02/17 20:23 POC ABG HCO3 27.0 10/02/17 20:23 POC ABG Total CO2 28 10/02/17 20:23 POC ABG O2 Sat 95 10/02/17 20:23 POC ABG Base Excess 2 10/02/17 20:23 FiO2 65 % 10/02/17 20:23 Sodium 138 mmol/L (137-145) 10/12/17 14:45 Potassium 3.9 mmol/L (3.6-5.0) 10/12/17 14:45 Chloride 93.0 mmol/L (98-107) L 10/12/17 14:45 Carbon Dioxide 33 mmol/L (22-30) H 10/12/17 14:45 Anion Gap 16 mmol/L 10/12/17 14:45 BUN 13 mg/dL (9-20) 10/12/17 14:45 Creatinine 0.7 mg/dL (0.8-1.5) L 10/12/17 14:45 Estimated GFR > 60 ml/min 10/12/17 14:45 BUN/Creatinine Ratio 19 % 10/12/17 14:45 Glucose 222 mg/dL (75-100) H 10/12/17 14:45 POC Glucose 219 (70-105) H 10/16/17 13:47 Lactic Acid 1.80 mmol/L (0.7-2.0) 09/30/17 02:38 Calcium 8.3 mg/dL (8.4-10.2) L 10/12/17 14:45 Phosphorus 3.40 mg/dL (2.5-4.5) 10/08/17 06:39 Magnesium 2.10 mg/dL (1.7-2.3) 10/08/17 06:39 Total Bilirubin 0.70 mg/dL (0.1-1.2) 10/01/17 06:16 AST 15 units/L (5-40) 10/01/17 06:16 ALT 14 units/L (7-56) 10/01/17 06:16 Alkaline Phosphatase 86 units/L (35-129) 10/01/17 06:16 Total Creatine Kinase 348 units/L (55-170) H 09/29/17 14:58 Troponin T 0.057 ng/mL (0.00-0.029) H 10/02/17 17:56 NT-Pro-B Natriuret Pep 230.9 pg/mL (0-900) 09/29/17 18:37 Total Protein 6.0 g/dL (6.3-8.2) L 10/01/17 06:16 Albumin 3.4 g/dL (3.9-5) L 10/01/17 06:16 Albumin/Globulin Ratio 1.3 % 10/01/17 06:16 Prealbumin 0.110 g/L (0.200-0.400) L 10/09/17 Unknown Triglycerides 134 mg/dL (2-149) 09/29/17 12:54 Cholesterol 118 mg/dL (50-199) 09/29/17 12:54 LDL Cholesterol Direct 57 mg/dL (50-130) 09/29/17 12:54 HDL Cholesterol 41 mg/dL (40-59) 09/29/17 12:54 Cholesterol/HDL Ratio 2.87 % 09/29/17 12:54 Urine Color Yellow (Yellow) 10/05/17 01:00 Urine Turbidity Clear (Clear) 10/05/17 01:00 Urine pH 5.0 (5.0-7.0) 10/05/17 01:00 Ur Specific [place] 1.015 (1.003-1.030) 10/05/17 01:00 Urine Protein <15 mg/dl mg/dL (Negative) 10/05/17 01:00 Urine Glucose (UA) 150 mg/dL (Negative) 10/05/17 01:00 Urine Ketones Tr mg/dL (Negative) 10/05/17 01:00 Urine Blood Neg (Negative) 10/05/17 01:00 Urine Nitrite Neg (Negative) 10/05/17 01:00 Urine Bilirubin Neg (Negative) 10/05/17 01:00 Urine Urobilinogen < 2.0 mg/dL (<2.0) 10/05/17 01:00 Ur Leukocyte Esterase Neg (Negative) 10/05/17 01:00 Urine WBC (Auto) 3.0 /HPF (0.0-6.0) 10/05/17 01:00 Urine RBC (Auto) < 1.0 /HPF (0.0-6.0) 10/05/17 01:00 U Epithel Cells (Auto) < 1.0 /HPF (0-13.0) 10/05/17 01:00 Urine Bacteria (Auto) 1+ /HPF (Negative) 10/05/17 01:00 Amorphous Crystals 1+ 10/05/17 01:00 Hyaline Casts 8 /LPF 10/05/17 01:00 Urine Creatinine 99.4 mg/dL (0.1-20.0) H 10/05/17 01:00 Urine Sodium 10 mmol/L 10/05/17 01:00
[2017-10-16] MEDS: LOVENOX SUB-Q SCH (22:47)
[2017-10-17] MEDS: HumaLOG SUB-Q SCH ×4 (00:38→17:35)
[2017-10-17] MEDS: CARDIZEM PO SCH ×4 (00:39→17:35)
[2017-10-17 07:46] LABS: Hematocrit 29.5 % (35.5-45.6); Hemoglobin 10.2 gm/dl (11.8-15.2); Mean Corpuscular HGB Conc 35 % (32-34); Mean Corpuscular Hemoglobin 31 pg (28-32); Mean Corpuscular Volume 91 fl (84-94); Platelet Count 368 K/mm3 (140-440); Red Blood Count 3.23 M/mm3 (3.65-5.03); Red Cell Distribution Width 17.3 % (13.2-15.2)
[2017-10-17 08:08] LABS: BUN/Creatinine Ratio 10; Blood Urea Nitrogen 7 mg/dL (9-20); Hemolysis Index 2
[2017-10-17] MEDS: LANTUS SUB-Q SCH (08:29)
[2017-10-17] MEDS: NORCO 10/325 PO PRN (08:30)
--- NOTE | 2017-10-17 08:59 | Progress Note ---
Assessment and Plan Assessment and plan: Patient is a 72 yo man who is a resident at [facility] under 1013 for SI with h/o HTN, CVA, WA, CHF, COPD, CAMILLE on CPAP, Seizure Disorder, Depression, PTSD, Debility, nicotine Dependence, Recurrent Falls presents to ED for confusion and falling. He was admitted for suspected sepsis pneumonia, nstemi and right wrist fracture. * pCXR Impression: Bibasilar atelectasis. * CT lumbar spine wo IMPRESSION: 1. No acute compression deformity or apparent fracture in the lumbar spine. 2. Degenerative spondylosis. * XRay bilateral knee IMPRESSION: 1. No acute osseous abnormality. 2. Postsurgical changes in the right knee, and degenerative changes in the left knee. * Xray 3v right wrist IMPRESSION: 1. Probable nondisplaced fracture right distal ulna. * CT head Impression: No acute intracranial abnormality. * CT thoracic spine wo IMPRESSION: 1. No acute compression deformity or apparent fracture in the thoracic spine. Diffuse degenerative spondylosis. 2. Fractures in left ribs 9-12, probably acute or subacute. Correlate clinically. 3. Findings which may represent bibasilar atelectasis, mild infiltrates or postinflammatory change of uncertain etiology or chronicity. 4. Left adrenal nodule may represent adenomatous change, but is indeterminate. Followup may be warranted. -Suspect Sepsis from Aspiration Pneumonia, poa, treated with iv abx, ivf but developed fluid overload, so ivf stopped and lasix iv given. doing better, off bipap -s/p Fall with Multiple rib fractures/right wrist fracture: Conservative measures per Ortho -ARF (acute renal failure), vasomotor nephropathy poa, resolved. -Acute encephalopathy: treat the above issues -Acute on chronic diastolic heart failure, resolved -Afib with RVR, resolved -Depression, improved -no NSTEMI (non-ST elevated myocardial infarction), non specified elevation of troponin per Cardiology: stopped therapeutic lovenox -DVT prophylaxis: scd to ble, deep bruising and diffuse ecchymosis so hold vte due to fall risk Restraint renewed Normal LVEF 60-65% by echocardiogram. ortho, Dr. Lal==>Nondisplaced distal ulnar fracture, recommend conservative treatment with wrist brace and early ROM 10/02/17: Bilateral lung crackles today, pCXR looks like pulmonary edema but can' t exclude infiltrates (my reading), gave iv lasix 40mg iv x 1 carefully diuresis due to Aortic stenosis and ARF. ABG showed combined Acute Respiratory failure which patient has been on O2 since admission, so acute hypoxic respiratory poa. RN reported ABGs at 7.442/64/44/30.3 on O2. Bipap started by respiratory, I consulted and d/w Dr. Ng, pulmonology. Troponin level actually improved. Also, started on sq lantus 10units, carefully because he is not eating much. Lasix iv given today 10/03/17: doing better after another dose of iv lasix x 1, trying to wean off bipap, 10/04/17: bipap removed this am, new issue of hypernatremia, consulted document specialist and spoke with Dr. Gerard. He needs free water, will try to place NG tube because he spit water out at nurse. He remains very confused. D5W treatment is problematic as his blood glucose is very high. Hopefully he will allow ngt to be given for free water and nutrition, Restraints renewed. Day 09/16 of iv abx. Still tachycardiac, had afib with rvr on will call Cardiology 10/05/17: isolated afib, rate is improved thanks to Cardiology. Mental status improved as hypernatremia is improved. He is still confused. 10/06/17: still hallucinating, renal function is improving, blood glucose still uncontrolled, so lantus increased to 20 units daily. No 1013 in the chart. I have asked RN to enter [facility] into our EMR for reconciliation. 10/07/17: still confused. Last day of antibiotics, continue 1013 10/08/17: Less confused today. re-consulted psych for placement 10/15/17: resumed care, confusion has resolved, not in restraints anymore, awaiting SNF in [place]. Awaiting SNF placement. He would not answer [place] Dept of services representatives questions. History Interval history: Patient was seen and examined. Follow-up on current diagnosis of confusion which has resolved, no restraints. Overnight uneventful and doing better, bipap is off. Imaging, nursing note, chart, labs and old chart reviewed. More awake and alert Hospitalist Physical - Physical exam Narrative exam: GEN: unkempt, awake alert orientated x 3 HEENT: NCAT, EOMI, PERRL, OP Clear NECK: supple, no adenopathy, no thyromegaly, no JVD CVS/HEART: reg tachy, normal S1S2, pulses present bilaterally CHEST/LUNGS: bilateral crackles improved, Symmetrical chest expansion, good air entry bilaterally GI/Abdomen: soft, NTND, good bowel sounds, no guarding or rebound /Bladder: no suprapubic tenderness, no CVA or paraspinal tenderness EXT/Skin: black and blue all over, especially left upper bicep area with deformity MSK: FROM x 4 Neuro: CN 2-12 grossly intact, doesn't follow command Psych: calm - Constitutional Vitals: Temp Pulse Resp BP Pulse Ox 98.6 F 78 18 132/70 93 10/16/17 23:51 10/17/17 05:35 10/16/17 23:51 10/17/17 05:35 10/16/17 23:51 General appearance: Present: no acute distress, well-nourished Results - Labs CBC & Chem 7: 10/17/17 07:21 10/17/17 07:21 Labs: Laboratory Last Values WBC 5.4 K/mm3 (4.5-11.0) 10/17/17 07:21 RBC 3.23 M/mm3 (3.65-5.03) L 10/17/17 07:21 Hgb 10.2 gm/dl (11.8-15.2) L 10/17/17 07:21 Hct 29.5 % (35.5-45.6) L 10/17/17 07:21 MCV 91 fl (84-94) 10/17/17 07:21 MCH 31 pg (28-32) 10/17/17 07:21 MCHC 35 % (32-34) H 10/17/17 07:21 RDW 17.3 % (13.2-15.2) H 10/17/17 07:21 Plt Count 368 K/mm3 (140-440) 10/17/17 07:21 Lymph % (Auto) 6.0 % (13.4-35.0) L 09/29/17 12:54 Cla[place]orne % (Auto) 10.8 % (0.0-7.3) H 09/29/17 12:54 Eos % (Auto) 0.8 % (0.0-4.3) 09/29/17 12:54 Baso % (Auto) 0.4 % (0.0-1.8) 09/29/17 12:54 Lymph # 0.7 K/mm3 (1.2-5.4) L 09/29/17 12:54 Cla[place]orne # 1.3 K/mm3 (0.0-0.8) H 09/29/17 12:54 Eos # 0.1 K/mm3 (0.0-0.4) 09/29/17 12:54 Baso # 0.1 K/mm3 (0.0-0.1) 09/29/17 12:54 Add Manual Diff Complete 10/12/17 14:45 Total Counted 100 10/12/17 14:45 Seg Neutrophils % 82.0 % (40.0-70.0) H 09/29/17 12:54 Seg Neuts % (Manual) 61.0 % (40.0-70.0) 10/12/17 14:45 Band Neutrophils % 6.0 % 10/12/17 14:45 Lymphocytes % (Manual) 24.0 % (13.4-35.0) 10/12/17 14:45 Reactive Lymphs % (Man) 0 % 10/12/17 14:45 Monocytes % (Manual) 6.0 % (0.0-7.3) 10/12/17 14:45 Eosinophils % (Manual) 1.0 % (0.0-4.3) 10/12/17 14:45 Basophils % (Manual) 0 % (0.0-1.8) 10/12/17 14:45 Metamyelocytes % 0 % 10/12/17 14:45 Myelocytes % 2.0 % 10/12/17 14:45 Promyelocytes % 0 % 10/12/17 14:45 Blast Cells % 0 % 10/12/17 14:45 Nucleated RBC % Not Reportable 10/12/17 14:45 Seg Neutrophils # 10.1 K/mm3 (1.8-7.7) H 09/29/17 12:54 Seg Neutrophils # Man 3.3 K/mm3 (1.8-7.7) 10/12/17 14:45 Band Neutrophils # 0.3 K/mm3 10/12/17 14:45 Lymphocytes # (Manual) 1.3 K/mm3 (1.2-5.4) 10/12/17 14:45 Abs React Lymphs (Man) 0.0 K/mm3 10/12/17 14:45 Monocytes # (Manual) 0.3 K/mm3 (0.0-0.8) 10/12/17 14:45 Eosinophils # (Manual) 0.1 K/mm3 (0.0-0.4) 10/12/17 14:45 Basophils # (Manual) 0.0 K/mm3 (0.0-0.1) 10/12/17 14:45 Metamyelocytes # 0.0 K/mm3 10/12/17 14:45 Myelocytes # 0.1 K/mm3 10/12/17 14:45 Promyelocytes # 0.0 K/mm3 10/12/17 14:45 Blast Cells # 0.0 K/mm3 10/12/17 14:45 WBC Morphology Not Reportable 10/12/17 14:45 Hypersegmented Neuts Not Reportable 10/12/17 14:45 Hyposegmented Neuts Not Reportable 10/12/17 14:45 Hypogranular Neuts Not Reportable 10/12/17 14:45 Smudge Cells Not Reportable 10/12/17 14:45 Toxic Granulation Not Reportable 10/12/17 14:45 Toxic Vacuolation Not Reportable 10/12/17 14:45 Dohle Bodies Not Reportable 10/12/17 14:45 Pelger-Huet Anomaly Not Reportable 10/12/17 14:45 Albertina Rods Not Reportable 10/12/17 14:45 Platelet Estimate Consistent w auto 10/12/17 14:45 Clumped Platelets Not Reportable 10/12/17 14:45 Plt Clumps, EDTA Not Reportable 10/12/17 14:45 Large Platelets Not Reportable 10/12/17 14:45 Giant Platelets Not Reportable 10/12/17 14:45 Platelet Satelliting Not Reportable 10/12/17 14:45 Plt Morphology Comment Not Reportable 10/12/17 14:45 RBC Morphology Not Reportable 10/12/17 14:45 Dimorphic RBCs Not Reportable 10/12/17 14:45 Polychromasia Not Reportable 10/12/17 14:45 Hypochromasia 1+ 10/12/17 14:45 Poikilocytosis Not Reportable 10/12/17 14:45 Anisocytosis 1+ 10/12/17 14:45 Microcytosis Not Reportable 10/12/17 14:45 Macrocytosis Not Reportable 10/12/17 14:45 Spherocytes Not Reportable 10/12/17 14:45 Pappenheimer Bodies Not Reportable 10/12/17 14:45 Sickle Cells Not Reportable 10/12/17 14:45 Target Cells Not Reportable 10/12/17 14:45 Tear Drop Cells Not Reportable 10/12/17 14:45 Ovalocytes 1+ 10/12/17 14:45 Stomatocytes 1+ 10/12/17 14:45 Helmet Cells Not Reportable 10/12/17 14:45 Garcia-Blairsden Bodies Not Reportable 10/12/17 14:45 Lockwood Rings Not Reportable 10/12/17 14:45 Hammond Cells Not Reportable 10/12/17 14:45 Bite Cells Not Reportable 10/12/17 14:45 Crenated Cell Not Reportable 10/12/17 14:45 Elliptocytes Not Reportable 10/12/17 14:45 Acanthocytes (Spur) Not Reportable 10/12/17 14:45 Rouleaux Not Reportable 10/12/17 14:45 Hemoglobin C Crystals Not Reportable 10/12/17 14:45 Schistocytes Not Reportable 10/12/17 14:45 Malaria parasites Not Reportable 10/12/17 14:45 Brandon Bodies Not Reportable 10/12/17 14:45 Hem Pathologist Commnt No 10/12/17 14:45 PT 14.1 Sec. (12.2-14.9) 10/01/17 06:31 INR 1.04 (0.87-1.13) 10/01/17 06:31 APTT 35.4 Sec. (24.2-36.6) 10/01/17 06:31 D-Dimer 2801.11 ng/mlDDU (0-234) H 09/29/17 19:19 POC ABG pH 7.415 (7.35-7.45) 10/02/17 20:23 POC ABG pCO2 42.1 (35-45) 10/02/17 20:23 POC ABG pO2 77 (80-105) L 10/02/17 20:23 POC ABG HCO3 27.0 10/02/17 20:23 POC ABG Total CO2 28 10/02/17 20:23 POC ABG O2 Sat 95 10/02/17 20:23 POC ABG Base Excess 2 10/02/17 20:23 FiO2 65 % 10/02/17 20:23 Sodium 145 mmol/L (137-145) D 10/17/17 07:21 Potassium 3.9 mmol/L (3.6-5.0) 10/17/17 07:21 Chloride 104.6 mmol/L (98-107) 10/17/17 07:21 Carbon Dioxide 31 mmol/L (22-30) H 10/17/17 07:21 Anion Gap 13 mmol/L 10/17/17 07:21 BUN 7 mg/dL (9-20) L 10/17/17 07:21 Creatinine 0.7 mg/dL (0.8-1.5) L 10/17/17 07:21 Estimated GFR > 60 ml/min 10/17/17 07:21 BUN/Creatinine Ratio 10 % 10/17/17 07:21 Glucose 149 mg/dL (75-100) H 10/17/17 07:21 POC Glucose 163 (70-105) H 10/17/17 06:28 Lactic Acid 1.80 mmol/L (0.7-2.0) 09/30/17 02:38 Calcium 8.0 mg/dL (8.4-10.2) L 10/17/17 07:21 Phosphorus 3.40 mg/dL (2.5-4.5) 10/08/17 06:39 Magnesium 2.10 mg/dL (1.7-2.3) 10/08/17 06:39 Total Bilirubin 0.70 mg/dL (0.1-1.2) 10/01/17 06:16 AST 15 units/L (5-40) 10/01/17 06:16 ALT 14 units/L (7-56) 10/01/17 06:16 Alkaline Phosphatase 86 units/L (35-129) 10/01/17 06:16 Total Creatine Kinase 348 units/L (55-170) H 09/29/17 14:58 Troponin T 0.057 ng/mL (0.00-0.029) H 10/02/17 17:56 NT-Pro-B Natriuret Pep 230.9 pg/mL (0-900) 09/29/17 18:37 Total Protein 6.0 g/dL (6.3-8.2) L 10/01/17 06:16 Albumin 3.4 g/dL (3.9-5) L 10/01/17 06:16 Albumin/Globulin Ratio 1.3 % 10/01/17 06:16 Prealbumin 0.110 g/L (0.200-0.400) L 10/09/17 Unknown Triglycerides 134 mg/dL (2-149) 09/29/17 12:54 Cholesterol 118 mg/dL (50-199) 09/29/17 12:54 LDL Cholesterol Direct 57 mg/dL (50-130) 09/29/17 12:54 HDL Cholesterol 41 mg/dL (40-59) 09/29/17 12:54 Cholesterol/HDL Ratio 2.87 % 09/29/17 12:54 Urine Color Yellow (Yellow) 10/05/17 01:00 Urine Turbidity Clear (Clear) 10/05/17 01:00 Urine pH 5.0 (5.0-7.0) 10/05/17 01:00 Ur Specific Darrow 1.015 (1.003-1.030) 10/05/17 01:00 Urine Protein <15 mg/dl mg/dL (Negative) 10/05/17 01:00 Urine Glucose (UA) 150 mg/dL (Negative) 10/05/17 01:00 Urine Ketones Tr mg/dL (Negative) 10/05/17 01:00 Urine Blood Neg (Negative) 10/05/17 01:00 Urine Nitrite Neg (Negative) 10/05/17 01:00 Urine Bilirubin Neg (Negative) 10/05/17 01:00 Urine Urobilinogen < 2.0 mg/dL (<2.0) 10/05/17 01:00 Ur Leukocyte Esterase Neg (Negative) 10/05/17 01:00 Urine WBC (Auto) 3.0 /HPF (0.0-6.0) 10/05/17 01:00 Urine RBC (Auto) < 1.0 /HPF (0.0-6.0) 10/05/17 01:00 U Epithel Cells (Auto) < 1.0 /HPF (0-13.0) 10/05/17 01:00 Urine Bacteria (Auto) 1+ /HPF (Negative) 10/05/17 01:00 Amorphous Crystals 1+ 10/05/17 01:00 Hyaline Casts 8 /LPF 10/05/17 01:00 Urine Creatinine 99.4 mg/dL (0.1-20.0) H 10/05/17 01:00 Urine Sodium 10 mmol/L 10/05/17 01:00
[2017-10-17] MEDS: SODIUM CHLORIDE FLUSH SYRINGE 10 ML IV SCH ×2 (09:50→21:35)
[2017-10-17] MEDS: PEPCID PO SCH (09:50)
--- NOTE | 2017-10-17 14:52 | Progress Note ---
Assessment and Plan 72 y/o male with acute respiratory failure. no new recs for today 1. Patient refusing PPV at night. 2. Continue baseline oxygen therapy. 3. Stable for discharge when placement found from a pulmonary standpoint. Subjective Date of service: 10/17/17 Principal diagnosis: Sepsis Interval history: No acute events. Awaiting placement Objective Vital Signs - 12hr 10/17/17 10/17/17 10/17/17 05:35 08:06 10:00 Temperature 98.8 F Pulse Rate 78 81 Respiratory 20 Rate Blood Pressure 132/70 147/49 O2 Sat by Pulse 93 97 Oximetry Constitutional: no acute distress, other (far as sleep with snoring and occasional apneas) Eyes: non-icteric ENT: oropharynx moist Neck: supple, no JVD Effort: mildly labored Ascultation: Bilateral: clear, diminished breath sounds, rales (scattered) Cardiovascular: regular rate and rhythm Gastrointestinal: other (obese) Integumentary: other (upper extremities bruises) Extremities: no cyanosis, no edema, edema, other (left upper extremity hematoma. R lower extremity pretibial ulcer) Neurologic: normal mental status, non-focal exam CBC and BMP: 10/17/17 07:21 10/17/17 07:21 ABG, PT/INR, D-dimer: ABG POC ABG pH 7.415 (7.35-7.45) 10/02/17 20:23 POC ABG pCO2 42.1 (35-45) 10/02/17 20:23 POC ABG pO2 77 (80-105) L 10/02/17 20:23 POC ABG HCO3 27.0 10/02/17 20:23 POC ABG Total CO2 28 10/02/17 20:23 POC ABG O2 Sat 95 10/02/17 20:23 PT/INR, D-dimer PT 14.1 Sec. (12.2-14.9) 10/01/17 06:31 INR 1.04 (0.87-1.13) 10/01/17 06:31 D-Dimer 2801.11 ng/mlDDU (0-234) H 09/29/17 19:19 Abnormal lab findings: Abnormal Labs 09/29/17 09/29/17 09/29/17 12:54 12:54 14:58 WBC 12.4 H RBC Hgb 11.7 L Hct 33.5 L MCHC 35 H RDW 15.4 H Lymph % (Auto) 6.0 L [place] % (Auto) 10.8 H Lymph # 0.7 L [place] # 1.3 H Seg Neutrophils % 82.0 H Seg Neuts % (Manual) Lymphocytes % (Manual) Seg Neutrophils # 10.1 H Seg Neutrophils # Man Lymphocytes # (Manual) D-Dimer POC ABG pO2 Sodium 133 L Potassium Chloride 90.9 L Carbon Dioxide BUN 70 H Creatinine 2.0 H Glucose 336 H POC Glucose Calcium Magnesium Total Creatine Kinase 348 H Troponin T 0.071 H 0.073 H Total Protein Albumin Prealbumin Urine Creatinine 09/29/17 09/29/17 09/29/17 18:11 18:37 19:19 WBC RBC Hgb Hct MCHC RDW Lymph % (Auto) [place] % (Auto) Lymph # [place] # Seg Neutrophils % Seg Neuts % (Manual) Lymphocytes % (Manual) Seg Neutrophils # Seg Neutrophils # Man Lymphocytes # (Manual) D-Dimer 2801.11 H POC ABG pO2 Sodium Potassium Chloride Carbon Dioxide BUN Creatinine Glucose POC Glucose Calcium Magnesium Total Creatine Kinase Troponin T 0.073 H 0.074 H Total Protein Albumin Prealbumin Urine Creatinine 09/29/17 09/29/17 09/30/17 22:22 23:00 02:38 WBC RBC Hgb Hct MCHC RDW Lymph % (Auto) [place] % (Auto) Lymph # [place] # Seg Neutrophils % Seg Neuts % (Manual) Lymphocytes % (Manual) Seg Neutrophils # Seg Neutrophils # Man Lymphocytes # (Manual) D-Dimer POC ABG pO2 Sodium Potassium Chloride Carbon Dioxide BUN Creatinine Glucose POC Glucose 389 H Calcium Magnesium Total Creatine Kinase Troponin T 0.058 H D 0.064 H Total Protein Albumin Prealbumin Urine Creatinine 09/30/17 09/30/17 09/30/17 12:07 16:24 21:25 WBC RBC Hgb Hct MCHC RDW Lymph % (Auto) [place] % (Auto) Lymph # [place] # Seg Neutrophils % Seg Neuts % (Manual) Lymphocytes % (Manual) Seg Neutrophils # Seg Neutrophils # Man Lymphocytes # (Manual) D-Dimer POC ABG pO2 Sodium Potassium Chloride Carbon Dioxide BUN Creatinine Glucose POC Glucose 387 H 431 H 326 H Calcium Magnesium Total Creatine Kinase Troponin T Total Protein Albumin Prealbumin Urine Creatinine 10/01/17 10/01/17 10/01/17 06:16 06:16 06:30 WBC 14.0 H RBC Hgb Hct 34.3 L MCHC RDW Lymph % (Auto) [place] % (Auto) Lymph # [place] # Seg Neutrophils % Seg Neuts % (Manual) 87.0 H Lymphocytes % (Manual) 7.0 L Seg Neutrophils # Seg Neutrophils # Man 12.2 H Lymphocytes # (Manual) 1.0 L D-Dimer POC ABG pO2 Sodium Potassium 3.4 L Chloride 94.7 L Carbon Dioxide BUN 62 H Creatinine Glucose 432 H POC Glucose 419 H Calcium Magnesium Total Creatine Kinase Troponin T Total Protein 6.0 L Albumin 3.4 L Prealbumin Urine Creatinine 10/01/17 10/01/17 10/02/17 11:25 15:39 07:39 WBC RBC Hgb Hct MCHC RDW Lymph % (Auto) [place] % (Auto) Lymph # [place] # Seg Neutrophils % Seg Neuts % (Manual) Lymphocytes % (Manual) Seg Neutrophils # Seg Neutrophils # Man Lymphocytes # (Manual) D-Dimer POC ABG pO2 Sodium Potassium Chloride Carbon Dioxide BUN Creatinine Glucose POC Glucose 456 H 472 H 429 H Calcium Magnesium Total Creatine Kinase Troponin T Total Protein Albumin Prealbumin Urine Creatinine 10/02/17 10/02/17 10/02/17 11:03 11:03 11:03 WBC 14.9 H RBC Hgb Hct MCHC RDW 15.4 H Lymph % (Auto) [place] % (Auto) Lymph # [place] # Seg Neutrophils % Seg Neuts % (Manual) Lymphocytes % (Manual) Seg Neutrophils # Seg Neutrophils # Man Lymphocytes # (Manual) D-Dimer POC ABG pO2 Sodium 154 H D Potassium 3.5 L Chloride Carbon Dioxide BUN 66 H Creatinine Glucose 432 H POC Glucose Calcium Magnesium Total Creatine Kinase Troponin T 0.059 H Total Protein Albumin Prealbumin Urine Creatinine 10/02/17 10/02/17 10/02/17 13:00 14:48 14:57 WBC RBC Hgb Hct MCHC RDW Lymph % (Auto) [place] % (Auto) Lymph # [place] # Seg Neutrophils % Seg Neuts % (Manual) Lymphocytes % (Manual) Seg Neutrophils # Seg Neutrophils # Man Lymphocytes # (Manual) D-Dimer POC ABG pO2 64 L Sodium Potassium Chloride Carbon Dioxide BUN Creatinine Glucose POC Glucose 476 H 448 H Calcium Magnesium Total Creatine Kinase Troponin T Total Protein Albumin Prealbumin Urine Creatinine 0510/02/17 10/02/17 17:56 18:19 20:23 WBC RBC Hgb Hct MCHC RDW Lymph % (Auto) [place] % (Auto) Lymph # [place] # Seg Neutrophils % Seg Neuts % (Manual) Lymphocytes % (Manual) Seg Neutrophils # Seg Neutrophils # Man Lymphocytes # (Manual) D-Dimer POC ABG pO2 77 L Sodium Potassium Chloride Carbon Dioxide BUN Creatinine Glucose POC Glucose > 500 H Calcium Magnesium Total Creatine Kinase Troponin T 0.057 H Total Protein Albumin Prealbumin Urine Creatinine 10/02/17 10/03/17 10/03/17 23:41 05:44 05:44 WBC 14.8 H RBC 3.41 L Hgb 10.4 L Hct 31.8 L MCHC RDW 15.4 H Lymph % (Auto) [place] % (Auto) Lymph # [place] # Seg Neutrophils % Seg Neuts % (Manual) Lymphocytes % (Manual) Seg Neutrophils # Seg Neutrophils # Man Lymphocytes # (Manual) D-Dimer POC ABG pO2 Sodium 155 H Potassium 3.4 L Chloride 110.8 H Carbon Dioxide 32 H BUN 81 H Creatinine 1.6 H Glucose 403 H POC Glucose 447 H Calcium Magnesium 2.60 H Total Creatine Kinase Troponin T Total Protein Albumin Prealbumin Urine Creatinine 10/03/17 10/03/17 10/04/17 06:32 12:33 00:14 WBC RBC Hgb Hct MCHC RDW Lymph % (Auto) [place] % (Auto) Lymph # [place] # Seg Neutrophils % Seg Neuts % (Manual) Lymphocytes % (Manual) Seg Neutrophils # Seg Neutrophils # Man Lymphocytes # (Manual) D-Dimer POC ABG pO2 Sodium Potassium Chloride Carbon Dioxide BUN Creatinine Glucose POC Glucose 394 H 449 H > 500 H Calcium Magnesium Total Creatine Kinase Troponin T Total Protein Albumin Prealbumin Urine Creatinine 10/04/17 10/04/17 10/04/17 00:32 06:09 06:19 WBC 13.5 H RBC 3.38 L Hgb 10.5 L Hct 31.4 L MCHC RDW 15.6 H Lymph % (Auto) [place] % (Auto) Lymph # [place] # Seg Neutrophils % Seg Neuts % (Manual) Lymphocytes % (Manual) Seg Neutrophils # Seg Neutrophils # Man Lymphocytes # (Manual) D-Dimer POC ABG pO2 Sodium Potassium Chloride Carbon Dioxide BUN Creatinine Glucose 623 H* POC Glucose 383 H Calcium Magnesium Total Creatine Kinase Troponin T Total Protein Albumin Prealbumin Urine Creatinine 10/04/17 10/04/17 10/04/17 06:19 11:51 16:06 WBC RBC Hgb Hct MCHC RDW Lymph % (Auto) [place] % (Auto) Lymph # [place] # Seg Neutrophils % Seg Neuts % (Manual) Lymphocytes % (Manual) Seg Neutrophils # Seg Neutrophils # Man Lymphocytes # (Manual) D-Dimer POC ABG pO2 Sodium 163 H* D Potassium Chloride 114.2 H Carbon Dioxide 34 H BUN 83 H Creatinine 1.7 H Glucose 389 H POC Glucose 340 H 341 H Calcium Magnesium Total Creatine Kinase Troponin T Total Protein Albumin Prealbumin Urine Creatinine 10/04/17 10/04/17 10/05/17 17:34 23:00 01:00 WBC RBC Hgb Hct MCHC RDW Lymph % (Auto) [place] % (Auto) Lymph # [place] # Seg Neutrophils % Seg Neuts % (Manual) Lymphocytes % (Manual) Seg Neutrophils # Seg Neutrophils # Man Lymphocytes # (Manual) D-Dimer POC ABG pO2 Sodium 155 H Potassium 3.4 L Chloride 107.4 H Carbon Dioxide 33 H BUN 82 H Creatinine 1.8 H Glucose 348 H POC Glucose 461 H Calcium Magnesium Total Creatine Kinase Troponin T Total Protein Albumin Prealbumin Urine Creatinine 99.4 H 10/05/17 10/05/17 10/05/17 05:25 05:39 06:11 WBC 14.1 H RBC 3.03 L Hgb 9.6 L Hct 28.0 L MCHC RDW 15.8 H Lymph % (Auto) [place] % (Auto) Lymph # [place] # Seg Neutrophils % Seg Neuts % (Manual) Lymphocytes % (Manual) Seg Neutrophils # Seg Neutrophils # Man Lymphocytes # (Manual) D-Dimer POC ABG pO2 Sodium 149 H Potassium Chloride Carbon Dioxide 33 H BUN 81 H Creatinine 1.7 H Glucose 365 H POC Glucose 397 H Calcium Magnesium 2.40 H Total Creatine Kinase Troponin T Total Protein Albumin Prealbumin Urine Creatinine 10/05/17 10/05/17 10/05/17 12:16 16:22 21:06 WBC RBC Hgb Hct MCHC RDW Lymph % (Auto) [place] % (Auto) Lymph # [place] # Seg Neutrophils % Seg Neuts % (Manual) Lymphocytes % (Manual) Seg Neutrophils # Seg Neutrophils # Man Lymphocytes # (Manual) D-Dimer POC ABG pO2 Sodium Potassium Chloride Carbon Dioxide BUN Creatinine Glucose POC Glucose 400 H 395 H 265 H Calcium Magnesium Total Creatine Kinase Troponin T Total Protein Albumin Prealbumin Urine Creatinine 10/06/17 10/06/17 10/06/17 06:43 06:50 11:29 WBC RBC Hgb Hct MCHC RDW Lymph % (Auto) [place] % (Auto) Lymph # [place] # Seg Neutrophils % Seg Neuts % (Manual) Lymphocytes % (Manual) Seg Neutrophils # Seg Neutrophils # Man Lymphocytes # (Manual) D-Dimer POC ABG pO2 Sodium 156 H Potassium Chloride 115.0 H Carbon Dioxide 32 H BUN 62 H Creatinine Glucose 308 H POC Glucose 330 H 396 H Calcium Magnesium Total Creatine Kinase Troponin T Total Protein Albumin Prealbumin Urine Creatinine 10/06/17 10/07/17 10/07/17 16:24 00:46 07:18 WBC RBC Hgb Hct MCHC RDW Lymph % (Auto) [place] % (Auto) Lymph # [place] # Seg Neutrophils % Seg Neuts % (Manual) Lymphocytes % (Manual) Seg Neutrophils # Seg Neutrophils # Man Lymphocytes # (Manual) D-Dimer POC ABG pO2 Sodium 149 H Potassium Chloride Carbon Dioxide 32 H BUN 43 H Creatinine Glucose 289 H POC Glucose 417 H 295 H Calcium Magnesium Total Creatine Kinase Troponin T Total Protein Albumin Prealbumin Urine Creatinine 10/07/17 10/07/17 10/07/17 08:16 12:38 13:08 WBC RBC Hgb Hct MCHC RDW Lymph % (Auto) [place] % (Auto) Lymph # [place] # Seg Neutrophils % Seg Neuts % (Manual) Lymphocytes % (Manual) Seg Neutrophils # Seg Neutrophils # Man Lymphocytes # (Manual) D-Dimer POC ABG pO2 Sodium Potassium Chloride Carbon Dioxide BUN Creatinine Glucose POC Glucose 348 H 256 H 365 H Calcium Magnesium Total Creatine Kinase Troponin T Total Protein Albumin Prealbumin Urine Creatinine 10/07/17 10/07/17 10/08/17 16:35 22:34 06:39 WBC RBC Hgb Hct MCHC RDW Lymph % (Auto) [place] % (Auto) Lymph # [place] # Seg Neutrophils % Seg Neuts % (Manual) Lymphocytes % (Manual) Seg Neutrophils # Seg Neutrophils # Man Lymphocytes # (Manual) D-Dimer POC ABG pO2 Sodium 151 H Potassium Chloride 107.4 H Carbon Dioxide 32 H BUN 31 H Creatinine Glucose 246 H POC Glucose 234 H 200 H Calcium Magnesium Total Creatine Kinase Troponin T Total Protein Albumin Prealbumin Urine Creatinine 10/08/17 10/08/17 10/08/17 08:06 12:56 17:16 WBC RBC Hgb Hct MCHC RDW Lymph % (Auto) [place] % (Auto) Lymph # [place] # Seg Neutrophils % Seg Neuts % (Manual) Lymphocytes % (Manual) Seg Neutrophils # Seg Neutrophils # Man Lymphocytes # (Manual) D-Dimer POC ABG pO2 Sodium Potassium Chloride Carbon Dioxide BUN Creatinine Glucose POC Glucose 273 H 255 H 273 H Calcium Magnesium Total Creatine Kinase Troponin T Total Protein Albumin Prealbumin Urine Creatinine 10/08/17 10/09/17 10/09/17 22:11 05:50 06:42 WBC RBC Hgb Hct MCHC RDW Lymph % (Auto) [place] % (Auto) Lymph # [place] # Seg Neutrophils % Seg Neuts % (Manual) Lymphocytes % (Manual) Seg Neutrophils # Seg Neutrophils # Man Lymphocytes # (Manual) D-Dimer POC ABG pO2 Sodium Potassium Chloride Carbon Dioxide BUN Creatinine Glucose POC Glucose 202 H 167 H 210 H Calcium Magnesium Total Creatine Kinase Troponin T Total Protein Albumin Prealbumin Urine Creatinine 10/09/17 10/09/17 10/09/17 11:39 16:52 22:07 WBC RBC Hgb Hct MCHC RDW Lymph % (Auto) [place] % (Auto) Lymph # [place] # Seg Neutrophils % Seg Neuts % (Manual) Lymphocytes % (Manual) Seg Neutrophils # Seg Neutrophils # Man Lymphocytes # (Manual) D-Dimer POC ABG pO2 Sodium Potassium Chloride Carbon Dioxide BUN Creatinine Glucose POC Glucose 304 H 304 H 314 H Calcium Magnesium Total Creatine Kinase Troponin T Total Protein Albumin Prealbumin Urine Creatinine 10/09/17 10/10/17 10/10/17 Unknown 04:28 05:58 WBC RBC Hgb Hct MCHC RDW Lymph % (Auto) [place] % (Auto) Lymph # [place] # Seg Neutrophils % Seg Neuts % (Manual) Lymphocytes % (Manual) Seg Neutrophils # Seg Neutrophils # Man Lymphocytes # (Manual) D-Dimer POC ABG pO2 Sodium 147 H Potassium Chloride Carbon Dioxide 33 H 33 H BUN 22 H Creatinine Glucose 207 H 193 H POC Glucose 194 H Calcium Magnesium Total Creatine Kinase Troponin T Total Protein Albumin Prealbumin 0.110 L Urine Creatinine 10/10/17 10/10/17 10/10/17 11:13 12:15 16:26 WBC RBC Hgb Hct MCHC RDW Lymph % (Auto) [place] % (Auto) Lymph # [place] # Seg Neutrophils % Seg Neuts % (Manual) Lymphocytes % (Manual) Seg Neutrophils # Seg Neutrophils # Man Lymphocytes # (Manual) D-Dimer POC ABG pO2 Sodium Potassium Chloride Carbon Dioxide BUN Creatinine Glucose POC Glucose 240 H 265 H 246 H Calcium Magnesium Total Creatine Kinase Troponin T Total Protein Albumin Prealbumin Urine Creatinine 10/10/17 10/11/17 10/11/17 22:09 06:05 06:43 WBC RBC Hgb Hct MCHC RDW Lymph % (Auto) [place] % (Auto) Lymph # [place] # Seg Neutrophils % Seg Neuts % (Manual) Lymphocytes % (Manual) Seg Neutrophils # Seg Neutrophils # Man Lymphocytes # (Manual) D-Dimer POC ABG pO2 Sodium Potassium Chloride Carbon Dioxide BUN Creatinine Glucose 209 H POC Glucose 261 H 180 H Calcium 8.1 L Magnesium Total Creatine Kinase Troponin T Total Protein Albumin Prealbumin Urine Creatinine 10/11/17 10/11/17 10/11/17 12:06 13:32 18:01 WBC RBC Hgb Hct MCHC RDW Lymph % (Auto) [place] % (Auto) Lymph # [place] # Seg Neutrophils % Seg Neuts % (Manual) Lymphocytes % (Manual) Seg Neutrophils # Seg Neutrophils # Man Lymphocytes # (Manual) D-Dimer POC ABG pO2 Sodium Potassium Chloride Carbon Dioxide BUN Creatinine Glucose POC Glucose 274 H 293 H 297 H Calcium Magnesium Total Creatine Kinase Troponin T Total Protein Albumin Prealbumin Urine Creatinine 10/12/17 10/12/17 10/12/17 05:34 11:13 14:45 WBC RBC Hgb Hct MCHC RDW Lymph % (Auto) [place] % (Auto) Lymph # [place] # Seg Neutrophils % Seg Neuts % (Manual) Lymphocytes % (Manual) Seg Neutrophils # Seg Neutrophils # Man Lymphocytes # (Manual) D-Dimer POC ABG pO2 Sodium Potassium Chloride 93.0 L Carbon Dioxide 33 H BUN Creatinine 0.7 L Glucose 222 H POC Glucose 154 H 196 H Calcium 8.3 L Magnesium Total Creatine Kinase Troponin T Total Protein Albumin Prealbumin Urine Creatinine 10/12/17 10/12/17 10/12/17 14:45 17:04 23:30 WBC RBC 2.90 L Hgb 9.1 L Hct 27.0 L MCHC RDW 16.4 H Lymph % (Auto) [place] % (Auto) Lymph # [place] # Seg Neutrophils % Seg Neuts % (Manual) Lymphocytes % (Manual) Seg Neutrophils # Seg Neutrophils # Man Lymphocytes # (Manual) D-Dimer POC ABG pO2 Sodium Potassium Chloride Carbon Dioxide BUN Creatinine Glucose POC Glucose 185 H 241 H Calcium Magnesium Total Creatine Kinase Troponin T Total Protein Albumin Prealbumin Urine Creatinine 10/13/17 10/13/17 10/13/17 06:04 13:25 16:17 WBC RBC Hgb Hct MCHC RDW Lymph % (Auto) [place] % (Auto) Lymph # [place] # Seg Neutrophils % Seg Neuts % (Manual) Lymphocytes % (Manual) Seg Neutrophils # Seg Neutrophils # Man Lymphocytes # (Manual) D-Dimer POC ABG pO2 Sodium Potassium Chloride Carbon Dioxide BUN Creatinine Glucose POC Glucose 192 H 213 H 198 H Calcium Magnesium Total Creatine Kinase Troponin T Total Protein Albumin Prealbumin Urine Creatinine 10/14/17 10/14/17 10/14/17 00:23 05:58 11:53 WBC RBC Hgb Hct MCHC RDW Lymph % (Auto) [place] % (Auto) Lymph # [place] # Seg Neutrophils % Seg Neuts % (Manual) Lymphocytes % (Manual) Seg Neutrophils # Seg Neutrophils # Man Lymphocytes # (Manual) D-Dimer POC ABG pO2 Sodium Potassium Chloride Carbon Dioxide BUN Creatinine Glucose POC Glucose 170 H 155 H 161 H Calcium Magnesium Total Creatine Kinase Troponin T Total Protein Albumin Prealbumin Urine Creatinine 10/14/17 10/14/17 10/15/17 15:46 21:43 05:53 WBC RBC Hgb Hct MCHC RDW Lymph % (Auto) [place] % (Auto) Lymph # [place] # Seg Neutrophils % Seg Neuts % (Manual) Lymphocytes % (Manual) Seg Neutrophils # Seg Neutrophils # Man Lymphocytes # (Manual) D-Dimer POC ABG pO2 Sodium Potassium Chloride Carbon Dioxide BUN Creatinine Glucose POC Glucose 239 H 262 H 142 H Calcium Magnesium Total Creatine Kinase Troponin T Total Protein Albumin Prealbumin Urine Creatinine 10/15/17 10/15/17 10/15/17 12:02 16:46 21:52 WBC RBC Hgb Hct MCHC RDW Lymph % (Auto) [place] % (Auto) Lymph # [place] # Seg Neutrophils % Seg Neuts % (Manual) Lymphocytes % (Manual) Seg Neutrophils # Seg Neutrophils # Man Lymphocytes # (Manual) D-Dimer POC ABG pO2 Sodium Potassium Chloride Carbon Dioxide BUN Creatinine Glucose POC Glucose 243 H 235 H 199 H Calcium Magnesium Total Creatine Kinase Troponin T Total Protein Albumin Prealbumin Urine Creatinine 10/16/17 10/16/17 10/16/17 06:31 13:47 16:45 WBC RBC Hgb Hct MCHC RDW Lymph % (Auto) [place] % (Auto) Lymph # [place] # Seg Neutrophils % Seg Neuts % (Manual) Lymphocytes % (Manual) Seg Neutrophils # Seg Neutrophils # Man Lymphocytes # (Manual) D-Dimer POC ABG pO2 Sodium Potassium Chloride Carbon Dioxide BUN Creatinine Glucose POC Glucose 153 H 219 H 174 H Calcium Magnesium Total Creatine Kinase Troponin T Total Protein Albumin Prealbumin Urine Creatinine 10/17/17 10/17/17 10/17/17 00:16 06:28 07:21 WBC RBC 3.23 L Hgb 10.2 L Hct 29.5 L MCHC 35 H RDW 17.3 H Lymph % (Auto) [place] % (Auto) Lymph # [place] # Seg Neutrophils % Seg Neuts % (Manual) Lymphocytes % (Manual) Seg Neutrophils # Seg Neutrophils # Man Lymphocytes # (Manual) D-Dimer POC ABG pO2 Sodium Potassium Chloride Carbon Dioxide BUN Creatinine Glucose POC Glucose 182 H 163 H Calcium Magnesium Total Creatine Kinase Troponin T Total Protein Albumin Prealbumin Urine Creatinine 10/17/17 10/17/17 07:21 11:11 WBC RBC Hgb Hct MCHC RDW Lymph % (Auto) [place] % (Auto) Lymph # [place] # Seg Neutrophils % Seg Neuts % (Manual) Lymphocytes % (Manual) Seg Neutrophils # Seg Neutrophils # Man Lymphocytes # (Manual) D-Dimer POC ABG pO2 Sodium Potassium Chloride Carbon Dioxide 31 H BUN 7 L Creatinine 0.7 L Glucose 149 H POC Glucose 211 H Calcium 8.0 L Magnesium Total Creatine Kinase Troponin T Total Protein Albumin Prealbumin Urine Creatinine
[2017-10-17] MEDS: LOVENOX SUB-Q SCH (21:35)
[2017-10-18] MEDS: CARDIZEM PO SCH ×5 (00:36→23:40)
[2017-10-18] MEDS: HumaLOG SUB-Q SCH ×4 (00:36→18:23)
--- NOTE | 2017-10-18 11:11 | Progress Note ---
Assessment and Plan 72 y/o male with acute respiratory failure. no new recs for today 1. Patient refusing PPV at night. 2. Continue baseline oxygen therapy. 3. Stable for discharge when placement found from a pulmonary standpoint. Subjective Date of service: 10/18/17 Principal diagnosis: Sepsis Interval history: No acute events. Still awaiting placement. Objective Vital Signs - 12hr 10/18/17 10/18/17 10/18/17 00:36 06:07 08:04 Temperature 98.4 F Pulse Rate 78 76 79 Respiratory 19 Rate Blood Pressure 124/76 122/68 152/43 O2 Sat by Pulse 93 Oximetry Constitutional: no acute distress, other (far as sleep with snoring and occasional apneas) Eyes: non-icteric ENT: oropharynx moist Neck: supple, no JVD Effort: mildly labored Ascultation: Bilateral: clear, diminished breath sounds, rales (scattered) Cardiovascular: regular rate and rhythm Gastrointestinal: other (obese) Integumentary: other (upper extremities bruises) Extremities: no cyanosis, no edema, edema, other (left upper extremity hematoma. R lower extremity pretibial ulcer) Neurologic: normal mental status, non-focal exam CBC and BMP: 10/17/17 07:21 10/17/17 07:21 ABG, PT/INR, D-dimer: ABG POC ABG pH 7.415 (7.35-7.45) 10/02/17 20:23 POC ABG pCO2 42.1 (35-45) 10/02/17 20:23 POC ABG pO2 77 (80-105) L 10/02/17 20:23 POC ABG HCO3 27.0 10/02/17 20:23 POC ABG Total CO2 28 10/02/17 20:23 POC ABG O2 Sat 95 10/02/17 20:23 PT/INR, D-dimer PT 14.1 Sec. (12.2-14.9) 10/01/17 06:31 INR 1.04 (0.87-1.13) 10/01/17 06:31 D-Dimer 2801.11 ng/mlDDU (0-234) H 09/29/17 19:19 Abnormal lab findings: Abnormal Labs 09/29/17 09/29/17 09/29/17 12:54 12:54 14:58 WBC 12.4 H RBC Hgb 11.7 L Hct 33.5 L MCHC 35 H RDW 15.4 H Lymph % (Auto) 6.0 L [place] % (Auto) 10.8 H Lymph # 0.7 L [place] # 1.3 H Seg Neutrophils % 82.0 H Seg Neuts % (Manual) Lymphocytes % (Manual) Seg Neutrophils # 10.1 H Seg Neutrophils # Man Lymphocytes # (Manual) D-Dimer POC ABG pO2 Sodium 133 L Potassium Chloride 90.9 L Carbon Dioxide BUN 70 H Creatinine 2.0 H Glucose 336 H POC Glucose Calcium Magnesium Total Creatine Kinase 348 H Troponin T 0.071 H 0.073 H Total Protein Albumin Prealbumin Urine Creatinine 09/29/17 09/29/17 09/29/17 18:11 18:37 19:19 WBC RBC Hgb Hct MCHC RDW Lymph % (Auto) [place] % (Auto) Lymph # [place] # Seg Neutrophils % Seg Neuts % (Manual) Lymphocytes % (Manual) Seg Neutrophils # Seg Neutrophils # Man Lymphocytes # (Manual) D-Dimer 2801.11 H POC ABG pO2 Sodium Potassium Chloride Carbon Dioxide BUN Creatinine Glucose POC Glucose Calcium Magnesium Total Creatine Kinase Troponin T 0.073 H 0.074 H Total Protein Albumin Prealbumin Urine Creatinine 09/29/17 09/29/17 09/30/17 22:22 23:00 02:38 WBC RBC Hgb Hct MCHC RDW Lymph % (Auto) [place] % (Auto) Lymph # [place] # Seg Neutrophils % Seg Neuts % (Manual) Lymphocytes % (Manual) Seg Neutrophils # Seg Neutrophils # Man Lymphocytes # (Manual) D-Dimer POC ABG pO2 Sodium Potassium Chloride Carbon Dioxide BUN Creatinine Glucose POC Glucose 389 H Calcium Magnesium Total Creatine Kinase Troponin T 0.058 H D 0.064 H Total Protein Albumin Prealbumin Urine Creatinine 09/30/17 09/30/17 09/30/17 12:07 16:24 21:25 WBC RBC Hgb Hct MCHC RDW Lymph % (Auto) [place] % (Auto) Lymph # [place] # Seg Neutrophils % Seg Neuts % (Manual) Lymphocytes % (Manual) Seg Neutrophils # Seg Neutrophils # Man Lymphocytes # (Manual) D-Dimer POC ABG pO2 Sodium Potassium Chloride Carbon Dioxide BUN Creatinine Glucose POC Glucose 387 H 431 H 326 H Calcium Magnesium Total Creatine Kinase Troponin T Total Protein Albumin Prealbumin Urine Creatinine 10/01/17 10/01/17 10/01/17 06:16 06:16 06:30 WBC 14.0 H RBC Hgb Hct 34.3 L MCHC RDW Lymph % (Auto) [place] % (Auto) Lymph # [place] # Seg Neutrophils % Seg Neuts % (Manual) 87.0 H Lymphocytes % (Manual) 7.0 L Seg Neutrophils # Seg Neutrophils # Man 12.2 H Lymphocytes # (Manual) 1.0 L D-Dimer POC ABG pO2 Sodium Potassium 3.4 L Chloride 94.7 L Carbon Dioxide BUN 62 H Creatinine Glucose 432 H POC Glucose 419 H Calcium Magnesium Total Creatine Kinase Troponin T Total Protein 6.0 L Albumin 3.4 L Prealbumin Urine Creatinine 10/01/17 10/01/17 10/02/17 11:25 15:39 07:39 WBC RBC Hgb Hct MCHC RDW Lymph % (Auto) [place] % (Auto) Lymph # [place] # Seg Neutrophils % Seg Neuts % (Manual) Lymphocytes % (Manual) Seg Neutrophils # Seg Neutrophils # Man Lymphocytes # (Manual) D-Dimer POC ABG pO2 Sodium Potassium Chloride Carbon Dioxide BUN Creatinine Glucose POC Glucose 456 H 472 H 429 H Calcium Magnesium Total Creatine Kinase Troponin T Total Protein Albumin Prealbumin Urine Creatinine 10/02/17 10/02/17 10/02/17 11:03 11:03 11:03 WBC 14.9 H RBC Hgb Hct MCHC RDW 15.4 H Lymph % (Auto) [place] % (Auto) Lymph # [place] # Seg Neutrophils % Seg Neuts % (Manual) Lymphocytes % (Manual) Seg Neutrophils # Seg Neutrophils # Man Lymphocytes # (Manual) D-Dimer POC ABG pO2 Sodium 154 H D Potassium 3.5 L Chloride Carbon Dioxide BUN 66 H Creatinine Glucose 432 H POC Glucose Calcium Magnesium Total Creatine Kinase Troponin T 0.059 H Total Protein Albumin Prealbumin Urine Creatinine 10/02/17 10/02/17 10/02/17 13:00 14:48 14:57 WBC RBC Hgb Hct MCHC RDW Lymph % (Auto) [place] % (Auto) Lymph # [place] # Seg Neutrophils % Seg Neuts % (Manual) Lymphocytes % (Manual) Seg Neutrophils # Seg Neutrophils # Man Lymphocytes # (Manual) D-Dimer POC ABG pO2 64 L Sodium Potassium Chloride Carbon Dioxide BUN Creatinine Glucose POC Glucose 476 H 448 H Calcium Magnesium Total Creatine Kinase Troponin T Total Protein Albumin Prealbumin Urine Creatinine 10/02/17 10/02/17 10/02/17 17:56 18:19 20:23 WBC RBC Hgb Hct MCHC RDW Lymph % (Auto) [place] % (Auto) Lymph # [place] # Seg Neutrophils % Seg Neuts % (Manual) Lymphocytes % (Manual) Seg Neutrophils # Seg Neutrophils # Man Lymphocytes # (Manual) D-Dimer POC ABG pO2 77 L Sodium Potassium Chloride Carbon Dioxide BUN Creatinine Glucose POC Glucose > 500 H Calcium Magnesium Total Creatine Kinase Troponin T 0.057 H Total Protein Albumin Prealbumin Urine Creatinine 10/02/17 10/03/17 10/03/17 23:41 05:44 05:44 WBC 14.8 H RBC 3.41 L Hgb 10.4 L Hct 31.8 L MCHC RDW 15.4 H Lymph % (Auto) [place] % (Auto) Lymph # [place] # Seg Neutrophils % Seg Neuts % (Manual) Lymphocytes % (Manual) Seg Neutrophils # Seg Neutrophils # Man Lymphocytes # (Manual) D-Dimer POC ABG pO2 Sodium 155 H Potassium 3.4 L Chloride 110.8 H Carbon Dioxide 32 H BUN 81 H Creatinine 1.6 H Glucose 403 H POC Glucose 447 H Calcium Magnesium 2.60 H Total Creatine Kinase Troponin T Total Protein Albumin Prealbumin Urine Creatinine 10/03/17 10/03/17 10/04/17 06:32 12:33 00:14 WBC RBC Hgb Hct MCHC RDW Lymph % (Auto) [place] % (Auto) Lymph # [place] # Seg Neutrophils % Seg Neuts % (Manual) Lymphocytes % (Manual) Seg Neutrophils # Seg Neutrophils # Man Lymphocytes # (Manual) D-Dimer POC ABG pO2 Sodium Potassium Chloride Carbon Dioxide BUN Creatinine Glucose POC Glucose 394 H 449 H > 500 H Calcium Magnesium Total Creatine Kinase Troponin T Total Protein Albumin Prealbumin Urine Creatinine 10/04/17 10/04/17 10/04/17 00:32 06:09 06:19 WBC 13.5 H RBC 3.38 L Hgb 10.5 L Hct 31.4 L MCHC RDW 15.6 H Lymph % (Auto) [place] % (Auto) Lymph # [place] # Seg Neutrophils % Seg Neuts % (Manual) Lymphocytes % (Manual) Seg Neutrophils # Seg Neutrophils # Man Lymphocytes # (Manual) D-Dimer POC ABG pO2 Sodium Potassium Chloride Carbon Dioxide BUN Creatinine Glucose 623 H* POC Glucose 383 H Calcium Magnesium Total Creatine Kinase Troponin T Total Protein Albumin Prealbumin Urine Creatinine 10/04/17 10/04/17 10/04/17 06:19 11:51 16:06 WBC RBC Hgb Hct MCHC RDW Lymph % (Auto) [place] % (Auto) Lymph # [place] # Seg Neutrophils % Seg Neuts % (Manual) Lymphocytes % (Manual) Seg Neutrophils # Seg Neutrophils # Man Lymphocytes # (Manual) D-Dimer POC ABG pO2 Sodium 163 H* D Potassium Chloride 114.2 H Carbon Dioxide 34 H BUN 83 H Creatinine 1.7 H Glucose 389 H POC Glucose 340 H 341 H Calcium Magnesium Total Creatine Kinase Troponin T Total Protein Albumin Prealbumin Urine Creatinine 10/04/17 10/04/17 10/05/17 17:34 23:00 01:00 WBC RBC Hgb Hct MCHC RDW Lymph % (Auto) [place] % (Auto) Lymph # [place] # Seg Neutrophils % Seg Neuts % (Manual) Lymphocytes % (Manual) Seg Neutrophils # Seg Neutrophils # Man Lymphocytes # (Manual) D-Dimer POC ABG pO2 Sodium 155 H Potassium 3.4 L Chloride 107.4 H Carbon Dioxide 33 H BUN 82 H Creatinine 1.8 H Glucose 348 H POC Glucose 461 H Calcium Magnesium Total Creatine Kinase Troponin T Total Protein Albumin Prealbumin Urine Creatinine 99.4 H 10/05/17 10/05/17 10/05/17 05:25 05:39 06:11 WBC 14.1 H RBC 3.03 L Hgb 9.6 L Hct 28.0 L MCHC RDW 15.8 H Lymph % (Auto) [place] % (Auto) Lymph # [place] # Seg Neutrophils % Seg Neuts % (Manual) Lymphocytes % (Manual) Seg Neutrophils # Seg Neutrophils # Man Lymphocytes # (Manual) D-Dimer POC ABG pO2 Sodium 149 H Potassium Chloride Carbon Dioxide 33 H BUN 81 H Creatinine 1.7 H Glucose 365 H POC Glucose 397 H Calcium Magnesium 2.40 H Total Creatine Kinase Troponin T Total Protein Albumin Prealbumin Urine Creatinine 10/05/17 10/05/17 10/05/17 12:16 16:22 21:06 WBC RBC Hgb Hct MCHC RDW Lymph % (Auto) [place] % (Auto) Lymph # [place] # Seg Neutrophils % Seg Neuts % (Manual) Lymphocytes % (Manual) Seg Neutrophils # Seg Neutrophils # Man Lymphocytes # (Manual) D-Dimer POC ABG pO2 Sodium Potassium Chloride Carbon Dioxide BUN Creatinine Glucose POC Glucose 400 H 395 H 265 H Calcium Magnesium Total Creatine Kinase Troponin T Total Protein Albumin Prealbumin Urine Creatinine 10/06/17 10/06/17 10/06/17 06:43 06:50 11:29 WBC RBC Hgb Hct MCHC RDW Lymph % (Auto) [place] % (Auto) Lymph # [place] # Seg Neutrophils % Seg Neuts % (Manual) Lymphocytes % (Manual) Seg Neutrophils # Seg Neutrophils # Man Lymphocytes # (Manual) D-Dimer POC ABG pO2 Sodium 156 H Potassium Chloride 115.0 H Carbon Dioxide 32 H BUN 62 H Creatinine Glucose 308 H POC Glucose 330 H 396 H Calcium Magnesium Total Creatine Kinase Troponin T Total Protein Albumin Prealbumin Urine Creatinine 10/06/17 10/07/17 10/07/17 16:24 00:46 07:18 WBC RBC Hgb Hct MCHC RDW Lymph % (Auto) [place] % (Auto) Lymph # [place] # Seg Neutrophils % Seg Neuts % (Manual) Lymphocytes % (Manual) Seg Neutrophils # Seg Neutrophils # Man Lymphocytes # (Manual) D-Dimer POC ABG pO2 Sodium 149 H Potassium Chloride Carbon Dioxide 32 H BUN 43 H Creatinine Glucose 289 H POC Glucose 417 H 295 H Calcium Magnesium Total Creatine Kinase Troponin T Total Protein Albumin Prealbumin Urine Creatinine 10/07/17 10/07/17 10/07/17 08:16 12:38 13:08 WBC RBC Hgb Hct MCHC RDW Lymph % (Auto) [place] % (Auto) Lymph # [place] # Seg Neutrophils % Seg Neuts % (Manual) Lymphocytes % (Manual) Seg Neutrophils # Seg Neutrophils # Man Lymphocytes # (Manual) D-Dimer POC ABG pO2 Sodium Potassium Chloride Carbon Dioxide BUN Creatinine Glucose POC Glucose 348 H 256 H 365 H Calcium Magnesium Total Creatine Kinase Troponin T Total Protein Albumin Prealbumin Urine Creatinine 10/07/17 10/07/17 10/08/17 16:35 22:34 06:39 WBC RBC Hgb Hct MCHC RDW Lymph % (Auto) [place] % (Auto) Lymph # [place] # Seg Neutrophils % Seg Neuts % (Manual) Lymphocytes % (Manual) Seg Neutrophils # Seg Neutrophils # Man Lymphocytes # (Manual) D-Dimer POC ABG pO2 Sodium 151 H Potassium Chloride 107.4 H Carbon Dioxide 32 H BUN 31 H Creatinine Glucose 246 H POC Glucose 234 H 200 H Calcium Magnesium Total Creatine Kinase Troponin T Total Protein Albumin Prealbumin Urine Creatinine 10/08/17 10/08/1718 08:06 12:56 17:16 WBC RBC Hgb Hct MCHC RDW Lymph % (Auto) [place] % (Auto) Lymph # [place] # Seg Neutrophils % Seg Neuts % (Manual) Lymphocytes % (Manual) Seg Neutrophils # Seg Neutrophils # Man Lymphocytes # (Manual) D-Dimer POC ABG pO2 Sodium Potassium Chloride Carbon Dioxide BUN Creatinine Glucose POC Glucose 273 H 255 H 273 H Calcium Magnesium Total Creatine Kinase Troponin T Total Protein Albumin Prealbumin Urine Creatinine 10/08/17 10/09/17 10/09/17 22:11 05:50 06:42 WBC RBC Hgb Hct MCHC RDW Lymph % (Auto) [place] % (Auto) Lymph # [place] # Seg Neutrophils % Seg Neuts % (Manual) Lymphocytes % (Manual) Seg Neutrophils # Seg Neutrophils # Man Lymphocytes # (Manual) D-Dimer POC ABG pO2 Sodium Potassium Chloride Carbon Dioxide BUN Creatinine Glucose POC Glucose 202 H 167 H 210 H Calcium Magnesium Total Creatine Kinase Troponin T Total Protein Albumin Prealbumin Urine Creatinine 10/09/17 10/09/17 10/09/17 11:39 16:52 22:07 WBC RBC Hgb Hct MCHC RDW Lymph % (Auto) [place] % (Auto) Lymph # [place] # Seg Neutrophils % Seg Neuts % (Manual) Lymphocytes % (Manual) Seg Neutrophils # Seg Neutrophils # Man Lymphocytes # (Manual) D-Dimer POC ABG pO2 Sodium Potassium Chloride Carbon Dioxide BUN Creatinine Glucose POC Glucose 304 H 304 H 314 H Calcium Magnesium Total Creatine Kinase Troponin T Total Protein Albumin Prealbumin Urine Creatinine 10/09/17 10/10/17 10/10/17 Unknown 04:28 05:58 WBC RBC Hgb Hct MCHC RDW Lymph % (Auto) [place] % (Auto) Lymph # [place] # Seg Neutrophils % Seg Neuts % (Manual) Lymphocytes % (Manual) Seg Neutrophils # Seg Neutrophils # Man Lymphocytes # (Manual) D-Dimer POC ABG pO2 Sodium 147 H Potassium Chloride Carbon Dioxide 33 H 33 H BUN 22 H Creatinine Glucose 207 H 193 H POC Glucose 194 H Calcium Magnesium Total Creatine Kinase Troponin T Total Protein Albumin Prealbumin 0.110 L Urine Creatinine 10/10/17 10/10/17 10/10/17 11:13 12:15 16:26 WBC RBC Hgb Hct MCHC RDW Lymph % (Auto) [place] % (Auto) Lymph # [place] # Seg Neutrophils % Seg Neuts % (Manual) Lymphocytes % (Manual) Seg Neutrophils # Seg Neutrophils # Man Lymphocytes # (Manual) D-Dimer POC ABG pO2 Sodium Potassium Chloride Carbon Dioxide BUN Creatinine Glucose POC Glucose 240 H 265 H 246 H Calcium Magnesium Total Creatine Kinase Troponin T Total Protein Albumin Prealbumin Urine Creatinine 10/10/17 10/11/17 10/11/17 22:09 06:05 06:43 WBC RBC Hgb Hct MCHC RDW Lymph % (Auto) [place] % (Auto) Lymph # [place] # Seg Neutrophils % Seg Neuts % (Manual) Lymphocytes % (Manual) Seg Neutrophils # Seg Neutrophils # Man Lymphocytes # (Manual) D-Dimer POC ABG pO2 Sodium Potassium Chloride Carbon Dioxide BUN Creatinine Glucose 209 H POC Glucose 261 H 180 H Calcium 8.1 L Magnesium Total Creatine Kinase Troponin T Total Protein Albumin Prealbumin Urine Creatinine 10/11/17 10/11/17 10/11/17 12:06 13:32 18:01 WBC RBC Hgb Hct MCHC RDW Lymph % (Auto) [place] % (Auto) Lymph # [place] # Seg Neutrophils % Seg Neuts % (Manual) Lymphocytes % (Manual) Seg Neutrophils # Seg Neutrophils # Man Lymphocytes # (Manual) D-Dimer POC ABG pO2 Sodium Potassium Chloride Carbon Dioxide BUN Creatinine Glucose POC Glucose 274 H 293 H 297 H Calcium Magnesium Total Creatine Kinase Troponin T Total Protein Albumin Prealbumin Urine Creatinine 10/12/17 10/12/17 10/12/17 05:34 11:13 14:45 WBC RBC Hgb Hct MCHC RDW Lymph % (Auto) [place] % (Auto) Lymph # [place] # Seg Neutrophils % Seg Neuts % (Manual) Lymphocytes % (Manual) Seg Neutrophils # Seg Neutrophils # Man Lymphocytes # (Manual) D-Dimer POC ABG pO2 Sodium Potassium Chloride 93.0 L Carbon Dioxide 33 H BUN Creatinine 0.7 L Glucose 222 H POC Glucose 154 H 196 H Calcium 8.3 L Magnesium Total Creatine Kinase Troponin T Total Protein Albumin Prealbumin Urine Creatinine 10/12/17 10/12/17 10/12/17 14:45 17:04 23:30 WBC RBC 2.90 L Hgb 9.1 L Hct 27.0 L MCHC RDW 16.4 H Lymph % (Auto) [place] % (Auto) Lymph # [place] # Seg Neutrophils % Seg Neuts % (Manual) Lymphocytes % (Manual) Seg Neutrophils # Seg Neutrophils # Man Lymphocytes # (Manual) D-Dimer POC ABG pO2 Sodium Potassium Chloride Carbon Dioxide BUN Creatinine Glucose POC Glucose 185 H 241 H Calcium Magnesium Total Creatine Kinase Troponin T Total Protein Albumin Prealbumin Urine Creatinine 10/13/17 10/13/17 10/13/17 06:04 13:25 16:17 WBC RBC Hgb Hct MCHC RDW Lymph % (Auto) [place] % (Auto) Lymph # [place] # Seg Neutrophils % Seg Neuts % (Manual) Lymphocytes % (Manual) Seg Neutrophils # Seg Neutrophils # Man Lymphocytes # (Manual) D-Dimer POC ABG pO2 Sodium Potassium Chloride Carbon Dioxide BUN Creatinine Glucose POC Glucose 192 H 213 H 198 H Calcium Magnesium Total Creatine Kinase Troponin T Total Protein Albumin Prealbumin Urine Creatinine 10/14/17 10/14/17 10/14/17 00:23 05:58 11:53 WBC RBC Hgb Hct MCHC RDW Lymph % (Auto) [place] % (Auto) Lymph # [place] # Seg Neutrophils % Seg Neuts % (Manual) Lymphocytes % (Manual) Seg Neutrophils # Seg Neutrophils # Man Lymphocytes # (Manual) D-Dimer POC ABG pO2 Sodium Potassium Chloride Carbon Dioxide BUN Creatinine Glucose POC Glucose 170 H 155 H 161 H Calcium Magnesium Total Creatine Kinase Troponin T Total Protein Albumin Prealbumin Urine Creatinine 10/14/17 10/14/17 10/15/17 15:46 21:43 05:53 WBC RBC Hgb Hct MCHC RDW Lymph % (Auto) [place] % (Auto) Lymph # [place] # Seg Neutrophils % Seg Neuts % (Manual) Lymphocytes % (Manual) Seg Neutrophils # Seg Neutrophils # Man Lymphocytes # (Manual) D-Dimer POC ABG pO2 Sodium Potassium Chloride Carbon Dioxide BUN Creatinine Glucose POC Glucose 239 H 262 H 142 H Calcium Magnesium Total Creatine Kinase Troponin T Total Protein Albumin Prealbumin Urine Creatinine 10/15/17 10/15/17 10/15/17 12:02 16:46 21:52 WBC RBC Hgb Hct MCHC RDW Lymph % (Auto) [place] % (Auto) Lymph # [place] # Seg Neutrophils % Seg Neuts % (Manual) Lymphocytes % (Manual) Seg Neutrophils # Seg Neutrophils # Man Lymphocytes # (Manual) D-Dimer POC ABG pO2 Sodium Potassium Chloride Carbon Dioxide BUN Creatinine Glucose POC Glucose 243 H 235 H 199 H Calcium Magnesium Total Creatine Kinase Troponin T Total Protein Albumin Prealbumin Urine Creatinine 10/16/17 10/16/17 10/16/17 06:31 13:47 16:45 WBC RBC Hgb Hct MCHC RDW Lymph % (Auto) [place] % (Auto) Lymph # [place] # Seg Neutrophils % Seg Neuts % (Manual) Lymphocytes % (Manual) Seg Neutrophils # Seg Neutrophils # Man Lymphocytes # (Manual) D-Dimer POC ABG pO2 Sodium Potassium Chloride Carbon Dioxide BUN Creatinine Glucose POC Glucose 153 H 219 H 174 H Calcium Magnesium Total Creatine Kinase Troponin T Total Protein Albumin Prealbumin Urine Creatinine 10/17/17 10/17/17 10/17/17 00:16 06:28 07:21 WBC RBC 3.23 L Hgb 10.2 L Hct 29.5 L MCHC 35 H RDW 17.3 H Lymph % (Auto) [place] % (Auto) Lymph # [place] # Seg Neutrophils % Seg Neuts % (Manual) Lymphocytes % (Manual) Seg Neutrophils # Seg Neutrophils # Man Lymphocytes # (Manual) D-Dimer POC ABG pO2 Sodium Potassium Chloride Carbon Dioxide BUN Creatinine Glucose POC Glucose 182 H 163 H Calcium Magnesium Total Creatine Kinase Troponin T Total Protein Albumin Prealbumin Urine Creatinine 10/17/17 10/17/17 10/17/17 07:21 11:11 16:27 WBC RBC Hgb Hct MCHC RDW Lymph % (Auto) [place] % (Auto) Lymph # [place] # Seg Neutrophils % Seg Neuts % (Manual) Lymphocytes % (Manual) Seg Neutrophils # Seg Neutrophils # Man Lymphocytes # (Manual) D-Dimer POC ABG pO2 Sodium Potassium Chloride Carbon Dioxide 31 H BUN 7 L Creatinine 0.7 L Glucose 149 H POC Glucose 211 H 122 H Calcium 8.0 L Magnesium Total Creatine Kinase Troponin T Total Protein Albumin Prealbumin Urine Creatinine 10/17/17 10/18/17 23:49 06:24 WBC RBC Hgb Hct MCHC RDW Lymph % (Auto) [place] % (Auto) Lymph # [place] # Seg Neutrophils % Seg Neuts % (Manual) Lymphocytes % (Manual) Seg Neutrophils # Seg Neutrophils # Man Lymphocytes # (Manual) D-Dimer POC ABG pO2 Sodium Potassium Chloride Carbon Dioxide BUN Creatinine Glucose POC Glucose 190 H 125 H Calcium Magnesium Total Creatine Kinase Troponin T Total Protein Albumin Prealbumin Urine Creatinine
[2017-10-18] MEDS: PEPCID PO SCH (11:35)
[2017-10-18] MEDS: SODIUM CHLORIDE FLUSH SYRINGE 10 ML IV SCH ×2 (11:35→23:40)
[2017-10-18] MEDS: LANTUS SUB-Q SCH (11:36)
--- NOTE | 2017-10-18 15:02 | Progress Note ---
Assessment and Plan Assessment and plan: Patient is a 72 yo man who is a resident at [facility] under 1013 for SI with h/o HTN, CVA, SD, CHF, COPD, CAMILLE on CPAP, Seizure Disorder, Depression, PTSD, Debility, nicotine Dependence, Recurrent Falls presents to ED for confusion and falling. He was admitted for suspected sepsis pneumonia, nstemi and right wrist fracture. * pCXR Impression: Bibasilar atelectasis. * CT lumbar spine wo IMPRESSION: 1. No acute compression deformity or apparent fracture in the lumbar spine. 2. Degenerative spondylosis. * XRay bilateral knee IMPRESSION: 1. No acute osseous abnormality. 2. Postsurgical changes in the right knee, and degenerative changes in the left knee. * Xray 3v right wrist IMPRESSION: 1. Probable nondisplaced fracture right distal ulna. * CT head Impression: No acute intracranial abnormality. * CT thoracic spine wo IMPRESSION: 1. No acute compression deformity or apparent fracture in the thoracic spine. Diffuse degenerative spondylosis. 2. Fractures in left ribs 9-12, probably acute or subacute. Correlate clinically. 3. Findings which may represent bibasilar atelectasis, mild infiltrates or postinflammatory change of uncertain etiology or chronicity. 4. Left adrenal nodule may represent adenomatous change, but is indeterminate. Followup may be warranted. -Suspect Sepsis from Aspiration Pneumonia, poa, treated with iv abx, ivf but developed fluid overload, so ivf stopped and lasix iv given. doing better, off bipap -s/p Fall with Multiple rib fractures/right wrist fracture: Conservative measures per Ortho -ARF (acute renal failure), vasomotor nephropathy poa, resolved. -Acute encephalopathy: treat the above issues -Acute on chronic diastolic heart failure, resolved -Afib with RVR, resolved -Depression, improved -no NSTEMI (non-ST elevated myocardial infarction), non specified elevation of troponin per Cardiology: stopped therapeutic lovenox -DVT prophylaxis: scd to ble, deep bruising and diffuse ecchymosis so hold vte due to fall risk Restraint renewed Normal LVEF 60-65% by echocardiogram. ortho, Dr. Lal==>Nondisplaced distal ulnar fracture, recommend conservative treatment with wrist brace and early ROM 10/02/17: Bilateral lung crackles today, pCXR looks like pulmonary edema but can' t exclude infiltrates (my reading), gave iv lasix 40mg iv x 1 carefully diuresis due to Aortic stenosis and ARF. ABG showed combined Acute Respiratory failure which patient has been on O2 since admission, so acute hypoxic respiratory poa. RN reported ABGs at 7.442/64/44/30.3 on O2. Bipap started by respiratory, I consulted and d/w Dr. Ng, pulmonology. Troponin level actually improved. Also, started on sq lantus 10units, carefully because he is not eating much. Lasix iv given today 10/03/17: doing better after another dose of iv lasix x 1, trying to wean off bipap, 10/04/17: bipap removed this am, new issue of hypernatremia, consulted machine fitter and spoke with Dr. Gerard. He needs free water, will try to place NG tube because he spit water out at nurse. He remains very confused. D5W treatment is problematic as his blood glucose is very high. Hopefully he will allow ngt to be given for free water and nutrition, Restraints renewed. Day 09/16 of iv abx. Still tachycardiac, had afib with rvr on will call Cardiology 10/05/17: isolated afib, rate is improved thanks to Cardiology. Mental status improved as hypernatremia is improved. He is still confused. 10/06/17: still hallucinating, renal function is improving, blood glucose still uncontrolled, so lantus increased to 20 units daily. No 1013 in the chart. I have asked RN to enter [place] [facility] into our EMR for reconciliation. 10/07/17: still confused. Last day of antibiotics, continue 1013 10/08/17: Less confused today. re-consulted psych for placement 10/15/17: resumed care, confusion has resolved, not in restraints anymore, awaiting SNF in [place]. Awaiting SNF placement. He would not answer [place] Dept of services representatives questions. History Interval history: Patient was seen and examined. Follow-up on current diagnosis of confusion which has resolved, no restraints. Overnight uneventful and doing better, bipap is off. Imaging, nursing note, chart, labs and old chart reviewed. More awake and alert Hospitalist Physical - Physical exam Narrative exam: GEN: unkempt, awake alert orientated x 3 HEENT: NCAT, EOMI, PERRL, OP Clear NECK: supple, no adenopathy, no thyromegaly, no JVD CVS/HEART: reg tachy, normal S1S2, pulses present bilaterally CHEST/LUNGS: bilateral crackles improved, Symmetrical chest expansion, good air entry bilaterally GI/Abdomen: soft, NTND, good bowel sounds, no guarding or rebound /Bladder: no suprapubic tenderness, no CVA or paraspinal tenderness EXT/Skin: black and blue all over, especially left upper bicep area with deformity MSK: FROM x 4 Neuro: CN 2-12 grossly intact, doesn't follow command Psych: calm - Constitutional Vitals: Temp Pulse Resp BP Pulse Ox 98.4 F 79 19 152/43 93 10/18/17 08:04 10/18/17 11:35 10/18/17 08:04 10/18/17 11:35 10/18/17 13:43 General appearance: Present: no acute distress, well-nourished Results - Labs CBC & Chem 7: 10/17/17 07:21 10/17/17 07:21 Labs: Laboratory Last Values WBC 5.4 K/mm3 (4.5-11.0) 10/17/17 07:21 RBC 3.23 M/mm3 (3.65-5.03) L 10/17/17 07:21 Hgb 10.2 gm/dl (11.8-15.2) L 10/17/17 07:21 Hct 29.5 % (35.5-45.6) L 10/17/17 07:21 MCV 91 fl (84-94) 10/17/17 07:21 MCH 31 pg (28-32) 10/17/17 07:21 MCHC 35 % (32-34) H 10/17/17 07:21 RDW 17.3 % (13.2-15.2) H 10/17/17 07:21 Plt Count 368 K/mm3 (140-440) 10/17/17 07:21 Lymph % (Auto) 6.0 % (13.4-35.0) L 09/29/17 12:54 [place] % (Auto) 10.8 % (0.0-7.3) H 09/29/17 12:54 Eos % (Auto) 0.8 % (0.0-4.3) 09/29/17 12:54 Baso % (Auto) 0.4 % (0.0-1.8) 09/29/17 12:54 Lymph # 0.7 K/mm3 (1.2-5.4) L 09/29/17 12:54 [place] # 1.3 K/mm3 (0.0-0.8) H 09/29/17 12:54 Eos # 0.1 K/mm3 (0.0-0.4) 09/29/17 12:54 Baso # 0.1 K/mm3 (0.0-0.1) 09/29/17 12:54 Add Manual Diff Complete 10/12/17 14:45 Total Counted 100 10/12/17 14:45 Seg Neutrophils % 82.0 % (40.0-70.0) H 09/29/17 12:54 Seg Neuts % (Manual) 61.0 % (40.0-70.0) 10/12/17 14:45 Band Neutrophils % 6.0 % 10/12/17 14:45 Lymphocytes % (Manual) 24.0 % (13.4-35.0) 10/12/17 14:45 Reactive Lymphs % (Man) 0 % 10/12/17 14:45 Monocytes % (Manual) 6.0 % (0.0-7.3) 10/12/17 14:45 Eosinophils % (Manual) 1.0 % (0.0-4.3) 10/12/17 14:45 Basophils % (Manual) 0 % (0.0-1.8) 10/12/17 14:45 Metamyelocytes % 0 % 10/12/17 14:45 Myelocytes % 2.0 % 10/12/17 14:45 Promyelocytes % 0 % 10/12/17 14:45 Blast Cells % 0 % 10/12/17 14:45 Nucleated RBC % Not Reportable 10/12/17 14:45 Seg Neutrophils # 10.1 K/mm3 (1.8-7.7) H 09/29/17 12:54 Seg Neutrophils # Man 3.3 K/mm3 (1.8-7.7) 10/12/17 14:45 Band Neutrophils # 0.3 K/mm3 10/12/17 14:45 Lymphocytes # (Manual) 1.3 K/mm3 (1.2-5.4) 10/12/17 14:45 Abs React Lymphs (Man) 0.0 K/mm3 10/12/17 14:45 Monocytes # (Manual) 0.3 K/mm3 (0.0-0.8) 10/12/17 14:45 Eosinophils # (Manual) 0.1 K/mm3 (0.0-0.4) 10/12/17 14:45 Basophils # (Manual) 0.0 K/mm3 (0.0-0.1) 10/12/17 14:45 Metamyelocytes # 0.0 K/mm3 10/12/17 14:45 Myelocytes # 0.1 K/mm3 10/12/17 14:45 Promyelocytes # 0.0 K/mm3 10/12/17 14:45 Blast Cells # 0.0 K/mm3 10/12/17 14:45 WBC Morphology Not Reportable 10/12/17 14:45 Hypersegmented Neuts Not Reportable 10/12/17 14:45 Hyposegmented Neuts Not Reportable 10/12/17 14:45 Hypogranular Neuts Not Reportable 10/12/17 14:45 Smudge Cells Not Reportable 10/12/17 14:45 Toxic Granulation Not Reportable 10/12/17 14:45 Toxic Vacuolation Not Reportable 10/12/17 14:45 Dohle Bodies Not Reportable 10/12/17 14:45 Pelger-Huet Anomaly Not Reportable 10/12/17 14:45 Albertina Rods Not Reportable 10/12/17 14:45 Platelet Estimate Consistent w auto 10/12/17 14:45 Clumped Platelets Not Reportable 10/12/17 14:45 Plt Clumps, EDTA Not Reportable 10/12/17 14:45 Large Platelets Not Reportable 10/12/17 14:45 Giant Platelets Not Reportable 10/12/17 14:45 Platelet Satelliting Not Reportable 10/12/17 14:45 Plt Morphology Comment Not Reportable 10/12/17 14:45 RBC Morphology Not Reportable 10/12/17 14:45 Dimorphic RBCs Not Reportable 10/12/17 14:45 Polychromasia Not Reportable 10/12/17 14:45 Hypochromasia 1+ 10/12/17 14:45 Poikilocytosis Not Reportable 10/12/17 14:45 Anisocytosis 1+ 10/12/17 14:45 Microcytosis Not Reportable 10/12/17 14:45 Macrocytosis Not Reportable 10/12/17 14:45 Spherocytes Not Reportable 10/12/17 14:45 Pappenheimer Bodies Not Reportable 10/12/17 14:45 Sickle Cells Not Reportable 10/12/17 14:45 Target Cells Not Reportable 10/12/17 14:45 Tear Drop Cells Not Reportable 10/12/17 14:45 Ovalocytes 1+ 10/12/17 14:45 Stomatocytes 1+ 10/12/17 14:45 Helmet Cells Not Reportable 10/12/17 14:45 Garcia-Erick Bodies Not Reportable 10/12/17 14:45 [place] Rings Not Reportable 10/12/17 14:45 [place] Cells Not Reportable 10/12/17 14:45 Bite Cells Not Reportable 10/12/17 14:45 Crenated Cell Not Reportable 10/12/17 14:45 Elliptocytes Not Reportable 10/12/17 14:45 Acanthocytes (Spur) Not Reportable 10/12/17 14:45 Rouleaux Not Reportable 10/12/17 14:45 Hemoglobin C Crystals Not Reportable 10/12/17 14:45 Schistocytes Not Reportable 10/12/17 14:45 Malaria parasites Not Reportable 10/12/17 14:45 [place] Bodies Not Reportable 10/12/17 14:45 Hem Pathologist Commnt No 10/12/17 14:45 PT 14.1 Sec. (12.2-14.9) 10/01/17 06:31 INR 1.04 (0.87-1.13) 10/01/17 06:31 APTT 35.4 Sec. (24.2-36.6) 10/01/17 06:31 D-Dimer 2801.11 ng/mlDDU (0-234) H 09/29/17 19:19 POC ABG pH 7.415 (7.35-7.45) 10/02/17 20:23 POC ABG pCO2 42.1 (35-45) 10/02/17 20:23 POC ABG pO2 77 (80-105) L 10/02/17 20:23 POC ABG HCO3 27.0 10/02/17 20:23 POC ABG Total CO2 28 10/02/17 20:23 POC ABG O2 Sat 95 10/02/17 20:23 POC ABG Base Excess 2 10/02/17 20:23 FiO2 65 % 10/02/17 20:23 Sodium 145 mmol/L (137-145) D 10/17/17 07:21 Potassium 3.9 mmol/L (3.6-5.0) 10/17/17 07:21 Chloride 104.6 mmol/L (98-107) 10/17/17 07:21 Carbon Dioxide 31 mmol/L (22-30) H 10/17/17 07:21 Anion Gap 13 mmol/L 10/17/17 07:21 BUN 7 mg/dL (9-20) L 10/17/17 07:21 Creatinine 0.7 mg/dL (0.8-1.5) L 10/17/17 07:21 Estimated GFR > 60 ml/min 10/17/17 07:21 BUN/Creatinine Ratio 10 % 10/17/17 07:21 Glucose 149 mg/dL (75-100) H 10/17/17 07:21 POC Glucose 125 (70-105) H 10/18/17 06:24 Lactic Acid 1.80 mmol/L (0.7-2.0) 09/30/17 02:38 Calcium 8.0 mg/dL (8.4-10.2) L 10/17/17 07:21 Phosphorus 3.40 mg/dL (2.5-4.5) 10/08/17 06:39 Magnesium 2.10 mg/dL (1.7-2.3) 10/08/17 06:39 Total Bilirubin 0.70 mg/dL (0.1-1.2) 10/01/17 06:16 AST 15 units/L (5-40) 10/01/17 06:16 ALT 14 units/L (7-56) 10/01/17 06:16 Alkaline Phosphatase 86 units/L (35-129) 10/01/17 06:16 Total Creatine Kinase 348 units/L (55-170) H 09/29/17 14:58 Troponin T 0.057 ng/mL (0.00-0.029) H 10/02/17 17:56 NT-Pro-B Natriuret Pep 230.9 pg/mL (0-900) 09/29/17 18:37 Total Protein 6.0 g/dL (6.3-8.2) L 10/01/17 06:16 Albumin 3.4 g/dL (3.9-5) L 10/01/17 06:16 Albumin/Globulin Ratio 1.3 % 10/01/17 06:16 Prealbumin 0.110 g/L (0.200-0.400) L 10/09/17 Unknown Triglycerides 134 mg/dL (2-149) 09/29/17 12:54 Cholesterol 118 mg/dL (50-199) 09/29/17 12:54 LDL Cholesterol Direct 57 mg/dL (50-130) 09/29/17 12:54 HDL Cholesterol 41 mg/dL (40-59) 09/29/17 12:54 Cholesterol/HDL Ratio 2.87 % 09/29/17 12:54 Urine Color Yellow (Yellow) 10/05/17 01:00 Urine Turbidity Clear (Clear) 10/05/17 01:00 Urine pH 5.0 (5.0-7.0) 10/05/17 01:00 Ur Specific [place] 1.015 (1.003-1.030) 10/05/17 01:00 Urine Protein <15 mg/dl mg/dL (Negative) 10/05/17 01:00 Urine Glucose (UA) 150 mg/dL (Negative) 10/05/17 01:00 Urine Ketones Tr mg/dL (Negative) 10/05/17 01:00 Urine Blood Neg (Negative) 10/05/17 01:00 Urine Nitrite Neg (Negative) 10/05/17 01:00 Urine Bilirubin Neg (Negative) 10/05/17 01:00 Urine Urobilinogen < 2.0 mg/dL (<2.0) 10/05/17 01:00 Ur Leukocyte Esterase Neg (Negative) 10/05/17 01:00 Urine WBC (Auto) 3.0 /HPF (0.0-6.0) 10/05/17 01:00 Urine RBC (Auto) < 1.0 /HPF (0.0-6.0) 10/05/17 01:00 U Epithel Cells (Auto) < 1.0 /HPF (0-13.0) 10/05/17 01:00 Urine Bacteria (Auto) 1+ /HPF (Negative) 10/05/17 01:00 Amorphous Crystals 1+ 10/05/17 01:00 Hyaline Casts 8 /LPF 10/05/17 01:00 Urine Creatinine 99.4 mg/dL (0.1-20.0) H 10/05/17 01:00 Urine Sodium 10 mmol/L 10/05/17 01:00
[2017-10-18] MEDS ORDERED: IMODIUM A-D PO PRN (17:16)
[2017-10-18] MEDS: IMODIUM PO SCH ×2 (18:23→23:39)
[2017-10-18] MEDS: DELZICOL PO SCH (23:40)
[2017-10-18] MEDS: LOVENOX SUB-Q SCH (23:43)
[2017-10-19] MEDS: NORCO 10/325 PO PRN (02:53)
[2017-10-19] MEDS: HumaLOG SUB-Q SCH ×4 (02:55→19:01)
[2017-10-19] MEDS: DELZICOL PO SCH ×3 (08:43→20:03)
[2017-10-19] MEDS: LANTUS SUB-Q SCH (08:46)
[2017-10-19] MEDS: IMODIUM PO SCH ×4 (09:46→22:38)
[2017-10-19] MEDS: PEPCID PO SCH (09:46)
[2017-10-19] MEDS: SODIUM CHLORIDE FLUSH SYRINGE 10 ML IV SCH ×2 (09:47→22:39)
[2017-10-19] MEDS ORDERED: UCERIS 9 MG PO SCH (10:00)
[2017-10-19] MEDS: CARDIZEM PO SCH ×2 (12:40→18:21)
--- NOTE | 2017-10-19 13:18 | Progress Note ---
Assessment and Plan Assessment and plan: Patient is a 72 yo man who is a resident at [facility] under 1013 for SI with h/o HTN, CVA, [place], CHF, COPD, [place]ILLE on CPAP, Seizure Disorder, Depression, PTSD, Debility, nicotine Dependence, Recurrent Falls presents to ED for confusion and falling. He was admitted for suspected sepsis pneumonia, nstemi and right wrist fracture. * pCXR Impression: Bibasilar atelectasis. * CT lumbar spine wo IMPRESSION: 1. No acute compression deformity or apparent fracture in the lumbar spine. 2. Degenerative spondylosis. * XRay bilateral knee IMPRESSION: 1. No acute osseous abnormality. 2. Postsurgical changes in the right knee, and degenerative changes in the left knee. * Xray 3v right wrist IMPRESSION: 1. Probable nondisplaced fracture right distal ulna. * CT head Impression: No acute intracranial abnormality. * CT thoracic spine wo IMPRESSION: 1. No acute compression deformity or apparent fracture in the thoracic spine. Diffuse degenerative spondylosis. 2. Fractures in left ribs 9-12, probably acute or subacute. Correlate clinically. 3. Findings which may represent bibasilar atelectasis, mild infiltrates or postinflammatory change of uncertain etiology or chronicity. 4. Left adrenal nodule may represent adenomatous change, but is indeterminate. Followup may be warranted. -Suspect Sepsis from Aspiration Pneumonia, poa, treated with iv abx, ivf but developed fluid overload, so ivf stopped and lasix iv given. doing better, off bipap -s/p Fall with Multiple rib fractures/right wrist fracture: Conservative measures per Ortho -ARF (acute renal failure), vasomotor nephropathy poa, resolved. -Acute encephalopathy: treat the above issues -Acute on chronic diastolic heart failure, resolved -Afib with RVR, resolved -Depression, improved -no NSTEMI (non-ST elevated myocardial infarction), non specified elevation of troponin per Cardiology: stopped therapeutic lovenox -DVT prophylaxis: scd to ble, deep bruising and diffuse ecchymosis so hold vte due to fall risk Restraint renewed Normal LVEF 60-65% by echocardiogram. ortho, Dr. Lal==>Nondisplaced distal ulnar fracture, recommend conservative treatment with wrist brace and early ROM 10/02/17: Bilateral lung crackles today, pCXR looks like pulmonary edema but can' t exclude infiltrates (my reading), gave iv lasix 40mg iv x 1 carefully diuresis due to Aortic stenosis and ARF. ABG showed combined Acute Respiratory failure which patient has been on O2 since admission, so acute hypoxic respiratory poa. RN reported ABGs at 7.442/64/44/30.3 on O2. Bipap started by respiratory, I consulted and d/w Dr. Ng, pulmonology. Troponin level actually improved. Also, started on sq lantus 10units, carefully because he is not eating much. Lasix iv given today 10/03/17: doing better after another dose of iv lasix x 1, trying to wean off bipap, 10/04/17: bipap removed this am, new issue of hypernatremia, consulted investment analyst and spoke with Dr. Gerard. He needs free water, will try to place NG tube because he spit water out at nurse. He remains very confused. D5W treatment is problematic as his blood glucose is very high. Hopefully he will allow ngt to be given for free water and nutrition, Restraints renewed. Day 09/16 of iv abx. Still tachycardiac, had afib with rvr on will call Cardiology 10/05/17: isolated afib, rate is improved thanks to Cardiology. Mental status improved as hypernatremia is improved. He is still confused. 10/06/17: still hallucinating, renal function is improving, blood glucose still uncontrolled, so lantus increased to 20 units daily. No 1013 in the chart. I have asked RN to enter [place] [facility] into our EMR for reconciliation. 10/07/17: still confused. Last day of antibiotics, continue 1013 10/08/17: Less confused today. re-consulted psych for placement 10/15/17: resumed care, confusion has resolved, not in restraints anymore, awaiting SNF in [place]. Awaiting SNF placement. He would not answer [place] Dept of services representatives questions. He asks that I restart his Ulcerative Colitis medications due to diarrhea, he has been on for 2-3 years. He ok'd me to call his friend Edwin at [phone]. I spoke with Edwin, who is 80 yo old and is not going to be taking care of Mr. Moncada. The closest cities are [place], [place], [place], [place] is near [place], [place]. History Interval history: Patient was seen and examined. Follow-up on current diagnosis of confusion which has resolved, no restraints. Overnight uneventful and doing better, bipap is off. Imaging, nursing note, chart, labs and old chart reviewed. More awake and alert, he wants his Ulcerative colitlis medication re-starte. He wants to go home to his RV in [place], [place]. He says his friend Edwin will take care of him. He spoke with Pineda at [phone]. Hospitalist Physical - Physical exam Narrative exam: GEN: unkempt, awake alert orientated x 3 HEENT: NCAT, EOMI, PERRL, OP Clear NECK: supple, no adenopathy, no thyromegaly, no JVD CVS/HEART: reg tachy, normal S1S2, pulses present bilaterally CHEST/LUNGS: bilateral crackles improved, Symmetrical chest expansion, good air entry bilaterally GI/Abdomen: soft, NTND, good bowel sounds, no guarding or rebound /Bladder: no suprapubic tenderness, no CVA or paraspinal tenderness EXT/Skin: black and blue all over, especially left upper bicep area with deformity MSK: FROM x 4 Neuro: CN 2-12 grossly intact, doesn't follow command Psych: calm - Constitutional Vitals: Temp Pulse Resp BP Pulse Ox 98.9 F 89 19 148/64 95 10/19/17 11:46 10/19/17 11:46 10/19/17 11:46 10/19/17 12:40 10/19/17 11:46 General appearance: Present: no acute distress, well-nourished Results - Labs CBC & Chem 7: 10/17/17 07:21 10/17/17 07:21 Labs: Laboratory Last Values WBC 5.4 K/mm3 (4.5-11.0) 10/17/17 07:21 RBC 3.23 M/mm3 (3.65-5.03) L 10/17/17 07:21 Hgb 10.2 gm/dl (11.8-15.2) L 10/17/17 07:21 Hct 29.5 % (35.5-45.6) L 10/17/17 07:21 MCV 91 fl (84-94) 10/17/17 07:21 MCH 31 pg (28-32) 10/17/17 07:21 MCHC 35 % (32-34) H 10/17/17 07:21 RDW 17.3 % (13.2-15.2) H 10/17/17 07:21 Plt Count 368 K/mm3 (140-440) 10/17/17 07:21 Lymph % (Auto) 6.0 % (13.4-35.0) L 09/29/17 12:54 [place] % (Auto) 10.8 % (0.0-7.3) H 09/29/17 12:54 Eos % (Auto) 0.8 % (0.0-4.3) 09/29/17 12:54 Baso % (Auto) 0.4 % (0.0-1.8) 09/29/17 12:54 Lymph # 0.7 K/mm3 (1.2-5.4) L 09/29/17 12:54 [place] # 1.3 K/mm3 (0.0-0.8) H 09/29/17 12:54 Eos # 0.1 K/mm3 (0.0-0.4) 09/29/17 12:54 Baso # 0.1 K/mm3 (0.0-0.1) 09/29/17 12:54 Add Manual Diff Complete 10/12/17 14:45 Total Counted 100 10/12/17 14:45 Seg Neutrophils % 82.0 % (40.0-70.0) H 09/29/17 12:54 Seg Neuts % (Manual) 61.0 % (40.0-70.0) 10/12/17 14:45 Band Neutrophils % 6.0 % 10/12/17 14:45 Lymphocytes % (Manual) 24.0 % (13.4-35.0) 10/12/17 14:45 Reactive Lymphs % (Man) 0 % 10/12/17 14:45 Monocytes % (Manual) 6.0 % (0.0-7.3) 10/12/17 14:45 Eosinophils % (Manual) 1.0 % (0.0-4.3) 10/12/17 14:45 Basophils % (Manual) 0 % (0.0-1.8) 10/12/17 14:45 Metamyelocytes % 0 % 10/12/17 14:45 Myelocytes % 2.0 % 10/12/17 14:45 Promyelocytes % 0 % 10/12/17 14:45 Blast Cells % 0 % 10/12/17 14:45 Nucleated RBC % Not Reportable 10/12/17 14:45 Seg Neutrophils # 10.1 K/mm3 (1.8-7.7) H 09/29/17 12:54 Seg Neutrophils # Man 3.3 K/mm3 (1.8-7.7) 10/12/17 14:45 Band Neutrophils # 0.3 K/mm3 10/12/17 14:45 Lymphocytes # (Manual) 1.3 K/mm3 (1.2-5.4) 10/12/17 14:45 Abs React Lymphs (Man) 0.0 K/mm3 10/12/17 14:45 Monocytes # (Manual) 0.3 K/mm3 (0.0-0.8) 10/12/17 14:45 Eosinophils # (Manual) 0.1 K/mm3 (0.0-0.4) 10/12/17 14:45 Basophils # (Manual) 0.0 K/mm3 (0.0-0.1) 10/12/17 14:45 Metamyelocytes # 0.0 K/mm3 10/12/17 14:45 Myelocytes # 0.1 K/mm3 10/12/17 14:45 Promyelocytes # 0.0 K/mm3 10/12/17 14:45 Blast Cells # 0.0 K/mm3 10/12/17 14:45 WBC Morphology Not Reportable 10/12/17 14:45 Hypersegmented Neuts Not Reportable 10/12/17 14:45 Hyposegmented Neuts Not Reportable 10/12/17 14:45 Hypogranular Neuts Not Reportable 10/12/17 14:45 Smudge Cells Not Reportable 10/12/17 14:45 Toxic Granulation Not Reportable 10/12/17 14:45 Toxic Vacuolation Not Reportable 10/12/17 14:45 Dohle Bodies Not Reportable 10/12/17 14:45 Pelger-Huet Anomaly Not Reportable 10/12/17 14:45 Albertina Rods Not Reportable 10/12/17 14:45 Platelet Estimate Consistent w auto 10/12/17 14:45 Clumped Platelets Not Reportable 10/12/17 14:45 Plt Clumps, EDTA Not Reportable 10/12/17 14:45 Large Platelets Not Reportable 10/12/17 14:45 Giant Platelets Not Reportable 10/12/17 14:45 Platelet Satelliting Not Reportable 10/12/17 14:45 Plt Morphology Comment Not Reportable 10/12/17 14:45 RBC Morphology Not Reportable 10/12/17 14:45 Dimorphic RBCs Not Reportable 10/12/17 14:45 Polychromasia Not Reportable 10/12/17 14:45 Hypochromasia 1+ 10/12/17 14:45 Poikilocytosis Not Reportable 10/12/17 14:45 Anisocytosis 1+ 10/12/17 14:45 Microcytosis Not Reportable 10/12/17 14:45 Macrocytosis Not Reportable 10/12/17 14:45 Spherocytes Not Reportable 10/12/17 14:45 Pappenheimer Bodies Not Reportable 10/12/17 14:45 Sickle Cells Not Reportable 10/12/17 14:45 Target Cells Not Reportable 10/12/17 14:45 Tear Drop Cells Not Reportable 10/12/17 14:45 Ovalocytes 1+ 10/12/17 14:45 Stomatocytes 1+ 10/12/17 14:45 Helmet Cells Not Reportable 10/12/17 14:45 [place] Bodies Not Reportable 10/12/17 14:45 Buhl Rings Not Reportable 10/12/17 14:45 Sakina Cells Not Reportable 10/12/17 14:45 Bite Cells Not Reportable 10/12/17 14:45 Crenated Cell Not Reportable 10/12/17 14:45 Elliptocytes Not Reportable 10/12/17 14:45 Acanthocytes (Spur) Not Reportable 10/12/17 14:45 Rouleaux Not Reportable 10/12/17 14:45 Hemoglobin C Crystals Not Reportable 10/12/17 14:45 Schistocytes Not Reportable 10/12/17 14:45 Malaria parasites Not Reportable 10/12/17 14:45 Brandon Bodies Not Reportable 10/12/17 14:45 Hem Pathologist Commnt No 10/12/17 14:45 PT 14.1 Sec. (12.2-14.9) 10/01/17 06:31 INR 1.04 (0.87-1.13) 10/01/17 06:31 APTT 35.4 Sec. (24.2-36.6) 10/01/17 06:31 D-Dimer 2801.11 ng/mlDDU (0-234) H 09/29/17 19:19 POC ABG pH 7.415 (7.35-7.45) 10/02/17 20:23 POC ABG pCO2 42.1 (35-45) 10/02/17 20:23 POC ABG pO2 77 (80-105) L 10/02/17 20:23 POC ABG HCO3 27.0 10/02/17 20:23 POC ABG Total CO2 28 10/02/17 20:23 POC ABG O2 Sat 95 10/02/17 20:23 POC ABG Base Excess 2 10/02/17 20:23 FiO2 65 % 10/02/17 20:23 Sodium 145 mmol/L (137-145) D 10/17/17 07:21 Potassium 3.9 mmol/L (3.6-5.0) 10/17/17 07:21 Chloride 104.6 mmol/L (98-107) 10/17/17 07:21 Carbon Dioxide 31 mmol/L (22-30) H 10/17/17 07:21 Anion Gap 13 mmol/L 10/17/17 07:21 BUN 7 mg/dL (9-20) L 10/17/17 07:21 Creatinine 0.7 mg/dL (0.8-1.5) L 10/17/17 07:21 Estimated GFR > 60 ml/min 10/17/17 07:21 BUN/Creatinine Ratio 10 % 10/17/17 07:21 Glucose 149 mg/dL (75-100) H 10/17/17 07:21 POC Glucose 255 (70-105) H 10/19/17 11:55 Lactic Acid 1.80 mmol/L (0.7-2.0) 09/30/17 02:38 Calcium 8.0 mg/dL (8.4-10.2) L 10/17/17 07:21 Phosphorus 3.40 mg/dL (2.5-4.5) 10/08/17 06:39 Magnesium 2.10 mg/dL (1.7-2.3) 10/08/17 06:39 Total Bilirubin 0.70 mg/dL (0.1-1.2) 10/01/17 06:16 AST 15 units/L (5-40) 10/01/17 06:16 ALT 14 units/L (7-56) 10/01/17 06:16 Alkaline Phosphatase 86 units/L (35-129) 10/01/17 06:16 Total Creatine Kinase 348 units/L (55-170) H 09/29/17 14:58 Troponin T 0.057 ng/mL (0.00-0.029) H 10/02/17 17:56 NT-Pro-B Natriuret Pep 230.9 pg/mL (0-900) 09/29/17 18:37 Total Protein 6.0 g/dL (6.3-8.2) L 10/01/17 06:16 Albumin 3.4 g/dL (3.9-5) L 10/01/17 06:16 Albumin/Globulin Ratio 1.3 % 10/01/17 06:16 Prealbumin 0.110 g/L (0.200-0.400) L 10/09/17 Unknown Triglycerides 134 mg/dL (2-149) 09/29/17 12:54 Cholesterol 118 mg/dL (50-199) 09/29/17 12:54 LDL Cholesterol Direct 57 mg/dL (50-130) 09/29/17 12:54 HDL Cholesterol 41 mg/dL (40-59) 09/29/17 12:54 Cholesterol/HDL Ratio 2.87 % 09/29/17 12:54 Urine Color Yellow (Yellow) 10/05/17 01:00 Urine Turbidity Clear (Clear) 10/05/17 01:00 Urine pH 5.0 (5.0-7.0) 10/05/17 01:00 Ur Specific [place] 1.015 (1.003-1.030) 10/05/17 01:00 Urine Protein <15 mg/dl mg/dL (Negative) 10/05/17 01:00 Urine Glucose (UA) 150 mg/dL (Negative) 10/05/17 01:00 Urine Ketones Tr mg/dL (Negative) 10/05/17 01:00 Urine Blood Neg (Negative) 10/05/17 01:00 Urine Nitrite Neg (Negative) 10/05/17 01:00 Urine Bilirubin Neg (Negative) 10/05/17 01:00 Urine Urobilinogen < 2.0 mg/dL (<2.0) 10/05/17 01:00 Ur Leukocyte Esterase Neg (Negative) 10/05/17 01:00 Urine WBC (Auto) 3.0 /HPF (0.0-6.0) 10/05/17 01:00 Urine RBC (Auto) < 1.0 /HPF (0.0-6.0) 10/05/17 01:00 U Epithel Cells (Auto) < 1.0 /HPF (0-13.0) 10/05/17 01:00 Urine Bacteria (Auto) 1+ /HPF (Negative) 10/05/17 01:00 Amorphous Crystals 1+ 10/05/17 01:00 Hyaline Casts 8 /LPF 10/05/17 01:00 Urine Creatinine 99.4 mg/dL (0.1-20.0) H 10/05/17 01:00 Urine Sodium 10 mmol/L 10/05/17 01:00
--- NOTE | 2017-10-19 14:52 | Progress Note ---
Assessment and Plan 72 y/o male with acute respiratory failure. no new recs for today 1. Patient refusing PPV at night. 2. Continue baseline oxygen therapy. 3. Stable for discharge when placement found from a pulmonary standpoint. Subjective Date of service: 10/19/17 Principal diagnosis: Sepsis Interval history: No acute events Objective Vital Signs - 12hr 10/19/17 10/19/17 10/19/17 02:53 08:01 11:46 Temperature 97.8 F 98.9 F Pulse Rate 80 89 Respiratory 20 19 19 Rate Blood Pressure 136/69 148/64 O2 Sat by Pulse 97 95 Oximetry 10/19/17 12:40 Temperature Pulse Rate Respiratory Rate Blood Pressure 148/64 O2 Sat by Pulse Oximetry Constitutional: no acute distress, other (far as sleep with snoring and occasional apneas) Eyes: non-icteric ENT: oropharynx moist Neck: supple, no JVD Effort: mildly labored Ascultation: Bilateral: clear, diminished breath sounds, rales (scattered) Cardiovascular: regular rate and rhythm Gastrointestinal: other (obese) Integumentary: other (upper extremities bruises) Extremities: no cyanosis, no edema, edema, other (left upper extremity hematoma. R lower extremity pretibial ulcer) Neurologic: normal mental status, non-focal exam CBC and BMP: 10/17/17 07:21 10/17/17 07:21 ABG, PT/INR, D-dimer: ABG POC ABG pH 7.415 (7.35-7.45) 10/02/17 20:23 POC ABG pCO2 42.1 (35-45) 10/02/17 20:23 POC ABG pO2 77 (80-105) L 10/02/17 20:23 POC ABG HCO3 27.0 10/02/17 20:23 POC ABG Total CO2 28 10/02/17 20:23 POC ABG O2 Sat 95 10/02/17 20:23 PT/INR, D-dimer PT 14.1 Sec. (12.2-14.9) 10/01/17 06:31 INR 1.04 (0.87-1.13) 10/01/17 06:31 D-Dimer 2801.11 ng/mlDDU (0-234) H 09/29/17 19:19 Abnormal lab findings: Abnormal Labs 0509/29/17 09/29/17 12:54 12:54 14:58 WBC 12.4 H RBC Hgb 11.7 L Hct 33.5 L MCHC 35 H RDW 15.4 H Lymph % (Auto) 6.0 L [place] % (Auto) 10.8 H Lymph # 0.7 L [place] # 1.3 H Seg Neutrophils % 82.0 H Seg Neuts % (Manual) Lymphocytes % (Manual) Seg Neutrophils # 10.1 H Seg Neutrophils # Man Lymphocytes # (Manual) D-Dimer POC ABG pO2 Sodium 133 L Potassium Chloride 90.9 L Carbon Dioxide BUN 70 H Creatinine 2.0 H Glucose 336 H POC Glucose Calcium Magnesium Total Creatine Kinase 348 H Troponin T 0.071 H 0.073 H Total Protein Albumin Prealbumin Urine Creatinine 09/29/17 09/29/17 09/29/17 18:11 18:37 19:19 WBC RBC Hgb Hct MCHC RDW Lymph % (Auto) [place] % (Auto) Lymph # [place] # Seg Neutrophils % Seg Neuts % (Manual) Lymphocytes % (Manual) Seg Neutrophils # Seg Neutrophils # Man Lymphocytes # (Manual) D-Dimer 2801.11 H POC ABG pO2 Sodium Potassium Chloride Carbon Dioxide BUN Creatinine Glucose POC Glucose Calcium Magnesium Total Creatine Kinase Troponin T 0.073 H 0.074 H Total Protein Albumin Prealbumin Urine Creatinine 09/29/17 09/29/17 09/30/17 22:22 23:00 02:38 WBC RBC Hgb Hct MCHC RDW Lymph % (Auto) [place] % (Auto) Lymph # [place] # Seg Neutrophils % Seg Neuts % (Manual) Lymphocytes % (Manual) Seg Neutrophils # Seg Neutrophils # Man Lymphocytes # (Manual) D-Dimer POC ABG pO2 Sodium Potassium Chloride Carbon Dioxide BUN Creatinine Glucose POC Glucose 389 H Calcium Magnesium Total Creatine Kinase Troponin T 0.058 H D 0.064 H Total Protein Albumin Prealbumin Urine Creatinine 09/30/17 09/30/17 09/30/17 12:07 16:24 21:25 WBC RBC Hgb Hct MCHC RDW Lymph % (Auto) [place] % (Auto) Lymph # [place] # Seg Neutrophils % Seg Neuts % (Manual) Lymphocytes % (Manual) Seg Neutrophils # Seg Neutrophils # Man Lymphocytes # (Manual) D-Dimer POC ABG pO2 Sodium Potassium Chloride Carbon Dioxide BUN Creatinine Glucose POC Glucose 387 H 431 H 326 H Calcium Magnesium Total Creatine Kinase Troponin T Total Protein Albumin Prealbumin Urine Creatinine 10/01/17 10/01/17 10/01/17 06:16 06:16 06:30 WBC 14.0 H RBC Hgb Hct 34.3 L MCHC RDW Lymph % (Auto) [place] % (Auto) Lymph # [place] # Seg Neutrophils % Seg Neuts % (Manual) 87.0 H Lymphocytes % (Manual) 7.0 L Seg Neutrophils # Seg Neutrophils # Man 12.2 H Lymphocytes # (Manual) 1.0 L D-Dimer POC ABG pO2 Sodium Potassium 3.4 L Chloride 94.7 L Carbon Dioxide BUN 62 H Creatinine Glucose 432 H POC Glucose 419 H Calcium Magnesium Total Creatine Kinase Troponin T Total Protein 6.0 L Albumin 3.4 L Prealbumin Urine Creatinine 10/01/17 10/01/17 10/02/17 11:25 15:39 07:39 WBC RBC Hgb Hct MCHC RDW Lymph % (Auto) [place] % (Auto) Lymph # [place] # Seg Neutrophils % Seg Neuts % (Manual) Lymphocytes % (Manual) Seg Neutrophils # Seg Neutrophils # Man Lymphocytes # (Manual) D-Dimer POC ABG pO2 Sodium Potassium Chloride Carbon Dioxide BUN Creatinine Glucose POC Glucose 456 H 472 H 429 H Calcium Magnesium Total Creatine Kinase Troponin T Total Protein Albumin Prealbumin Urine Creatinine 10/02/17 10/02/17 10/02/17 11:03 11:03 11:03 WBC 14.9 H RBC Hgb Hct MCHC RDW 15.4 H Lymph % (Auto) [place] % (Auto) Lymph # [place] # Seg Neutrophils % Seg Neuts % (Manual) Lymphocytes % (Manual) Seg Neutrophils # Seg Neutrophils # Man Lymphocytes # (Manual) D-Dimer POC ABG pO2 Sodium 154 H D Potassium 3.5 L Chloride Carbon Dioxide BUN 66 H Creatinine Glucose 432 H POC Glucose Calcium Magnesium Total Creatine Kinase Troponin T 0.059 H Total Protein Albumin Prealbumin Urine Creatinine 10/02/17 10/02/17 10/02/17 13:00 14:48 14:57 WBC RBC Hgb Hct MCHC RDW Lymph % (Auto) [place] % (Auto) Lymph # [place] # Seg Neutrophils % Seg Neuts % (Manual) Lymphocytes % (Manual) Seg Neutrophils # Seg Neutrophils # Man Lymphocytes # (Manual) D-Dimer POC ABG pO2 64 L Sodium Potassium Chloride Carbon Dioxide BUN Creatinine Glucose POC Glucose 476 H 448 H Calcium Magnesium Total Creatine Kinase Troponin T Total Protein Albumin Prealbumin Urine Creatinine 10/02/17 10/02/17 10/02/17 17:56 18:19 20:23 WBC RBC Hgb Hct MCHC RDW Lymph % (Auto) [place] % (Auto) Lymph # [place] # Seg Neutrophils % Seg Neuts % (Manual) Lymphocytes % (Manual) Seg Neutrophils # Seg Neutrophils # Man Lymphocytes # (Manual) D-Dimer POC ABG pO2 77 L Sodium Potassium Chloride Carbon Dioxide BUN Creatinine Glucose POC Glucose > 500 H Calcium Magnesium Total Creatine Kinase Troponin T 0.057 H Total Protein Albumin Prealbumin Urine Creatinine 10/02/17 10/03/17 10/03/17 23:41 05:44 05:44 WBC 14.8 H RBC 3.41 L Hgb 10.4 L Hct 31.8 L MCHC RDW 15.4 H Lymph % (Auto) [place] % (Auto) Lymph # [place] # Seg Neutrophils % Seg Neuts % (Manual) Lymphocytes % (Manual) Seg Neutrophils # Seg Neutrophils # Man Lymphocytes # (Manual) D-Dimer POC ABG pO2 Sodium 155 H Potassium 3.4 L Chloride 110.8 H Carbon Dioxide 32 H BUN 81 H Creatinine 1.6 H Glucose 403 H POC Glucose 447 H Calcium Magnesium 2.60 H Total Creatine Kinase Troponin T Total Protein Albumin Prealbumin Urine Creatinine 10/03/17 10/03/17 10/04/17 06:32 12:33 00:14 WBC RBC Hgb Hct MCHC RDW Lymph % (Auto) [place] % (Auto) Lymph # [place] # Seg Neutrophils % Seg Neuts % (Manual) Lymphocytes % (Manual) Seg Neutrophils # Seg Neutrophils # Man Lymphocytes # (Manual) D-Dimer POC ABG pO2 Sodium Potassium Chloride Carbon Dioxide BUN Creatinine Glucose POC Glucose 394 H 449 H > 500 H Calcium Magnesium Total Creatine Kinase Troponin T Total Protein Albumin Prealbumin Urine Creatinine 10/04/17 10/04/17 10/04/17 00:32 06:09 06:19 WBC 13.5 H RBC 3.38 L Hgb 10.5 L Hct 31.4 L MCHC RDW 15.6 H Lymph % (Auto) [place] % (Auto) Lymph # [place] # Seg Neutrophils % Seg Neuts % (Manual) Lymphocytes % (Manual) Seg Neutrophils # Seg Neutrophils # Man Lymphocytes # (Manual) D-Dimer POC ABG pO2 Sodium Potassium Chloride Carbon Dioxide BUN Creatinine Glucose 623 H* POC Glucose 383 H Calcium Magnesium Total Creatine Kinase Troponin T Total Protein Albumin Prealbumin Urine Creatinine 10/04/17 10/04/17 10/04/17 06:19 11:51 16:06 WBC RBC Hgb Hct MCHC RDW Lymph % (Auto) [place] % (Auto) Lymph # [place] # Seg Neutrophils % Seg Neuts % (Manual) Lymphocytes % (Manual) Seg Neutrophils # Seg Neutrophils # Man Lymphocytes # (Manual) D-Dimer POC ABG pO2 Sodium 163 H* D Potassium Chloride 114.2 H Carbon Dioxide 34 H BUN 83 H Creatinine 1.7 H Glucose 389 H POC Glucose 340 H 341 H Calcium Magnesium Total Creatine Kinase Troponin T Total Protein Albumin Prealbumin Urine Creatinine 10/04/17 10/04/17 10/05/17 17:34 23:00 01:00 WBC RBC Hgb Hct MCHC RDW Lymph % (Auto) [place] % (Auto) Lymph # [place] # Seg Neutrophils % Seg Neuts % (Manual) Lymphocytes % (Manual) Seg Neutrophils # Seg Neutrophils # Man Lymphocytes # (Manual) D-Dimer POC ABG pO2 Sodium 155 H Potassium 3.4 L Chloride 107.4 H Carbon Dioxide 33 H BUN 82 H Creatinine 1.8 H Glucose 348 H POC Glucose 461 H Calcium Magnesium Total Creatine Kinase Troponin T Total Protein Albumin Prealbumin Urine Creatinine 99.4 H 10/05/17 10/05/17 10/05/17 05:25 05:39 06:11 WBC 14.1 H RBC 3.03 L Hgb 9.6 L Hct 28.0 L MCHC RDW 15.8 H Lymph % (Auto) [place] % (Auto) Lymph # [place] # Seg Neutrophils % Seg Neuts % (Manual) Lymphocytes % (Manual) Seg Neutrophils # Seg Neutrophils # Man Lymphocytes # (Manual) D-Dimer POC ABG pO2 Sodium 149 H Potassium Chloride Carbon Dioxide 33 H BUN 81 H Creatinine 1.7 H Glucose 365 H POC Glucose 397 H Calcium Magnesium 2.40 H Total Creatine Kinase Troponin T Total Protein Albumin Prealbumin Urine Creatinine 10/05/17 10/05/17 10/05/17 12:16 16:22 21:06 WBC RBC Hgb Hct MCHC RDW Lymph % (Auto) [place] % (Auto) Lymph # [place] # Seg Neutrophils % Seg Neuts % (Manual) Lymphocytes % (Manual) Seg Neutrophils # Seg Neutrophils # Man Lymphocytes # (Manual) D-Dimer POC ABG pO2 Sodium Potassium Chloride Carbon Dioxide BUN Creatinine Glucose POC Glucose 400 H 395 H 265 H Calcium Magnesium Total Creatine Kinase Troponin T Total Protein Albumin Prealbumin Urine Creatinine 10/06/17 10/06/17 10/06/17 06:43 06:50 11:29 WBC RBC Hgb Hct MCHC RDW Lymph % (Auto) [place] % (Auto) Lymph # [place] # Seg Neutrophils % Seg Neuts % (Manual) Lymphocytes % (Manual) Seg Neutrophils # Seg Neutrophils # Man Lymphocytes # (Manual) D-Dimer POC ABG pO2 Sodium 156 H Potassium Chloride 115.0 H Carbon Dioxide 32 H BUN 62 H Creatinine Glucose 308 H POC Glucose 330 H 396 H Calcium Magnesium Total Creatine Kinase Troponin T Total Protein Albumin Prealbumin Urine Creatinine 10/06/17 10/07/17 10/07/17 16:24 00:46 07:18 WBC RBC Hgb Hct MCHC RDW Lymph % (Auto) [place] % (Auto) Lymph # [place] # Seg Neutrophils % Seg Neuts % (Manual) Lymphocytes % (Manual) Seg Neutrophils # Seg Neutrophils # Man Lymphocytes # (Manual) D-Dimer POC ABG pO2 Sodium 149 H Potassium Chloride Carbon Dioxide 32 H BUN 43 H Creatinine Glucose 289 H POC Glucose 417 H 295 H Calcium Magnesium Total Creatine Kinase Troponin T Total Protein Albumin Prealbumin Urine Creatinine 10/07/17 10/07/17 10/07/17 08:16 12:38 13:08 WBC RBC Hgb Hct MCHC RDW Lymph % (Auto) [place] % (Auto) Lymph # [place] # Seg Neutrophils % Seg Neuts % (Manual) Lymphocytes % (Manual) Seg Neutrophils # Seg Neutrophils # Man Lymphocytes # (Manual) D-Dimer POC ABG pO2 Sodium Potassium Chloride Carbon Dioxide BUN Creatinine Glucose POC Glucose 348 H 256 H 365 H Calcium Magnesium Total Creatine Kinase Troponin T Total Protein Albumin Prealbumin Urine Creatinine 10/07/17 10/07/17 10/08/17 16:35 22:34 06:39 WBC RBC Hgb Hct MCHC RDW Lymph % (Auto) [place] % (Auto) Lymph # [place] # Seg Neutrophils % Seg Neuts % (Manual) Lymphocytes % (Manual) Seg Neutrophils # Seg Neutrophils # Man Lymphocytes # (Manual) D-Dimer POC ABG pO2 Sodium 151 H Potassium Chloride 107.4 H Carbon Dioxide 32 H BUN 31 H Creatinine Glucose 246 H POC Glucose 234 H 200 H Calcium Magnesium Total Creatine Kinase Troponin T Total Protein Albumin Prealbumin Urine Creatinine 10/08/17 10/08/17 10/08/17 08:06 12:56 17:16 WBC RBC Hgb Hct MCHC RDW Lymph % (Auto) [place] % (Auto) Lymph # [place] # Seg Neutrophils % Seg Neuts % (Manual) Lymphocytes % (Manual) Seg Neutrophils # Seg Neutrophils # Man Lymphocytes # (Manual) D-Dimer POC ABG pO2 Sodium Potassium Chloride Carbon Dioxide BUN Creatinine Glucose POC Glucose 273 H 255 H 273 H Calcium Magnesium Total Creatine Kinase Troponin T Total Protein Albumin Prealbumin Urine Creatinine 10/08/17 10/09/17 10/09/17 22:11 05:50 06:42 WBC RBC Hgb Hct MCHC RDW Lymph % (Auto) [place] % (Auto) Lymph # [place] # Seg Neutrophils % Seg Neuts % (Manual) Lymphocytes % (Manual) Seg Neutrophils # Seg Neutrophils # Man Lymphocytes # (Manual) D-Dimer POC ABG pO2 Sodium Potassium Chloride Carbon Dioxide BUN Creatinine Glucose POC Glucose 202 H 167 H 210 H Calcium Magnesium Total Creatine Kinase Troponin T Total Protein Albumin Prealbumin Urine Creatinine 10/09/17 10/09/17 10/09/17 11:39 16:52 22:07 WBC RBC Hgb Hct MCHC RDW Lymph % (Auto) [place] % (Auto) Lymph # [place] # Seg Neutrophils % Seg Neuts % (Manual) Lymphocytes % (Manual) Seg Neutrophils # Seg Neutrophils # Man Lymphocytes # (Manual) D-Dimer POC ABG pO2 Sodium Potassium Chloride Carbon Dioxide BUN Creatinine Glucose POC Glucose 304 H 304 H 314 H Calcium Magnesium Total Creatine Kinase Troponin T Total Protein Albumin Prealbumin Urine Creatinine 10/09/17 10/10/17 10/10/17 Unknown 04:28 05:58 WBC RBC Hgb Hct MCHC RDW Lymph % (Auto) [place] % (Auto) Lymph # [place] # Seg Neutrophils % Seg Neuts % (Manual) Lymphocytes % (Manual) Seg Neutrophils # Seg Neutrophils # Man Lymphocytes # (Manual) D-Dimer POC ABG pO2 Sodium 147 H Potassium Chloride Carbon Dioxide 33 H 33 H BUN 22 H Creatinine Glucose 207 H 193 H POC Glucose 194 H Calcium Magnesium Total Creatine Kinase Troponin T Total Protein Albumin Prealbumin 0.110 L Urine Creatinine 10/10/17 10/10/17 10/10/17 11:13 12:15 16:26 WBC RBC Hgb Hct MCHC RDW Lymph % (Auto) [place] % (Auto) Lymph # [place] # Seg Neutrophils % Seg Neuts % (Manual) Lymphocytes % (Manual) Seg Neutrophils # Seg Neutrophils # Man Lymphocytes # (Manual) D-Dimer POC ABG pO2 Sodium Potassium Chloride Carbon Dioxide BUN Creatinine Glucose POC Glucose 240 H 265 H 246 H Calcium Magnesium Total Creatine Kinase Troponin T Total Protein Albumin Prealbumin Urine Creatinine 10/10/17 10/11/17 10/11/17 22:09 06:05 06:43 WBC RBC Hgb Hct MCHC RDW Lymph % (Auto) [place] % (Auto) Lymph # [place] # Seg Neutrophils % Seg Neuts % (Manual) Lymphocytes % (Manual) Seg Neutrophils # Seg Neutrophils # Man Lymphocytes # (Manual) D-Dimer POC ABG pO2 Sodium Potassium Chloride Carbon Dioxide BUN Creatinine Glucose 209 H POC Glucose 261 H 180 H Calcium 8.1 L Magnesium Total Creatine Kinase Troponin T Total Protein Albumin Prealbumin Urine Creatinine 10/11/17 10/11/17 10/11/17 12:06 13:32 18:01 WBC RBC Hgb Hct MCHC RDW Lymph % (Auto) [place] % (Auto) Lymph # [place] # Seg Neutrophils % Seg Neuts % (Manual) Lymphocytes % (Manual) Seg Neutrophils # Seg Neutrophils # Man Lymphocytes # (Manual) D-Dimer POC ABG pO2 Sodium Potassium Chloride Carbon Dioxide BUN Creatinine Glucose POC Glucose 274 H 293 H 297 H Calcium Magnesium Total Creatine Kinase Troponin T Total Protein Albumin Prealbumin Urine Creatinine 10/12/17 10/12/17 10/12/17 05:34 11:13 14:45 WBC RBC Hgb Hct MCHC RDW Lymph % (Auto) [place] % (Auto) Lymph # [place] # Seg Neutrophils % Seg Neuts % (Manual) Lymphocytes % (Manual) Seg Neutrophils # Seg Neutrophils # Man Lymphocytes # (Manual) D-Dimer POC ABG pO2 Sodium Potassium Chloride 93.0 L Carbon Dioxide 33 H BUN Creatinine 0.7 L Glucose 222 H POC Glucose 154 H 196 H Calcium 8.3 L Magnesium Total Creatine Kinase Troponin T Total Protein Albumin Prealbumin Urine Creatinine 10/12/17 10/12/17 10/12/17 14:45 17:04 23:30 WBC RBC 2.90 L Hgb 9.1 L Hct 27.0 L MCHC RDW 16.4 H Lymph % (Auto) [place] % (Auto) Lymph # [place] # Seg Neutrophils % Seg Neuts % (Manual) Lymphocytes % (Manual) Seg Neutrophils # Seg Neutrophils # Man Lymphocytes # (Manual) D-Dimer POC ABG pO2 Sodium Potassium Chloride Carbon Dioxide BUN Creatinine Glucose POC Glucose 185 H 241 H Calcium Magnesium Total Creatine Kinase Troponin T Total Protein Albumin Prealbumin Urine Creatinine 10/13/17 10/13/17 10/13/17 06:04 13:25 16:17 WBC RBC Hgb Hct MCHC RDW Lymph % (Auto) [place] % (Auto) Lymph # [place] # Seg Neutrophils % Seg Neuts % (Manual) Lymphocytes % (Manual) Seg Neutrophils # Seg Neutrophils # Man Lymphocytes # (Manual) D-Dimer POC ABG pO2 Sodium Potassium Chloride Carbon Dioxide BUN Creatinine Glucose POC Glucose 192 H 213 H 198 H Calcium Magnesium Total Creatine Kinase Troponin T Total Protein Albumin Prealbumin Urine Creatinine 10/14/17 10/14/17 10/14/17 00:23 05:58 11:53 WBC RBC Hgb Hct MCHC RDW Lymph % (Auto) [place] % (Auto) Lymph # [place] # Seg Neutrophils % Seg Neuts % (Manual) Lymphocytes % (Manual) Seg Neutrophils # Seg Neutrophils # Man Lymphocytes # (Manual) D-Dimer POC ABG pO2 Sodium Potassium Chloride Carbon Dioxide BUN Creatinine Glucose POC Glucose 170 H 155 H 161 H Calcium Magnesium Total Creatine Kinase Troponin T Total Protein Albumin Prealbumin Urine Creatinine 10/14/17 10/14/17 10/15/17 15:46 21:43 05:53 WBC RBC Hgb Hct MCHC RDW Lymph % (Auto) [place] % (Auto) Lymph # [place] # Seg Neutrophils % Seg Neuts % (Manual) Lymphocytes % (Manual) Seg Neutrophils # Seg Neutrophils # Man Lymphocytes # (Manual) D-Dimer POC ABG pO2 Sodium Potassium Chloride Carbon Dioxide BUN Creatinine Glucose POC Glucose 239 H 262 H 142 H Calcium Magnesium Total Creatine Kinase Troponin T Total Protein Albumin Prealbumin Urine Creatinine 10/15/17 10/15/17 10/15/17 12:02 16:46 21:52 WBC RBC Hgb Hct MCHC RDW Lymph % (Auto) [place] % (Auto) Lymph # [place] # Seg Neutrophils % Seg Neuts % (Manual) Lymphocytes % (Manual) Seg Neutrophils # Seg Neutrophils # Man Lymphocytes # (Manual) D-Dimer POC ABG pO2 Sodium Potassium Chloride Carbon Dioxide BUN Creatinine Glucose POC Glucose 243 H 235 H 199 H Calcium Magnesium Total Creatine Kinase Troponin T Total Protein Albumin Prealbumin Urine Creatinine 10/16/17 10/16/17 10/16/17 06:31 13:47 16:45 WBC RBC Hgb Hct MCHC RDW Lymph % (Auto) [place] % (Auto) Lymph # [place] # Seg Neutrophils % Seg Neuts % (Manual) Lymphocytes % (Manual) Seg Neutrophils # Seg Neutrophils # Man Lymphocytes # (Manual) D-Dimer POC ABG pO2 Sodium Potassium Chloride Carbon Dioxide BUN Creatinine Glucose POC Glucose 153 H 219 H 174 H Calcium Magnesium Total Creatine Kinase Troponin T Total Protein Albumin Prealbumin Urine Creatinine 10/17/17 10/17/17 10/17/17 00:16 06:28 07:21 WBC RBC 3.23 L Hgb 10.2 L Hct 29.5 L MCHC 35 H RDW 17.3 H Lymph % (Auto) [place] % (Auto) Lymph # [place] # Seg Neutrophils % Seg Neuts % (Manual) Lymphocytes % (Manual) Seg Neutrophils # Seg Neutrophils # Man Lymphocytes # (Manual) D-Dimer POC ABG pO2 Sodium Potassium Chloride Carbon Dioxide BUN Creatinine Glucose POC Glucose 182 H 163 H Calcium Magnesium Total Creatine Kinase Troponin T Total Protein Albumin Prealbumin Urine Creatinine 10/17/17 10/17/17 10/17/17 07:21 11:11 16:27 WBC RBC Hgb Hct MCHC RDW Lymph % (Auto) [place] % (Auto) Lymph # [place] # Seg Neutrophils % Seg Neuts % (Manual) Lymphocytes % (Manual) Seg Neutrophils # Seg Neutrophils # Man Lymphocytes # (Manual) D-Dimer POC ABG pO2 Sodium Potassium Chloride Carbon Dioxide 31 H BUN 7 L Creatinine 0.7 L Glucose 149 H POC Glucose 211 H 122 H Calcium 8.0 L Magnesium Total Creatine Kinase Troponin T Total Protein Albumin Prealbumin Urine Creatinine 10/17/17 10/18/17 10/18/17 23:49 06:24 11:28 WBC RBC Hgb Hct MCHC RDW Lymph % (Auto) [place] % (Auto) Lymph # [place] # Seg Neutrophils % Seg Neuts % (Manual) Lymphocytes % (Manual) Seg Neutrophils # Seg Neutrophils # Man Lymphocytes # (Manual) D-Dimer POC ABG pO2 Sodium Potassium Chloride Carbon Dioxide BUN Creatinine Glucose POC Glucose 190 H 125 H 154 H Calcium Magnesium Total Creatine Kinase Troponin T Total Protein Albumin Prealbumin Urine Creatinine 10/18/17 10/18/17 10/19/17 16:04 22:51 06:44 WBC RBC Hgb Hct MCHC RDW Lymph % (Auto) [place] % (Auto) Lymph # [place] # Seg Neutrophils % Seg Neuts % (Manual) Lymphocytes % (Manual) Seg Neutrophils # Seg Neutrophils # Man Lymphocytes # (Manual) D-Dimer POC ABG pO2 Sodium Potassium Chloride Carbon Dioxide BUN Creatinine Glucose POC Glucose 192 H 138 H 142 H Calcium Magnesium Total Creatine Kinase Troponin T Total Protein Albumin Prealbumin Urine Creatinine 10/19/17 11:55 WBC RBC Hgb Hct MCHC RDW Lymph % (Auto) [place] % (Auto) Lymph # [place] # Seg Neutrophils % Seg Neuts % (Manual) Lymphocytes % (Manual) Seg Neutrophils # Seg Neutrophils # Man Lymphocytes # (Manual) D-Dimer POC ABG pO2 Sodium Potassium Chloride Carbon Dioxide BUN Creatinine Glucose POC Glucose 255 H Calcium Magnesium Total Creatine Kinase Troponin T Total Protein Albumin Prealbumin Urine Creatinine
[2017-10-19] MEDS: LOVENOX SUB-Q SCH (22:36)
[2017-10-20] MEDS: HumaLOG SUB-Q SCH ×4 (00:04→18:12)
[2017-10-20] MEDS: CARDIZEM PO SCH ×5 (00:09→19:59)
[2017-10-20] MEDS: ATIVAN IV PRN (05:19)
[2017-10-20 08:03] LABS: Hematocrit 33.3 % (35.5-45.6); Hemoglobin 10.9 gm/dl (11.8-15.2); Mean Corpuscular HGB Conc 33 % (32-34); Mean Corpuscular Hemoglobin 31 pg (28-32); Mean Corpuscular Volume 93 fl (84-94); Platelet Count 350 K/mm3 (140-440); Red Blood Count 3.58 M/mm3 (3.65-5.03); Red Cell Distribution Width 17.7 % (13.2-15.2)
[2017-10-20 08:19] LABS: BUN/Creatinine Ratio 10; Blood Urea Nitrogen 6 mg/dL (9-20); Calcium 8.1 mg/dL (8.4-10.2); Hemolysis Index 1
[2017-10-20] MEDS: DELZICOL PO SCH ×3 (08:28→21:01)
[2017-10-20] MEDS: LANTUS SUB-Q SCH (08:33)
--- NOTE | 2017-10-20 09:49 | Progress Note ---
Assessment and Plan 72 y/o male with acute respiratory failure. no new recs for today. Will see PRN 1. Patient refusing PPV at night. 2. Continue baseline oxygen therapy. 3. Stable for discharge when placement found from a pulmonary standpoint. Subjective Date of service: 10/20/17 Principal diagnosis: Sepsis Interval history: No acute events. Still awaiting placement Objective Vital Signs - 12hr 10/19/17 10/19/17 10/20/17 22:00 22:33 00:09 Temperature 98.6 F Pulse Rate 82 84 Respiratory 20 20 Rate Blood Pressure 146/64 146/68 O2 Sat by Pulse 95 94 Oximetry 10/20/17 10/20/17 10/20/17 05:20 08:12 08:35 Temperature 98.7 F Pulse Rate 82 100 H Respiratory 19 Rate Blood Pressure 149/52 149/58 O2 Sat by Pulse 91 94 Oximetry Constitutional: no acute distress, other (far as sleep with snoring and occasional apneas) Eyes: non-icteric ENT: oropharynx moist Neck: supple, no JVD Effort: mildly labored Ascultation: Bilateral: clear, diminished breath sounds, rales (scattered) Cardiovascular: regular rate and rhythm Gastrointestinal: other (obese) Integumentary: other (upper extremities bruises) Extremities: no cyanosis, no edema, edema, other (left upper extremity hematoma. R lower extremity pretibial ulcer) Neurologic: normal mental status, non-focal exam CBC and BMP: 10/20/17 07:41 10/20/17 07:41 ABG, PT/INR, D-dimer: ABG POC ABG pH 7.415 (7.35-7.45) 10/02/17 20:23 POC ABG pCO2 42.1 (35-45) 10/02/17 20:23 POC ABG pO2 77 (80-105) L 10/02/17 20:23 POC ABG HCO3 27.0 10/02/17 20:23 POC ABG Total CO2 28 10/02/17 20:23 POC ABG O2 Sat 95 10/02/17 20:23 PT/INR, D-dimer PT 14.1 Sec. (12.2-14.9) 10/01/17 06:31 INR 1.04 (0.87-1.13) 10/01/17 06:31 D-Dimer 2801.11 ng/mlDDU (0-234) H 09/29/17 19:19 Abnormal lab findings: Abnormal Labs 09/29/17 09/29/17 09/29/17 12:54 12:54 14:58 WBC 12.4 H RBC Hgb 11.7 L Hct 33.5 L MCHC 35 H RDW 15.4 H Lymph % (Auto) 6.0 L [place] % (Auto) 10.8 H Lymph # 0.7 L [place] # 1.3 H Seg Neutrophils % 82.0 H Seg Neuts % (Manual) Lymphocytes % (Manual) Seg Neutrophils # 10.1 H Seg Neutrophils # Man Lymphocytes # (Manual) D-Dimer POC ABG pO2 Sodium 133 L Potassium Chloride 90.9 L Carbon Dioxide BUN 70 H Creatinine 2.0 H Glucose 336 H POC Glucose Calcium Magnesium Total Creatine Kinase 348 H Troponin T 0.071 H 0.073 H Total Protein Albumin Prealbumin Urine Creatinine 09/29/17 09/29/17 09/29/17 18:11 18:37 19:19 WBC RBC Hgb Hct MCHC RDW Lymph % (Auto) [place] % (Auto) Lymph # [place] # Seg Neutrophils % Seg Neuts % (Manual) Lymphocytes % (Manual) Seg Neutrophils # Seg Neutrophils # Man Lymphocytes # (Manual) D-Dimer 2801.11 H POC ABG pO2 Sodium Potassium Chloride Carbon Dioxide BUN Creatinine Glucose POC Glucose Calcium Magnesium Total Creatine Kinase Troponin T 0.073 H 0.074 H Total Protein Albumin Prealbumin Urine Creatinine 09/29/17 09/29/17 09/30/17 22:22 23:00 02:38 WBC RBC Hgb Hct MCHC RDW Lymph % (Auto) [place] % (Auto) Lymph # [place] # Seg Neutrophils % Seg Neuts % (Manual) Lymphocytes % (Manual) Seg Neutrophils # Seg Neutrophils # Man Lymphocytes # (Manual) D-Dimer POC ABG pO2 Sodium Potassium Chloride Carbon Dioxide BUN Creatinine Glucose POC Glucose 389 H Calcium Magnesium Total Creatine Kinase Troponin T 0.058 H D 0.064 H Total Protein Albumin Prealbumin Urine Creatinine 09/30/17 09/30/17 09/30/17 12:07 16:24 21:25 WBC RBC Hgb Hct MCHC RDW Lymph % (Auto) [place] % (Auto) Lymph # [place] # Seg Neutrophils % Seg Neuts % (Manual) Lymphocytes % (Manual) Seg Neutrophils # Seg Neutrophils # Man Lymphocytes # (Manual) D-Dimer POC ABG pO2 Sodium Potassium Chloride Carbon Dioxide BUN Creatinine Glucose POC Glucose 387 H 431 H 326 H Calcium Magnesium Total Creatine Kinase Troponin T Total Protein Albumin Prealbumin Urine Creatinine 10/01/17 10/01/17 10/01/17 06:16 06:16 06:30 WBC 14.0 H RBC Hgb Hct 34.3 L MCHC RDW Lymph % (Auto) [place] % (Auto) Lymph # [place] # Seg Neutrophils % Seg Neuts % (Manual) 87.0 H Lymphocytes % (Manual) 7.0 L Seg Neutrophils # Seg Neutrophils # Man 12.2 H Lymphocytes # (Manual) 1.0 L D-Dimer POC ABG pO2 Sodium Potassium 3.4 L Chloride 94.7 L Carbon Dioxide BUN 62 H Creatinine Glucose 432 H POC Glucose 419 H Calcium Magnesium Total Creatine Kinase Troponin T Total Protein 6.0 L Albumin 3.4 L Prealbumin Urine Creatinine 10/01/17 10/01/17 10/02/17 11:25 15:39 07:39 WBC RBC Hgb Hct MCHC RDW Lymph % (Auto) [place] % (Auto) Lymph # [place] # Seg Neutrophils % Seg Neuts % (Manual) Lymphocytes % (Manual) Seg Neutrophils # Seg Neutrophils # Man Lymphocytes # (Manual) D-Dimer POC ABG pO2 Sodium Potassium Chloride Carbon Dioxide BUN Creatinine Glucose POC Glucose 456 H 472 H 429 H Calcium Magnesium Total Creatine Kinase Troponin T Total Protein Albumin Prealbumin Urine Creatinine 10/02/17 10/02/17 10/02/17 11:03 11:03 11:03 WBC 14.9 H RBC Hgb Hct MCHC RDW 15.4 H Lymph % (Auto) [place] % (Auto) Lymph # [place] # Seg Neutrophils % Seg Neuts % (Manual) Lymphocytes % (Manual) Seg Neutrophils # Seg Neutrophils # Man Lymphocytes # (Manual) D-Dimer POC ABG pO2 Sodium 154 H D Potassium 3.5 L Chloride Carbon Dioxide BUN 66 H Creatinine Glucose 432 H POC Glucose Calcium Magnesium Total Creatine Kinase Troponin T 0.059 H Total Protein Albumin Prealbumin Urine Creatinine 10/02/17 10/02/17 10/02/17 13:00 14:48 14:57 WBC RBC Hgb Hct MCHC RDW Lymph % (Auto) [place] % (Auto) Lymph # [place] # Seg Neutrophils % Seg Neuts % (Manual) Lymphocytes % (Manual) Seg Neutrophils # Seg Neutrophils # Man Lymphocytes # (Manual) D-Dimer POC ABG pO2 64 L Sodium Potassium Chloride Carbon Dioxide BUN Creatinine Glucose POC Glucose 476 H 448 H Calcium Magnesium Total Creatine Kinase Troponin T Total Protein Albumin Prealbumin Urine Creatinine 10/02/17 10/02/17 10/02/17 17:56 18:19 20:23 WBC RBC Hgb Hct MCHC RDW Lymph % (Auto) [place] % (Auto) Lymph # [place] # Seg Neutrophils % Seg Neuts % (Manual) Lymphocytes % (Manual) Seg Neutrophils # Seg Neutrophils # Man Lymphocytes # (Manual) D-Dimer POC ABG pO2 77 L Sodium Potassium Chloride Carbon Dioxide BUN Creatinine Glucose POC Glucose > 500 H Calcium Magnesium Total Creatine Kinase Troponin T 0.057 H Total Protein Albumin Prealbumin Urine Creatinine 10/02/17 10/03/17 10/03/17 23:41 05:44 05:44 WBC 14.8 H RBC 3.41 L Hgb 10.4 L Hct 31.8 L MCHC RDW 15.4 H Lymph % (Auto) [place] % (Auto) Lymph # [place] # Seg Neutrophils % Seg Neuts % (Manual) Lymphocytes % (Manual) Seg Neutrophils # Seg Neutrophils # Man Lymphocytes # (Manual) D-Dimer POC ABG pO2 Sodium 155 H Potassium 3.4 L Chloride 110.8 H Carbon Dioxide 32 H BUN 81 H Creatinine 1.6 H Glucose 403 H POC Glucose 447 H Calcium Magnesium 2.60 H Total Creatine Kinase Troponin T Total Protein Albumin Prealbumin Urine Creatinine 10/03/17 10/03/17 10/04/17 06:32 12:33 00:14 WBC RBC Hgb Hct MCHC RDW Lymph % (Auto) [place] % (Auto) Lymph # [place] # Seg Neutrophils % Seg Neuts % (Manual) Lymphocytes % (Manual) Seg Neutrophils # Seg Neutrophils # Man Lymphocytes # (Manual) D-Dimer POC ABG pO2 Sodium Potassium Chloride Carbon Dioxide BUN Creatinine Glucose POC Glucose 394 H 449 H > 500 H Calcium Magnesium Total Creatine Kinase Troponin T Total Protein Albumin Prealbumin Urine Creatinine 10/04/17 10/04/17 10/04/17 00:32 06:09 06:19 WBC 13.5 H RBC 3.38 L Hgb 10.5 L Hct 31.4 L MCHC RDW 15.6 H Lymph % (Auto) [place] % (Auto) Lymph # [place] # Seg Neutrophils % Seg Neuts % (Manual) Lymphocytes % (Manual) Seg Neutrophils # Seg Neutrophils # Man Lymphocytes # (Manual) D-Dimer POC ABG pO2 Sodium Potassium Chloride Carbon Dioxide BUN Creatinine Glucose 623 H* POC Glucose 383 H Calcium Magnesium Total Creatine Kinase Troponin T Total Protein Albumin Prealbumin Urine Creatinine 10/04/17 10/04/17 10/04/17 06:19 11:51 16:06 WBC RBC Hgb Hct MCHC RDW Lymph % (Auto) [place] % (Auto) Lymph # [place] # Seg Neutrophils % Seg Neuts % (Manual) Lymphocytes % (Manual) Seg Neutrophils # Seg Neutrophils # Man Lymphocytes # (Manual) D-Dimer POC ABG pO2 Sodium 163 H* D Potassium Chloride 114.2 H Carbon Dioxide 34 H BUN 83 H Creatinine 1.7 H Glucose 389 H POC Glucose 340 H 341 H Calcium Magnesium Total Creatine Kinase Troponin T Total Protein Albumin Prealbumin Urine Creatinine 10/04/17 10/04/17 10/05/17 17:34 23:00 01:00 WBC RBC Hgb Hct MCHC RDW Lymph % (Auto) [place] % (Auto) Lymph # [place] # Seg Neutrophils % Seg Neuts % (Manual) Lymphocytes % (Manual) Seg Neutrophils # Seg Neutrophils # Man Lymphocytes # (Manual) D-Dimer POC ABG pO2 Sodium 155 H Potassium 3.4 L Chloride 107.4 H Carbon Dioxide 33 H BUN 82 H Creatinine 1.8 H Glucose 348 H POC Glucose 461 H Calcium Magnesium Total Creatine Kinase Troponin T Total Protein Albumin Prealbumin Urine Creatinine 99.4 H 10/05/17 10/05/17 10/05/17 05:25 05:39 06:11 WBC 14.1 H RBC 3.03 L Hgb 9.6 L Hct 28.0 L MCHC RDW 15.8 H Lymph % (Auto) [place] % (Auto) Lymph # [place] # Seg Neutrophils % Seg Neuts % (Manual) Lymphocytes % (Manual) Seg Neutrophils # Seg Neutrophils # Man Lymphocytes # (Manual) D-Dimer POC ABG pO2 Sodium 149 H Potassium Chloride Carbon Dioxide 33 H BUN 81 H Creatinine 1.7 H Glucose 365 H POC Glucose 397 H Calcium Magnesium 2.40 H Total Creatine Kinase Troponin T Total Protein Albumin Prealbumin Urine Creatinine 10/05/17 10/05/17 10/05/17 12:16 16:22 21:06 WBC RBC Hgb Hct MCHC RDW Lymph % (Auto) [place] % (Auto) Lymph # [place] # Seg Neutrophils % Seg Neuts % (Manual) Lymphocytes % (Manual) Seg Neutrophils # Seg Neutrophils # Man Lymphocytes # (Manual) D-Dimer POC ABG pO2 Sodium Potassium Chloride Carbon Dioxide BUN Creatinine Glucose POC Glucose 400 H 395 H 265 H Calcium Magnesium Total Creatine Kinase Troponin T Total Protein Albumin Prealbumin Urine Creatinine 10/06/17 10/06/17 10/06/17 06:43 06:50 11:29 WBC RBC Hgb Hct MCHC RDW Lymph % (Auto) [place] % (Auto) Lymph # [place] # Seg Neutrophils % Seg Neuts % (Manual) Lymphocytes % (Manual) Seg Neutrophils # Seg Neutrophils # Man Lymphocytes # (Manual) D-Dimer POC ABG pO2 Sodium 156 H Potassium Chloride 115.0 H Carbon Dioxide 32 H BUN 62 H Creatinine Glucose 308 H POC Glucose 330 H 396 H Calcium Magnesium Total Creatine Kinase Troponin T Total Protein Albumin Prealbumin Urine Creatinine 10/06/17 10/07/17 10/07/17 16:24 00:46 07:18 WBC RBC Hgb Hct MCHC RDW Lymph % (Auto) [place] % (Auto) Lymph # [place] # Seg Neutrophils % Seg Neuts % (Manual) Lymphocytes % (Manual) Seg Neutrophils # Seg Neutrophils # Man Lymphocytes # (Manual) D-Dimer POC ABG pO2 Sodium 149 H Potassium Chloride Carbon Dioxide 32 H BUN 43 H Creatinine Glucose 289 H POC Glucose 417 H 295 H Calcium Magnesium Total Creatine Kinase Troponin T Total Protein Albumin Prealbumin Urine Creatinine 10/07/17 10/07/17 10/07/17 08:16 12:38 13:08 WBC RBC Hgb Hct MCHC RDW Lymph % (Auto) [place] % (Auto) Lymph # [place] # Seg Neutrophils % Seg Neuts % (Manual) Lymphocytes % (Manual) Seg Neutrophils # Seg Neutrophils # Man Lymphocytes # (Manual) D-Dimer POC ABG pO2 Sodium Potassium Chloride Carbon Dioxide BUN Creatinine Glucose POC Glucose 348 H 256 H 365 H Calcium Magnesium Total Creatine Kinase Troponin T Total Protein Albumin Prealbumin Urine Creatinine 10/07/17 10/07/17 10/08/17 16:35 22:34 06:39 WBC RBC Hgb Hct MCHC RDW Lymph % (Auto) [place] % (Auto) Lymph # [place] # Seg Neutrophils % Seg Neuts % (Manual) Lymphocytes % (Manual) Seg Neutrophils # Seg Neutrophils # Man Lymphocytes # (Manual) D-Dimer POC ABG pO2 Sodium 151 H Potassium Chloride 107.4 H Carbon Dioxide 32 H BUN 31 H Creatinine Glucose 246 H POC Glucose 234 H 200 H Calcium Magnesium Total Creatine Kinase Troponin T Total Protein Albumin Prealbumin Urine Creatinine 10/08/17 10/08/17 10/08/17 08:06 12:56 17:16 WBC RBC Hgb Hct MCHC RDW Lymph % (Auto) [place] % (Auto) Lymph # [place] # Seg Neutrophils % Seg Neuts % (Manual) Lymphocytes % (Manual) Seg Neutrophils # Seg Neutrophils # Man Lymphocytes # (Manual) D-Dimer POC ABG pO2 Sodium Potassium Chloride Carbon Dioxide BUN Creatinine Glucose POC Glucose 273 H 255 H 273 H Calcium Magnesium Total Creatine Kinase Troponin T Total Protein Albumin Prealbumin Urine Creatinine 10/08/17 10/09/17 10/09/17 22:11 05:50 06:42 WBC RBC Hgb Hct MCHC RDW Lymph % (Auto) [place] % (Auto) Lymph # [place] # Seg Neutrophils % Seg Neuts % (Manual) Lymphocytes % (Manual) Seg Neutrophils # Seg Neutrophils # Man Lymphocytes # (Manual) D-Dimer POC ABG pO2 Sodium Potassium Chloride Carbon Dioxide BUN Creatinine Glucose POC Glucose 202 H 167 H 210 H Calcium Magnesium Total Creatine Kinase Troponin T Total Protein Albumin Prealbumin Urine Creatinine 10/09/17 10/09/17 10/09/17 11:39 16:52 22:07 WBC RBC Hgb Hct MCHC RDW Lymph % (Auto) [place] % (Auto) Lymph # [place] # Seg Neutrophils % Seg Neuts % (Manual) Lymphocytes % (Manual) Seg Neutrophils # Seg Neutrophils # Man Lymphocytes # (Manual) D-Dimer POC ABG pO2 Sodium Potassium Chloride Carbon Dioxide BUN Creatinine Glucose POC Glucose 304 H 304 H 314 H Calcium Magnesium Total Creatine Kinase Troponin T Total Protein Albumin Prealbumin Urine Creatinine 10/09/17 10/10/17 10/10/17 Unknown 04:28 05:58 WBC RBC Hgb Hct MCHC RDW Lymph % (Auto) [place] % (Auto) Lymph # [place] # Seg Neutrophils % Seg Neuts % (Manual) Lymphocytes % (Manual) Seg Neutrophils # Seg Neutrophils # Man Lymphocytes # (Manual) D-Dimer POC ABG pO2 Sodium 147 H Potassium Chloride Carbon Dioxide 33 H 33 H BUN 22 H Creatinine Glucose 207 H 193 H POC Glucose 194 H Calcium Magnesium Total Creatine Kinase Troponin T Total Protein Albumin Prealbumin 0.110 L Urine Creatinine 10/10/17 10/10/17 10/10/17 11:13 12:15 16:26 WBC RBC Hgb Hct MCHC RDW Lymph % (Auto) [place] % (Auto) Lymph # [place] # Seg Neutrophils % Seg Neuts % (Manual) Lymphocytes % (Manual) Seg Neutrophils # Seg Neutrophils # Man Lymphocytes # (Manual) D-Dimer POC ABG pO2 Sodium Potassium Chloride Carbon Dioxide BUN Creatinine Glucose POC Glucose 240 H 265 H 246 H Calcium Magnesium Total Creatine Kinase Troponin T Total Protein Albumin Prealbumin Urine Creatinine 10/10/17 10/11/17 10/11/17 22:09 06:05 06:43 WBC RBC Hgb Hct MCHC RDW Lymph % (Auto) [place] % (Auto) Lymph # [place] # Seg Neutrophils % Seg Neuts % (Manual) Lymphocytes % (Manual) Seg Neutrophils # Seg Neutrophils # Man Lymphocytes # (Manual) D-Dimer POC ABG pO2 Sodium Potassium Chloride Carbon Dioxide BUN Creatinine Glucose 209 H POC Glucose 261 H 180 H Calcium 8.1 L Magnesium Total Creatine Kinase Troponin T Total Protein Albumin Prealbumin Urine Creatinine 10/11/17 10/11/17 10/11/17 12:06 13:32 18:01 WBC RBC Hgb Hct MCHC RDW Lymph % (Auto) [place] % (Auto) Lymph # [place] # Seg Neutrophils % Seg Neuts % (Manual) Lymphocytes % (Manual) Seg Neutrophils # Seg Neutrophils # Man Lymphocytes # (Manual) D-Dimer POC ABG pO2 Sodium Potassium Chloride Carbon Dioxide BUN Creatinine Glucose POC Glucose 274 H 293 H 297 H Calcium Magnesium Total Creatine Kinase Troponin T Total Protein Albumin Prealbumin Urine Creatinine 10/12/17 10/12/17 10/12/17 05:34 11:13 14:45 WBC RBC Hgb Hct MCHC RDW Lymph % (Auto) [place] % (Auto) Lymph # [place] # Seg Neutrophils % Seg Neuts % (Manual) Lymphocytes % (Manual) Seg Neutrophils # Seg Neutrophils # Man Lymphocytes # (Manual) D-Dimer POC ABG pO2 Sodium Potassium Chloride 93.0 L Carbon Dioxide 33 H BUN Creatinine 0.7 L Glucose 222 H POC Glucose 154 H 196 H Calcium 8.3 L Magnesium Total Creatine Kinase Troponin T Total Protein Albumin Prealbumin Urine Creatinine 10/12/17 10/12/17 10/12/17 14:45 17:04 23:30 WBC RBC 2.90 L Hgb 9.1 L Hct 27.0 L MCHC RDW 16.4 H Lymph % (Auto) [place] % (Auto) Lymph # [place] # Seg Neutrophils % Seg Neuts % (Manual) Lymphocytes % (Manual) Seg Neutrophils # Seg Neutrophils # Man Lymphocytes # (Manual) D-Dimer POC ABG pO2 Sodium Potassium Chloride Carbon Dioxide BUN Creatinine Glucose POC Glucose 185 H 241 H Calcium Magnesium Total Creatine Kinase Troponin T Total Protein Albumin Prealbumin Urine Creatinine 10/13/17 10/13/17 10/13/17 06:04 13:25 16:17 WBC RBC Hgb Hct MCHC RDW Lymph % (Auto) [place] % (Auto) Lymph # [place] # Seg Neutrophils % Seg Neuts % (Manual) Lymphocytes % (Manual) Seg Neutrophils # Seg Neutrophils # Man Lymphocytes # (Manual) D-Dimer POC ABG pO2 Sodium Potassium Chloride Carbon Dioxide BUN Creatinine Glucose POC Glucose 192 H 213 H 198 H Calcium Magnesium Total Creatine Kinase Troponin T Total Protein Albumin Prealbumin Urine Creatinine 10/14/17 10/14/17 10/14/17 00:23 05:58 11:53 WBC RBC Hgb Hct MCHC RDW Lymph % (Auto) [place] % (Auto) Lymph # [place] # Seg Neutrophils % Seg Neuts % (Manual) Lymphocytes % (Manual) Seg Neutrophils # Seg Neutrophils # Man Lymphocytes # (Manual) D-Dimer POC ABG pO2 Sodium Potassium Chloride Carbon Dioxide BUN Creatinine Glucose POC Glucose 170 H 155 H 161 H Calcium Magnesium Total Creatine Kinase Troponin T Total Protein Albumin Prealbumin Urine Creatinine 10/14/17 10/14/17 10/15/17 15:46 21:43 05:53 WBC RBC Hgb Hct MCHC RDW Lymph % (Auto) [place] % (Auto) Lymph # [place] # Seg Neutrophils % Seg Neuts % (Manual) Lymphocytes % (Manual) Seg Neutrophils # Seg Neutrophils # Man Lymphocytes # (Manual) D-Dimer POC ABG pO2 Sodium Potassium Chloride Carbon Dioxide BUN Creatinine Glucose POC Glucose 239 H 262 H 142 H Calcium Magnesium Total Creatine Kinase Troponin T Total Protein Albumin Prealbumin Urine Creatinine 10/15/17 10/15/17 10/15/17 12:02 16:46 21:52 WBC RBC Hgb Hct MCHC RDW Lymph % (Auto) [place] % (Auto) Lymph # [place] # Seg Neutrophils % Seg Neuts % (Manual) Lymphocytes % (Manual) Seg Neutrophils # Seg Neutrophils # Man Lymphocytes # (Manual) D-Dimer POC ABG pO2 Sodium Potassium Chloride Carbon Dioxide BUN Creatinine Glucose POC Glucose 243 H 235 H 199 H Calcium Magnesium Total Creatine Kinase Troponin T Total Protein Albumin Prealbumin Urine Creatinine 10/16/17 10/16/17 10/16/17 06:31 13:47 16:45 WBC RBC Hgb Hct MCHC RDW Lymph % (Auto) [place] % (Auto) Lymph # [place] # Seg Neutrophils % Seg Neuts % (Manual) Lymphocytes % (Manual) Seg Neutrophils # Seg Neutrophils # Man Lymphocytes # (Manual) D-Dimer POC ABG pO2 Sodium Potassium Chloride Carbon Dioxide BUN Creatinine Glucose POC Glucose 153 H 219 H 174 H Calcium Magnesium Total Creatine Kinase Troponin T Total Protein Albumin Prealbumin Urine Creatinine 10/17/17 10/17/17 10/17/17 00:16 06:28 07:21 WBC RBC 3.23 L Hgb 10.2 L Hct 29.5 L MCHC 35 H RDW 17.3 H Lymph % (Auto) [place] % (Auto) Lymph # [place] # Seg Neutrophils % Seg Neuts % (Manual) Lymphocytes % (Manual) Seg Neutrophils # Seg Neutrophils # Man Lymphocytes # (Manual) D-Dimer POC ABG pO2 Sodium Potassium Chloride Carbon Dioxide BUN Creatinine Glucose POC Glucose 182 H 163 H Calcium Magnesium Total Creatine Kinase Troponin T Total Protein Albumin Prealbumin Urine Creatinine 10/17/17 10/17/17 10/17/17 07:21 11:11 16:27 WBC RBC Hgb Hct MCHC RDW Lymph % (Auto) [place] % (Auto) Lymph # [place] # Seg Neutrophils % Seg Neuts % (Manual) Lymphocytes % (Manual) Seg Neutrophils # Seg Neutrophils # Man Lymphocytes # (Manual) D-Dimer POC ABG pO2 Sodium Potassium Chloride Carbon Dioxide 31 H BUN 7 L Creatinine 0.7 L Glucose 149 H POC Glucose 211 H 122 H Calcium 8.0 L Magnesium Total Creatine Kinase Troponin T Total Protein Albumin Prealbumin Urine Creatinine 10/17/17 10/18/17 10/18/17 23:49 06:24 11:28 WBC RBC Hgb Hct MCHC RDW Lymph % (Auto) [place] % (Auto) Lymph # [place] # Seg Neutrophils % Seg Neuts % (Manual) Lymphocytes % (Manual) Seg Neutrophils # Seg Neutrophils # Man Lymphocytes # (Manual) D-Dimer POC ABG pO2 Sodium Potassium Chloride Carbon Dioxide BUN Creatinine Glucose POC Glucose 190 H 125 H 154 H Calcium Magnesium Total Creatine Kinase Troponin T Total Protein Albumin Prealbumin Urine Creatinine 10/18/17 10/18/17 10/19/17 16:04 22:51 06:44 WBC RBC Hgb Hct MCHC RDW Lymph % (Auto) [place] % (Auto) Lymph # [place] # Seg Neutrophils % Seg Neuts % (Manual) Lymphocytes % (Manual) Seg Neutrophils # Seg Neutrophils # Man Lymphocytes # (Manual) D-Dimer POC ABG pO2 Sodium Potassium Chloride Carbon Dioxide BUN Creatinine Glucose POC Glucose 192 H 138 H 142 H Calcium Magnesium Total Creatine Kinase Troponin T Total Protein Albumin Prealbumin Urine Creatinine 10/19/17 10/20/17 10/20/17 11:55 07:41 07:41 WBC RBC 3.58 L Hgb 10.9 L Hct 33.3 L MCHC RDW 17.7 H Lymph % (Auto) [place] % (Auto) Lymph # [place] # Seg Neutrophils % Seg Neuts % (Manual) Lymphocytes % (Manual) Seg Neutrophils # Seg Neutrophils # Man Lymphocytes # (Manual) D-Dimer POC ABG pO2 Sodium Potassium Chloride Carbon Dioxide BUN 6 L Creatinine 0.6 L Glucose 150 H POC Glucose 255 H Calcium 8.1 L Magnesium Total Creatine Kinase Troponin T Total Protein Albumin Prealbumin Urine Creatinine
[2017-10-20] MEDS: IMODIUM PO SCH ×4 (10:32→21:02)
[2017-10-20] MEDS: PEPCID PO SCH (10:32)
[2017-10-20] MEDS: SODIUM CHLORIDE FLUSH SYRINGE 10 ML IV SCH ×2 (12:28→21:02)
--- NOTE | 2017-10-20 13:18 | Progress Note ---
Assessment and Plan Assessment and plan: Patient is a 72 yo man who is a resident at [facility] under 1013 for SI with h/o HTN, CVA, NH, CHF, COPD, CAMILLE on CPAP, Seizure Disorder, Depression, PTSD, Debility, nicotine Dependence, Recurrent Falls presents to ED for confusion and falling. He was admitted for suspected sepsis pneumonia, nstemi and right wrist fracture. * pCXR Impression: Bibasilar atelectasis. * CT lumbar spine wo IMPRESSION: 1. No acute compression deformity or apparent fracture in the lumbar spine. 2. Degenerative spondylosis. * XRay bilateral knee IMPRESSION: 1. No acute osseous abnormality. 2. Postsurgical changes in the right knee, and degenerative changes in the left knee. * Xray 3v right wrist IMPRESSION: 1. Probable nondisplaced fracture right distal ulna. * CT head Impression: No acute intracranial abnormality. * CT thoracic spine wo IMPRESSION: 1. No acute compression deformity or apparent fracture in the thoracic spine. Diffuse degenerative spondylosis. 2. Fractures in left ribs 9-12, probably acute or subacute. Correlate clinically. 3. Findings which may represent bibasilar atelectasis, mild infiltrates or postinflammatory change of uncertain etiology or chronicity. 4. Left adrenal nodule may represent adenomatous change, but is indeterminate. Followup may be warranted. -Suspect Sepsis from Aspiration Pneumonia, poa, treated with iv abx, ivf but developed fluid overload, so ivf stopped and lasix iv given. doing better, off bipap -s/p Fall with Multiple rib fractures/right wrist fracture: Conservative measures per Ortho -ARF (acute renal failure), vasomotor nephropathy poa, resolved. -Acute encephalopathy: treat the above issues -Acute on chronic diastolic heart failure, resolved -Afib with RVR, resolved -Depression, improved -no NSTEMI (non-ST elevated myocardial infarction), non specified elevation of troponin per Cardiology: stopped therapeutic lovenox -DVT prophylaxis: scd to ble, deep bruising and diffuse ecchymosis so hold vte due to fall risk Restraint renewed Normal LVEF 60-65% by echocardiogram. ortho, Dr. Lal==>Nondisplaced distal ulnar fracture, recommend conservative treatment with wrist brace and early ROM 10/02/17: Bilateral lung crackles today, pCXR looks like pulmonary edema but can' t exclude infiltrates (my reading), gave iv lasix 40mg iv x 1 carefully diuresis due to Aortic stenosis and ARF. ABG showed combined Acute Respiratory failure which patient has been on O2 since admission, so acute hypoxic respiratory poa. RN reported ABGs at 7.442/64/44/30.3 on O2. Bipap started by respiratory, I consulted and d/w Dr. Ng, pulmonology. Troponin level actually improved. Also, started on sq lantus 10units, carefully because he is not eating much. Lasix iv given today 10/03/17: doing better after another dose of iv lasix x 1, trying to wean off bipap, 10/04/17: bipap removed this am, new issue of hypernatremia, consulted field sales consultant and spoke with Dr. Gerard. He needs free water, will try to place NG tube because he spit water out at nurse. He remains very confused. D5W treatment is problematic as his blood glucose is very high. Hopefully he will allow ngt to be given for free water and nutrition, Restraints renewed. Day 09/16 of iv abx. Still tachycardiac, had afib with rvr on will call Cardiology 10/05/17: isolated afib, rate is improved thanks to Cardiology. Mental status improved as hypernatremia is improved. He is still confused. 10/06/17: still hallucinating, renal function is improving, blood glucose still uncontrolled, so lantus increased to 20 units daily. No 1013 in the chart. I have asked RN to enter [place] MAR into our EMR for reconciliation. 10/07/17: still confused. Last day of antibiotics, continue 1013 10/08/17: Less confused today. re-consulted psych for placement 10/15/17: resumed care, confusion has resolved, not in restraints anymore, awaiting SNF in [place]. Awaiting SNF placement. He would not answer [employer] Dept of services representatives questions. He asks that I restart his Ulcerative Colitis medications due to diarrhea, he has been on for 2-3 years. He ok'd me to call his friend Edwin at [phone]. I spoke with Edwin, who is 80 yo old and is not going to be taking care of Mr. Moncada. The closest cities are [place], [place], [place], [place] near [place], [place]. patient states he is able to care for himself, but he is laying in stool without compliant to remove it. History Interval history: Patient was seen and examined. Follow-up on current diagnosis of confusion which has resolved, no restraints. Overnight uneventful and doing better, bipap is off. Imaging, nursing note, chart, labs and old chart reviewed. More awake and alert, he wants his Ulcerative colitlis medication re-starte. He wants to go home to his RV in [place], [place]. He says his friend Edwin will take care of him. He spoke with Edwin at [phone]. Hospitalist Physical - Physical exam Narrative exam: GEN: unkempt, awake alert orientated x 3 HEENT: NCAT, EOMI, PERRL, OP Clear NECK: supple, no adenopathy, no thyromegaly, no JVD CVS/HEART: reg tachy, normal S1S2, pulses present bilaterally CHEST/LUNGS: bilateral crackles improved, Symmetrical chest expansion, good air entry bilaterally GI/Abdomen: soft, NTND, good bowel sounds, no guarding or rebound /Bladder: no suprapubic tenderness, no CVA or paraspinal tenderness EXT/Skin: black and blue all over, especially left upper bicep area with deformity MSK: FROM x 4 Neuro: CN 2-12 grossly intact, doesn't follow command Psych: calm - Constitutional Vitals: Temp Pulse Resp BP Pulse Ox 98.7 F 97 H 19 139/59 94 10/20/17 08:12 10/20/17 12:22 10/20/17 08:12 10/20/17 12:22 10/20/17 12:14 General appearance: Present: no acute distress, well-nourished Results - Labs CBC & Chem 7: 10/20/17 07:41 10/20/17 07:41 Labs: Laboratory Last Values WBC 6.7 K/mm3 (4.5-11.0) 10/20/17 07:41 RBC 3.58 M/mm3 (3.65-5.03) L 10/20/17 07:41 Hgb 10.9 gm/dl (11.8-15.2) L 10/20/17 07:41 Hct 33.3 % (35.5-45.6) L 10/20/17 07:41 MCV 93 fl (84-94) 10/20/17 07:41 MCH 31 pg (28-32) 10/20/17 07:41 MCHC 33 % (32-34) 10/20/17 07:41 RDW 17.7 % (13.2-15.2) H 10/20/17 07:41 Plt Count 350 K/mm3 (140-440) 10/20/17 07:41 Lymph % (Auto) 6.0 % (13.4-35.0) L 09/29/17 12:54 Coal % (Auto) 10.8 % (0.0-7.3) H 09/29/17 12:54 Eos % (Auto) 0.8 % (0.0-4.3) 09/29/17 12:54 Baso % (Auto) 0.4 % (0.0-1.8) 09/29/17 12:54 Lymph # 0.7 K/mm3 (1.2-5.4) L 09/29/17 12:54 Coal # 1.3 K/mm3 (0.0-0.8) H 09/29/17 12:54 Eos # 0.1 K/mm3 (0.0-0.4) 09/29/17 12:54 Baso # 0.1 K/mm3 (0.0-0.1) 09/29/17 12:54 Add Manual Diff Complete 10/12/17 14:45 Total Counted 100 10/12/17 14:45 Seg Neutrophils % 82.0 % (40.0-70.0) H 09/29/17 12:54 Seg Neuts % (Manual) 61.0 % (40.0-70.0) 10/12/17 14:45 Band Neutrophils % 6.0 % 10/12/17 14:45 Lymphocytes % (Manual) 24.0 % (13.4-35.0) 10/12/17 14:45 Reactive Lymphs % (Man) 0 % 10/12/17 14:45 Monocytes % (Manual) 6.0 % (0.0-7.3) 10/12/17 14:45 Eosinophils % (Manual) 1.0 % (0.0-4.3) 10/12/17 14:45 Basophils % (Manual) 0 % (0.0-1.8) 10/12/17 14:45 Metamyelocytes % 0 % 10/12/17 14:45 Myelocytes % 2.0 % 10/12/17 14:45 Promyelocytes % 0 % 10/12/17 14:45 Blast Cells % 0 % 10/12/17 14:45 Nucleated RBC % Not Reportable 10/12/17 14:45 Seg Neutrophils # 10.1 K/mm3 (1.8-7.7) H 09/29/17 12:54 Seg Neutrophils # Man 3.3 K/mm3 (1.8-7.7) 10/12/17 14:45 Band Neutrophils # 0.3 K/mm3 10/12/17 14:45 Lymphocytes # (Manual) 1.3 K/mm3 (1.2-5.4) 10/12/17 14:45 Abs React Lymphs (Man) 0.0 K/mm3 10/12/17 14:45 Monocytes # (Manual) 0.3 K/mm3 (0.0-0.8) 10/12/17 14:45 Eosinophils # (Manual) 0.1 K/mm3 (0.0-0.4) 10/12/17 14:45 Basophils # (Manual) 0.0 K/mm3 (0.0-0.1) 10/12/17 14:45 Metamyelocytes # 0.0 K/mm3 10/12/17 14:45 Myelocytes # 0.1 K/mm3 10/12/17 14:45 Promyelocytes # 0.0 K/mm3 10/12/17 14:45 Blast Cells # 0.0 K/mm3 10/12/17 14:45 WBC Morphology Not Reportable 10/12/17 14:45 Hypersegmented Neuts Not Reportable 10/12/17 14:45 Hyposegmented Neuts Not Reportable 10/12/17 14:45 Hypogranular Neuts Not Reportable 10/12/17 14:45 Smudge Cells Not Reportable 10/12/17 14:45 Toxic Granulation Not Reportable 10/12/17 14:45 Toxic Vacuolation Not Reportable 10/12/17 14:45 Dohle Bodies Not Reportable 10/12/17 14:45 Pelger-Huet Anomaly Not Reportable 10/12/17 14:45 Albertina Rods Not Reportable 10/12/17 14:45 Platelet Estimate Consistent w auto 10/12/17 14:45 Clumped Platelets Not Reportable 10/12/17 14:45 Plt Clumps, EDTA Not Reportable 10/12/17 14:45 Large Platelets Not Reportable 10/12/17 14:45 Giant Platelets Not Reportable 10/12/17 14:45 Platelet Satelliting Not Reportable 10/12/17 14:45 Plt Morphology Comment Not Reportable 10/12/17 14:45 RBC Morphology Not Reportable 10/12/17 14:45 Dimorphic RBCs Not Reportable 10/12/17 14:45 Polychromasia Not Reportable 10/12/17 14:45 Hypochromasia 1+ 10/12/17 14:45 Poikilocytosis Not Reportable 10/12/17 14:45 Anisocytosis 1+ 10/12/17 14:45 Microcytosis Not Reportable 10/12/17 14:45 Macrocytosis Not Reportable 10/12/17 14:45 Spherocytes Not Reportable 10/12/17 14:45 Pappenheimer Bodies Not Reportable 10/12/17 14:45 Sickle Cells Not Reportable 10/12/17 14:45 Target Cells Not Reportable 10/12/17 14:45 Tear Drop Cells Not Reportable 10/12/17 14:45 Ovalocytes 1+ 10/12/17 14:45 Stomatocytes 1+ 10/12/17 14:45 Helmet Cells Not Reportable 10/12/17 14:45 Garcia-Kingsley Bodies Not Reportable 10/12/17 14:45 [place] Rings Not Reportable 10/12/17 14:45 [place] Cells Not Reportable 10/12/17 14:45 Bite Cells Not Reportable 10/12/17 14:45 Crenated Cell Not Reportable 10/12/17 14:45 Elliptocytes Not Reportable 10/12/17 14:45 Acanthocytes (Spur) Not Reportable 10/12/17 14:45 Rouleaux Not Reportable 10/12/17 14:45 Hemoglobin C Crystals Not Reportable 10/12/17 14:45 Schistocytes Not Reportable 10/12/17 14:45 Malaria parasites Not Reportable 10/12/17 14:45 Brandon Bodies Not Reportable 10/12/17 14:45 Hem Pathologist Commnt No 10/12/17 14:45 PT 14.1 Sec. (12.2-14.9) 10/01/17 06:31 INR 1.04 (0.87-1.13) 10/01/17 06:31 APTT 35.4 Sec. (24.2-36.6) 10/01/17 06:31 D-Dimer 2801.11 ng/mlDDU (0-234) H 09/29/17 19:19 POC ABG pH 7.415 (7.35-7.45) 10/02/17 20:23 POC ABG pCO2 42.1 (35-45) 10/02/17 20:23 POC ABG pO2 77 (80-105) L 10/02/17 20:23 POC ABG HCO3 27.0 10/02/17 20:23 POC ABG Total CO2 28 10/02/17 20:23 POC ABG O2 Sat 95 10/02/17 20:23 POC ABG Base Excess 2 10/02/17 20:23 FiO2 65 % 10/02/17 20:23 Sodium 140 mmol/L (137-145) 10/20/17 07:41 Potassium 3.6 mmol/L (3.6-5.0) 10/20/17 07:41 Chloride 101.0 mmol/L (98-107) 10/20/17 07:41 Carbon Dioxide 30 mmol/L (22-30) 10/20/17 07:41 Anion Gap 13 mmol/L 10/20/17 07:41 BUN 6 mg/dL (9-20) L 10/20/17 07:41 Creatinine 0.6 mg/dL (0.8-1.5) L 10/20/17 07:41 Estimated GFR > 60 ml/min 10/20/17 07:41 BUN/Creatinine Ratio 10 % 10/20/17 07:41 Glucose 150 mg/dL (75-100) H 10/20/17 07:41 POC Glucose 255 (70-105) H 10/19/17 11:55 Lactic Acid 1.80 mmol/L (0.7-2.0) 09/30/17 02:38 Calcium 8.1 mg/dL (8.4-10.2) L 10/20/17 07:41 Phosphorus 3.40 mg/dL (2.5-4.5) 10/08/17 06:39 Magnesium 2.10 mg/dL (1.7-2.3) 10/08/17 06:39 Total Bilirubin 0.70 mg/dL (0.1-1.2) 10/01/17 06:16 AST 15 units/L (5-40) 10/01/17 06:16 ALT 14 units/L (7-56) 10/01/17 06:16 Alkaline Phosphatase 86 units/L (35-129) 10/01/17 06:16 Total Creatine Kinase 348 units/L (55-170) H 09/29/17 14:58 Troponin T 0.057 ng/mL (0.00-0.029) H 10/02/17 17:56 NT-Pro-B Natriuret Pep 230.9 pg/mL (0-900) 09/29/17 18:37 Total Protein 6.0 g/dL (6.3-8.2) L 10/01/17 06:16 Albumin 3.4 g/dL (3.9-5) L 10/01/17 06:16 Albumin/Globulin Ratio 1.3 % 10/01/17 06:16 Prealbumin 0.110 g/L (0.200-0.400) L 10/09/17 Unknown Triglycerides 134 mg/dL (2-149) 09/29/17 12:54 Cholesterol 118 mg/dL (50-199) 09/29/17 12:54 LDL Cholesterol Direct 57 mg/dL (50-130) 09/29/17 12:54 HDL Cholesterol 41 mg/dL (40-59) 09/29/17 12:54 Cholesterol/HDL Ratio 2.87 % 09/29/17 12:54 Urine Color Yellow (Yellow) 10/05/17 01:00 Urine Turbidity Clear (Clear) 10/05/17 01:00 Urine pH 5.0 (5.0-7.0) 10/05/17 01:00 Ur Specific [place] 1.015 (1.003-1.030) 10/05/17 01:00 Urine Protein <15 mg/dl mg/dL (Negative) 10/05/17 01:00 Urine Glucose (UA) 150 mg/dL (Negative) 10/05/17 01:00 Urine Ketones Tr mg/dL (Negative) 10/05/17 01:00 Urine Blood Neg (Negative) 10/05/17 01:00 Urine Nitrite Neg (Negative) 10/05/17 01:00 Urine Bilirubin Neg (Negative) 10/05/17 01:00 Urine Urobilinogen < 2.0 mg/dL (<2.0) 10/05/17 01:00 Ur Leukocyte Esterase Neg (Negative) 10/05/17 01:00 Urine WBC (Auto) 3.0 /HPF (0.0-6.0) 10/05/17 01:00 Urine RBC (Auto) < 1.0 /HPF (0.0-6.0) 10/05/17 01:00 U Epithel Cells (Auto) < 1.0 /HPF (0-13.0) 10/05/17 01:00 Urine Bacteria (Auto) 1+ /HPF (Negative) 10/05/17 01:00 Amorphous Crystals 1+ 10/05/17 01:00 Hyaline Casts 8 /LPF 10/05/17 01:00 Urine Creatinine 99.4 mg/dL (0.1-20.0) H 10/05/17 01:00 Urine Sodium 10 mmol/L 10/05/17 01:00
[2017-10-20] MEDS: NORCO 10/325 PO PRN (21:02)
[2017-10-20] MEDS: LOVENOX SUB-Q SCH (21:02)
[2017-10-21] MEDS: HumaLOG SUB-Q SCH ×4 (00:03→18:29)
[2017-10-21] MEDS: CARDIZEM PO SCH ×4 (00:03→18:29)
[2017-10-21] MEDS: ATIVAN IV PRN (00:57)
[2017-10-21 08:34] LABS: Hematocrit 32.9 % (35.5-45.6); Mean Corpuscular HGB Conc 33 % (32-34); Mean Corpuscular Hemoglobin 31 pg (28-32); Mean Corpuscular Volume 92 fl (84-94); Platelet Count 317 K/mm3 (140-440); Red Blood Count 3.57 M/mm3 (3.65-5.03); Red Cell Distribution Width 17.7 % (13.2-15.2)
[2017-10-21 08:54] LABS: BUN/Creatinine Ratio 10; Blood Urea Nitrogen 6 mg/dL (9-20); Calcium 8.4 mg/dL (8.4-10.2); Hemolysis Index 1
[2017-10-21] MEDS: IMODIUM PO SCH ×4 (10:41→21:13)
[2017-10-21] MEDS: PEPCID PO SCH (10:41)
[2017-10-21] MEDS: LANTUS SUB-Q SCH (10:41)
[2017-10-21] MEDS: DELZICOL PO SCH ×3 (10:41→21:13)
[2017-10-21] MEDS: SODIUM CHLORIDE FLUSH SYRINGE 10 ML IV SCH ×2 (10:42→21:14)
--- NOTE | 2017-10-21 12:01 | Progress Note ---
Assessment and Plan Assessment and plan: Patient is a 72 yo man who is a resident at [facility] under 1013 for SI with h/o HTN, CVA, [place], CHF, COPD, [place] on CPAP, Seizure Disorder, Depression, PTSD, Debility, nicotine Dependence, Recurrent Falls presents to ED for confusion and falling. He was admitted for suspected sepsis pneumonia, nstemi and right wrist fracture. * pCXR Impression: Bibasilar atelectasis. * CT lumbar spine wo IMPRESSION: 1. No acute compression deformity or apparent fracture in the lumbar spine. 2. Degenerative spondylosis. * XRay bilateral knee IMPRESSION: 1. No acute osseous abnormality. 2. Postsurgical changes in the right knee, and degenerative changes in the left knee. * Xray 3v right wrist IMPRESSION: 1. Probable nondisplaced fracture right distal ulna. * CT head Impression: No acute intracranial abnormality. * CT thoracic spine wo IMPRESSION: 1. No acute compression deformity or apparent fracture in the thoracic spine. Diffuse degenerative spondylosis. 2. Fractures in left ribs 9-12, probably acute or subacute. Correlate clinically. 3. Findings which may represent bibasilar atelectasis, mild infiltrates or postinflammatory change of uncertain etiology or chronicity. 4. Left adrenal nodule may represent adenomatous change, but is indeterminate. Followup may be warranted. -Suspect Sepsis from Aspiration Pneumonia, poa, treated with iv abx, ivf but developed fluid overload, so ivf stopped and lasix iv given. doing better, off bipap -s/p Fall with Multiple rib fractures/right wrist fracture: Conservative measures per Ortho -ARF (acute renal failure), vasomotor nephropathy poa, resolved. -Acute encephalopathy: treat the above issues -Acute on chronic diastolic heart failure, resolved -Afib with RVR, resolved -Depression, improved -no NSTEMI (non-ST elevated myocardial infarction), non specified elevation of troponin per Cardiology: stopped therapeutic lovenox -DVT prophylaxis: scd to ble, deep bruising and diffuse ecchymosis so hold vte due to fall risk Restraint renewed Normal LVEF 60-65% by echocardiogram. ortho, Dr. Lal==>Nondisplaced distal ulnar fracture, recommend conservative treatment with wrist brace and early ROM 10/02/17: Bilateral lung crackles today, pCXR looks like pulmonary edema but can' t exclude infiltrates (my reading), gave iv lasix 40mg iv x 1 carefully diuresis due to Aortic stenosis and ARF. ABG showed combined Acute Respiratory failure which patient has been on O2 since admission, so acute hypoxic respiratory poa. RN reported ABGs at 7.442/64/44/30.3 on O2. Bipap started by respiratory, I consulted and d/w Dr. Ng, pulmonology. Troponin level actually improved. Also, started on sq lantus 10units, carefully because he is not eating much. 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 Gerard. He needs free water, will try to place NG tube because he spit water out at nurse. He remains very confused. D5W treatment is problematic as his blood glucose is very high. Hopefully he will allow ngt to be given for free water and nutrition, Restraints renewed. Day 09/16 of iv abx. Still tachycardiac, had afib with rvr on will call Cardiology 10/05/17: isolated afib, rate is improved thanks to Cardiology. Mental status improved as hypernatremia is improved. He is still confused. 10/06/17: still hallucinating, renal function is improving, blood glucose still uncontrolled, so lantus increased to 20 units daily. No 1013 in the chart. I have asked RN to enter [place] [facility] into our EMR for reconciliation. 10/07/17: still confused. Last day of antibiotics, continue 1013 10/08/17: Less confused today. re-consulted psych for placement 10/15/17: resumed care, confusion has resolved, not in restraints anymore, awaiting SNF in [place]. Awaiting SNF placement. He would not answer [place] Dept of services representatives questions. He asks that I restart his Ulcerative Colitis medications due to diarrhea, he has been on for 2-3 years. He ok'd me to call his friend Edwin at [phone]. I spoke with Edwin, who is 80 yo old and is not going to be taking care of Mr. Moncada. The closest cities are [place], [place], [place], [place] is near [place], [place]. patient states he is able to care for himself, but he is laying in stool without compliant to remove it. SNF still pending History Interval history: Patient was seen and examined. Follow-up on current diagnosis of confusion which has resolved, no restraints. Overnight uneventful and doing better, bipap is off. Imaging, nursing note, chart, labs and old chart reviewed. More awake and alert, he wants his Ulcerative colitlis medication re-starte. He wants to go home to his RV in [place], [place]. He says his friend Edwin will take care of him. He spoke with Edwin at [phone]. Hospitalist Physical - Physical exam Narrative exam: GEN: unkempt, awake alert orientated x 3 HEENT: NCAT, EOMI, PERRL, OP Clear NECK: supple, no adenopathy, no thyromegaly, no JVD CVS/HEART: reg tachy, normal S1S2, pulses present bilaterally CHEST/LUNGS: bilateral crackles improved, Symmetrical chest expansion, good air entry bilaterally GI/Abdomen: soft, NTND, good bowel sounds, no guarding or rebound /Bladder: no suprapubic tenderness, no CVA or paraspinal tenderness EXT/Skin: black and blue all over, especially left upper bicep area with deformity MSK: FROM x 4 Neuro: CN 2-12 grossly intact, doesn't follow command Psych: calm - Constitutional Vitals: Temp Pulse Resp BP Pulse Ox 98.8 F 93 H 22 124/51 94 10/21/17 08:08 10/21/17 08:08 10/21/17 08:08 10/21/17 08:08 10/21/17 09:41 General appearance: Present: no acute distress, well-nourished Results - Labs CBC & Chem 7: 10/21/17 08:06 10/21/17 08:06 Labs: Laboratory Last Values WBC 6.0 K/mm3 (4.5-11.0) 10/21/17 08:06 RBC 3.57 M/mm3 (3.65-5.03) L 10/21/17 08:06 Hgb 11.0 gm/dl (11.8-15.2) L 10/21/17 08:06 Hct 32.9 % (35.5-45.6) L 10/21/17 08:06 MCV 92 fl (84-94) 10/21/17 08:06 MCH 31 pg (28-32) 10/21/17 08:06 MCHC 33 % (32-34) 10/21/17 08:06 RDW 17.7 % (13.2-15.2) H 10/21/17 08:06 Plt Count 317 K/mm3 (140-440) 10/21/17 08:06 Lymph % (Auto) 6.0 % (13.4-35.0) L 09/29/17 12:54 [place] % (Auto) 10.8 % (0.0-7.3) H 09/29/17 12:54 Eos % (Auto) 0.8 % (0.0-4.3) 09/29/17 12:54 Baso % (Auto) 0.4 % (0.0-1.8) 09/29/17 12:54 Lymph # 0.7 K/mm3 (1.2-5.4) L 09/29/17 12:54 [place] # 1.3 K/mm3 (0.0-0.8) H 09/29/17 12:54 Eos # 0.1 K/mm3 (0.0-0.4) 09/29/17 12:54 Baso # 0.1 K/mm3 (0.0-0.1) 09/29/17 12:54 Add Manual Diff Complete 10/12/17 14:45 Total Counted 100 10/12/17 14:45 Seg Neutrophils % 82.0 % (40.0-70.0) H 09/29/17 12:54 Seg Neuts % (Manual) 61.0 % (40.0-70.0) 10/12/17 14:45 Band Neutrophils % 6.0 % 10/12/17 14:45 Lymphocytes % (Manual) 24.0 % (13.4-35.0) 10/12/17 14:45 Reactive Lymphs % (Man) 0 % 10/12/17 14:45 Monocytes % (Manual) 6.0 % (0.0-7.3) 10/12/17 14:45 Eosinophils % (Manual) 1.0 % (0.0-4.3) 10/12/17 14:45 Basophils % (Manual) 0 % (0.0-1.8) 10/12/17 14:45 Metamyelocytes % 0 % 10/12/17 14:45 Myelocytes % 2.0 % 10/12/17 14:45 Promyelocytes % 0 % 10/12/17 14:45 Blast Cells % 0 % 10/12/17 14:45 Nucleated RBC % Not Reportable 10/12/17 14:45 Seg Neutrophils # 10.1 K/mm3 (1.8-7.7) H 09/29/17 12:54 Seg Neutrophils # Man 3.3 K/mm3 (1.8-7.7) 10/12/17 14:45 Band Neutrophils # 0.3 K/mm3 10/12/17 14:45 Lymphocytes # (Manual) 1.3 K/mm3 (1.2-5.4) 10/12/17 14:45 Abs React Lymphs (Man) 0.0 K/mm3 10/12/17 14:45 Monocytes # (Manual) 0.3 K/mm3 (0.0-0.8) 10/12/17 14:45 Eosinophils # (Manual) 0.1 K/mm3 (0.0-0.4) 10/12/17 14:45 Basophils # (Manual) 0.0 K/mm3 (0.0-0.1) 10/12/17 14:45 Metamyelocytes # 0.0 K/mm3 10/12/17 14:45 Myelocytes # 0.1 K/mm3 10/12/17 14:45 Promyelocytes # 0.0 K/mm3 10/12/17 14:45 Blast Cells # 0.0 K/mm3 10/12/17 14:45 WBC Morphology Not Reportable 10/12/17 14:45 Hypersegmented Neuts Not Reportable 10/12/17 14:45 Hyposegmented Neuts Not Reportable 10/12/17 14:45 Hypogranular Neuts Not Reportable 10/12/17 14:45 Smudge Cells Not Reportable 10/12/17 14:45 Toxic Granulation Not Reportable 10/12/17 14:45 Toxic Vacuolation Not Reportable 10/12/17 14:45 Dohle Bodies Not Reportable 10/12/17 14:45 Pelger-Huet Anomaly Not Reportable 10/12/17 14:45 Albertina Rods Not Reportable 10/12/17 14:45 Platelet Estimate Consistent w auto 10/12/17 14:45 Clumped Platelets Not Reportable 10/12/17 14:45 Plt Clumps, EDTA Not Reportable 10/12/17 14:45 Large Platelets Not Reportable 10/12/17 14:45 Giant Platelets Not Reportable 10/12/17 14:45 Platelet Satelliting Not Reportable 10/12/17 14:45 Plt Morphology Comment Not Reportable 10/12/17 14:45 RBC Morphology Not Reportable 10/12/17 14:45 Dimorphic RBCs Not Reportable 10/12/17 14:45 Polychromasia Not Reportable 10/12/17 14:45 Hypochromasia 1+ 10/12/17 14:45 Poikilocytosis Not Reportable 10/12/17 14:45 Anisocytosis 1+ 10/12/17 14:45 Microcytosis Not Reportable 10/12/17 14:45 Macrocytosis Not Reportable 10/12/17 14:45 Spherocytes Not Reportable 10/12/17 14:45 Pappenheimer Bodies Not Reportable 10/12/17 14:45 Sickle Cells Not Reportable 10/12/17 14:45 Target Cells Not Reportable 10/12/17 14:45 Tear Drop Cells Not Reportable 10/12/17 14:45 Ovalocytes 1+ 10/12/17 14:45 Stomatocytes 1+ 10/12/17 14:45 Helmet Cells Not Reportable 10/12/17 14:45 [place] Bodies Not Reportable 10/12/17 14:45 [place] Rings Not Reportable 10/12/17 14:45 [place] Cells Not Reportable 10/12/17 14:45 Bite Cells Not Reportable 10/12/17 14:45 Crenated Cell Not Reportable 10/12/17 14:45 Elliptocytes Not Reportable 10/12/17 14:45 Acanthocytes (Spur) Not Reportable 10/12/17 14:45 Rouleaux Not Reportable 10/12/17 14:45 Hemoglobin C Crystals Not Reportable 10/12/17 14:45 Schistocytes Not Reportable 10/12/17 14:45 Malaria parasites Not Reportable 10/12/17 14:45 [place] Bodies Not Reportable 10/12/17 14:45 Hem Pathologist Commnt No 10/12/17 14:45 PT 14.1 Sec. (12.2-14.9) 10/01/17 06:31 INR 1.04 (0.87-1.13) 10/01/17 06:31 APTT 35.4 Sec. (24.2-36.6) 10/01/17 06:31 D-Dimer 2801.11 ng/mlDDU (0-234) H 09/29/17 19:19 POC ABG pH 7.415 (7.35-7.45) 10/02/17 20:23 POC ABG pCO2 42.1 (35-45) 10/02/17 20:23 POC ABG pO2 77 (80-105) L 10/02/17 20:23 POC ABG HCO3 27.0 10/02/17 20:23 POC ABG Total CO2 28 10/02/17 20:23 POC ABG O2 Sat 95 10/02/17 20:23 POC ABG Base Excess 2 10/02/17 20:23 FiO2 65 % 10/02/17 20:23 Sodium 151 mmol/L (137-145) H D 10/21/17 08:06 Potassium 4.0 mmol/L (3.6-5.0) 10/21/17 08:06 Chloride 111.6 mmol/L (98-107) H 10/21/17 08:06 Carbon Dioxide 29 mmol/L (22-30) 10/21/17 08:06 Anion Gap 14 mmol/L 10/21/17 08:06 BUN 6 mg/dL (9-20) L 10/21/17 08:06 Creatinine 0.6 mg/dL (0.8-1.5) L 10/21/17 08:06 Estimated GFR > 60 ml/min 10/21/17 08:06 BUN/Creatinine Ratio 10 % 10/21/17 08:06 Glucose 158 mg/dL (75-100) H 10/21/17 08:06 POC Glucose 150 (70-105) H 10/21/17 06:13 Lactic Acid 1.80 mmol/L (0.7-2.0) 09/30/17 02:38 Calcium 8.4 mg/dL (8.4-10.2) 10/21/17 08:06 Phosphorus 3.40 mg/dL (2.5-4.5) 10/08/17 06:39 Magnesium 2.10 mg/dL (1.7-2.3) 10/08/17 06:39 Total Bilirubin 0.70 mg/dL (0.1-1.2) 10/01/17 06:16 AST 15 units/L (5-40) 10/01/17 06:16 ALT 14 units/L (7-56) 10/01/17 06:16 Alkaline Phosphatase 86 units/L (35-129) 10/01/17 06:16 Total Creatine Kinase 348 units/L (55-170) H 09/29/17 14:58 Troponin T 0.057 ng/mL (0.00-0.029) H 10/02/17 17:56 NT-Pro-B Natriuret Pep 230.9 pg/mL (0-900) 09/29/17 18:37 Total Protein 6.0 g/dL (6.3-8.2) L 10/01/17 06:16 Albumin 3.4 g/dL (3.9-5) L 10/01/17 06:16 Albumin/Globulin Ratio 1.3 % 10/01/17 06:16 Prealbumin 0.110 g/L (0.200-0.400) L 10/09/17 Unknown Triglycerides 134 mg/dL (2-149) 09/29/17 12:54 Cholesterol 118 mg/dL (50-199) 09/29/17 12:54 LDL Cholesterol Direct 57 mg/dL (50-130) 09/29/17 12:54 HDL Cholesterol 41 mg/dL (40-59) 09/29/17 12:54 Cholesterol/HDL Ratio 2.87 % 09/29/17 12:54 Urine Color Yellow (Yellow) 10/05/17 01:00 Urine Turbidity Clear (Clear) 10/05/17 01:00 Urine pH 5.0 (5.0-7.0) 10/05/17 01:00 Ur Specific [place] 1.015 (1.003-1.030) 10/05/17 01:00 Urine Protein <15 mg/dl mg/dL (Negative) 10/05/17 01:00 Urine Glucose (UA) 150 mg/dL (Negative) 10/05/17 01:00 Urine Ketones Tr mg/dL (Negative) 10/05/17 01:00 Urine Blood Neg (Negative) 10/05/17 01:00 Urine Nitrite Neg (Negative) 10/05/17 01:00 Urine Bilirubin Neg (Negative) 10/05/17 01:00 Urine Urobilinogen < 2.0 mg/dL (<2.0) 10/05/17 01:00 Ur Leukocyte Esterase Neg (Negative) 10/05/17 01:00 Urine WBC (Auto) 3.0 /HPF (0.0-6.0) 10/05/17 01:00 Urine RBC (Auto) < 1.0 /HPF (0.0-6.0) 10/05/17 01:00 U Epithel Cells (Auto) < 1.0 /HPF (0-13.0) 10/05/17 01:00 Urine Bacteria (Auto) 1+ /HPF (Negative) 10/05/17 01:00 Amorphous Crystals 1+ 10/05/17 01:00 Hyaline Casts 8 /LPF 10/05/17 01:00 Urine Creatinine 99.4 mg/dL (0.1-20.0) H 10/05/17 01:00 Urine Sodium 10 mmol/L 10/05/17 01:00
--- NOTE | 2017-10-21 13:18 | Progress Note ---
Assessment and Plan Imp: 1. Pneumonia 2. A/C resp. failure, hypoxia 3. SANDRA 4. Obesity 5. COPD 6. Hypernatremia Rec: 1. Remains stable pulmonary-[facility]; awaiting placement; if he goes home he needs O2 to be re-arranged if he qualifies 2. Will sign off; please call with questions, or if new issues arise Plan of care reviewed with patient, he understands/agrees Subjective Date of service: 10/21/17 Principal diagnosis: Sepsis Interval history: No events. No SOB, chest pain, cough, sputum. Active Medications Acetaminophen (Tylenol) 650 mg PO Q4H PRN PRN Reason: Pain MILD(1-3)/Fever >100.5/RUIZ Acetaminophen/Hydrocodone Bitart ([place] 10/325) 1 each PO Q6H PRN PRN Reason: Pain, Moderate (4-6) Last Admin: 10/20/17 21:02 Dose: 1 each Albuterol (Proventil) 2.5 mg IH Q4HRT PRN PRN Reason: Shortness Of Breath Last Admin: 10/08/17 01:41 Dose: 2.5 mg Dextrose (D50w (25gm) Syringe) 50 ml IV PRN PRN PRN Reason: Hypoglycemia Diltiazem HCl (Cardizem) 30 mg PO Q6HR [facility] Last Admin: 10/21/17 06:56 Dose: 30 mg Enoxaparin Sodium (Lovenox) 40 mg SUB-Q QDAY@2200 GARY Last Admin: 10/20/17 21:02 Dose: 40 mg Famotidine (Pepcid) 20 mg PO DAILY [facility] Last Admin: 10/21/17 10:41 Dose: 20 mg Haloperidol Lactate (Haldol) 2 mg IM Q6H PRN PRN Reason: Agitation Last Admin: 10/10/17 00:24 Dose: 2 mg Sodium Chloride (Nacl 0.45% 1000 Ml) 1,000 mls @ 30 mls/hr IV DIRECT [facility] Last Admin: 10/06/17 10:53 Dose: 50 mls/hr Insulin Glargine (Lantus) 20 units SUB-Q QAMDIAB [facility] Last Admin: 10/21/17 10:41 Dose: 20 units Insulin Human Lispro (Humalog) 0 unit SUB-Q Q6HR [facility]; Protocol Last Admin: 10/21/17 06:21 Dose: Not Given Loperamide HCl (Imodium) 2 mg PO QID [facility] Last Admin: 10/21/17 10:41 Dose: 2 mg Lorazepam (Ativan) 0.5 mg IV Q4H PRN PRN Reason: Anxiety Last Admin: 10/21/17 00:57 Dose: 0.5 mg Mesalamine (Delzicol) 1,600 mg PO TID [facility] Last Admin: 10/21/17 10:41 Dose: 1,600 mg Miscellaneous Medication (Uceris) 9 mg PO DAILY [facility] Ondansetron HCl (Zofran) 4 mg IV Q8H PRN PRN Reason: Nausea And Vomiting Sodium Chloride (Sodium Chloride Flush Syringe 10 Ml) 10 ml IV BID [facility] Last Admin: 10/21/17 10:42 Dose: 10 ml Sodium Chloride (Sodium Chloride Flush Syringe 10 Ml) 10 ml IV PRN PRN PRN Reason: LINE FLUSH Last Admin: 10/21/17 01:02 Dose: 10 ml Objective Vital Signs - 12hr 10/21/17 10/21/17 10/21/17 06:50 08:08 09:41 Temperature 98.8 F Pulse Rate 93 H 93 H Respiratory 22 22 Rate Blood Pressure 125/63 124/51 O2 Sat by Pulse 92 93 94 Oximetry Constitutional: no acute distress, alert Eyes: non-icteric ENT: oropharynx moist Neck: supple Effort: normal Ascultation: Bilateral: clear Cardiovascular: regular rate and rhythm (no mrg) Gastrointestinal: normoactive bowel sounds, soft, non-distended, other (obese) Integumentary: normal Extremities: no cyanosis, edema (1+ bilateral LE edema) Neurologic: normal mental status, non-focal exam, pupils equal and round, CN II- XII normal Psychiatric: mood appropriate, affect normal CBC and BMP: 10/21/17 08:06 10/21/17 08:06 ABG, PT/INR, D-dimer: ABG POC ABG pH 7.415 (7.35-7.45) 10/02/17 20:23 POC ABG pCO2 42.1 (35-45) 10/02/17 20:23 POC ABG pO2 77 (80-105) L 10/02/17 20:23 POC ABG HCO3 27.0 10/02/17 20:23 POC ABG Total CO2 28 10/02/17 20:23 POC ABG O2 Sat 95 10/02/17 20:23 PT/INR, D-dimer PT 14.1 Sec. (12.2-14.9) 10/01/17 06:31 INR 1.04 (0.87-1.13) 10/01/17 06:31 D-Dimer 2801.11 ng/mlDDU (0-234) H 09/29/17 19:19 Abnormal lab findings: Abnormal Labs 09/29/17 09/29/17 09/29/17 12:54 12:54 14:58 WBC 12.4 H RBC Hgb 11.7 L Hct 33.5 L MCHC 35 H RDW 15.4 H Lymph % (Auto) 6.0 L [place] % (Auto) 10.8 H Lymph # 0.7 L Davidson # 1.3 H Seg Neutrophils % 82.0 H Seg Neuts % (Manual) Lymphocytes % (Manual) Seg Neutrophils # 10.1 H Seg Neutrophils # Man Lymphocytes # (Manual) D-Dimer POC ABG pO2 Sodium 133 L Potassium Chloride 90.9 L Carbon Dioxide BUN 70 H Creatinine 2.0 H Glucose 336 H POC Glucose Calcium Magnesium Total Creatine Kinase 348 H Troponin T 0.071 H 0.073 H Total Protein Albumin Prealbumin Urine Creatinine 09/29/17 09/29/17 09/29/17 18:11 18:37 19:19 WBC RBC Hgb Hct MCHC RDW Lymph % (Auto) [place] % (Auto) Lymph # [place] # Seg Neutrophils % Seg Neuts % (Manual) Lymphocytes % (Manual) Seg Neutrophils # Seg Neutrophils # Man Lymphocytes # (Manual) D-Dimer 2801.11 H POC ABG pO2 Sodium Potassium Chloride Carbon Dioxide BUN Creatinine Glucose POC Glucose Calcium Magnesium Total Creatine Kinase Troponin T 0.073 H 0.074 H Total Protein Albumin Prealbumin Urine Creatinine 09/29/17 09/29/17 09/30/17 22:22 23:00 02:38 WBC RBC Hgb Hct MCHC RDW Lymph % (Auto) [place] % (Auto) Lymph # [place] # Seg Neutrophils % Seg Neuts % (Manual) Lymphocytes % (Manual) Seg Neutrophils # Seg Neutrophils # Man Lymphocytes # (Manual) D-Dimer POC ABG pO2 Sodium Potassium Chloride Carbon Dioxide BUN Creatinine Glucose POC Glucose 389 H Calcium Magnesium Total Creatine Kinase Troponin T 0.058 H D 0.064 H Total Protein Albumin Prealbumin Urine Creatinine 09/30/17 09/30/17 09/30/17 12:07 16:24 21:25 WBC RBC Hgb Hct MCHC RDW Lymph % (Auto) [place] % (Auto) Lymph # [place] # Seg Neutrophils % Seg Neuts % (Manual) Lymphocytes % (Manual) Seg Neutrophils # Seg Neutrophils # Man Lymphocytes # (Manual) D-Dimer POC ABG pO2 Sodium Potassium Chloride Carbon Dioxide BUN Creatinine Glucose POC Glucose 387 H 431 H 326 H Calcium Magnesium Total Creatine Kinase Troponin T Total Protein Albumin Prealbumin Urine Creatinine 10/01/17 10/01/17 10/01/17 06:16 06:16 06:30 WBC 14.0 H RBC Hgb Hct 34.3 L MCHC RDW Lymph % (Auto) [place] % (Auto) Lymph # [place] # Seg Neutrophils % Seg Neuts % (Manual) 87.0 H Lymphocytes % (Manual) 7.0 L Seg Neutrophils # Seg Neutrophils # Man 12.2 H Lymphocytes # (Manual) 1.0 L D-Dimer POC ABG pO2 Sodium Potassium 3.4 L Chloride 94.7 L Carbon Dioxide BUN 62 H Creatinine Glucose 432 H POC Glucose 419 H Calcium Magnesium Total Creatine Kinase Troponin T Total Protein 6.0 L Albumin 3.4 L Prealbumin Urine Creatinine 10/01/17 10/01/17 10/02/17 11:25 15:39 07:39 WBC RBC Hgb Hct MCHC RDW Lymph % (Auto) [place] % (Auto) Lymph # [place] # Seg Neutrophils % Seg Neuts % (Manual) Lymphocytes % (Manual) Seg Neutrophils # Seg Neutrophils # Man Lymphocytes # (Manual) D-Dimer POC ABG pO2 Sodium Potassium Chloride Carbon Dioxide BUN Creatinine Glucose POC Glucose 456 H 472 H 429 H Calcium Magnesium Total Creatine Kinase Troponin T Total Protein Albumin Prealbumin Urine Creatinine 10/02/17 10/02/17 10/02/17 11:03 11:03 11:03 WBC 14.9 H RBC Hgb Hct MCHC RDW 15.4 H Lymph % (Auto) [place] % (Auto) Lymph # [place] # Seg Neutrophils % Seg Neuts % (Manual) Lymphocytes % (Manual) Seg Neutrophils # Seg Neutrophils # Man Lymphocytes # (Manual) D-Dimer POC ABG pO2 Sodium 154 H D Potassium 3.5 L Chloride Carbon Dioxide BUN 66 H Creatinine Glucose 432 H POC Glucose Calcium Magnesium Total Creatine Kinase Troponin T 0.059 H Total Protein Albumin Prealbumin Urine Creatinine 10/02/17 10/02/17 10/02/17 13:00 14:48 14:57 WBC RBC Hgb Hct MCHC RDW Lymph % (Auto) [place] % (Auto) Lymph # [place] # Seg Neutrophils % Seg Neuts % (Manual) Lymphocytes % (Manual) Seg Neutrophils # Seg Neutrophils # Man Lymphocytes # (Manual) D-Dimer POC ABG pO2 64 L Sodium Potassium Chloride Carbon Dioxide BUN Creatinine Glucose POC Glucose 476 H 448 H Calcium Magnesium Total Creatine Kinase Troponin T Total Protein Albumin Prealbumin Urine Creatinine 10/02/17 10/02/17 10/02/17 17:56 18:19 20:23 WBC RBC Hgb Hct MCHC RDW Lymph % (Auto) [place] % (Auto) Lymph # [place] # Seg Neutrophils % Seg Neuts % (Manual) Lymphocytes % (Manual) Seg Neutrophils # Seg Neutrophils # Man Lymphocytes # (Manual) D-Dimer POC ABG pO2 77 L Sodium Potassium Chloride Carbon Dioxide BUN Creatinine Glucose POC Glucose > 500 H Calcium Magnesium Total Creatine Kinase Troponin T 0.057 H Total Protein Albumin Prealbumin Urine Creatinine 10/02/17 10/03/17 10/03/17 23:41 05:44 05:44 WBC 14.8 H RBC 3.41 L Hgb 10.4 L Hct 31.8 L MCHC RDW 15.4 H Lymph % (Auto) [place] % (Auto) Lymph # [place] # Seg Neutrophils % Seg Neuts % (Manual) Lymphocytes % (Manual) Seg Neutrophils # Seg Neutrophils # Man Lymphocytes # (Manual) D-Dimer POC ABG pO2 Sodium 155 H Potassium 3.4 L Chloride 110.8 H Carbon Dioxide 32 H BUN 81 H Creatinine 1.6 H Glucose 403 H POC Glucose 447 H Calcium Magnesium 2.60 H Total Creatine Kinase Troponin T Total Protein Albumin Prealbumin Urine Creatinine 10/03/17 10/03/17 10/04/17 06:32 12:33 00:14 WBC RBC Hgb Hct MCHC RDW Lymph % (Auto) [place] % (Auto) Lymph # [place] # Seg Neutrophils % Seg Neuts % (Manual) Lymphocytes % (Manual) Seg Neutrophils # Seg Neutrophils # Man Lymphocytes # (Manual) D-Dimer POC ABG pO2 Sodium Potassium Chloride Carbon Dioxide BUN Creatinine Glucose POC Glucose 394 H 449 H > 500 H Calcium Magnesium Total Creatine Kinase Troponin T Total Protein Albumin Prealbumin Urine Creatinine 10/04/17 10/04/17 10/04/17 00:32 06:09 06:19 WBC 13.5 H RBC 3.38 L Hgb 10.5 L Hct 31.4 L MCHC RDW 15.6 H Lymph % (Auto) [place] % (Auto) Lymph # [place] # Seg Neutrophils % Seg Neuts % (Manual) Lymphocytes % (Manual) Seg Neutrophils # Seg Neutrophils # Man Lymphocytes # (Manual) D-Dimer POC ABG pO2 Sodium Potassium Chloride Carbon Dioxide BUN Creatinine Glucose 623 H* POC Glucose 383 H Calcium Magnesium Total Creatine Kinase Troponin T Total Protein Albumin Prealbumin Urine Creatinine 10/04/17 10/04/17 10/04/17 06:19 11:51 16:06 WBC RBC Hgb Hct MCHC RDW Lymph % (Auto) [place] % (Auto) Lymph # [place] # Seg Neutrophils % Seg Neuts % (Manual) Lymphocytes % (Manual) Seg Neutrophils # Seg Neutrophils # Man Lymphocytes # (Manual) D-Dimer POC ABG pO2 Sodium 163 H* D Potassium Chloride 114.2 H Carbon Dioxide 34 H BUN 83 H Creatinine 1.7 H Glucose 389 H POC Glucose 340 H 341 H Calcium Magnesium Total Creatine Kinase Troponin T Total Protein Albumin Prealbumin Urine Creatinine 10/04/17 10/04/17 10/05/17 17:34 23:00 01:00 WBC RBC Hgb Hct MCHC RDW Lymph % (Auto) [place] % (Auto) Lymph # [place] # Seg Neutrophils % Seg Neuts % (Manual) Lymphocytes % (Manual) Seg Neutrophils # Seg Neutrophils # Man Lymphocytes # (Manual) D-Dimer POC ABG pO2 Sodium 155 H Potassium 3.4 L Chloride 107.4 H Carbon Dioxide 33 H BUN 82 H Creatinine 1.8 H Glucose 348 H POC Glucose 461 H Calcium Magnesium Total Creatine Kinase Troponin T Total Protein Albumin Prealbumin Urine Creatinine 99.4 H 10/05/17 10/05/17 10/05/17 05:25 05:39 06:11 WBC 14.1 H RBC 3.03 L Hgb 9.6 L Hct 28.0 L MCHC RDW 15.8 H Lymph % (Auto) [place] % (Auto) Lymph # [place] # Seg Neutrophils % Seg Neuts % (Manual) Lymphocytes % (Manual) Seg Neutrophils # Seg Neutrophils # Man Lymphocytes # (Manual) D-Dimer POC ABG pO2 Sodium 149 H Potassium Chloride Carbon Dioxide 33 H BUN 81 H Creatinine 1.7 H Glucose 365 H POC Glucose 397 H Calcium Magnesium 2.40 H Total Creatine Kinase Troponin T Total Protein Albumin Prealbumin Urine Creatinine 10/05/17 10/05/17 10/05/17 12:16 16:22 21:06 WBC RBC Hgb Hct MCHC RDW Lymph % (Auto) [place] % (Auto) Lymph # [place] # Seg Neutrophils % Seg Neuts % (Manual) Lymphocytes % (Manual) Seg Neutrophils # Seg Neutrophils # Man Lymphocytes # (Manual) D-Dimer POC ABG pO2 Sodium Potassium Chloride Carbon Dioxide BUN Creatinine Glucose POC Glucose 400 H 395 H 265 H Calcium Magnesium Total Creatine Kinase Troponin T Total Protein Albumin Prealbumin Urine Creatinine 10/06/17 10/06/17 10/06/17 06:43 06:50 11:29 WBC RBC Hgb Hct MCHC RDW Lymph % (Auto) [place] % (Auto) Lymph # [place] # Seg Neutrophils % Seg Neuts % (Manual) Lymphocytes % (Manual) Seg Neutrophils # Seg Neutrophils # Man Lymphocytes # (Manual) D-Dimer POC ABG pO2 Sodium 156 H Potassium Chloride 115.0 H Carbon Dioxide 32 H BUN 62 H Creatinine Glucose 308 H POC Glucose 330 H 396 H Calcium Magnesium Total Creatine Kinase Troponin T Total Protein Albumin Prealbumin Urine Creatinine 10/06/17 10/07/17 10/07/17 16:24 00:46 07:18 WBC RBC Hgb Hct MCHC RDW Lymph % (Auto) [place] % (Auto) Lymph # [place] # Seg Neutrophils % Seg Neuts % (Manual) Lymphocytes % (Manual) Seg Neutrophils # Seg Neutrophils # Man Lymphocytes # (Manual) D-Dimer POC ABG pO2 Sodium 149 H Potassium Chloride Carbon Dioxide 32 H BUN 43 H Creatinine Glucose 289 H POC Glucose 417 H 295 H Calcium Magnesium Total Creatine Kinase Troponin T Total Protein Albumin Prealbumin Urine Creatinine 10/07/17 10/07/17 10/07/17 08:16 12:38 13:08 WBC RBC Hgb Hct MCHC RDW Lymph % (Auto) [place] % (Auto) Lymph # [place] # Seg Neutrophils % Seg Neuts % (Manual) Lymphocytes % (Manual) Seg Neutrophils # Seg Neutrophils # Man Lymphocytes # (Manual) D-Dimer POC ABG pO2 Sodium Potassium Chloride Carbon Dioxide BUN Creatinine Glucose POC Glucose 348 H 256 H 365 H Calcium Magnesium Total Creatine Kinase Troponin T Total Protein Albumin Prealbumin Urine Creatinine 10/07/17 10/07/17 10/08/17 16:35 22:34 06:39 WBC RBC Hgb Hct MCHC RDW Lymph % (Auto) [place] % (Auto) Lymph # [place] # Seg Neutrophils % Seg Neuts % (Manual) Lymphocytes % (Manual) Seg Neutrophils # Seg Neutrophils # Man Lymphocytes # (Manual) D-Dimer POC ABG pO2 Sodium 151 H Potassium Chloride 107.4 H Carbon Dioxide 32 H BUN 31 H Creatinine Glucose 246 H POC Glucose 234 H 200 H Calcium Magnesium Total Creatine Kinase Troponin T Total Protein Albumin Prealbumin Urine Creatinine 10/08/17 10/08/17 10/08/17 08:06 12:56 17:16 WBC RBC Hgb Hct MCHC RDW Lymph % (Auto) [place] % (Auto) Lymph # [place] # Seg Neutrophils % Seg Neuts % (Manual) Lymphocytes % (Manual) Seg Neutrophils # Seg Neutrophils # Man Lymphocytes # (Manual) D-Dimer POC ABG pO2 Sodium Potassium Chloride Carbon Dioxide BUN Creatinine Glucose POC Glucose 273 H 255 H 273 H Calcium Magnesium Total Creatine Kinase Troponin T Total Protein Albumin Prealbumin Urine Creatinine 10/08/17 10/09/17 10/09/17 22:11 05:50 06:42 WBC RBC Hgb Hct MCHC RDW Lymph % (Auto) [place] % (Auto) Lymph # [place] # Seg Neutrophils % Seg Neuts % (Manual) Lymphocytes % (Manual) Seg Neutrophils # Seg Neutrophils # Man Lymphocytes # (Manual) D-Dimer POC ABG pO2 Sodium Potassium Chloride Carbon Dioxide BUN Creatinine Glucose POC Glucose 202 H 167 H 210 H Calcium Magnesium Total Creatine Kinase Troponin T Total Protein Albumin Prealbumin Urine Creatinine 10/09/17 10/09/17 10/09/17 11:39 16:52 22:07 WBC RBC Hgb Hct MCHC RDW Lymph % (Auto) [place] % (Auto) Lymph # [place] # Seg Neutrophils % Seg Neuts % (Manual) Lymphocytes % (Manual) Seg Neutrophils # Seg Neutrophils # Man Lymphocytes # (Manual) D-Dimer POC ABG pO2 Sodium Potassium Chloride Carbon Dioxide BUN Creatinine Glucose POC Glucose 304 H 304 H 314 H Calcium Magnesium Total Creatine Kinase Troponin T Total Protein Albumin Prealbumin Urine Creatinine 10/09/17 10/10/17 10/10/17 Unknown 04:28 05:58 WBC RBC Hgb Hct MCHC RDW Lymph % (Auto) [place] % (Auto) Lymph # [place] # Seg Neutrophils % Seg Neuts % (Manual) Lymphocytes % (Manual) Seg Neutrophils # Seg Neutrophils # Man Lymphocytes # (Manual) D-Dimer POC ABG pO2 Sodium 147 H Potassium Chloride Carbon Dioxide 33 H 33 H BUN 22 H Creatinine Glucose 207 H 193 H POC Glucose 194 H Calcium Magnesium Total Creatine Kinase Troponin T Total Protein Albumin Prealbumin 0.110 L Urine Creatinine 10/10/17 10/10/17 10/10/17 11:13 12:15 16:26 WBC RBC Hgb Hct MCHC RDW Lymph % (Auto) [place] % (Auto) Lymph # [place] # Seg Neutrophils % Seg Neuts % (Manual) Lymphocytes % (Manual) Seg Neutrophils # Seg Neutrophils # Man Lymphocytes # (Manual) D-Dimer POC ABG pO2 Sodium Potassium Chloride Carbon Dioxide BUN Creatinine Glucose POC Glucose 240 H 265 H 246 H Calcium Magnesium Total Creatine Kinase Troponin T Total Protein Albumin Prealbumin Urine Creatinine 10/10/17 10/11/17 10/11/17 22:09 06:05 06:43 WBC RBC Hgb Hct MCHC RDW Lymph % (Auto) [place] % (Auto) Lymph # [place] # Seg Neutrophils % Seg Neuts % (Manual) Lymphocytes % (Manual) Seg Neutrophils # Seg Neutrophils # Man Lymphocytes # (Manual) D-Dimer POC ABG pO2 Sodium Potassium Chloride Carbon Dioxide BUN Creatinine Glucose 209 H POC Glucose 261 H 180 H Calcium 8.1 L Magnesium Total Creatine Kinase Troponin T Total Protein Albumin Prealbumin Urine Creatinine 10/11/17 10/11/17 10/11/17 12:06 13:32 18:01 WBC RBC Hgb Hct MCHC RDW Lymph % (Auto) [place] % (Auto) Lymph # [place] # Seg Neutrophils % Seg Neuts % (Manual) Lymphocytes % (Manual) Seg Neutrophils # Seg Neutrophils # Man Lymphocytes # (Manual) D-Dimer POC ABG pO2 Sodium Potassium Chloride Carbon Dioxide BUN Creatinine Glucose POC Glucose 274 H 293 H 297 H Calcium Magnesium Total Creatine Kinase Troponin T Total Protein Albumin Prealbumin Urine Creatinine 10/12/17 10/12/17 10/12/17 05:34 11:13 14:45 WBC RBC Hgb Hct MCHC RDW Lymph % (Auto) [place] % (Auto) Lymph # [place] # Seg Neutrophils % Seg Neuts % (Manual) Lymphocytes % (Manual) Seg Neutrophils # Seg Neutrophils # Man Lymphocytes # (Manual) D-Dimer POC ABG pO2 Sodium Potassium Chloride 93.0 L Carbon Dioxide 33 H BUN Creatinine 0.7 L Glucose 222 H POC Glucose 154 H 196 H Calcium 8.3 L Magnesium Total Creatine Kinase Troponin T Total Protein Albumin Prealbumin Urine Creatinine 10/12/17 10/12/17 10/12/17 14:45 17:04 23:30 WBC RBC 2.90 L Hgb 9.1 L Hct 27.0 L MCHC RDW 16.4 H Lymph % (Auto) [place] % (Auto) Lymph # [place] # Seg Neutrophils % Seg Neuts % (Manual) Lymphocytes % (Manual) Seg Neutrophils # Seg Neutrophils # Man Lymphocytes # (Manual) D-Dimer POC ABG pO2 Sodium Potassium Chloride Carbon Dioxide BUN Creatinine Glucose POC Glucose 185 H 241 H Calcium Magnesium Total Creatine Kinase Troponin T Total Protein Albumin Prealbumin Urine Creatinine 10/13/17 10/13/17 10/13/17 06:04 13:25 16:17 WBC RBC Hgb Hct MCHC RDW Lymph % (Auto) [place] % (Auto) Lymph # [place] # Seg Neutrophils % Seg Neuts % (Manual) Lymphocytes % (Manual) Seg Neutrophils # Seg Neutrophils # Man Lymphocytes # (Manual) D-Dimer POC ABG pO2 Sodium Potassium Chloride Carbon Dioxide BUN Creatinine Glucose POC Glucose 192 H 213 H 198 H Calcium Magnesium Total Creatine Kinase Troponin T Total Protein Albumin Prealbumin Urine Creatinine 10/14/17 10/14/17 10/14/17 00:23 05:58 11:53 WBC RBC Hgb Hct MCHC RDW Lymph % (Auto) [place] % (Auto) Lymph # [place] # Seg Neutrophils % Seg Neuts % (Manual) Lymphocytes % (Manual) Seg Neutrophils # Seg Neutrophils # Man Lymphocytes # (Manual) D-Dimer POC ABG pO2 Sodium Potassium Chloride Carbon Dioxide BUN Creatinine Glucose POC Glucose 170 H 155 H 161 H Calcium Magnesium Total Creatine Kinase Troponin T Total Protein Albumin Prealbumin Urine Creatinine 10/14/17 10/14/17 10/15/17 15:46 21:43 05:53 WBC RBC Hgb Hct MCHC RDW Lymph % (Auto) [place] % (Auto) Lymph # [place] # Seg Neutrophils % Seg Neuts % (Manual) Lymphocytes % (Manual) Seg Neutrophils # Seg Neutrophils # Man Lymphocytes # (Manual) D-Dimer POC ABG pO2 Sodium Potassium Chloride Carbon Dioxide BUN Creatinine Glucose POC Glucose 239 H 262 H 142 H Calcium Magnesium Total Creatine Kinase Troponin T Total Protein Albumin Prealbumin Urine Creatinine 10/15/17 10/15/17 10/15/17 12:02 16:46 21:52 WBC RBC Hgb Hct MCHC RDW Lymph % (Auto) [place] % (Auto) Lymph # [place] # Seg Neutrophils % Seg Neuts % (Manual) Lymphocytes % (Manual) Seg Neutrophils # Seg Neutrophils # Man Lymphocytes # (Manual) D-Dimer POC ABG pO2 Sodium Potassium Chloride Carbon Dioxide BUN Creatinine Glucose POC Glucose 243 H 235 H 199 H Calcium Magnesium Total Creatine Kinase Troponin T Total Protein Albumin Prealbumin Urine Creatinine 10/16/17 10/16/17 10/16/17 06:31 13:47 16:45 WBC RBC Hgb Hct MCHC RDW Lymph % (Auto) [place] % (Auto) Lymph # [place] # Seg Neutrophils % Seg Neuts % (Manual) Lymphocytes % (Manual) Seg Neutrophils # Seg Neutrophils # Man Lymphocytes # (Manual) D-Dimer POC ABG pO2 Sodium Potassium Chloride Carbon Dioxide BUN Creatinine Glucose POC Glucose 153 H 219 H 174 H Calcium Magnesium Total Creatine Kinase Troponin T Total Protein Albumin Prealbumin Urine Creatinine 10/17/17 10/17/17 10/17/17 00:16 06:28 07:21 WBC RBC 3.23 L Hgb 10.2 L Hct 29.5 L MCHC 35 H RDW 17.3 H Lymph % (Auto) [place] % (Auto) Lymph # [place] # Seg Neutrophils % Seg Neuts % (Manual) Lymphocytes % (Manual) Seg Neutrophils # Seg Neutrophils # Man Lymphocytes # (Manual) D-Dimer POC ABG pO2 Sodium Potassium Chloride Carbon Dioxide BUN Creatinine Glucose POC Glucose 182 H 163 H Calcium Magnesium Total Creatine Kinase Troponin T Total Protein Albumin Prealbumin Urine Creatinine 10/17/17 10/17/17 10/17/17 07:21 11:11 16:27 WBC RBC Hgb Hct MCHC RDW Lymph % (Auto) [place] % (Auto) Lymph # [place] # Seg Neutrophils % Seg Neuts % (Manual) Lymphocytes % (Manual) Seg Neutrophils # Seg Neutrophils # Man Lymphocytes # (Manual) D-Dimer POC ABG pO2 Sodium Potassium Chloride Carbon Dioxide 31 H BUN 7 L Creatinine 0.7 L Glucose 149 H POC Glucose 211 H 122 H Calcium 8.0 L Magnesium Total Creatine Kinase Troponin T Total Protein Albumin Prealbumin Urine Creatinine 10/17/17 10/18/17 10/18/17 23:49 06:24 11:28 WBC RBC Hgb Hct MCHC RDW Lymph % (Auto) [place] % (Auto) Lymph # [place] # Seg Neutrophils % Seg Neuts % (Manual) Lymphocytes % (Manual) Seg Neutrophils # Seg Neutrophils # Man Lymphocytes # (Manual) D-Dimer POC ABG pO2 Sodium Potassium Chloride Carbon Dioxide BUN Creatinine Glucose POC Glucose 190 H 125 H 154 H Calcium Magnesium Total Creatine Kinase Troponin T Total Protein Albumin Prealbumin Urine Creatinine 10/18/17 10/18/17 10/19/17 16:04 22:51 06:44 WBC RBC Hgb Hct MCHC RDW Lymph % (Auto) [place] % (Auto) Lymph # [place] # Seg Neutrophils % Seg Neuts % (Manual) Lymphocytes % (Manual) Seg Neutrophils # Seg Neutrophils # Man Lymphocytes # (Manual) D-Dimer POC ABG pO2 Sodium Potassium Chloride Carbon Dioxide BUN Creatinine Glucose POC Glucose 192 H 138 H 142 H Calcium Magnesium Total Creatine Kinase Troponin T Total Protein Albumin Prealbumin Urine Creatinine 10/19/17 10/19/17 10/20/17 11:55 18:37 06:09 WBC RBC Hgb Hct MCHC RDW Lymph % (Auto) [place] % (Auto) Lymph # [place] # Seg Neutrophils % Seg Neuts % (Manual) Lymphocytes % (Manual) Seg Neutrophils # Seg Neutrophils # Man Lymphocytes # (Manual) D-Dimer POC ABG pO2 Sodium Potassium Chloride Carbon Dioxide BUN Creatinine Glucose POC Glucose 255 H 241 H 107 H Calcium Magnesium Total Creatine Kinase Troponin T Total Protein Albumin Prealbumin Urine Creatinine 10/20/17 10/20/17 10/20/17 07:41 07:41 11:54 WBC RBC 3.58 L Hgb 10.9 L Hct 33.3 L MCHC RDW 17.7 H Lymph % (Auto) [place] % (Auto) Lymph # [place] # Seg Neutrophils % Seg Neuts % (Manual) Lymphocytes % (Manual) Seg Neutrophils # Seg Neutrophils # Man Lymphocytes # (Manual) D-Dimer POC ABG pO2 Sodium Potassium Chloride Carbon Dioxide BUN 6 L Creatinine 0.6 L Glucose 150 H POC Glucose 284 H Calcium 8.1 L Magnesium Total Creatine Kinase Troponin T Total Protein Albumin Prealbumin Urine Creatinine 10/20/17 10/20/17 10/21/17 18:06 22:03 06:13 WBC RBC Hgb Hct MCHC RDW Lymph % (Auto) [place] % (Auto) Lymph # [place] # Seg Neutrophils % Seg Neuts % (Manual) Lymphocytes % (Manual) Seg Neutrophils # Seg Neutrophils # Man Lymphocytes # (Manual) D-Dimer POC ABG pO2 Sodium Potassium Chloride Carbon Dioxide BUN Creatinine Glucose POC Glucose 297 H 182 H 150 H Calcium Magnesium Total Creatine Kinase Troponin T Total Protein Albumin Prealbumin Urine Creatinine 10/21/17 10/21/17 10/21/17 08:06 08:06 12:16 WBC RBC 3.57 L Hgb 11.0 L Hct 32.9 L MCHC RDW 17.7 H Lymph % (Auto) [place] % (Auto) Lymph # [place] # Seg Neutrophils % Seg Neuts % (Manual) Lymphocytes % (Manual) Seg Neutrophils # Seg Neutrophils # Man Lymphocytes # (Manual) D-Dimer POC ABG pO2 Sodium 151 H D Potassium Chloride 111.6 H Carbon Dioxide BUN 6 L Creatinine 0.6 L Glucose 158 H POC Glucose 235 H Calcium Magnesium Total Creatine Kinase Troponin T Total Protein Albumin Prealbumin Urine Creatinine Chest x-ray: report reviewed, image reviewed
[2017-10-21] MEDS: LOVENOX SUB-Q SCH (21:14)
[2017-10-22] MEDS: HumaLOG SUB-Q SCH ×4 (00:39→18:57)
[2017-10-22] MEDS: CARDIZEM PO SCH ×4 (00:40→18:57)
[2017-10-22] MEDS: NORCO 10/325 PO PRN (03:36)
[2017-10-22 07:12] LABS: Hemoglobin 11.3 gm/dl (11.8-15.2); Mean Corpuscular HGB Conc 33 % (32-34); Mean Corpuscular Hemoglobin 31 pg (28-32); Mean Corpuscular Volume 93 fl (84-94); Platelet Count 339 K/mm3 (140-440); Red Blood Count 3.66 M/mm3 (3.65-5.03); Red Cell Distribution Width 17.2 % (13.2-15.2)
[2017-10-22 07:38] LABS: BUN/Creatinine Ratio 12; Blood Urea Nitrogen 7 mg/dL (9-20); Calcium 8.6 mg/dL (8.4-10.2); Hemolysis Index 46
--- NOTE | 2017-10-22 09:19 | Progress Note ---
Assessment and Plan Assessment and plan: Patient is a 72 yo man who is a resident at [facility] under 1013 for SI with h/o HTN, CVA, LA, CHF, COPD, CAMILLE on CPAP, Seizure Disorder, Depression, PTSD, Debility, nicotine Dependence, Recurrent Falls presents to ED for confusion and falling. He was admitted for suspected sepsis pneumonia, nstemi and right wrist fracture. * pCXR Impression: Bibasilar atelectasis. * CT lumbar spine wo IMPRESSION: 1. No acute compression deformity or apparent fracture in the lumbar spine. 2. Degenerative spondylosis. * XRay bilateral knee IMPRESSION: 1. No acute osseous abnormality. 2. Postsurgical changes in the right knee, and degenerative changes in the left knee. * Xray 3v right wrist IMPRESSION: 1. Probable nondisplaced fracture right distal ulna. * CT head Impression: No acute intracranial abnormality. * CT thoracic spine wo IMPRESSION: 1. No acute compression deformity or apparent fracture in the thoracic spine. Diffuse degenerative spondylosis. 2. Fractures in left ribs 9-12, probably acute or subacute. Correlate clinically. 3. Findings which may represent bibasilar atelectasis, mild infiltrates or postinflammatory change of uncertain etiology or chronicity. 4. Left adrenal nodule may represent adenomatous change, but is indeterminate. Followup may be warranted. -Suspect Sepsis from Aspiration Pneumonia, poa, treated with iv abx, ivf but developed fluid overload, so ivf stopped and lasix iv given. doing better, off bipap -s/p Fall with Multiple rib fractures/right wrist fracture: Conservative measures per Ortho -ARF (acute renal failure), vasomotor nephropathy poa, resolved. -Acute encephalopathy: treat the above issues -Acute on chronic diastolic heart failure, resolved -Afib with RVR, resolved -Depression, improved -no NSTEMI (non-ST elevated myocardial infarction), non specified elevation of troponin per Cardiology: stopped therapeutic lovenox -DVT prophylaxis: scd to ble, deep bruising and diffuse ecchymosis so hold vte due to fall risk Restraint renewed Normal LVEF 60-65% by echocardiogram. ortho, Dr. Lal==>Nondisplaced distal ulnar fracture, recommend conservative treatment with wrist brace and early ROM 10/02/17: Bilateral lung crackles today, pCXR looks like pulmonary edema but can' t exclude infiltrates (my reading), gave iv lasix 40mg iv x 1 carefully diuresis due to Aortic stenosis and ARF. ABG showed combined Acute Respiratory failure which patient has been on O2 since admission, so acute hypoxic respiratory poa. RN reported ABGs at 7.442/64/44/30.3 on O2. Bipap started by respiratory, I consulted and d/w Dr. Ng, pulmonology. Troponin level actually improved. Also, started on sq lantus 10units, carefully because he is not eating much. Lasix iv given today 10/03/17: doing better after another dose of iv lasix x 1, trying to wean off bipap, 10/04/17: bipap removed this am, new issue of hypernatremia, consulted warhead maintenance specialist and spoke with Dr. Gerard. He needs free water, will try to place NG tube because he spit water out at nurse. He remains very confused. D5W treatment is problematic as his blood glucose is very high. Hopefully he will allow ngt to be given for free water and nutrition, Restraints renewed. Day 09/16 of iv abx. Still tachycardiac, had afib with rvr on will call Cardiology 10/05/17: isolated afib, rate is improved thanks to Cardiology. Mental status improved as hypernatremia is improved. He is still confused. 10/06/17: still hallucinating, renal function is improving, blood glucose still uncontrolled, so lantus increased to 20 units daily. No 1013 in the chart. I have asked RN to enter [place] MAR into our EMR for reconciliation. 10/07/17: still confused. Last day of antibiotics, continue 1013 10/08/17: Less confused today. re-consulted psych for placement 10/15/17: resumed care, confusion has resolved, not in restraints anymore, awaiting SNF in [place]. Awaiting SNF placement. He would not answer [place] Dept of services representatives questions. He asks that I restart his Ulcerative Colitis medications due to diarrhea, he has been on for 2-3 years. He ok'd me to call his friend Edwin at [phone]. I spoke with Edwin, who is 80 yo old and is not going to be taking care of Mr. Moncada. The closest cities are [place], [place], [place], [place] is near [place], [place]. patient states he is able to care for himself, but he is laying in stool without compliant to remove it. SNF still pending Hospitalist Physical - Constitutional Vitals: Temp Pulse Resp BP Pulse Ox 98.1 F 83 24 132/64 94 10/22/17 08:16 10/22/17 08:16 10/22/17 08:16 10/22/17 08:16 10/22/17 08:16 General appearance: Present: no acute distress, well-nourished Results - Labs CBC & Chem 7: 10/22/17 06:18 10/22/17 06:18 Labs: Laboratory Last Values WBC 6.2 K/mm3 (4.5-11.0) 10/22/17 06:18 RBC 3.66 M/mm3 (3.65-5.03) 10/22/17 06:18 Hgb 11.3 gm/dl (11.8-15.2) L 10/22/17 06:18 Hct 34.0 % (35.5-45.6) L 10/22/17 06:18 MCV 93 fl (84-94) 10/22/17 06:18 MCH 31 pg (28-32) 10/22/17 06:18 MCHC 33 % (32-34) 10/22/17 06:18 RDW 17.2 % (13.2-15.2) H 10/22/17 06:18 Plt Count 339 K/mm3 (140-440) 10/22/17 06:18 Lymph % (Auto) 6.0 % (13.4-35.0) L 09/29/17 12:54 Campbell % (Auto) 10.8 % (0.0-7.3) H 09/29/17 12:54 Eos % (Auto) 0.8 % (0.0-4.3) 09/29/17 12:54 Baso % (Auto) 0.4 % (0.0-1.8) 09/29/17 12:54 Lymph # 0.7 K/mm3 (1.2-5.4) L 09/29/17 12:54 Campbell # 1.3 K/mm3 (0.0-0.8) H 09/29/17 12:54 Eos # 0.1 K/mm3 (0.0-0.4) 09/29/17 12:54 Baso # 0.1 K/mm3 (0.0-0.1) 09/29/17 12:54 Add Manual Diff Complete 10/12/17 14:45 Total Counted 100 10/12/17 14:45 Seg Neutrophils % 82.0 % (40.0-70.0) H 09/29/17 12:54 Seg Neuts % (Manual) 61.0 % (40.0-70.0) 10/12/17 14:45 Band Neutrophils % 6.0 % 10/12/17 14:45 Lymphocytes % (Manual) 24.0 % (13.4-35.0) 10/12/17 14:45 Reactive Lymphs % (Man) 0 % 10/12/17 14:45 Monocytes % (Manual) 6.0 % (0.0-7.3) 10/12/17 14:45 Eosinophils % (Manual) 1.0 % (0.0-4.3) 10/12/17 14:45 Basophils % (Manual) 0 % (0.0-1.8) 10/12/17 14:45 Metamyelocytes % 0 % 10/12/17 14:45 Myelocytes % 2.0 % 10/12/17 14:45 Promyelocytes % 0 % 10/12/17 14:45 Blast Cells % 0 % 10/12/17 14:45 Nucleated RBC % Not Reportable 10/12/17 14:45 Seg Neutrophils # 10.1 K/mm3 (1.8-7.7) H 09/29/17 12:54 Seg Neutrophils # Man 3.3 K/mm3 (1.8-7.7) 10/12/17 14:45 Band Neutrophils # 0.3 K/mm3 10/12/17 14:45 Lymphocytes # (Manual) 1.3 K/mm3 (1.2-5.4) 10/12/17 14:45 Abs React Lymphs (Man) 0.0 K/mm3 10/12/17 14:45 Monocytes # (Manual) 0.3 K/mm3 (0.0-0.8) 10/12/17 14:45 Eosinophils # (Manual) 0.1 K/mm3 (0.0-0.4) 10/12/17 14:45 Basophils # (Manual) 0.0 K/mm3 (0.0-0.1) 10/12/17 14:45 Metamyelocytes # 0.0 K/mm3 10/12/17 14:45 Myelocytes # 0.1 K/mm3 10/12/17 14:45 Promyelocytes # 0.0 K/mm3 10/12/17 14:45 Blast Cells # 0.0 K/mm3 10/12/17 14:45 WBC Morphology Not Reportable 10/12/17 14:45 Hypersegmented Neuts Not Reportable 10/12/17 14:45 Hyposegmented Neuts Not Reportable 10/12/17 14:45 Hypogranular Neuts Not Reportable 10/12/17 14:45 Smudge Cells Not Reportable 10/12/17 14:45 Toxic Granulation Not Reportable 10/12/17 14:45 Toxic Vacuolation Not Reportable 10/12/17 14:45 Dohle Bodies Not Reportable 10/12/17 14:45 Pelger-Huet Anomaly Not Reportable 10/12/17 14:45 Albertina Rods Not Reportable 10/12/17 14:45 Platelet Estimate Consistent w auto 10/12/17 14:45 Clumped Platelets Not Reportable 10/12/17 14:45 Plt Clumps, EDTA Not Reportable 10/12/17 14:45 Large Platelets Not Reportable 10/12/17 14:45 Giant Platelets Not Reportable 10/12/17 14:45 Platelet Satelliting Not Reportable 10/12/17 14:45 Plt Morphology Comment Not Reportable 10/12/17 14:45 RBC Morphology Not Reportable 10/12/17 14:45 Dimorphic RBCs Not Reportable 10/12/17 14:45 Polychromasia Not Reportable 10/12/17 14:45 Hypochromasia 1+ 10/12/17 14:45 Poikilocytosis Not Reportable 10/12/17 14:45 Anisocytosis 1+ 10/12/17 14:45 Microcytosis Not Reportable 10/12/17 14:45 Macrocytosis Not Reportable 10/12/17 14:45 Spherocytes Not Reportable 10/12/17 14:45 Pappenheimer Bodies Not Reportable 10/12/17 14:45 Sickle Cells Not Reportable 10/12/17 14:45 Target Cells Not Reportable 10/12/17 14:45 Tear Drop Cells Not Reportable 10/12/17 14:45 Ovalocytes 1+ 10/12/17 14:45 Stomatocytes 1+ 10/12/17 14:45 Helmet Cells Not Reportable 10/12/17 14:45 Garcia-Erma Bodies Not Reportable 10/12/17 14:45 [place] Rings Not Reportable 10/12/17 14:45 [place] Cells Not Reportable 10/12/17 14:45 Bite Cells Not Reportable 10/12/17 14:45 Crenated Cell Not Reportable 10/12/17 14:45 Elliptocytes Not Reportable 10/12/17 14:45 Acanthocytes (Spur) Not Reportable 10/12/17 14:45 Rouleaux Not Reportable 10/12/17 14:45 Hemoglobin C Crystals Not Reportable 10/12/17 14:45 Schistocytes Not Reportable 10/12/17 14:45 Malaria parasites Not Reportable 10/12/17 14:45 Brandon Bodies Not Reportable 10/12/17 14:45 Hem Pathologist Commnt No 10/12/17 14:45 PT 14.1 Sec. (12.2-14.9) 10/01/17 06:31 INR 1.04 (0.87-1.13) 10/01/17 06:31 APTT 35.4 Sec. (24.2-36.6) 10/01/17 06:31 D-Dimer 2801.11 ng/mlDDU (0-234) H 09/29/17 19:19 POC ABG pH 7.415 (7.35-7.45) 10/02/17 20:23 POC ABG pCO2 42.1 (35-45) 10/02/17 20:23 POC ABG pO2 77 (80-105) L 10/02/17 20:23 POC ABG HCO3 27.0 10/02/17 20:23 POC ABG Total CO2 28 10/02/17 20:23 POC ABG O2 Sat 95 10/02/17 20:23 POC ABG Base Excess 2 10/02/17 20:23 FiO2 65 % 10/02/17 20:23 Sodium 143 mmol/L (137-145) D 10/22/17 06:18 Potassium 4.4 mmol/L (3.6-5.0) 10/22/17 06:18 Chloride 101.7 mmol/L (98-107) 10/22/17 06:18 Carbon Dioxide 30 mmol/L (22-30) 10/22/17 06:18 Anion Gap 16 mmol/L 10/22/17 06:18 BUN 7 mg/dL (9-20) L 10/22/17 06:18 Creatinine 0.6 mg/dL (0.8-1.5) L 10/22/17 06:18 Estimated GFR > 60 ml/min 10/22/17 06:18 BUN/Creatinine Ratio 12 % 10/22/17 06:18 Glucose 144 mg/dL (75-100) H 10/22/17 06:18 POC Glucose 157 (70-105) H 10/22/17 06:52 Lactic Acid 1.80 mmol/L (0.7-2.0) 09/30/17 02:38 Calcium 8.6 mg/dL (8.4-10.2) 10/22/17 06:18 Phosphorus 3.40 mg/dL (2.5-4.5) 10/08/17 06:39 Magnesium 2.10 mg/dL (1.7-2.3) 10/08/17 06:39 Total Bilirubin 0.70 mg/dL (0.1-1.2) 10/01/17 06:16 AST 15 units/L (5-40) 10/01/17 06:16 ALT 14 units/L (7-56) 10/01/17 06:16 Alkaline Phosphatase 86 units/L (35-129) 10/01/17 06:16 Total Creatine Kinase 348 units/L (55-170) H 09/29/17 14:58 Troponin T 0.057 ng/mL (0.00-0.029) H 10/02/17 17:56 NT-Pro-B Natriuret Pep 230.9 pg/mL (0-900) 09/29/17 18:37 Total Protein 6.0 g/dL (6.3-8.2) L 10/01/17 06:16 Albumin 3.4 g/dL (3.9-5) L 10/01/17 06:16 Albumin/Globulin Ratio 1.3 % 10/01/17 06:16 Prealbumin 0.110 g/L (0.200-0.400) L 10/09/17 Unknown Triglycerides 134 mg/dL (2-149) 09/29/17 12:54 Cholesterol 118 mg/dL (50-199) 09/29/17 12:54 LDL Cholesterol Direct 57 mg/dL (50-130) 09/29/17 12:54 HDL Cholesterol 41 mg/dL (40-59) 09/29/17 12:54 Cholesterol/HDL Ratio 2.87 % 09/29/17 12:54 Urine Color Yellow (Yellow) 10/05/17 01:00 Urine Turbidity Clear (Clear) 10/05/17 01:00 Urine pH 5.0 (5.0-7.0) 10/05/17 01:00 Ur Specific [place] 1.015 (1.003-1.030) 10/05/17 01:00 Urine Protein <15 mg/dl mg/dL (Negative) 10/05/17 01:00 Urine Glucose (UA) 150 mg/dL (Negative) 10/05/17 01:00 Urine Ketones Tr mg/dL (Negative) 10/05/17 01:00 Urine Blood Neg (Negative) 10/05/17 01:00 Urine Nitrite Neg (Negative) 10/05/17 01:00 Urine Bilirubin Neg (Negative) 10/05/17 01:00 Urine Urobilinogen < 2.0 mg/dL (<2.0) 10/05/17 01:00 Ur Leukocyte Esterase Neg (Negative) 10/05/17 01:00 Urine WBC (Auto) 3.0 /HPF (0.0-6.0) 10/05/17 01:00 Urine RBC (Auto) < 1.0 /HPF (0.0-6.0) 10/05/17 01:00 U Epithel Cells (Auto) < 1.0 /HPF (0-13.0) 10/05/17 01:00 Urine Bacteria (Auto) 1+ /HPF (Negative) 10/05/17 01:00 Amorphous Crystals 1+ 10/05/17 01:00 Hyaline Casts 8 /LPF 10/05/17 01:00 Urine Creatinine 99.4 mg/dL (0.1-20.0) H 10/05/17 01:00 Urine Sodium 10 mmol/L 10/05/17 01:00
[2017-10-22] MEDS: IMODIUM PO SCH ×4 (10:19→22:16)
[2017-10-22] MEDS: LANTUS SUB-Q SCH (10:20)
[2017-10-22] MEDS: SODIUM CHLORIDE FLUSH SYRINGE 10 ML IV SCH ×2 (10:21→22:00)
[2017-10-22] MEDS: PEPCID PO SCH (10:21)
[2017-10-22] MEDS: DELZICOL PO SCH ×3 (10:21→21:00)
[2017-10-22] MEDS: LOVENOX SUB-Q SCH (22:16)
[2017-10-23] MEDS: HumaLOG SUB-Q SCH ×2 (00:30→13:49)
[2017-10-23] MEDS: CARDIZEM PO SCH ×2 (01:00→13:50)
[2017-10-23] MEDS: IMODIUM PO SCH ×2 (10:26→13:50)
[2017-10-23] MEDS: PEPCID PO SCH (10:26)
[2017-10-23] MEDS: LANTUS SUB-Q SCH (10:26)
[2017-10-23] MEDS: DELZICOL PO SCH ×2 (10:27→13:51)
[2017-10-23] MEDS: SODIUM CHLORIDE FLUSH SYRINGE 10 ML IV SCH (10:28)
--- NOTE | 2017-10-23 15:45 | Discharge Summary ---
Providers - Providers Date of Admission: 09/29/17 20:16 Attending physician: SOPHIA SANTIZO MD 09/29/17 Consult to Cardiac Rehabilitation [CONS] Routine Reason For Exam: Phase I 09/29/17 19:14 Consult to Physician [CONS] Stat Comment: Consulting Provider: SWATI LAL Physician Instructions: Reason For Exam: wrist pain/poss fx 09/30/17 06:17 Consult to Wound/ET Nurse [CONS] Routine Reason For Exam: wound eval 09/30/17 16:53 Consult to Mental Health [CONS] Routine Reason For Exam: ams Place consult to:: mental health Notified:: ams Phone number called:: [phone] Was contact made?: Yes If yes, spoke with:: amanda Time called:: 16:54 10/02/17 15:05 Consult to Physician [CONS] Routine Comment: Consulting Provider: DEBORA NG Physician Instructions: Reason For Exam: respiratory failure 10/04/17 08:27 Consult to Physician [CONS] Routine Comment: Consulting Provider: WEST AMBRIZ Physician Instructions: Reason For Exam: hypernatremia 10/08/17 08:09 Physical Therapy Evaluation and Treat [CONS] Routine Comment: Reason For Exam: Difficulty with ambulation 10/08/17 10:09 Consult to Mental Health [CONS] Urgent Reason For Exam: psych 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 He was admitted for suspected sepsis pneumonia, nstemi and right wrist fracture. * pCXR Impression: Bibasilar atelectasis. * CT lumbar spine wo IMPRESSION: 1. No acute compression deformity or apparent fracture in the lumbar spine. 2. Degenerative spondylosis. * XRay bilateral knee IMPRESSION: 1. No acute osseous abnormality. 2. Postsurgical changes in the right knee, and degenerative changes in the left knee. * Xray 3v right wrist IMPRESSION: 1. Probable nondisplaced fracture right distal ulna. * CT head Impression: No acute intracranial abnormality. * CT thoracic spine wo IMPRESSION: 1. No acute compression deformity or apparent fracture in the thoracic spine. Diffuse degenerative spondylosis. 2. Fractures in left ribs 9-12, probably acute or subacute. Correlate clinically. 3. Findings which may represent bibasilar atelectasis, mild infiltrates or postinflammatory change of uncertain etiology or chronicity. 4. Left adrenal nodule may represent adenomatous change, but is indeterminate. Followup may be warranted. -Suspect Sepsis from Aspiration Pneumonia, poa, treated with iv abx, ivf but developed fluid overload, so ivf stopped and lasix iv given. doing better, off bipap -s/p Fall with Multiple rib fractures/right wrist fracture: Conservative measures per Ortho -ARF (acute renal failure), vasomotor nephropathy poa, resolved. -Acute encephalopathy: treat the above issues -Acute on chronic diastolic heart failure, resolved -Afib with RVR, resolved -Depression, improved -no NSTEMI (non-ST elevated myocardial infarction), non specified elevation of troponin per Cardiology: stopped therapeutic lovenox -DVT prophylaxis: scd to ble, deep bruising and diffuse ecchymosis so hold vte due to fall risk Restraint renewed Normal LVEF 60-65% by echocardiogram. ortho, Dr. Lal==>Nondisplaced distal ulnar fracture, recommend conservative treatment with wrist brace and early ROM 10/02/17: Bilateral lung crackles today, pCXR looks like pulmonary edema but can' t exclude infiltrates (my reading), gave iv lasix 40mg iv x 1 carefully diuresis due to Aortic stenosis and ARF. ABG showed combined Acute Respiratory failure which patient has been on O2 since admission, so acute hypoxic respiratory poa. RN reported ABGs at 7.442/64/44/30.3 on O2. Bipap started by respiratory, I consulted and d/w Dr. Ng, pulmonology. Troponin level actually improved. Also, started on sq lantus 10units, carefully because he is not eating much. Lasix iv given today 10/03/17: doing better after another dose of iv lasix x 1, trying to wean off bipap, 10/04/17: bipap removed this am, new issue of hypernatremia, consulted operations lead and spoke with Dr. Ambriz. He needs free water, will try to place NG tube because he spit water out at nurse. He remains very confused. D5W treatment is problematic as his blood glucose is very high. Hopefully he will allow ngt to be given for free water and nutrition, Restraints renewed. Day 09/16 of iv abx. Still tachycardiac, had afib with rvr on will call Cardiology 10/05/17: isolated afib, rate is improved thanks to Cardiology. Mental status improved as hypernatremia is improved. He is still confused. 10/06/17: still hallucinating, renal function is improving, blood glucose still uncontrolled, so lantus increased to 20 units daily. No 1013 in the chart. I have asked RN to enter [place] MAR into our EMR for reconciliation. 10/07/17: still confused. Last day of antibiotics, continue 1013 10/08/17: Less confused today. re-consulted psych for placement 10/15/17: resumed care, confusion has resolved, not in restraints anymore, awaiting SNF in [place]. Awaiting SNF placement. He would not answer [place] Dept of services representatives questions. He asks that I restart his Ulcerative Colitis medications due to diarrhea, he has been on for 2-3 years. He ok'd me to call his friend Edwin at [phone]. I spoke with Edwin, who is 80 yo old and is not going to be taking care of Mr. Moncada. The closest cities are [place], [place], [place], [place] is near [place], [place]. patient states he is able to care for himself, but he is laying in stool without compliant to remove it. SNF still pending Disposition: DC-50 TO HOSPICE (HOME) Time spent for discharge: 33 minutes Core Measure Documentation - Palliative Care Palliative Care/ Comfort Measures: Hospice Care - Core Measures Any of the following diagnoses?: none Exam - Constitutional Vitals: Temp Pulse Resp BP Pulse Ox 98.3 F 85 18 145/89 96 10/23/17 08:03 10/23/17 08:03 10/23/17 08:03 10/23/17 13:50 10/23/17 10:00 General appearance: Present: no acute distress, well-nourished - EENT Eyes: Present: PERRL ENT: hearing intact, clear oral mucosa - Neck Neck: Present: supple, normal ROM - Respiratory Respiratory effort: normal Respiratory: bilateral: CTA - Cardiovascular Heart Sounds: Present: S1 & S2. Absent: rub, click - Extremities Extremities: pulses symmetrical, No edema Peripheral Pulses: within normal limits - Abdominal General gastrointestinal: Present: soft, non-tender, non-distended, normal bowel sounds Male genitourinary: Present: normal - Integumentary Integumentary: Present: clear, warm, dry - Musculoskeletal Musculoskeletal: gait normal, strength equal bilaterally - Psychiatric Psychiatric: appropriate mood/affect, intact judgment & insight - Neurologic Neurologic: CNII-XII intact, moves all extremities Plan Follow up with: IRMA ALEXANDRA [Other] - 3-5 Days SILAS STEEL MD [Staff Physician] - 7 Days Prescriptions: Aspirin [Aspirin EC] 325 mg PO DAILY #30 tablet. Atorvastatin Calcium [Lipitor] 40 mg PO HS #30 tablet Clopidogrel Bisulfate [Plavix] 1 tab PO DAILY #30 tablet Collagenase [Santyl] 90 gm TP DAILY #1 tube Diltiazem HCl [Diltiazem 24Hr Cd] 120 mg PO DAILY #30 cap.er.24h HYDROcodone/APAP 10-325 [[place] 10-325 mg TAB] 1 each PO Q6H PRN #7 tablet PRN Reason: Pain, Moderate (4-6) Insulin Glargine [Lantus VIAL] 20 units SUB-Q QAMDIAB #1 vial Lispro Insulin [Humalog] 0 unit SUB-Q Q6HR #1 vial Loperamide [Imodium] 2 mg PO QID #30 capsule Mesalamine [Delzicol] 1,600 mg PO TID 30 Days cap Omeprazole 20 mg PO DAILY #30 tablet. ProAir HFA Inhaler 2 inh INHALATION Q4HR PRN #1 PRN Reason: Dyspnea Tamsulosin [Flomax] 0.4 mg PO HS #30 capsule Uceris 9 mg PO DAILY #30
[2017-10-23 16:24] VITALS: BP 129/62
== END 2017-10-23 18:05 | disposition hospice, home (50) | DRG 853 ==
LOC: ED 11:57 → 4A 20:16 → 3A 10-11 12:12
PROVIDERS: ADMIT Internal Medicine; ATTEND Internal Medicine
PROC: 4A033R1 Measurement of Arterial Saturation, Peripheral, Percutaneous Approach (ICD-10-PCS; 2017-10-02)
PROC: 5A09457 Assistance with Respiratory Ventilation, 24-96 Consecutive Hours, Continuous Positive Airway Pressure (ICD-10-PCS; 2017-10-02)
PROC: 0JB70ZZ Excision of Back Subcutaneous Tissue and Fascia, Open Approach (ICD-10-PCS; principal; 2017-10-09)
DX: A41.9 Sepsis, unspecified organism (principal); L89.154 Pressure ulcer of sacral region, stage 4; N17.0 Acute kidney failure with tubular necrosis; I50.33 Acute on chronic diastolic (congestive) heart failure; J69.0 Pneumonitis due to inhalation of food and vomit; G93.41 Metabolic encephalopathy; J96.20 Acute and chronic respiratory failure, unspecified whether with hypoxia or hypercapnia; S22.42XA Multiple fractures of ribs, left side, initial encounter for closed fracture; S52.601A Unspecified fracture of lower end of right ulna, initial encounter for closed fracture; E87.0 Hyperosmolality and hypernatremia; E46 Unspecified protein-calorie malnutrition; J98.11 Atelectasis; F32.9 Major depressive disorder, single episode, unspecified; Y93.89 Activity, other specified; Y92.89 Other specified places as the place of occurrence of the external cause; Y99.8 Other external cause status; G40.909 Epilepsy, unspecified, not intractable, without status epilepticus; I11.0 Hypertensive heart disease with heart failure; I25.2 Old myocardial infarction; J44.9 Chronic obstructive pulmonary disease, unspecified; F43.10 Post-traumatic stress disorder, unspecified; F17.200 Nicotine dependence, unspecified, uncomplicated; R29.6 Repeated falls; Z96.659 Presence of unspecified artificial knee joint; Z86.73 Personal history of transient ischemic attack (TIA), and cerebral infarction without residual deficits; Z82.49 Family history of ischemic heart disease and other diseases of the circulatory system; Z88.6 Allergy status to analgesic agent; Z88.8 Allergy status to other drugs, medicaments and biological substances; E11.65 Type 2 diabetes mellitus with hyperglycemia; Z99.3 Dependence on wheelchair; W01.0XXA Fall on same level from slipping, tripping and stumbling without subsequent striking against object, initial encounter; I48.0 Paroxysmal atrial fibrillation; D64.9 Anemia, unspecified; G47.33 Obstructive sleep apnea (adult) (pediatric); E66.01 Morbid (severe) obesity due to excess calories; Z68.35 Body mass index [BMI] 35.0-35.9, adult
CPT/HCPCS: 36415; 36600; 70450; 71045; 72128; 72131; 76770; 80048; 80053; 80061; 81001; 82140; 82550; 82570; 82803; 82947; 82962; 83735; 83880; 84100; 84134; 84300; 84484; 85007; 85025; 85027; 85379; 85610; 85730; 87040; 93005; 93010; 93306; 94640; 94660; 94760; 96365; 96372; 96375; A6260; G8978-GP; G8979-GP; J0456; J0696; J1630; J1650; J1815; J1940; J1956; J2060; J2930; J3480; J7030; J7050; J7070